=== PATIENT | male | born 1950 | race Caucasian/White ===

== ENCOUNTER 2016-10-13 11:05 | Inpatient (IN) ==
[2016-10-13] MEDS ORDERED: TYLENOL PO PRN (12:40)
[2016-10-13] MEDS ORDERED: VANCOMYCIN IV PER PHARMACY MISC SCH (12:45)
--- NOTE | 2016-10-13 13:00 | EKG Report ---
Test Performed on : 10/13/2016 12:57:24 PM Test Reason : sepsis Blood Pressure : / mmHG Vent. Rate : 095 BPM Atrial Rate : 101 BPM P-R Int : 000 ms QRS Dur : 084 ms QT Int : 348 ms P-R-T Axes : 000 093 074 degrees QTc Int : 437 ms Atrial fibrillation. Rightward axis Abnormal ECG When compared with ECG of 15-AUG-2016 09:29, No significant change was found Unconfirmed Result
[2016-10-13 13:13] LABS: BE 3.5 mmoll (-3.0-3.0); BLOOD TYPE ARTERIAL; O2(CT) 14.8 mL/dL (15.0-23.0); PCO2(98.6) 32 mmHg (35-45); PO2(98.6) 104 mmHg (60-100); SAMPLE BLOOD; SAO2 99.5 % (95.0-100.0); THB 10.8 g/dL (11.5-17.4); pH(98.6) 7.52 (7.35-7.45)
[2016-10-13 13:48] LABS: ALBUMIN 3.3 g/dL (3.5-5.0); BASO% 0.1 % (0.0-0.8); CALCIUM 8.6 mg/dL (8.8-10.2); HEMATOCRIT 34.2 % (42.0-52.0); IMM GRAN# 0.06 X1000 (0.0-0.04); IMM GRAN% 0.3 % (0.0-0.5); LYMPH# 1.44 X1000 (1.2-3.4); LYMPH% 7.9 % (20.5-51.1); MANUAL DIFF NEEDED? YES; MCH 27.5 PG (27-31); MCHC 32.2 g/dL (33-37); MCV 85.5 FL (81-99); MONO# 0.84 X1000 (0.11-0.59); MONO% 4.6 % (1.7-9.3); MPV 10.5 FL (7.4-10.4); NEUT% 87.1 % (42.2-75.2); PLT 198 X1000 (130-400); POTASSIUM 3.8 mmol/L (3.5-5.1); TOTAL BILIRUBIN 1.1 mg/dL (0.20-1.00); TOTAL PROTEIN 7.5 g/dL (6.3-8.3)
[2016-10-13] MEDS ORDERED: NS 1,000 ML IV ONE (14:12)
[2016-10-13] MEDS: NS 1,000 ML IV SCH ×2 (14:13→22:45)
[2016-10-13] MEDS: ZOSYN 2.25 GM/NS 50 ML IV SCH ×2 (14:13→21:54)
--- NOTE | 2016-10-13 14:21 | Diag Imaging Result Document ---
PROCEDURE NAME: CHEST-PORTABLE - 10/13/2016 PORTABLE CHEST X-RAY: COMPARISON: 08/14/2016. FINDINGS: Lung volumes are severely low, much more so than prior. No obvious infiltrates. Heart size and pulmonary vascularity is top normal. IMPRESSION: Low lung volumes but no acute disease.
[2016-10-13 14:24] LABS: LYMPHS 5 % (21-51); MONO 2 % (1-9)
[2016-10-13 14:30] LABS: CK INDEX 0.4 (0.0-2.5); CK-MB 9.61 ng/mL (0.0-5.0)
[2016-10-13 14:46] LABS: ALLEN TEST YES; DRAW SITE R RADIAL; MODALITY CANNULA
[2016-10-13 14:59] LABS: URINE CULTURE PL NEEDED? NO; URINE SOURCE CATH
--- NOTE | 2016-10-13 14:59 | HISTORY AND PHYSICAL ---
CHIEF COMPLAINT: Altered mentation, weakness, worsening redness and swelling over his right lower extremity. HISTORY OF PRESENT ILLNESS: This is a 66-year-old male with history of CAD, type 2 diabetes, PVD with chronic venous insufficiency who has been having worsening cellulitis changes of his right lower extremity. He has Unna boots on systematically and had 1 placed yesterday. According to he has had redness and swelling over his right lower extremity that has expanded since yesterday. He also had significant fever. He was significantly lethargic. Apparently was on the bathroom toilet and just could not get up and move. He had to be brought in by ambulance. I think initially he went to see his primary care physician Dr. Gooden who was concerned over sepsis again and urinary tract infection and he was directly admitted for treatment. The patient was evaluated and he is somewhat somnolent. Apparently he has done this before associated with infection. He does have a red lower extremity swelling and pain with concern over possible cellulitis. [place] [address], which is higher than it has been in the past since May. Last time he was septic enough he needed pressors. Other workup and direct admission is still pending. He has some renal insufficiency which is at baseline. The patient is being admitted for sepsis, presumed cellulitis source. Still evaluating for urinary source or possible pulmonary source. PAST MEDICAL HISTORY: 1. Again CAD. 2. Status post PCI. 3. Type 2 diabetes. 4. Peripheral vascular disease. 5. Hypertension. 6. Lumbar stenosis. 7. COPD. 8. GERD. 9. Hyperlipidemia. 10. Obstructive sleep apnea. 11. Morbid obesity. 12. Chronic venous insufficiency. 13. Restless legs syndrome. 14. Abdominal aortic aneurysm. 15. Chronic atrial fibrillation. 16. Chronic back pain. 17. Chronic venous insufficiency. PAST SURGICAL HISTORY: 1. Lumbar spine fusion. 2. Sinus surgery. 3. PCI. 4. Appendectomy. 5. Prostatectomy. 6. Abdominal aortic aneurysm repair. PAST SOCIAL HISTORY: No tobacco or ethanol. No alcohol. He is disabled. FAMILY HISTORY: Positive for CAD and diabetes. His father from a stroke, CAD and diabetes in mother. REVIEW OF SYSTEMS: Otherwise negative. No chest pain. Denies. He has had some cough. No dysuria. No nausea, vomiting, diarrhea. No bleeding. All other systems reviewed and are negative. PHYSICAL EXAMINATION: VITAL SIGNS: Blood pressure was 163/74, heart rate of 73, respiratory 23, temperature 98.6 degrees. GENERAL: A well-developed male, in no acute distress. HEAD: Normocephalic, atraumatic. EYES: Pupils equal, round, reactive to light. Extraocular movements were intact. EAR/NOSE/THROAT: Moist mucous membranes. NECK: Supple. CARDIOVASCULAR EXAM: Regular rate and rhythm. No murmurs, gallops, or rubs. Occasional rhonchi. GI: Soft, nontender, nondistended. Bowel sounds are positive. EXTREMITIES: No clubbing or cyanosis. LYMPHATIC EXAM: He had peripheral edema noted. SKIN EXAMINATION: He had weeping, erythematous, kind of boggy edematous feet with weeping and he had denervation of the skin along his 1st and 2nd and 3rd toes on both feet. He had purple mottling changes in right and lower extremity. Dorsalis pedal pulses were 1+. He had erythema streaking above his knee extending up into his thigh in the medial aspect. NEUROLOGICAL: Exam was nonfocal but he was definitely lethargic. He was alert, oriented x3. LABORATORY DATA: White count was 18, hemoglobin and hematocrit 11 and 30. Chemistries: Creatinine 1.8, sodium 130, T bilirubin 1.1. AST 42. CPK of 2489 which has never been that high before. PROBLEM LIST: 1. Sepsis presumably secondary to a cellulitis. We will empirically do vancomycin and Zosyn and follow clinically for improvement. I will get Dr. Crawley to evaluate him for his chronic wounds although at this point, I do not think there is any surgical debridement required. 2. Chronic renal failure stage 2. He is stable. Continue to monitor. 3. Diabetes. Follow blood sugars. Continue sliding scale. Continue A1c. 4. CAD status post PCI. Appears to be stable. 5. Altered mental status. We will check ABG. Follow clinically. Head CT if does not clinically improve although at this point, he has some nonfocal exam. DISPOSITION: Pending his multiple issues.
[2016-10-13 15:16] LABS: BILIRUBIN URINE NEGATIVE (NEGATIVE); BLOOD URINE 4+ (NEGATIVE); CLARITY CLEAR (CLEAR); COLOR YELLOW; GLUCOSE URINE NEGATIVE (NEGATIVE); LEUKOCYTES URINE NEGATIVE (NEGATIVE); NITRITE URINE NEGATIVE (NEGATIVE); PROTEIN URINE 1+(30 mg/dL) mg/dL (NEGATIVE); SP GRAVITY URINE 1.005; UROBILINOGEN URINE 4+(12 mg/dL)
[2016-10-13 15:23] LABS: UR AMPHETAMINES QUAL NONE DETECTED (NONE DETECT); UR BARBITUATES QUAL NONE DETECTED (NONE DETECT); UR BENZODIAZEPIN QUAL NONE DETECTED (NONE DETECT); UR CANNABINOIDS QUAL NONE DETECTED (NONE DETECT); UR COCAINE QUAL NONE DETECTED (NONE DETECT); UR MDMA QUAL NONE DETECTED (NONE DETECT); UR METHADONE QUAL NONE DETECTED (NONE DETECT); UR METHAMPHETAMINE QUAL NONE DETECTED (NONE DETECT); UR OPIATES QUAL NONE DETECTED (NONE DETECT); UR OXYCODONE QUAL PRESUMPTIVE POSITIVE (NONE DETECT); UR PCP QUAL NONE DETECTED (NONE DETECT); UR TCA QUAL PRESUMPTIVE POSITIVE (NONE DETECT); URINE EPITHELIAL CELLS <10 /HPF (<10)
[2016-10-13] MEDS ORDERED: VANCOMYCIN 2,500 MG in NS 500 ML IV ONE (17:00)
[2016-10-13] MEDS ORDERED: ASPIRIN PR ONE (17:08)
[2016-10-13] MEDS ORDERED: NITROGLYCERIN SL PRN (17:51)
[2016-10-13] MEDS ORDERED: ROBITUSSIN-AC PO PRN (17:58)
[2016-10-13] MEDS: GLUCOPHAGE PO SCH (18:33)
[2016-10-13] MEDS: COLACE PO SCH (21:45)
[2016-10-13] MEDS: DURAGESIC 25 MICROGM/HR PATCH TD SCH ×2 (21:53→22:14)
[2016-10-13] MEDS: CARAFATE PO SCH (21:54)
[2016-10-13] MEDS: TOPROL XL PO SCH (21:54)
[2016-10-13] MEDS: MIRAPEX PO SCH (21:54)
[2016-10-13] MEDS: PEPCID PO SCH (21:54)
[2016-10-13] MEDS: ELIQUIS PO SCH (21:55)
[2016-10-13] MEDS: PERCOCET-10 PO SCH (22:14)
[2016-10-13] MEDS: XOPENEX NEB INH SCH (22:15)
[2016-10-14] MEDS: MORPHINE IV PRN ×4 (01:55→23:18)
[2016-10-14] MEDS: ZOSYN 2.25 GM/NS 50 ML IV SCH ×3 (01:56→14:28)
[2016-10-14] MEDS: XOPENEX NEB INH SCH ×4 (03:49→21:06)
[2016-10-14] MEDS: NS 1,000 ML IV SCH ×2 (06:08→14:38)
[2016-10-14] MEDS: PRILOSEC PO SCH (06:08)
[2016-10-14] MEDS: SYNTHROID PO SCH (06:37)
[2016-10-14 06:41] LABS: HEMOGLOBIN 9.7 g/dL (14.0-18.0); MCH 27.6 PG (27-31); MCHC 32.3 g/dL (33-37); MCV 85.2 FL (81-99); MPV 11.5 FL (7.4-10.4); RBC 3.52 XMIL (4.7-6.1)
[2016-10-14 06:47] LABS: POTASSIUM 3.3 mmol/L (3.5-5.1)
[2016-10-14 06:54] LABS: HEMOGLOBIN A1C 7.1 % (4.8-6.0)
[2016-10-14] MEDS: CARAFATE PO SCH ×4 (08:36→21:22)
[2016-10-14] MEDS: JANUVIA PO SCH (08:37)
[2016-10-14] MEDS: SINGULAIR PO SCH (08:39)
[2016-10-14] MEDS: GLUCOPHAGE PO SCH ×2 (08:39→16:40)
[2016-10-14] MEDS: ELIQUIS PO SCH ×2 (08:41→21:22)
[2016-10-14] MEDS: PERCOCET-10 PO SCH (08:41)
[2016-10-14] MEDS: CARDIZEM CD PO SCH (08:42)
[2016-10-14] MEDS: COLACE PO SCH ×2 (08:43→21:22)
[2016-10-14] MEDS: MIRALAX PO SCH (08:43)
[2016-10-14] MEDS: TOPROL XL PO SCH ×2 (08:44→21:22)
[2016-10-14] MEDS: SPIRIVA INH SCH (09:43)
[2016-10-14] MEDS ORDERED: LEVAQUIN 750 MG/D5W 150 ML IV SCH (11:45)
--- NOTE | 2016-10-14 12:13 | PROGRESS NOTE ---
DATE: 10/14/2016 SUBJECTIVE: The patient has no focal complaints. He seems better. Still a little bit lethargic but no significant complaints. OBJECTIVE: Vital signs: Blood pressure was 134/54, heart rate of 98, respiratory rate of 18, temp was 98.8 degrees, 95% on room air. General: He appears in no acute distress. HEENT: Pupils equal, round, reactive to light. Sclerae anicteric. Neck: Supple. Cardiovascular: Regular rate and rhythm. No murmurs, gallops, or rubs. No left ventricular heave or displaced PMI noted. Pulmonary: Clear to auscultation with no increased respiratory effort. GI: Soft, obese. Nontender to palpation. Nondistended. Bowel sounds are positive. Skin Examination: He still had erythema tracking along the dependent portion's of his right extremity, not improved from yesterday. Painful to touch. Warm to touch. Erythematous. He still had weeping exudate on both feet bilaterally, on the dorsum and plantar aspects of his foot in the 2nd, 3rd, and 4th toe distribution on both feet with some boggy edema noted. Dorsalis pedis pulses were patent, 2+ on both sides. LABORATORY DATA: White count is down to 10, hemoglobin and hematocrit are 9 and 30, platelets 166,000. Chemistry: Potassium 3.3, sodium 132, creatinine 1.4, A1c of 7.1. ASSESSMENT AND PLAN: 1. Cellulitis with early sepsis. Clinically he is not improved but his white count has improved. I am going to add Levaquin to the vancomycin and Zosyn and get ID opinion. He may need IV antibiotics I think long-term to help with his infection may consider stopping vancomycin if he is not improved. I do not think this is MRSA. Based on his previous micro it has been more gram-negative issues, Pseudomonas, multiple species. He has had staph but not aureus in the past. So expand his gram-negative coverage. 2. Coronary artery disease, congestive heart failure. Appears to be compensated. Continue to monitor. 3. Acute kidney injury. Appears to be stable. We will continue to monitor. 4. Disposition. Pending issues. I think he is safe enough to get transfer to the floor today. Continue wound care.
--- NOTE | 2016-10-14 14:55 | CONSULTATION ---
DATE OF CONSULTATION: 10/14/2016 CHIEF COMPLAINT: Cellulitis of the lower extremities, chronic venous insufficiency. HISTORY: This is a 66-year-old gentleman followed by me in the [facility] because of chronic venous insufficiency in the leg as well as the toes. We treated him with attempts at compression therapy using an Unna boot, and we have attempted to use Drawtex on his toes in order to absorb the drainage. His foot, the plantar aspect of his foot is improved significantly but he has not been very compliant with compression therapy and treatment at home with the Drawtex. He was admitted on the with altered mental status. PAST HISTORY: Detailed, and is long. SOCIAL HISTORY: Denies alcohol or tobacco usage. REVIEW OF SYSTEMS: Negative for fever. PHYSICAL EXAMINATION: Vital Signs: Afebrile, heart rate 98, respiratory rate 18, blood pressure 104/57. Lungs: Bilateral breath sounds. Heart: Regular rate and rhythm. Abdomen: Soft. Extremities: He does have a chronic venous insufficiency with stasis dermatitis bilaterally. His legs are not terribly swollen as compared to the past. He does have palpable pedal pulses. He does have erythema and maceration of toes 1 through 3 on the left, toes 2 through 4 on the right. Plantar skin is intact and not wet. ASSESSMENT: Poor medical compliance regarding his compression therapy. While he is in the hospital I think we can avoid wraps for his leg since he is in the bed with his legs elevated. I would try using some zinc oxide wraps on each individual involved toe. I will follow along.
[2016-10-14] MEDS: VANCOMYCIN 2,000 MG in NS 500 ML IV SCH (17:26)
[2016-10-14] MEDS: OXY IR PO PRN (17:50)
--- NOTE | 2016-10-14 19:43 | PROGRESS NOTE ---
DATE: 10/14/2016 PRESENT CONDITION: The patient has been admitted to the hospital. He has severe leg cellulitis of both legs but seems to be more prominent in the right leg than the left.Lungs: Clear to auscultation. Cardiovascular: Irregular heart rate. A Abdomen: Soft and nontender. Legs as mentioned above, both legs are erythematous and swollen but the right leg is much more and the erythema is all the way up to the hip. MEDICATIONS: The patient has been on vancomycin, Levaquin and Zosyn. LAB AND X-RAY: Chest x-ray shows no acute disease. The patient's CBC shows a white count of 10,030, hemoglobin 9.7, and platelet count 166,000. Creatinine is 1.4. The GFR is 51. The blood and 2nd toe have been cultured. The cultures are pending. Chest x-ray shows no acute disease. ASSESSMENT AND PLAN: The patient has bilateral leg cellulitis. I think he actually is improving by virtue of the fact that his white count is coming down and his creatinine also is coming down. Sometimes the erythema in the legs can persist and even spread when initially given antibiotics. My plan is to continue with vancomycin. I have discontinued Zosyn and Levaquin and instead have placed the patient on cefepime. I have ordered that the foot of the patient's bed should remain elevated with the manual Gatch at all times and also the patient should elevate his legs as much as possible. COMORBIDITIES: Include he is morbidly obese. He has peripheral vascular disease, diabetes mellitus, and chronic venous insufficiency of the legs.
[2016-10-14] MEDS ORDERED: ZOSYN 2.25 GM/NS 50 ML IV SCH (20:00)
[2016-10-14] MEDS: MIRAPEX PO SCH (21:21)
[2016-10-14] MEDS: MAXIPIME 2 GM/NS 100 ML IV SCH (21:22)
[2016-10-14] MEDS: PEPCID PO SCH (21:22)
[2016-10-14] MEDS: LIPITOR PO SCH (21:22)
[2016-10-15] MEDS: OXY IR PO PRN ×3 (01:08→17:04)
[2016-10-15] MEDS: XOPENEX NEB INH SCH ×4 (03:15→21:00)
[2016-10-15] MEDS: MAXIPIME 2 GM/NS 100 ML IV SCH ×3 (03:19→19:47)
[2016-10-15] MEDS: MORPHINE IV PRN ×2 (04:54→22:48)
[2016-10-15] MEDS: PRILOSEC PO SCH (06:04)
[2016-10-15] MEDS: SYNTHROID PO SCH (06:04)
[2016-10-15] MEDS: NS 1,000 ML IV SCH ×2 (06:07→16:42)
[2016-10-15 06:22] LABS: HEMOGLOBIN 9.7 g/dL (14.0-18.0); MCH 27.2 PG (27-31); MCHC 31.3 g/dL (33-37); MCV 86.8 FL (81-99); MPV 10.9 FL (7.4-10.4); RBC 3.57 XMIL (4.7-6.1)
[2016-10-15 06:40] LABS: CALCIUM 8.2 mg/dL (8.8-10.2); POTASSIUM 3.9 mmol/L (3.5-5.1)
[2016-10-15] MEDS: SPIRIVA INH SCH (07:44)
[2016-10-15] MEDS: JANUVIA PO SCH (08:18)
[2016-10-15] MEDS: COLACE PO SCH ×2 (08:18→20:55)
[2016-10-15] MEDS: GLUCOPHAGE PO SCH ×2 (08:18→16:42)
[2016-10-15] MEDS: ELIQUIS PO SCH ×2 (08:18→20:56)
[2016-10-15] MEDS: SINGULAIR PO SCH (08:19)
[2016-10-15] MEDS: CARAFATE PO SCH ×4 (08:19→20:56)
[2016-10-15] MEDS: TOPROL XL PO SCH ×2 (08:19→20:56)
[2016-10-15] MEDS: CARDIZEM CD PO SCH (08:19)
[2016-10-15] MEDS: MIRALAX PO SCH (08:19)
--- NOTE | 2016-10-15 09:24 | Extremity Venous Study ---
PROCEDURE NAME: Venous U/S Right Leg - 10/14/2016 RIGHT LEFT EXTREMITY VENOUS DOPPLER ULTRASOUND: FINDINGS: There is good flow and compressibility in the veins of the right left extremity. No thrombus. Normal augmentation. There are several prominent nodes in the right inguinal region. IMPRESSION: 1. No evidence of deep vein thrombosis. 2. Prominent right inguinal lymph nodes. A preliminary report was given to Dr. Castle at 9:30 a.m.
--- NOTE | 2016-10-15 16:33 | PROGRESS NOTE ---
DATE: 10/15/2016 SUBJECTIVE: The patient looks much more awake and alert. He seems like he is doing a lot better. However, his cellulitis still looks very red, irritated, and painful. OBJECTIVE: Vital Signs: Blood pressure 154/72, heart rate of 92, respiratory rate 20, temperature 98.5 degrees, 97% on room air. Cardiovascular: Regular rate and rhythm. Gastrointestinal: Soft, nontender, nondistended. Bowel sounds are positive. LABORATORY DATA: Normal white count. Hemoglobin and hematocrit 9 and 31. Platelets 159,000. Chemistries are okay. Potassium is 1.4. Blood gas is okay. Urine is okay. Serology is okay. PROBLEM LIST: 1. Cellulitis. Dr. Alnozo was consulted. He is currently on vancomycin and Dr. Alonzo switched him to cefepime. His cellulitis is still very red and angry. We will continue to follow clinically. Now his white count has drastically improved and he is still having a lot of discomfort. Dr. Crawley has also seen him as well. 2. Chronic renal insufficiency with acute kidney injury. Again, that seems clinically improved. 3. Coronary artery disease and congestive heart failure. Appears to be compensated. DISPOSITION: We will decide about IV versus oral antibiotic therapy at discharge. The patient states he cannot afford home IV therapy because the [id number] costs are too high, so we will continue to follow otherwise. I am going to decrease his fluids. I do not think he needs aggressive hydration because I think he is at his baseline.
[2016-10-15] MEDS: VANCOMYCIN 2,000 MG in NS 500 ML IV SCH (16:42)
[2016-10-15] MEDS: MIRAPEX PO SCH (20:55)
[2016-10-15] MEDS: PEPCID PO SCH (20:56)
[2016-10-15] MEDS: LIPITOR PO SCH (20:58)
[2016-10-16] MEDS: MAXIPIME 2 GM/NS 100 ML IV SCH ×3 (03:08→19:51)
[2016-10-16] MEDS: OXY IR PO PRN ×3 (03:11→14:54)
[2016-10-16] MEDS: ZOFRAN IV PRN (03:12)
[2016-10-16] MEDS: XOPENEX NEB INH SCH ×4 (04:55→22:36)
[2016-10-16] MEDS: PRILOSEC PO SCH (06:42)
[2016-10-16] MEDS: SYNTHROID PO SCH (06:42)
[2016-10-16 06:45] LABS: HEMATOCRIT 31.4 % (42.0-52.0); HEMOGLOBIN 10.1 g/dL (14.0-18.0); MCH 27.5 PG (27-31); MCHC 32.2 g/dL (33-37); MCV 85.6 FL (81-99); MPV 11.1 FL (7.4-10.4); RBC 3.67 XMIL (4.7-6.1)
[2016-10-16 07:23] LABS: POTASSIUM 3.2 mmol/L (3.5-5.1)
[2016-10-16] MEDS: SPIRIVA INH SCH (08:35)
[2016-10-16] MEDS: SINGULAIR PO SCH (09:05)
[2016-10-16] MEDS: TOPROL XL PO SCH ×2 (09:05→21:04)
[2016-10-16] MEDS: JANUVIA PO SCH (09:05)
[2016-10-16] MEDS: CARAFATE PO SCH ×4 (09:05→21:04)
[2016-10-16] MEDS: COLACE PO SCH ×2 (09:05→21:03)
[2016-10-16] MEDS: CARDIZEM CD PO SCH (09:06)
[2016-10-16] MEDS: GLUCOPHAGE PO SCH ×2 (09:06→18:06)
[2016-10-16] MEDS: ELIQUIS PO SCH ×2 (09:06→21:04)
[2016-10-16] MEDS: MIRALAX PO SCH (09:06)
[2016-10-16] MEDS ORDERED: SODIUM CHLORIDE 0.9% 10 ML ONE (14:34)
--- NOTE | 2016-10-16 14:58 | PROGRESS NOTE ---
DATE: 10/16/2016 SUBJECTIVE: The patient has no focal complaints. OBJECTIVE: Blood pressure 125/74, heart rate 94, respiratory 16, temperature 95 degrees, 95% on room air.Cardiovascular: Regular rate and rhythm. Pulmonary: Bilateral breath sounds. Clear to auscultation. GI: Soft, nontender, nondistended. Extremities: He has chronic venous changes both legs. His right lower extremity still has significant erythema along his right medial and posterior thigh. I do not think it has extended since yesterday however it is still warm to the touch and still somewhat painful. He feels it has improved. He also has superficial denudation over the anterior dorsum of his feet near his 2nd, 3rd and 4th digits on both feet with some bloody exudate which is new. MEDICAL ISSUES: 1. Cellulitis with sepsis. Wound culture is growing something, it is a gram negative antoinette so I am just going to continue his cefepime alone at this point and follow him clinically. Again I would consider doing IV antibiotics at home but there may be some barriers to care associated with cost. Dr. Alonzo has seen the patient and did not make that recommendations so once we have sensitivities we will decide on long-term antibiotics. 2. Diabetes appears well controlled. 3. Atrial fibrillation appears well controlled. Continue Eliquis. DISPOSITION: Likely home in the next 1-2 days pending clinical improvement.
[2016-10-16] MEDS: NS 1,000 ML IV SCH (16:40)
[2016-10-16] MEDS ORDERED: DURAGESIC 50 MICROGM/HR PATCH TD SCH (18:00)
[2016-10-16] MEDS: PEPCID PO SCH (21:03)
[2016-10-16] MEDS: MIRAPEX PO SCH (21:04)
[2016-10-16] MEDS: LIPITOR PO SCH (21:04)
[2016-10-17] MEDS: MAXIPIME 2 GM/NS 100 ML IV SCH ×3 (03:15→20:25)
[2016-10-17] MEDS: ZOFRAN IV PRN ×2 (03:33→16:56)
[2016-10-17] MEDS: OXY IR PO PRN ×3 (03:33→16:55)
[2016-10-17] MEDS: XOPENEX NEB INH SCH ×4 (03:36→22:18)
[2016-10-17] MEDS: PRILOSEC PO SCH (06:23)
[2016-10-17] MEDS: SYNTHROID PO SCH (06:23)
[2016-10-17 06:51] LABS: MCHC 31.3 g/dL (33-37); MCV 86.5 FL (81-99); MPV 10.9 FL (7.4-10.4); RBC 3.7 XMIL (4.7-6.1)
[2016-10-17 06:54] LABS: CALCIUM 8.5 mg/dL (8.8-10.2); MAGNESIUM 1.8 mg/dL (1.5-2.7); POTASSIUM 3.3 mmol/L (3.5-5.1)
[2016-10-17] MEDS: SPIRIVA INH SCH (08:35)
[2016-10-17] MEDS: COLACE PO SCH ×2 (08:52→20:26)
[2016-10-17] MEDS: TOPROL XL PO SCH ×2 (08:52→20:26)
[2016-10-17] MEDS: CARAFATE PO SCH ×4 (08:52→20:26)
[2016-10-17] MEDS: GLUCOPHAGE PO SCH ×2 (08:52→16:55)
[2016-10-17] MEDS: ELIQUIS PO SCH ×2 (08:52→20:26)
[2016-10-17] MEDS: SINGULAIR PO SCH (08:52)
[2016-10-17] MEDS: JANUVIA PO SCH (08:53)
[2016-10-17] MEDS: CARDIZEM CD PO SCH (08:53)
[2016-10-17] MEDS: MIRALAX PO SCH (08:54)
[2016-10-17] MEDS ORDERED: KLOR-CON PO ONE (14:27)
[2016-10-17] MEDS: NS 1,000 ML IV SCH (17:02)
--- NOTE | 2016-10-17 18:28 | Diag Imaging Result Document ---
PROCEDURE NAME: HEAD W/O CONTRAST - 10/17/2016 STUDY: Head CT. A CT dose reduction protocol was used. COMPARISON: 08/14/2016. FINDINGS: The ventricles and sulci are normal in size and contour. There is no mass, hemorrhage, or evidence of acute ischemia. The bony calvaria is intact. The visualized paranasal sinuses and mastoid air cells are clear. IMPRESSION: Negative head CT. MTDD
--- NOTE | 2016-10-17 18:30 | PROGRESS NOTE ---
DATE: 10/17/2016 SUBJECTIVE: The patient is alert, oriented. He appears a bit dramatic. He says he is having trouble grasping things or if he does not pay attention to something he is holding he drops it. He says in bed he has dropped ice several times not quite sure why is holding ice in bed and but is dropping it in his bed apparently. Patient otherwise has no major complaints. OBJECTIVE: Vital signs: Blood pressure 149/91, heart rate of 81, respiratory 16, temperature 97.9 degrees, 96% on room air. Cardiovascular: Irregularly irregular. Pulmonary: Bilateral breath sounds. Clear to auscultation. GI: Was soft, nontender, nondistended. Bowel sounds are positive. Extremities: Both are wrapped today in the [place] kind of preliminary unna boot wrap. His erythema is decreased in his right lower extremity around his knee and thigh. He claims it is still very tender and painful but he is not complaining about it when palpated and again it is much less erythematous today than previously. PROBLEMS: 1. Cellulitis, sepsis associated with a Pseudomonas infection. He is on cefepime. The Pseudomonas his fortunately pansensitive so we could discharge him on Levaquin. I think home IV antibiotics would be preferential but the cost precludes him being able to afford it because it costs 300 dollars a day for dosing and not quite sure how that is. I will discuss tomorrow Dr. Alonzo about what he wants to do, he did not seem excited about pushing for home IV therapy. We will then do snf Levaquin 2-3 weeks and follow. 2. Diabetes appears to be well controlled. 3. Hypertension appears well controlled. 4. Atrial fibrillation . He is controlled on his current medication. DISPOSITION: I think he could go home tomorrow pending rest of his workup. We will continue to follow very closely.
[2016-10-17] MEDS: MIRAPEX PO SCH (20:25)
[2016-10-17] MEDS: LIPITOR PO SCH (20:26)
[2016-10-17] MEDS: PEPCID PO SCH (20:26)
[2016-10-17] MEDS: MORPHINE IV PRN (22:38)
[2016-10-18] MEDS: XOPENEX NEB INH SCH ×4 (03:01→21:12)
[2016-10-18] MEDS: MAXIPIME 2 GM/NS 100 ML IV SCH ×3 (03:05→21:22)
[2016-10-18] MEDS: PRILOSEC PO SCH (06:19)
[2016-10-18] MEDS: SYNTHROID PO SCH (06:19)
[2016-10-18 07:05] LABS: CALCIUM 8.6 mg/dL (8.8-10.2); POTASSIUM 3.3 mmol/L (3.5-5.1)
[2016-10-18] MEDS: SPIRIVA INH SCH (09:13)
[2016-10-18] MEDS: COLACE PO SCH ×2 (10:22→21:02)
[2016-10-18] MEDS: GLUCOPHAGE PO SCH ×2 (10:23→19:03)
[2016-10-18] MEDS: ELIQUIS PO SCH ×2 (10:23→21:02)
[2016-10-18] MEDS: TOPROL XL PO SCH ×2 (10:23→21:01)
[2016-10-18] MEDS: SINGULAIR PO SCH (10:23)
[2016-10-18] MEDS: JANUVIA PO SCH (10:23)
[2016-10-18] MEDS: CARDIZEM CD PO SCH (10:24)
[2016-10-18] MEDS: MIRALAX PO SCH (10:24)
[2016-10-18] MEDS: CARAFATE PO SCH ×4 (10:24→21:09)
[2016-10-18] MEDS ORDERED: KLOR-CON PO ONE (14:26)
[2016-10-18] MEDS: PEPCID PO SCH (21:00)
[2016-10-18] MEDS: LIPITOR PO SCH (21:00)
[2016-10-18] MEDS: MIRAPEX PO SCH (21:01)
[2016-10-18] MEDS: NS 1,000 ML IV SCH (21:22)
[2016-10-18] MEDS: OXY IR PO PRN (23:26)
[2016-10-19] MEDS: XOPENEX NEB INH SCH ×2 (04:33→09:42)
[2016-10-19] MEDS: MAXIPIME 2 GM/NS 100 ML IV SCH ×2 (04:42→12:20)
[2016-10-19] MEDS: SYNTHROID PO SCH (06:41)
[2016-10-19] MEDS: PRILOSEC PO SCH (06:41)
[2016-10-19] MEDS: CARAFATE PO SCH ×2 (06:41→11:43)
[2016-10-19] MEDS: OXY IR PO PRN (08:26)
[2016-10-19] MEDS: CARDIZEM CD PO SCH (08:27)
[2016-10-19] MEDS: COLACE PO SCH (08:27)
[2016-10-19] MEDS: ELIQUIS PO SCH (08:27)
[2016-10-19] MEDS: SINGULAIR PO SCH (08:27)
[2016-10-19] MEDS: JANUVIA PO SCH (08:28)
[2016-10-19] MEDS: GLUCOPHAGE PO SCH ×2 (08:28→08:31)
[2016-10-19] MEDS: MIRALAX PO SCH (08:28)
[2016-10-19] MEDS: TOPROL XL PO SCH (08:28)
[2016-10-19] MEDS: SPIRIVA INH SCH (09:42)
[2016-10-19 11:35] VITALS: BP 130/81
--- NOTE | 2016-10-20 09:05 | DISCHARGE SUMMARY ---
ADMISSION DATE: 10/13/2016 DISCHARGE DATE: 10/19/2016 PRIMARY CARE PHYSICIAN: Dr. Gooden ADMISSION DIAGNOSES: 1. Sepsis presumably secondary to a cellulitis. 2. Chronic renal failure stage 2. 3. Diabetes. 4. Coronary artery disease status-post percutaneous coronary intervention. 5. Altered mental status. DISCHARGE DIAGNOSES: 1. Cellulitis, sepsis associated with a pseudomonas aeruginosa infection. 2. Diabetes type 2. 3. Hypertension. 4. Chronic renal failure stage 2. 5. Altered mental status, resolved. SUMMARY OF FINDINGS: This is a 66-year-old male who presented to [facility] with worsening cellulitis changes of his right lower extremity. He had an unna boot on systematically that was placed on the day prior to arrival. They had noted redness and swelling to his right lower extremity. He had significant lethargy and fever and had apparently gone to the bathroom toilet and just could not get up and move and had to be brought in by ambulance. His workup showed a white blood cell count of 18,000. He was placed on IV antibiotics. We obtained a wound culture and consulted Surgery and Infectious Disease. His urine and blood cultures showed no growth. Wound culture of his right second toe showed a pseudomonas aeruginosa that is sensitive to Levaquin. I discussed these findings with Dr. Alonzo of Infectious Disease who felt that he could safely be placed on p.o. Levaquin 500 mg for 2 weeks. He has been afebrile for greater than 24 hours and it is felt that he can safely be discharged home today. He will resume his Home Health that he had prior to this admission. He will follow up with the [facility] also and then he will follow up with his primary care physician in 1-2 weeks. His mentation is back at baseline where he is alert and oriented and answers all questions appropriately so it is felt that he can safely be discharged home. It is noted on 10/17/2016 that we did a head CT that was reported as negative. DISCHARGE MEDICATIONS: He will have a prescription for Levaquin 500 mg 1 p.o. daily for 14 days. He will continue his other home medication of Lipitor 40 mg p.o. daily, Eliquis 5 mg p.o. b.i.d., Cardizem 240 mg p.o. daily, Colace 100 mg p.o. b.i.d., famotidine 40 mg p.o. at bedtime, Xopenex nebulizers every 6 hours, Synthroid 50 mcg p.o. daily, metformin 500 mg p.o. b.i.d., metoprolol 100 mg p.o. b.i.d., montelukast sodium 10 mg p.o. daily, omeprazole 40 mg p.o. daily, oxycodone 15 mg p.o. every 6 hours p.r.n., MiraLAX 17 grams p.o. daily, Mirapex 1.5 mg p.o. at bedtime, Januvia 25 mg p.o. daily, Carafate 1 gram p.o. before meals and at bedtime, Spiriva 18 mcg inhalation daily, ProAir inhalation 4 times daily p.r.n., vitamin B12 injection daily, Flexeril 10 mg p.o. t.i.d, and Percocet 10 mg 1 p.o. b.i.d.. DISCHARGE TIME: 35 minutes. Dictated by UNIQUE Viveros for Ayo Castle MD
== END 2016-10-19 12:17 | disposition home health service (06) ==
LOC: P.DIRADM 11:05 → P.ICU 11:56 → P.MEDSURG 10-14 15:55
PROVIDERS: ATTEND Internal Medicine

== ENCOUNTER 2016-12-06 15:06 | Inpatient (IN) ==
[2016-12-06] MEDS ORDERED: TYLENOL PO ONE (15:22)
[2016-12-06] MEDS ORDERED: TYLENOL ONE (15:27)
[2016-12-06] MEDS ORDERED: NS 1,000 ML IV ONE (16:40)
--- NOTE | 2016-12-06 16:49 | EKG Report ---
Test Performed on : 12/06/2016 4:47:23 PM Test Reason : AMS Blood Pressure : / mmHG Vent. Rate : 100 BPM Atrial Rate : 394 BPM P-R Int : 000 ms QRS Dur : 080 ms QT Int : 316 ms P-R-T Axes : 000 046 052 degrees QTc Int : 407 ms Atrial fibrillation. Abnormal ECG When compared with ECG of 13-OCT-2016 12:57, No significant change was found Unconfirmed Result
--- NOTE | 2016-12-06 17:01 | Diag Imaging Result Document ---
PROCEDURE NAME: CHEST-2 VIEWS - 12/06/2016 FRONTAL AND LATERAL CHEST, TWO VIEWS: COMPARISON: 10/13/2016. FINDINGS: The heart is not enlarged. The vessels are not distended. There is a small left effusion versus pleural thickening and there is atelectasis or fibrosis in the left base. The right lung is clear except for granulomata inferiorly. IMPRESSION: Small left effusion versus pleural thickening with left basilar atelectasis or fibrosis.
[2016-12-06] MEDS ORDERED: VANCOMYCIN 1 GM/NS 1 GM/250 ML IVPB IV ONE (17:05)
[2016-12-06] MEDS ORDERED: ZOSYN 3.375 GM/NS 3.375 GM/50 ML IVPB IV ONE (17:05)
--- NOTE | 2016-12-06 17:07 | PROVIDER DOCUMENTATION ---
HPI-Fever - General Chief Complaint: Fever Stated Complaint: B/P PROBLEMS/FEVER Time Seen by Provider: 12/06/16 16:38 Source: patient, family Allergies/Adverse Reactions: Patient Allergies Allergy/AdvReac Type Severity Reaction Status Date / Time No Known Allergies Allergy Verified 12/06/16 17:01 Home Medications: Home Medication List Medication Instructions Recorded Confirmed Last Taken Type ATORVAstatin [Lipitor] 40 mg PO DAILY 05/06/16 12/06/16 08/14/16 08:00 History Famotidine 40 mg PO QHS 05/06/16 12/06/16 08/13/16 21:00 History Omeprazole [Prilosec] 40 mg PO DAILY 05/06/16 12/06/16 08/14/16 08:00 History Pramipexole Di-HCl [Pramipexole ER] 1.5 mg PO QHS 05/06/16 12/06/16 08/13/16 20: 00 History Sucralfate [Carafate] 1 gm PO AC + HS 05/06/16 12/06/16 08/14/16 08:00 History Diltiazem HCl [Diltiazem 12Hr ER] 240 mg PO DAILY 08/14/16 12/06/16 08/14/16 08: 00 History Apixaban [Eliquis] 5 mg PO BID #60 tablet 08/19/16 12/06/16 Unknown Rx Docusate Sodium [Colace] 100 mg PO BID #60 capsule 08/19/16 12/06/16 Unknown Rx Levalbuterol Neb [Xopenex Neb] 1.25 mg INH RTQ6H #5 neb 08/19/16 12/06/16 Unknown Rx Polyethylene Glycol 3350 [Miralax] 17 gm PO DAILY #5 powder, packet 08/19/16 Unknown Rx Sitagliptin Phosphate [Januvia] 25 mg PO DAILY #30 tablet 08/19/16 12/06/16 Unknown Rx Tiotropium Mancos Inhaler 18 mcg IH DAILY #1 inhaler 08/19/16 12/06/16 Unknown Rx [Spiriva] Albuterol Sulfate [Proair 90 mcg IH [id number] PRN 10/13/16 12/06/16 Unknown History Respiclick] Levothyroxine [Synthroid] 50 microgm PO DAILY 10/13/16 12/06/16 Unknown History Metformin HCl 500 mg PO BID 10/13/16 12/06/16 Unknown History Oxycodone HCl 15 mg PO Q6H PRN 10/13/16 12/06/16 10/12/16 History Amitriptyline [Elavil] 10 mg PO HS 12/06/16 12/06/16 Unknown History - History of Present Illness-Fever Nature of Presenting Problem: 66 year old obese WM presents with c/o fever, max temp 103.5 at home, chills, and weakness for 24 hours. pt reports a new area of erythema to left upper thigh , hot to the touch. Fever Severity/Quality: reports: greater than 102 F Onset/Duration: reports: 24 hours ago Timing: reports: still present, constant, getting worse Severity: reports: mild Context: reports: other (see HPI) Recent Illness?: reports: none Fever Therapy [employer]: Initiated none Cognitive Baseline: alert, oriented x3 Modifying Factors: improves with: nothing Associated Symptoms: reports: fever/chills, weakness Similar Symptoms Previously?: Yes Recently seen or treated by another doctor?: No - Glascow Coma Score Best Eye Response (Sena): (4) open spontaneously Best Verbal Response ([place]): (5) oriented Best Motor Response (Sena): (6) obeys commands [place] Total: 15 Review of Systems - Adult - REVIEW OF SYSTEMS - ADULT Constitutional: reports: see HPI, chills, fever, fatique Eyes: reports: no symptoms reported. denies: discharge, blurred vision, double vision Ears, Nose, Mouth & Throat: reports: no symptoms reported. denies: ear discharge, ear pain, nose pain, loose teeth, throat pain, throat swelling Cardiovascular: reports: no symptoms reported. denies: chest pain, palpitations , syncope Respiratory: reports: no symptoms reported. denies: chronic cough, cough, shortness of breath, wheezing Gastrointestinal: reports: see HPI, poor appetite. denies: abdominal pain, diarrhea, nausea, vomiting Genitourinary: reports: no symptoms reported. denies: dysuria, hematuria, urgency Musculoskeletal: reports: no symptoms reported. denies: bone pain, joint pain, joint swelling, muscle weakness Integumentary: reports: see HPI, rash, skin sores/ulcer (left upper thigh) Neurological: reports: no symptoms reported. denies: dizziness/vertigo, headache/migraines Psychiatric: reports: no symptoms reported Endocrine: reports: no symptoms reported. denies: increased hunger, increased thirst, polyuria Hematologic/Lymphatic: reports: no symptoms reported Allergic/Immunologic: reports: see HPI, frequent infections All Other Systems: Reviewed and Negative Past History - Adult - PAST MEDICAL HISTORY-ADULT Review of Records: reports: Old Records Reviewed, Nursing Assessment Review, Medications Reviewed, Social history reviewed & non-contributory. Major Childhood Illnesses: reports: denies history Cardiovascular: reports: A-Fib, CAD, CHF, HTN, hyperlipidemia, [place], PVD Respiratory: reports: asthma, COPD, other (asbestos) Gastrointestinal: reports: denies history Obstetrical/Gynecological: reports: denies history Genitourinary: reports: cancer (Hx: prostate), kidney disease Musculoskeletal: reports: chronic pain, other (restless leg syndrome) Neurological: reports: CVA Psychiatric: reports: depression Endocrine/Immune: reports: Diabetes, thyroid disorder Diabetes Type: Type 2 Diabetes controlled by:: PO Meds Other Conditions: reports: denies history - PRIOR SURGERIES/PROCEDURES Surgical/Procedure History: reports: colonoscopy, other (AAA, abdominal aortic stents) - IMMUNIZATION STATUS Childhood Immunizations: See Nurse Assessment Flu Vaccine: See Nurse Assessment - FAMILY HISTORY Family History: CAD over 55 yo, other (type 2 diabetes) - SOCIAL HISTORY Smoking: quit greater than 1 year, cigarettes Substance Use: none/never Alcohol Use Frequency: never Physical Exam-General - PHYSICAL EXAM-ADULT Initial Vital Signs Reviewed: Yes - CONSTITUTIONAL General Appearance: appears well, alert, mild distress, obese. negative: no apparent distress, moderate distress - EYES Eyes: pink conjunctivae - HEAD, EARS, NOSE, MOUTH & THROAT HENMT: normocephalic/atraumatic, moist mucous membranes - NECK Neck: non-tender, full range of motion, supple, normal inspection. negative: C- spine tenderness, limited range of motion, tender lateral, tender midline - RESPIRATORY Respiratory: chest non-tender, lungs clear, normal breath sounds, no pleuratic chest pain, no respiratory distress, no accessory muscle use. negative: respiratory distress, decreased breath sounds, accessory muscle use, crackles, rales, rhonchi, stridor, wheezing - CARDIOVASCULAR Cardiovascular: normal peripheral pulses, no JVD, tachycardia, irregularly irregular. negative: regular rate, rhythm, no edema - GASTROINTESTINAL (ABDOMEN) Abdominal Exam: normal bowel sounds, non tender, soft, no organomegaly. negative: distended, guarding, rigid, tenderness, hernia, mass, hepatomegaly, spleenomegaly - MUSCULOSKELETAL Back Exam: normal inspection, no CVA tenderness, no vertebral tenderness. negative: CVA tenderness, decreased range of motion, swelling, vertebral tenderness Extremity: erythema (left upper thigh, medially/laterally), swelling, tenderness Progress - PLAN OF CARE/RESULTS Progress/Plan/Lab Results: Vital Signs - 8 hr 12/06/16 15:17 12/06/16 17:47 Temperature 101.5 F H Pulse Rate 118 H 85 Respiratory Rate 19 21 Blood Pressure 150/79 121/66 O2 Sat by Pulse Oximetry 96 94 L Laboratory Results - last 24 hr 12/06/16 12/06/16 12/06/16 15:20 16:20 16:55 WBC RBC Hgb Hct MCV MCH MCHC RDW Std Deviation Plt Count MPV Immature Gran % (Auto) Neut % (Auto) Lymph % (Auto) [place] % (Auto) Eos % (Auto) Baso % (Auto) Immature Gran # (Auto) Neut # (Auto) Lymph # (Auto) [place] # (Auto) Eos # (Auto) Baso # (Auto) PT INR APTT (Factor Assay) Sodium 129 L Potassium 3.5 Chloride 94 L Carbon Dioxide 20 L Anion Gap 14 BUN 16 Creatinine 1.6 H Estimated GFR/1.73 m2 43 BUN/Creatinine Ratio 10 Glucose 218 H Calculated Osmolality 267 Calcium 8.0 L Total Bilirubin 0.50 AST 14 ALT 8 L Alkaline Phosphatase 90 Total Protein 7.4 Albumin 3.3 L Globulin 4.0 Albumin/Globulin Ratio 1.0 Plasma Lactate Urine Source CLEAN CATCH Urine Color YELLOW Urine Clarity CLEAR Urine pH 7.0 Ur Specific [place] 1.005 Urine Protein 1+(30 mg/dL) A Urine Ketones NEGATIVE Urine Blood TRACE Urine Nitrite NEGATIVE Urine Bilirubin NEGATIVE Urine Urobilinogen NORMAL Urine Microscopic RBC <10 Urine WBC TRACE A Urine Microscopic WBC <10 Ur Epithelial Cells <10 Urine Crystals NONE SEEN Urine Bacteria 1+ Urine Casts NONE SEEN Urine Yeast NONE SEEN Urine Glucose NEGATIVE Acetone Level Influenza A (Rapid) NEGATIVE Influenza B (Rapid) NEGATIVE 12/06/16 12/06/16 12/06/16 16:55 16:55 16:55 WBC 16.27 H RBC 4.04 L Hgb 10.9 L Hct 34.2 L MCV 84.7 MCH 27.0 MCHC 31.9 L RDW Std Deviation 15.9 H Plt Count 156 MPV 10.7 H Immature Gran % (Auto) 0.2 Neut % (Auto) 91.1 H Lymph % (Auto) 5.5 L Chaves % (Auto) 3.1 Eos % (Auto) 0.0 Baso % (Auto) 0.1 Immature Gran # (Auto) 0.04 Neut # (Auto) 14.82 H Lymph # (Auto) 0.90 L Ch[place] # (Auto) 0.50 Eos # (Auto) 0.00 Baso # (Auto) 0.01 PT 15.0 INR 1.15 APTT (Factor Assay) 34.4 Sodium Potassium Chloride Carbon Dioxide Anion Gap BUN Creatinine Estimated GFR/1.73 m2 BUN/Creatinine Ratio Glucose Calculated Osmolality Calcium Total Bilirubin AST ALT Alkaline Phosphatase Total Protein Albumin Globulin Albumin/Globulin Ratio Plasma Lactate 2.6 H Urine Source Urine Color Urine Clarity Urine pH Ur Specific [place] Urine Protein Urine Ketones Urine Blood Urine Nitrite Urine Bilirubin Urine Urobilinogen Urine Microscopic RBC Urine WBC Urine Microscopic WBC Ur Epithelial Cells Urine Crystals Urine Bacteria Urine Casts Urine Yeast Urine Glucose Acetone Level Influenza A (Rapid) Influenza B (Rapid) 12/06/16 16:55 WBC RBC Hgb Hct MCV MCH MCHC RDW Std Deviation Plt Count MPV Immature Gran % (Auto) Neut % (Auto) Lymph % (Auto) [place] % (Auto) Eos % (Auto) Baso % (Auto) Immature Gran # (Auto) Neut # (Auto) Lymph # (Auto) [place] # (Auto) Eos # (Auto) Baso # (Auto) PT INR APTT (Factor Assay) Sodium Potassium Chloride Carbon Dioxide Anion Gap BUN Creatinine Estimated GFR/1.73 m2 BUN/Creatinine Ratio Glucose Calculated Osmolality Calcium Total Bilirubin AST ALT Alkaline Phosphatase Total Protein Albumin Globulin Albumin/Globulin Ratio Plasma Lactate Urine Source Urine Color Urine Clarity Urine pH Ur Specific [place] Urine Protein Urine Ketones Urine Blood Urine Nitrite Urine Bilirubin Urine Urobilinogen Urine Microscopic RBC Urine WBC Urine Microscopic WBC Ur Epithelial Cells Urine Crystals Urine Bacteria Urine Casts Urine Yeast Urine Glucose Acetone Level NEGATIVE Influenza A (Rapid) Influenza B (Rapid) Orders Category Date Time Status Admit - [facility] Routine AdmDCTranf 05/15/17 18:15 Ordered Call Admitting on Arrival AT ADMISSION Care 12/06/16 18:15 Active Cardiac Monitoring DIRECTED Care 12/06/16 16:39 Active Neurological Check ORDERED Care 12/06/16 18:15 Active Saline Loc NOW Care 12/06/16 16:39 Active Vital Signs Order ORDERED Care 12/06/16 18:15 Active CHEST-2 VIEWS [RAD] Stat Exams 12/06/16 15:22 Draft ACETONE SERUM [CHEM] Stat Lab 12/06/16 16:55 Completed BLOOD CULTURE [BLDCUL] Stat Lab 12/06/16 16:57 Ordered CBC WITH ELECTRONIC DIFF [HEME] Stat Lab 12/06/16 16:55 Completed COMPREHENSIVE METABOLIC PANEL [CHEM] Stat Lab 12/06/16 16:[address] Stat Lab 12/06/16 15:20 Completed LACTATE, PLASMA [CHEM] Stat Lab 12/06/16 16:55 Completed PROTIME WITH INR PL [COAG] Stat Lab 12/06/16 16:[address] [COAG] Stat Lab 12/06/16 16:[address] W/POSS RFLX CULT [URINALYSIS] Stat Lab 12/06/16 16:20 Completed URINE CULTURE [RM] Routine Lab 12/06/16 17:25 Ordered 0.9% Sodium Chloride Inj [Ns] 1,000 ml Med 12/06/16 16:40 Discontinued IV 999 mls/hr Acetaminophen [Tylenol] Med 12/06/16 15:27 Discontinued 650 mg .ROUTE .STK-MED ONE Acetaminophen [Tylenol] Med 12/06/16 15:22 Discontinued 650 mg PO NOW ONE Piperacil/Tazobact 3.375 gm/Ns [Zosyn 3.375 gm/Ns] Med 12/06/16 17:05 Discontinued 3.375 gm in 50 ml IV NOW Piperacil/Tazobact 3.375 gm/Ns [Zosyn 3.375 gm/Ns] Med 12/06/16 23:00 Active 3.375 gm in 50 ml IV Q6H Vancomycin 1 gm/Ns Med 12/06/16 17:54 Discontinued 1 gm in 250 ml .ROUTE As Directed Vancomycin 1 gm/Ns Med 12/06/16 17:05 Discontinued 1 gm in 250 ml IV NOW Vancomycin 1 gm/Ns Med 12/07/16 06:00 Active 1 gm in 250 ml IV Q12H Pulse Oximetry Stat Oth 12/06/16 16:39 Active Telemetry [OM.EQ] Routine Oth 12/06/16 18:15 Active EKG [EKG] Stat Ther 12/06/16 16:39 Draft US [Venous U/S Left Leg] Stat Ther 12/06/16 18:13 Ordered Transfer/Admit Order [TRANSFER] Routine Transfer 12/06/16 18:16 Ordered Laboratory Tests 12/06/16 12/06/16 12/06/16 15:20 16:20 16:55 WBC RBC Hgb Hct MCV MCH MCHC RDW Std Deviation Plt Count MPV Immature Gran % (Auto) Neut % (Auto) Lymph % (Auto) Ch[place] % (Auto) Eos % (Auto) Baso % (Auto) Immature Gran # (Auto) Neut # (Auto) Lymph # (Auto) [place] # (Auto) Eos # (Auto) Baso # (Auto) PT INR APTT (Factor Assay) Sodium 129 L Potassium 3.5 Chloride 94 L Carbon Dioxide 20 L Anion Gap 14 BUN 16 Creatinine 1.6 H Estimated GFR/1.73 m2 43 BUN/Creatinine Ratio 10 Glucose 218 H Calculated Osmolality 267 Calcium 8.0 L Total Bilirubin 0.50 AST 14 ALT 8 L Alkaline Phosphatase 90 Total Protein 7.4 Albumin 3.3 L Globulin 4.0 Albumin/Globulin Ratio 1.0 Plasma Lactate Urine Source CLEAN CATCH Urine Color YELLOW Urine Clarity CLEAR Urine pH 7.0 Ur Specific [place] 1.005 Urine Protein 1+(30 mg/dL) A Urine Ketones NEGATIVE Urine Blood TRACE Urine Nitrite NEGATIVE Urine Bilirubin NEGATIVE Urine Urobilinogen NORMAL Urine Microscopic RBC <10 Urine WBC TRACE A Urine Microscopic WBC <10 Ur Epithelial Cells <10 Urine Crystals NONE SEEN Urine Bacteria 1+ Urine Casts NONE SEEN Urine Yeast NONE SEEN Urine Glucose NEGATIVE Acetone Level Influenza A (Rapid) NEGATIVE Influenza B (Rapid) NEGATIVE 12/06/16 12/06/16 12/06/16 16:55 16:55 16:55 WBC 16.27 H RBC 4.04 L Hgb 10.9 L Hct 34.2 L MCV 84.7 MCH 27.0 MCHC 31.9 L RDW Std Deviation 15.9 H Plt Count 156 MPV 10.7 H Immature Gran % (Auto) 0.2 Neut % (Auto) 91.1 H Lymph % (Auto) 5.5 L [place] % (Auto) 3.1 Eos % (Auto) 0.0 Baso % (Auto) 0.1 Immature Gran # (Auto) 0.04 Neut # (Auto) 14.82 H Lymph # (Auto) 0.90 L [place] # (Auto) 0.50 Eos # (Auto) 0.00 Baso # (Auto) 0.01 PT 15.0 INR 1.15 APTT (Factor Assay) 34.4 Sodium Potassium Chloride Carbon Dioxide Anion Gap BUN Creatinine Estimated GFR/1.73 m2 BUN/Creatinine Ratio Glucose Calculated Osmolality Calcium Total Bilirubin AST ALT Alkaline Phosphatase Total Protein Albumin Globulin Albumin/Globulin Ratio Plasma Lactate 2.6 H Urine Source Urine Color Urine Clarity Urine pH Ur Specific [place] Urine Protein Urine Ketones Urine Blood Urine Nitrite Urine Bilirubin Urine Urobilinogen Urine Microscopic RBC Urine WBC Urine Microscopic WBC Ur Epithelial Cells Urine Crystals Urine Bacteria Urine Casts Urine Yeast Urine Glucose Acetone Level Influenza A (Rapid) Influenza B (Rapid) 12/06/16 16:55 WBC RBC Hgb Hct MCV MCH MCHC RDW Std Deviation Plt Count MPV Immature Gran % (Auto) Neut % (Auto) Lymph % (Auto) [place] % (Auto) Eos % (Auto) Baso % (Auto) Immature Gran # (Auto) Neut # (Auto) Lymph # (Auto) [place] # (Auto) Eos # (Auto) Baso # (Auto) PT INR APTT (Factor Assay) Sodium Potassium Chloride Carbon Dioxide Anion Gap BUN Creatinine Estimated GFR/1.73 m2 BUN/Creatinine Ratio Glucose Calculated Osmolality Calcium Total Bilirubin AST ALT Alkaline Phosphatase Total Protein Albumin Globulin Albumin/Globulin Ratio Plasma Lactate Urine Source Urine Color Urine Clarity Urine pH Ur Specific [place] Urine Protein Urine Ketones Urine Blood Urine Nitrite Urine Bilirubin Urine Urobilinogen Urine Microscopic RBC Urine WBC Urine Microscopic WBC Ur Epithelial Cells Urine Crystals Urine Bacteria Urine Casts Urine Yeast Urine Glucose Acetone Level NEGATIVE Influenza A (Rapid) Influenza B (Rapid) Orders Category Date Time Status Admit - [facility] Routine AdmDCTranf 12/06/16 18:15 Ordered Call Admitting on Arrival AT ADMISSION Care 12/06/16 18:15 Active Cardiac Monitoring DIRECTED Care 12/06/16 16:39 Active Neurological Check ORDERED Care 12/06/16 18:15 Active Saline Loc NOW Care 12/06/16 16:39 Active Vital Signs Order ORDERED Care 05/15/17 18:15 Active CHEST-2 VIEWS [RAD] Stat Exams 12/06/16 15:22 Draft ACETONE SERUM [CHEM] Stat Lab 12/06/16 16:55 Completed BLOOD CULTURE [BLDCUL] Stat Lab 12/06/16 16:57 Ordered CBC WITH ELECTRONIC DIFF [HEME] Stat Lab 12/06/16 16:55 Completed COMPREHENSIVE METABOLIC PANEL [CHEM] Stat Lab 12/06/16 16:[address] Stat Lab 12/06/16 15:20 Completed LACTATE, PLASMA [CHEM] Stat Lab 12/06/16 16:55 Completed [address]IME WITH INR PL [COAG] Stat Lab 12/06/16 16:[address] [COAG] Stat Lab 12/06/16 16:[address] W/POSS RFLX CULT [URINALYSIS] Stat Lab 12/06/16 16:20 Completed URINE CULTURE [RM] Routine Lab 12/06/16 17:25 Ordered 0.9% Sodium Chloride Inj [Ns] 1,000 ml Med 12/06/16 16:40 Discontinued IV 999 mls/hr Acetaminophen [Tylenol] Med 12/06/16 15:27 Discontinued 650 mg .ROUTE .STK-MED ONE Acetaminophen [Tylenol] Med 12/06/16 15:22 Discontinued 650 mg PO NOW ONE Piperacil/Tazobact 3.375 gm/Ns [Zosyn 3.375 gm/Ns] Med 12/06/16 17:05 Discontinued 3.375 gm in 50 ml IV NOW Piperacil/Tazobact 3.375 gm/Ns [Zosyn 3.375 gm/Ns] Med 12/06/16 23:00 Active 3.375 gm in 50 ml IV Q6H Vancomycin 1 gm/Ns Med 12/06/16 17:54 Discontinued 1 gm in 250 ml .ROUTE As Directed Vancomycin 1 gm/Ns Med 12/06/16 17:05 Discontinued 1 gm in 250 ml IV NOW Vancomycin 1 gm/Ns Med 12/06/16 18:15 Ordered 1 gm in 250 ml IV Q12H Pulse Oximetry Stat Oth 12/06/16 16:39 Active Telemetry [OM.EQ] Routine Oth 12/06/16 18:15 Active EKG [EKG] Stat Ther 12/06/16 16:39 Draft US [Venous U/S Left Leg] Stat Ther 12/06/16 18:13 Ordered Transfer/Admit Order [TRANSFER] Routine Transfer 12/06/16 18:16 Ordered Vital Signs - 24 hr 12/06/16 15:17 12/06/16 17:47 Temperature 101.5 F H Pulse Rate 118 H 85 Respiratory Rate 19 21 Blood Pressure 150/79 121/66 O2 Sat by Pulse Oximetry 96 94 L Result Diagrams: 12/06/16 16:55 12/06/16 16:55 - CONSULTS/PCP/HOSPITALIST Notification #1 *Consult/PCP/Hospitalist*: Dr. Castle Time Discussed: 18:19 Reason/Comments: cellulitis Consult Disposition: Admit Departure - Departure Time of Disposition Decision: 18:19 DIAGNOSIS: SIRS (systemic inflammatory response syndrome) Cellulitis Qualifiers: Site of cellulitis: extremity Site of cellulitis of extremity: lower extremity Laterality: left Qualified Code(s): L03.116 - Cellulitis of left lower limb Disposition: ADMITTED INPATIENT 09 Certified Medical Emergency: Emergent Condition: Stable - Critical Care Note This patient required my direct & personal management of CC.: No
[2016-12-06 17:09] LABS: BASO% 0.1 % (0.0-0.8); HEMATOCRIT 34.2 % (42.0-52.0); HEMOGLOBIN 10.9 g/dL (14.0-18.0); IMM GRAN# 0.04 X1000 (0.0-0.04); IMM GRAN% 0.2 % (0.0-0.5); LYMPH% 5.5 % (20.5-51.1); MANUAL DIFF NEEDED? NO; MCHC 31.9 g/dL (33-37); MCV 84.7 FL (81-99); MONO% 3.1 % (1.7-9.3); MPV 10.7 FL (7.4-10.4); NEUT% 91.1 % (42.2-75.2); PLT 156 X1000 (130-400); RBC 4.04 XMIL (4.7-6.1)
[2016-12-06 17:10] LABS: BILIRUBIN URINE NEGATIVE (NEGATIVE); BLOOD URINE TRACE (NEGATIVE); CLARITY CLEAR (CLEAR); COLOR YELLOW; GLUCOSE URINE NEGATIVE (NEGATIVE); LEUKOCYTES URINE TRACE (NEGATIVE); NITRITE URINE NEGATIVE (NEGATIVE); PROTEIN URINE 1+(30 mg/dL) mg/dL (NEGATIVE); SP GRAVITY URINE 1.005; UROBILINOGEN URINE NORMAL
[2016-12-06 17:24] LABS: URINE CAST NONE SEEN /LPF; URINE CULTURE PL NEEDED? YES; URINE EPITHELIAL CELLS <10 /HPF (<10); URINE RBC <10 /HPF (<10); URINE WBC <10 /HPF (<10)
[2016-12-06 17:25] LABS: URINE CRYSTAL NONE SEEN /HPF; URINE SOURCE CLEAN CATCH
[2016-12-06 17:26] LABS: ALBUMIN 3.3 g/dL (3.5-5.0); POTASSIUM 3.5 mmol/L (3.5-5.1); TOTAL BILIRUBIN 0.5 mg/dL (0.20-1.00); TOTAL PROTEIN 7.4 g/dL (6.3-8.3)
[2016-12-06 17:37] LABS: INR 1.15 (0.86-1.15); PTT PL 34.4 Seconds (22.6-43.9)
[2016-12-06] MEDS ORDERED: VANCOMYCIN 1 GM/NS 1 GM/250 ML IVPB ONE (17:54)
--- NOTE | 2016-12-06 18:16 | ED EKG INTERP ---
This chart was entered by Reema Alcala Scribe, acting as scribe for Paulie Cope MD. EKG Interpretation - EKG Time of EKG reading by physician:: 16:47 EKG Read and Signed by:: Paulie Cope EKG Interpretation (*Must complete 3 of following elements*): Abnormal Rate: 100 Rhythm: atrial fibrillation Comments: abnormal ECG This chart was documented by the indicated scribe, (Reema Alcala Scribe) and accurately reflects the services I performed and decisions made by me, Paulie Cope MD, as attested by the provider's signature.
[2016-12-07] MEDS: ZOSYN 3.375 GM/NS 3.375 GM/50 ML IVPB IV SCH ×2 (00:31→05:46)
[2016-12-07] MEDS ORDERED: OXYCONTIN PO PRN (00:32)
[2016-12-07] MEDS: TYLENOL PO PRN ×2 (05:45→21:19)
[2016-12-07] MEDS ORDERED: VANCOMYCIN 1 GM/NS 1 GM/250 ML IVPB IV SCH (06:00)
[2016-12-07] MEDS: OXY IR PO PRN ×2 (06:01→21:20)
[2016-12-07 07:11] LABS: BASO% 0.1 % (0.0-0.8); HEMATOCRIT 33.8 % (42.0-52.0); HEMOGLOBIN 10.9 g/dL (14.0-18.0); IMM GRAN# 0.03 X1000 (0.0-0.04); IMM GRAN% 0.2 % (0.0-0.5); LYMPH# 1.16 X1000 (1.2-3.4); MANUAL DIFF NEEDED? YES; MCH 27.1 PG (27-31); MCHC 32.2 g/dL (33-37); MCV 84.1 FL (81-99); MONO# 0.43 X1000 (0.11-0.59); NEUT% 88.7 % (42.2-75.2); PLT 144 X1000 (130-400); RBC 4.02 XMIL (4.7-6.1)
[2016-12-07] MEDS: HUMULIN R (PARKWAY) SUBQ SCH ×4 (07:14→21:18)
[2016-12-07] MEDS ORDERED: VANCOMYCIN IV PER PHARMACY MISC SCH ×2 (07:45→10:30)
[2016-12-07 07:48] LABS: POTASSIUM 3.8 mmol/L (3.5-5.1)
[2016-12-07] MEDS: NS 1,000 ML IV SCH (07:50)
[2016-12-07] MEDS ORDERED: OXY IR PO PRN (08:02)
[2016-12-07] MEDS ORDERED: ALBUTEROL SULFATE 90 MCG IH PRN (08:02)
[2016-12-07 08:19] LABS: BANDS 12 % (0-1); LYMPHS 8 % (21-51); MONO 4 % (1-9)
[2016-12-07] MEDS: MIRALAX PO SCH (08:44)
[2016-12-07] MEDS: COLACE PO SCH ×2 (08:44→21:20)
[2016-12-07] MEDS: ELIQUIS PO SCH ×2 (08:44→21:21)
[2016-12-07] MEDS: SYNTHROID PO SCH (08:44)
[2016-12-07] MEDS: JANUVIA PO SCH (08:44)
[2016-12-07] MEDS: GLUCOPHAGE PO SCH ×2 (08:45→16:39)
[2016-12-07] MEDS: PRILOSEC PO SCH (08:45)
--- NOTE | 2016-12-07 09:19 | Extremity Venous Study ---
PROCEDURE NAME: Venous U/S Left Leg - 12/06/2016 VENOUS ULTRASOUND OF THE LEFT LEG: FINDINGS: Note is made of multiple enlarged inguinal nodes, some of which exceed 17 mm in greatest dimension. These are fairly uniformly hypoechoic and without the typical benign fatty hilus. There is no evidence of obstruction to color Doppler flow and the deep veins of the left leg are compressible. There is augmentation. There is some apparent subcutaneous edema present in the calf posteriorly. IMPRESSION: Soft tissue swelling and inguinal adenopathy as described. No evidence of deep venous thrombosis.
[2016-12-07] MEDS: CARDIZEM CD PO SCH (09:50)
[2016-12-07] MEDS: AMPICILLIN 1 GM/NS 1 GM/50 ML IVPB IV SCH ×3 (10:03→21:22)
[2016-12-07] MEDS: LEVAQUIN 500 MG/D5W 500 MG/100 ML IVPB IV SCH (11:10)
[2016-12-07] MEDS: XOPENEX NEB INH SCH ×3 (11:27→22:58)
[2016-12-07] MEDS: CARAFATE PO SCH ×3 (11:38→21:21)
[2016-12-07] MEDS: SPIRIVA INH SCH (12:02)
--- NOTE | 2016-12-07 20:25 | HISTORY AND PHYSICAL ---
CHIEF COMPLAINT: Increased redness and swelling to lower extremity with fever and chills. HISTORY OF PRESENT ILLNESS: This is a 66-year-old male with a history of chronic lower extremity cellulitis currently being followed by [facility] and Dr. Crawley. He presented to the emergency room complaining of fever with a T-max of 103.5 degrees, chills, weakness, with new erythema and warm area to his left upper thigh. He was found have a temperature of 102 degrees on arrival to the ER. He does have a history of chronic cellulitis bilateral, having multiple admissions for the same. On his last admission in September 2016, wound culture to right second toe grew Pseudomonas with a culture in July that grew Pseudomonas as well as Enterococcus. Blood cultures were drawn. He was started on vancomycin and Zosyn in the emergency room. PAST MEDICAL HISTORY: CAD, diabetes type 2, peripheral vascular disease, chronic venous insufficiency, COPD, obstructive sleep apnea, morbid obesity. PAST SURGICAL HISTORY: Lumbar spine fusion, sinus surgery, appendectomy, prostatectomy and abdominal aortic aneurysm repair. SOCIAL HISTORY: He denies alcohol, tobacco, or illicit drug use. He is disabled. REVIEW OF SYSTEMS: A 14 point review of systems is discussed with the patient with pertinent positives in HPI. He denies chest pain, cough, nausea, vomiting, diarrhea, constipation, black or bloody vomitus, black or bloody stools, hematuria, dysuria, frequency, urgency. PHYSICAL EXAMINATION: VITAL SIGNS: Blood pressure is 127/79 with a heart rate of 90, respirations are 18, temperature is 99.5 degrees oral with room air saturations of 95-99%. HEENT: Head is normocephalic, atraumatic. Pupils equal, round, reactive to light. EOMs are intact. Sclerae anicteric. Mucous membranes are moist. NECK: Supple. Trachea midline. CARDIOVASCULAR: He is in atrial fibrillation at a controlled rate. GASTROINTESTINAL: Soft, nontender, nondistended with bowel sounds in all 4 quadrants. MUSCULOSKELETAL: Good range of motion of joints. EXTREMITIES: He does have some erythema to his left upper thigh with swelling and tenderness. DIAGNOSTICS: WBC is 16.2 with a hemoglobin of 10.9, hematocrit 34.2, and platelets of 156,000. Sodium is 129, potassium 3.5, BUN 16, creatinine is 1.6 with a glucose ranging from 122-218. Acetone is negative. Flu A and B are negative. Chest x-ray reveals a small left effusion versus pleural thickening with left basilar atelectasis. Left lower extremity Doppler revealed no evidence of DVT. ASSESSMENT AND PLAN: 1. Sepsis secondary to cellulitis of the left leg. 2. Chronic cellulitis. The patient is currently being followed [facility]. He has had hospitalizations it looks like in July and September for the same. Cultures in September grew out Pseudomonas with cultures in July having Pseudomonas and Enterococcus. Therefore, we will treat with Levaquin and ampicillin as past cultures were susceptible to these, and once our cultures return if necessary we will change antibiotics. We will consult the [facility]. 3. Hyponatremia. We will gently hydrate. 4. Chronic renal failure stage 2. This is stable. 5. Diabetes mellitus. He will be placed on pattern blood glucose with sliding scale insulin and diabetic diet. 6. Coronary artery disease status post percutaneous coronary intervention. Aware. 7. Chronic atrial fibrillation. His rate is controlled. We will continue his home medications. 8. Further treatment pending hospital course. Dictated by UNIQUE Mcgarry for Ishmael Canas MD cc: UNIQUE Mcgarry MD
[2016-12-07] MEDS: MIRAPEX PO SCH (21:21)
[2016-12-07] MEDS: ELAVIL PO SCH (21:21)
[2016-12-07] MEDS: LIPITOR PO SCH (21:22)
[2016-12-07] MEDS: PEPCID PO SCH (21:22)
[2016-12-08] MEDS: OXY IR PO PRN ×3 (03:34→18:48)
[2016-12-08] MEDS: AMPICILLIN 1 GM/NS 1 GM/50 ML IVPB IV SCH ×4 (03:34→21:30)
[2016-12-08] MEDS: NS 1,000 ML IV SCH ×2 (03:35→16:03)
[2016-12-08] MEDS: XOPENEX NEB INH SCH ×4 (04:07→20:57)
[2016-12-08] MEDS: HUMULIN R (PARKWAY) SUBQ SCH ×4 (06:18→21:33)
[2016-12-08 06:19] LABS: HEMATOCRIT 33.1 % (42.0-52.0); HEMOGLOBIN 10.6 g/dL (14.0-18.0); MCH 26.9 PG (27-31); MPV 10.6 FL (7.4-10.4); RBC 3.94 XMIL (4.7-6.1)
[2016-12-08] MEDS: SYNTHROID PO SCH (06:19)
[2016-12-08] MEDS: PRILOSEC PO SCH (06:19)
[2016-12-08] MEDS: CARAFATE PO SCH ×4 (06:47→21:31)
[2016-12-08 06:55] LABS: ALBUMIN 3.1 g/dL (3.5-5.0); CALCIUM 8.1 mg/dL (8.8-10.2); POTASSIUM 3.3 mmol/L (3.5-5.1); TOTAL BILIRUBIN 0.3 mg/dL (0.20-1.00); TOTAL PROTEIN 6.8 g/dL (6.3-8.3)
[2016-12-08] MEDS ORDERED: KLOR-CON PO ONE (07:30)
--- NOTE | 2016-12-08 07:51 | PROGRESS NOTE ---
DATE: 12/08/2016 SUBJECTIVE: The patient notes the he is still having pain and swelling in his left lower extremity, although, thinks it may be a little bit better this morning. Denies any worsening. Denies any streaking to his leg. Denies any fevers or chills. PHYSICAL EXAMINATION: Vital Signs: Temperature 98, pulse 90, respiratory 21, BP 155/72, saturation 99% on room air. General: Patient is awake, alert, obese male who is currently in no respiratory distress. He is pleasant to talk with. Speech is regular. Memory is intact. Neck: Supple. CV: Regular rate. Chest: Relatively clear. Abdomen: Soft. Extremities: Moves all extremities. Neurologic: No new changes. Skin: Still has marked erythema from 2-3 cm below his left knee to 2 cm above his left ankle. Warm to the touch. Tender to palpation. No streaking. He has 3+ edema in his left lower extremity, 2+ edema in his right lower extremity. ASSESSMENT: 1. Cellulitis, likely secondary to his chronic edema. 2. Sepsis secondary to cellulitis, resolved. He is currently afebrile. White count has completely resolved from 16 down to 8. 3. Krqmi-sh-ioavtvm renal failure. Serum creatinine continues to improve. Currently down to 1.4, which appears to be his baseline all the way back to November of 2015. 4. Hyponatremia, improving. Sodium currently 134. 5. Hypokalemia. We will replace potassium this morning. 6. Diabetes type 2. Continue to follow. 7. Known coronary artery disease. 8. Hypertension. He is currently on diltiazem. Blood pressures are mildly elevated. Uncertain if he had his medications yesterday. Therefore, will not change. PLAN: We will add Lasix this morning x1 dose to see if this will assist in his edema in his lower extremity. We will add Lotrimin to his foot. We will continue his current antibiotics of ampicillin, Levaquin and vancomycin until cultures return. Further orders as needed. cc: Ishmael Canas MD
[2016-12-08] MEDS ORDERED: VANCOMYCIN 2,200 MG in NS 500 ML IV SCH (08:00)
[2016-12-08] MEDS: SPIRIVA INH SCH (08:20)
[2016-12-08] MEDS: GLUCOPHAGE PO SCH ×2 (08:29→16:03)
[2016-12-08] MEDS: MIRALAX PO SCH (08:29)
[2016-12-08] MEDS: JANUVIA PO SCH (08:29)
[2016-12-08] MEDS: ELIQUIS PO SCH ×2 (08:29→21:31)
[2016-12-08] MEDS: LASIX IV SCH ×2 (08:29→18:42)
[2016-12-08] MEDS: COLACE PO SCH ×2 (08:29→21:31)
[2016-12-08] MEDS: LOTRIMIN 1% CREAM TOP SCH ×2 (08:30→21:33)
[2016-12-08] MEDS: VANCOMYCIN 2,200 MG in NS 500 ML IV SCH (08:30)
[2016-12-08] MEDS: CARDIZEM CD PO SCH (08:35)
[2016-12-08] MEDS: LEVAQUIN 500 MG/D5W 500 MG/100 ML IVPB IV SCH (11:44)
[2016-12-08] MEDS: TYLENOL PO PRN ×2 (16:09→21:52)
[2016-12-08] MEDS: MIRAPEX PO SCH (21:30)
[2016-12-08] MEDS: ELAVIL PO SCH (21:31)
[2016-12-08] MEDS: PEPCID PO SCH (21:31)
[2016-12-08] MEDS: LIPITOR PO SCH (21:31)
[2016-12-09] MEDS: OXY IR PO PRN ×4 (00:07→22:13)
[2016-12-09] MEDS: NS 1,000 ML IV SCH ×2 (03:39→21:20)
[2016-12-09] MEDS: XOPENEX NEB INH SCH ×4 (03:55→21:02)
[2016-12-09] MEDS: AMPICILLIN 1 GM/NS 1 GM/50 ML IVPB IV SCH (05:34)
[2016-12-09] MEDS ORDERED: ROCEPHIN 1 GM/NS 1 GM/50 ML IVPB IV SCH (06:30)
[2016-12-09] MEDS: SYNTHROID PO SCH (06:39)
[2016-12-09] MEDS: PRILOSEC PO SCH (06:40)
[2016-12-09] MEDS: CARAFATE PO SCH ×4 (06:40→21:21)
[2016-12-09] MEDS: LASIX IV SCH (06:40)
[2016-12-09 06:46] LABS: HEMATOCRIT 35.1 % (42.0-52.0); HEMOGLOBIN 11.2 g/dL (14.0-18.0); MCH 26.5 PG (27-31); MCHC 31.9 g/dL (33-37); MCV 83.2 FL (81-99); MPV 11.7 FL (7.4-10.4); RBC 4.22 XMIL (4.7-6.1)
[2016-12-09 06:55] LABS: ALBUMIN 3.2 g/dL (3.5-5.0); CALCIUM 8.3 mg/dL (8.8-10.2); MAGNESIUM 1.6 mg/dL (1.5-2.7); TOTAL BILIRUBIN 0.2 mg/dL (0.20-1.00); TOTAL PROTEIN 7.6 g/dL (6.3-8.3)
[2016-12-09] MEDS: HUMULIN R (PARKWAY) SUBQ SCH ×4 (07:30→21:28)
[2016-12-09] MEDS ORDERED: KLOR-CON PO ONE (07:53)
[2016-12-09] MEDS: JANUVIA PO SCH (08:07)
[2016-12-09] MEDS: GLUCOPHAGE PO SCH ×2 (08:07→16:11)
[2016-12-09] MEDS: COLACE PO SCH ×2 (08:07→21:21)
[2016-12-09] MEDS: CARDIZEM CD PO SCH (08:08)
[2016-12-09] MEDS: ELIQUIS PO SCH ×2 (08:08→21:20)
[2016-12-09] MEDS: VANCOMYCIN 2,200 MG in NS 500 ML IV SCH (08:08)
[2016-12-09] MEDS: LOTRIMIN 1% CREAM TOP SCH ×2 (08:10→21:23)
--- NOTE | 2016-12-09 08:29 | PROGRESS NOTE ---
DATE: 12/09/2016 SUBJECTIVE: The patient notes that he is feeling much better. He has had significant urine output over the last few days to bring about a 13-pound weight loss since admission to the hospital. PHYSICAL: Temperature 97, pulse 103, respiratory 16. BP 139/78. Saturation 100% on room air. Weight 276; was 289 on admission. Neck supple. CV: Regular rate. Chest clear and unlabored. Abdomen is soft. Extremities: Moves all extremities. Neurologic: No changes. Skin: He has 2+ edema in the left lower, trace edema in the right, with wrinkles present on both lower extremities which was not present earlier. The erythema still extends from his ankle to just below his knee, although is much better on the left. The right has almost cleared up. Blood cultures growing Strep dysgalac and urine is growing a gram-positive cocci that has not been identified. LABORATORIES: CBC and CMP essentially normal. His creatinine is still his baseline at 1.6. Sodium 135, potassium 3.0. ASSESSMENT: 1. Hypokalemia; will replace. 2. Chronic edema in his lower extremities, improved. 3. Weight loss. The patient has had a 13-pound weight loss in the hospital secondary to fluid. 4. Gram positive cocci in his blood. We will talk with Dr. Alonzo regarding length of antibiotics. 5. Diabetes, type 2, stable. 6. Chronic venous insufficiency, improving. The patient has decided that he is going to start wearing his compression stockings at home to try to prevent this from coming back. 7. Known coronary artery disease. 8. Sepsis, resolved. 9. Leukocytosis, resolved. 10. Hyponatremia, resolved. 11. Chronic renal failure, stage 2, stable. 12. Hypertension, improved. PLAN: We will stop Levaquin as his strep is resistant. We will change ampicillin to Rocephin as it is much more sensitive to Rocephin. We will continue Lotrimin and continue Lasix this morning and then stop. Hopefully, can change management to p.o. antibiotics. We will discuss this with ID. cc: Ishmael Canas MD
[2016-12-09] MEDS: MIRALAX PO SCH (10:29)
[2016-12-09] MEDS: SPIRIVA INH SCH (11:13)
[2016-12-09] MEDS: LIPITOR PO SCH (21:21)
[2016-12-09] MEDS: PEPCID PO SCH (21:21)
[2016-12-09] MEDS: MIRAPEX PO SCH (21:21)
[2016-12-09] MEDS: ELAVIL PO SCH (21:23)
[2016-12-10] MEDS: SPIRIVA INH SCH (01:13)
[2016-12-10] MEDS: XOPENEX NEB INH SCH ×2 (03:26→11:30)
[2016-12-10] MEDS ORDERED: ROCEPHIN 1 GM/NS 1 GM/50 ML IVPB IV SCH (06:30)
[2016-12-10] MEDS: CARAFATE PO SCH (06:50)
[2016-12-10] MEDS: SYNTHROID PO SCH (06:50)
[2016-12-10] MEDS: PRILOSEC PO SCH (06:50)
[2016-12-10] MEDS: HUMULIN R (PARKWAY) SUBQ SCH ×3 (06:51→11:24)
[2016-12-10] MEDS: OXY IR PO PRN (06:55)
[2016-12-10] MEDS ORDERED: AMPICILLIN PO SCH (09:00)
[2016-12-10] MEDS: GLUCOPHAGE PO SCH (10:42)
[2016-12-10] MEDS: LOTRIMIN 1% CREAM TOP SCH (10:42)
[2016-12-10] MEDS: ELIQUIS PO SCH (10:42)
[2016-12-10] MEDS: MIRALAX PO SCH (10:42)
[2016-12-10] MEDS: COLACE PO SCH (10:42)
[2016-12-10] MEDS: JANUVIA PO SCH (10:42)
[2016-12-10] MEDS: CARDIZEM CD PO SCH (10:43)
[2016-12-10] MEDS ORDERED: AMOXIL PO SCH (10:45)
[2016-12-10] MEDS: TYLENOL PO PRN (10:50)
[2016-12-10 11:14] VITALS: BP 102/58
--- NOTE | 2016-12-11 12:24 | DISCHARGE SUMMARY ---
ADMISSION DATE: 12/06/2016 DISCHARGE DATE: 12/10/2016 DIAGNOSES: 1. Sepsis secondary to cellulitis of the left leg, resolved. 2. Chronic cellulitis, bilateral extremities. 3. Chronic renal failure, stage 2. 4. Diabetes mellitus. 5. Chronic atrial fibrillation, rate controlled. 6. Chronic venous insufficiency. 7. Leukocytosis, resolved. 8. Hyponatremia, resolved. 9. Urinary tract infection, Enterococcus faecalis. 10. Blood cultures: One blood culture is negative. Second blood culture grew Streptococcus dysgalactiae. DIAGNOSTICS: On 12/06/2016 left leg venous Doppler revealed soft tissue swelling and inguinal adenopathy. No evidence of deep vein thrombosis. HOSPITAL COURSE: Mr. Gutiérrez presented to the emergency room with increasing redness and swelling with a T-max of 103.5 degrees. He was found to have left upper thigh cellulitis as well as sepsis secondary to this. Cultures were obtained. Antibiotic coverage of vancomycin, Levaquin, and ampicillin was instituted. He is greatly improved. He has been afebrile. Cultures revealed a Levaquin-resistant Streptococcus. Therefore, Levaquin was discontinued. I did discuss this with Dr. Juan Antonio Alonzo, our Infectious Disease physician, and he recommended that the patient be discharged on amoxicillin 500 mg p.o. q.12 hours for 14 days. He does have a history of chronic renal failure with what looks like a baseline creatinine over the last year of 1.7 to 2. He did stay at 1.4 to 1.6 throughout the hospitalization. We did trend electrolytes and replete as appropriate. We continued his home medications. Thankfully, he improved and is ready to go home. DISCHARGE PHYSICAL EXAMINATION: Cardiovascular: Regular rate and rhythm. S1 and S2 appreciated. Pulmonary: Breath sounds are clear, with no increased work of breathing noted. Gastrointestinal: Abdomen is soft, nontender, and nondistended, with bowel sounds in all 4 quadrants. Extremities: No clubbing or cyanosis. He still has 2+ edema in the left lower extremity and trace in the right. Both extremities have wrinkles present today. They were not on admission. Erythema extends from his ankle to just below his knee, although this is much improved on the left. The right is almost cleared up. Vital Signs: Blood pressure is 102/58 with a heart rate of 96. Respirations are 18. Temperature is 97.3 degrees with room air saturations 96% to 98%. DISCHARGE ACTIVITY: As tolerated. FOLLOWUP: 1. With his primary care physician in the next 1-[address] Juan Antonio Alonzo in the next 3-4 weeks, to be evaluated after antibiotic coverage is completed. DISCHARGE MEDICATIONS: Elavil 10 mg p.o. at bedtime, Spiriva 18 mcg daily, Carafate 1 g before meals and at bedtime, Januvia 25 mg daily, MiraLAX 17 g daily, Oxycodone 15 mg p.o. q.6 hours p.r.n., Prilosec 40 daily, Metformin 500 b.i.d., Synthroid 50 mcg daily, Xopenex q.6 hours, Pepcid 40 mg at bedtime, Colace 100 mg b.i.d., diltiazem 12-hour ER 240 daily, Eliquis 5 mg p.o. b.i.d., Lipitor 40 mg daily, Amoxil 500 mg p.o. q.12 hours for 14 days. DISPOSITION: He is being discharged home in stable condition with family members. TIME SPENT: This is a greater than 30-minute discharge. Dictated by UNIQUE Mcgarry for Ishmael Canas MD cc: UNIQUE Mcgarry MD
== END 2016-12-10 14:13 | disposition home health service (06) ==
LOC: P.ED 15:06 → P.MEDSURG 18:50 → SUATTDRO 18:50
PROVIDERS: ATTEND Family Medicine

== ENCOUNTER 2017-01-04 14:35 | Inpatient (IN) ==
[2017-01-04] MEDS ORDERED: TYLENOL ONE (14:40)
[2017-01-04] MEDS ORDERED: ASPIRIN PO STA (15:42)
[2017-01-04 16:24] LABS: BASO% 0.1 % (0.0-0.8); HEMOGLOBIN 12.2 g/dL (14.0-18.0); IMM GRAN# 0.02 X1000 (0.0-0.04); IMM GRAN% 0.1 % (0.0-0.5); LYMPH# 0.87 X1000 (1.2-3.4); LYMPH% 6.3 % (20.5-51.1); MANUAL DIFF NEEDED? NO; MCH 26.9 PG (27-31); MCV 81.5 FL (81-99); MONO# 0.93 X1000 (0.11-0.59); MONO% 6.7 % (1.7-9.3); NEUT% 86.8 % (42.2-75.2); PLT 172 X1000 (130-400); RBC 4.54 XMIL (4.7-6.1)
--- NOTE | 2017-01-04 16:29 | Diag Imaging Result Doc PS360 ---
EXAM: CHEST-PORTABLE - 01/04/2017 HISTORY: CP TECHNIQUE: Portable one view chest 4:00 PM COMPARISON: 12/06/2016 and 12/13/2016 FINDINGS: Heart size is within normal limits. Inspiration is mildly shallow. There is ill-defined infiltrate at the mid to lower lung on the left. There is mild scarring at the left base. There are right lower lung granuloma and calcified right hilar lymph nodes from old granulomatous disease which are stable. There is mild prominence of right infrahilar markings. There is no substantial pleural effusion or pneumothorax identified. IMPRESSION: Mildly shallow inspiration. Ill-defined infiltrate at left mid to lower lung. The possibility of pneumonia cannot be excluded. Electronically signed by Donaldo Boone 01/04/2017 4:27 PM
--- NOTE | 2017-01-04 16:38 | EKG Report ---
Test Performed on : 01/04/2017 4:34:25 PM Test Reason : CP Blood Pressure : / mmHG Vent. Rate : 100 BPM Atrial Rate : 258 BPM P-R Int : 000 ms QRS Dur : 070 ms QT Int : 358 ms P-R-T Axes : 000 040 052 degrees QTc Int : 461 ms Atrial fibrillation. Cannot rule out Anterior infarct , age undetermined Abnormal ECG When compared with ECG of 06-DEC-2016 16:47, QT has lengthened Unconfirmed Result
[2017-01-04 16:52] LABS: ALBUMIN 3.6 g/dL (3.5-5.0); CALCIUM 8.3 mg/dL (8.8-10.2); MAGNESIUM 1.5 mg/dL (1.5-2.7); POTASSIUM 4.4 mmol/L (3.5-5.1); TOTAL BILIRUBIN 0.8 mg/dL (0.20-1.00); TOTAL PROTEIN 8.2 g/dL (6.3-8.3)
[2017-01-04 16:55] LABS: INR 1.07 (0.86-1.15); PROTIME 14.2 Seconds (12.1-15.5)
[2017-01-04 16:56] LABS: PTT PL 28.6 Seconds (22.6-43.9)
[2017-01-04] MEDS ORDERED: LASIX IV ONE (17:21)
[2017-01-04] MEDS ORDERED: ROCEPHIN 2 GM/NS 2 GM/50 ML IVPB IV ONE (17:30)
--- NOTE | 2017-01-04 17:30 | PROVIDER DOCUMENTATION ---
This chart was entered by Melanie Clemens Scribe, acting as scribe for Gurpreet Smith MD. HPI-General Adult - General Chief Complaint: Fever Time Seen by Provider: 01/04/17 14:40 Source: patient, family, EMS Allergies/Adverse Reactions: Patient Allergies Allergy/AdvReac Type Severity Reaction Status Date / Time No Known Allergies Allergy Verified 12/06/16 17:01 Home Medications: Home Medication List Medication Instructions Recorded Confirmed Last Taken Type ATORVAstatin [Lipitor] 40 mg PO DAILY 05/06/16 01/04/17 08/14/16 08:00 History Omeprazole [Prilosec] 40 mg PO DAILY 05/06/16 01/04/17 08/14/16 08:00 History Pramipexole Di-HCl [Pramipexole ER] 1.5 mg PO QHS 05/06/16 01/04/17 08/13/16 20: 00 History Sucralfate [Carafate] 1 gm PO AC + HS 05/06/16 01/04/17 08/14/16 08:00 History Diltiazem HCl [Diltiazem 12Hr ER] 240 mg PO DAILY 08/14/16 01/04/17 08/14/16 08: 00 History Apixaban [Eliquis] 5 mg PO BID #60 tablet 08/19/16 01/04/17 Unknown Rx Levalbuterol Neb [Xopenex Neb] 1.25 mg INH RTQ6H #5 neb 08/19/16 01/04/17 Unknown Rx Sitagliptin Phosphate [Januvia] 25 mg PO DAILY #30 tablet 08/19/16 01/04/17 Unknown Rx Tiotropium Max Inhaler 18 mcg IH DAILY #1 inhaler 08/19/16 01/04/17 Unknown Rx [Spiriva] Oxycodone HCl 15 mg PO Q6H PRN 10/13/16 01/04/17 10/12/16 History Amitriptyline [Elavil] 10 mg PO HS 12/06/16 01/04/17 Unknown History Polyethylene Glycol 3350 [Miralax] 17 gm PO DAILY PRN 01/04/17 01/04/17 Unknown History Venlafaxine E.r. [Effexor Xr] 1 cap PO QHS 01/04/17 01/04/17 Unknown History - History of Present Illness -Gen Adult Nature of Presenting Problems: 66 yo M presents to the ER with complaint of fever, lethargy, and urinary symptoms. Pt states he has chronic pain and is chronically SOB. Pt's states last time he had similar symptoms last month he had cellulitis. Denies any CP or n/v/d. Associated Symptoms: reports: fever/chills, genitourinary problems, weakness Review of Systems - Adult - REVIEW OF SYSTEMS - ADULT Constitutional: reports: chills, fever Eyes: reports: no symptoms reported Ears, Nose, Mouth & Throat: reports: no symptoms reported Cardiovascular: denies: chest pain, palpitations Respiratory: reports: shortness of breath. denies: cough Gastrointestinal: denies: diarrhea, nausea, vomiting Genitourinary: reports: urgency, other (odor to urine) Musculoskeletal: reports: no symptoms reported Integumentary: reports: no symptoms reported Neurological: reports: no symptoms reported Psychiatric: reports: no symptoms reported Endocrine: reports: no symptoms reported Hematologic/Lymphatic: reports: no symptoms reported Allergic/Immunologic: reports: no symptoms reported All Other Systems: Reviewed and Negative Past History - Adult - PAST MEDICAL HISTORY-ADULT Review of Records: reports: Nursing Assessment Review, Medications Reviewed Cardiovascular: reports: A-Fib, CAD, CHF, HTN, hyperlipidemia, DC, PVD Respiratory: reports: asthma, COPD, other (asbestos) Genitourinary: reports: cancer (Hx: prostate), kidney disease Musculoskeletal: reports: chronic pain, other (restless leg syndrome) Neurological: reports: CVA Psychiatric: reports: depression Endocrine/Immune: reports: Diabetes, thyroid disorder - PRIOR SURGERIES/PROCEDURES Surgical/Procedure History: reports: colonoscopy, other (AAA, abdominal aortic stents) - IMMUNIZATION STATUS Childhood Immunizations: See Nurse Assessment Flu Vaccine: See Nurse Assessment - FAMILY HISTORY Family History: CAD over 55 yo, other (type 2 diabetes) Physical Exam-General - PHYSICAL EXAM-ADULT Initial Vital Signs Reviewed: Yes - CONSTITUTIONAL General Appearance: alert, lethargic - EYES Eyes: PERRL/EOMI, pink conjunctivae - HEAD, EARS, NOSE, MOUTH & THROAT HENMT: normocephalic/atraumatic, normal ENT inspection - NECK Neck: supple, normal inspection - RESPIRATORY Respiratory: lungs clear, no respiratory distress, no accessory muscle use - CARDIOVASCULAR Cardiovascular: normal peripheral pulses, tachycardia - GASTROINTESTINAL (ABDOMEN) Abdominal Exam: normal bowel sounds, non tender, soft - MUSCULOSKELETAL Back Exam: no CVA tenderness, no vertebral tenderness Extremity: normal range of motion, non-tender, normal gait, normal inspection - SKIN Integumentary: warm/dry - NEUROLOGIC Neurologic: grossly normal, no motor/sensory deficits - PSYCHIATRIC Psych/Mental Status: normal mood/affect, normal thought content, normal thought process, oriented x 3 Progress - PLAN OF CARE/RESULTS Progress/Plan/Lab Results: Vital Signs - 8 hr 01/04/17 14:37 Temperature 101.5 F H Pulse Rate 109 H Respiratory Rate 18 Blood Pressure 154/78 O2 Sat by Pulse Oximetry 94 L Orders Category Date Time Status Acetaminophen [Tylenol] Med 01/04/17 14:40 Discontinued 1,000 mg .ROUTE .STK-MED ONE Result Diagrams: 01/04/17 16:05 01/04/17 16:05 - XRAY 1 XRAY Study: Chest Impression: Abnormal (mildly shallow inspiration. ill-defined infiltrate at L mid to lower lung. the possibility of pneumonia cannot be excluded. per radiologist) - CONSULTS/PCP/HOSPITALIST Notification #1 *Consult/PCP/Hospitalist*: Hospitalist - Dr. Canas Time Discussed: 17:26 Consult Disposition: Admit Departure - Departure Date of Disposition Decision: 01/04/17 Time of Disposition Decision: 17:28 DIAGNOSIS: Pneumonia, Cellulitis, CHF (congestive heart failure) Disposition: ADMITTED INPATIENT 09 Certified Medical Emergency: Emergent Condition: Stable Referrals and Follow-Ups: Yahir Gooden MD [Primary Care Provider] - - Critical Care Note This patient required my direct & personal management of CC.: No Attestation - Physician/ GBAY Attestation The physician spent face to face time with patient:: Yes Advanced Practice Provider documentation review:: The physician spent face to face time with this patient and agrees with all MLP documentation, treatment, and medical decision making by the MLP. See provider notes for further information. This chart was documented by the indicated scribe, (Melanie Clemens Scribe) and accurately reflects the services I performed and decisions made by me, Gurpreet Smith MD, as attested by the provider's signature.
[2017-01-04 17:50] LABS: URINE CULTURE PL NEEDED? NO
[2017-01-04 18:00] LABS: BILIRUBIN URINE NEGATIVE (NEGATIVE); BLOOD URINE NEGATIVE (NEGATIVE); CLARITY CLEAR (CLEAR); COLOR YELLOW; GLUCOSE URINE NEGATIVE (NEGATIVE); LEUKOCYTES URINE NEGATIVE (NEGATIVE); NITRITE URINE NEGATIVE (NEGATIVE); PROTEIN URINE TRACE mg/dL (NEGATIVE); UROBILINOGEN URINE NORMAL
[2017-01-04 18:09] LABS: URINE CAST NONE SEEN /LPF; URINE CRYSTAL NONE SEEN /HPF; URINE EPITHELIAL CELLS >10 /HPF (<10); URINE RBC <10 /HPF (<10); URINE SOURCE CLEAN CATCH; URINE WBC <10 /HPF (<10)
[2017-01-04] MEDS ORDERED: MIRALAX PO PRN (18:37)
[2017-01-04] MEDS ORDERED: TYLENOL PO PRN (18:38)
[2017-01-04] MEDS ORDERED: ZOFRAN IV PRN (18:38)
[2017-01-04] MEDS: DUONEB (A & A) INH PRN ×2 (19:29→23:08)
[2017-01-04] MEDS ORDERED: ROCEPHIN 1 GM/NS 1 GM/50 ML IVPB IV SCH (20:00)
[2017-01-04] MEDS: ELIQUIS PO SCH (20:27)
[2017-01-04] MEDS: DOXYCYCLINE 100 MG in NS 250 ML IV SCH (20:28)
[2017-01-04] MEDS: CARAFATE PO SCH (20:28)
[2017-01-04] MEDS: OXY IR PO PRN (20:28)
[2017-01-04] MEDS: MIRAPEX PO SCH (20:29)
[2017-01-04] MEDS: ELAVIL PO SCH (20:30)
[2017-01-04] MEDS: EFFEXOR XR PO SCH (20:30)
[2017-01-04] MEDS ORDERED: LASIX PO SCH (21:00)
[2017-01-05] MEDS: OXY IR PO PRN ×4 (04:50→23:49)
[2017-01-05 05:58] LABS: HEMATOCRIT 34.8 % (42.0-52.0); HEMOGLOBIN 11.2 g/dL (14.0-18.0); MCH 26.4 PG (27-31); MCHC 32.2 g/dL (33-37); MCV 82.1 FL (81-99); RBC 4.24 XMIL (4.7-6.1)
[2017-01-05] MEDS: CARAFATE PO SCH ×5 (06:17→21:12)
[2017-01-05] MEDS: PRILOSEC PO SCH (06:17)
[2017-01-05 06:31] LABS: ALBUMIN 3.4 g/dL (3.5-5.0); CALCIUM 8.1 mg/dL (8.8-10.2); POTASSIUM 3.7 mmol/L (3.5-5.1); TOTAL BILIRUBIN 0.7 mg/dL (0.20-1.00)
[2017-01-05] MEDS: DUONEB (A & A) INH PRN ×2 (08:30→16:24)
--- NOTE | 2017-01-05 08:42 | PROGRESS NOTE ---
DATE: 01/05/2017 SUBJECTIVE: The patient states that he is feeling a little bit better. He is breathing easier when he is sitting up. Notes that the swelling and the redness in his left lower extremity is a little bit better. Denies any chest pain, palpitations. Denies any fevers or chills. OBJECTIVE: Vital Signs: Temperature 97, pulse 98, respiratory rate 18, BP 133/70, saturation 98% on room air. General: Patient is awake, alert, oriented. He is currently in no real respiratory distress. He is pleasant to talk with. Neck: Supple. CV: Regular rate. Chest: Relatively clear. Abdomen: Soft. Extremities: Moves all extremities. Neurologic: No changes. Skin: He is noted to have deep erythematous change to his left calf and mariee area all the way to his foot with 3+ edematous changes in the left and 2+ in the right. Diagnostic Data: CBC unchanged. CMP with a sodium of 131, creatinine 1.7, glucose 131. ASSESSMENT: 1. Cellulitis, left lower extremity. 2. Pneumonia, left lower lobe. 3. Chronic bilateral edema. 4. Chronic depression, situational. 5. High cholesterol. 6. Atrial fibrillation, currently rate controlled. 7. Diabetes. 8. Chronic obstructive pulmonary disease. PLAN: We will continue patient on his home medications. Continue doxycycline for his left lower extremity edema and Rocephin for his pneumonia. We will change his Lasix to IV 40 twice a day and we will follow. Hopefully home in 3-4 days. cc: Ishmael Canas MD
[2017-01-05] MEDS: JANUVIA PO SCH (08:47)
[2017-01-05] MEDS: LASIX IV SCH ×2 (08:47→21:15)
[2017-01-05] MEDS: ELIQUIS PO SCH ×2 (08:47→21:12)
[2017-01-05] MEDS: DOXYCYCLINE 100 MG in NS 250 ML IV SCH ×2 (08:48→21:15)
[2017-01-05] MEDS: CARDIZEM CD PO SCH (08:48)
[2017-01-05] MEDS ORDERED: LIPITOR PO SCH (09:00)
--- NOTE | 2017-01-05 11:59 | HISTORY AND PHYSICAL ---
CHIEF COMPLAINT: Fever and body aches for 24 hours. HISTORY OF PRESENT ILLNESS: This is a 66-year-old gentleman who presented to the emergency room complaining of fevers, chills, generalized body aches over the last 24 hours. He also reported some urinary urgency. He was found have a white count of 13. Chest x-ray revealed an infiltrate at the left mid to lower lung. He does have a history of bilateral chronic lower extremity edema and recurrent cellulitis. He is noted to have redness to his left lower extremity. In the emergency room, he was given 2 g of Rocephin IV with Lasix IV and admitted for further evaluation and treatment. PAST MEDICAL HISTORY: CAD, diabetes type 2, peripheral vascular disease, chronic venous insufficiency, COPD, obstructive sleep apnea, morbid obesity, prostate cancer, atrial fibrillation. PAST SURGICAL HISTORY: AAA repair, colonoscopy, polypectomy. SOCIAL HISTORY: He denies alcohol, tobacco, or illicit drug use. ALLERGIES: No known drug allergies. HOME MEDICATIONS: Carafate 1 g b.i.d., Prilosec 40 mg at bedtime, Effexor XR 37.5 at bedtime, Elavil 10 mg at bedtime, Lipitor 40 daily, diltiazem ER 240 daily, Eliquis 5 mg b.i.d., oxycodone 50 mg q.6 hours p.r.n., Xopenex nebulizers q.6 hours, Mirapex 1.5 mg at bedtime, Spiriva 18 mcg inhalation daily, Januvia 25 mg daily. REVIEW OF SYSTEMS: A 14 point review of systems is discussed with the patient with pertinent positives stated above. He denies any chest pain, palpitations, dizziness, syncope, cough, fever, or chills. He does have chronic shortness of breath due to COPD and asbestosis. Denies nausea, vomiting, diarrhea, constipation, black or bloody vomitus, black or bloody stools, any hematuria, dysuria, or frequency. PHYSICAL EXAMINATION: GENERAL: This is a 66-year-old male who is lying in the bed, in no distress. VITAL SIGNS: Blood pressure is 107/67, with a heart rate of 95, respirations 18, temperature 98.2 degrees oral, with oxygen saturations of 97-100% on 1 L nasal cannula. CARDIOVASCULAR: Regular rate and rhythm. S1 and S2 are appreciated. PULMONARY: Breath sounds are clear with no increased work of breathing noted. GASTROINTESTINAL: Abdomen is soft, nontender, nondistended, with bowel sounds in all 4 quadrants. BACK: No CVAT. No spine tenderness. MUSCULOSKELETAL: Good range of motion of joints. NEUROLOGIC: He is alert and oriented x3. EXTREMITIES: No clubbing, cyanosis, or edema to upper extremities. He does have bilateral lower extremity edema with some erythema to the left leg, with pulses palpable x4. Calves are nontender. DIAGNOSTICS: WBC is 13.8, with hemoglobin 12.2, hematocrit 37, and platelets of 172,000. Sodium is 133, potassium 4.4, BUN 16, creatinine 1.6, with a glucose of 177. Chest x-ray revealed left- sided pneumonia. ASSESSMENT AND PLAN: 1. Cellulitis, left lower extremity. 2. Left lower lobe pneumonia. 3. Chronic lower extremity edema. 4. Chronic depression, situational. 5. Atrial fibrillation. 6. Chronic kidney disease stage III. 7. Diabetes type 2. 8. Chronic pain. 9. Hypertension. PLAN: The patient will be admitted to the hospital. He will be placed on telemetry. We will give supplemental oxygen as needed. We will identify his home medications and continue as appropriate. We will continue doxycycline for his left lower extremity edema and Rocephin for his pneumonia. We will trend labs. Further treatments pending hospital course. Dictated by UNIQUE Mcgarry for Ishmael Canas MD cc: UNIQUE Mcgarry MD
[2017-01-05] MEDS: ELAVIL PO SCH (21:11)
[2017-01-05] MEDS: MIRAPEX PO SCH (21:12)
[2017-01-05] MEDS: EFFEXOR XR PO SCH (21:12)
[2017-01-06] MEDS: PRILOSEC PO SCH (06:22)
[2017-01-06] MEDS: OXY IR PO PRN ×3 (06:22→23:23)
[2017-01-06] MEDS: CARAFATE PO SCH ×4 (06:52→20:21)
[2017-01-06] MEDS: DOXYCYCLINE 100 MG in NS 250 ML IV SCH ×2 (08:44→20:23)
[2017-01-06] MEDS: OMNICEF PO SCH ×2 (08:45→20:21)
[2017-01-06] MEDS: ELIQUIS PO SCH ×2 (08:45→21:38)
[2017-01-06] MEDS: JANUVIA PO SCH (08:45)
[2017-01-06] MEDS: LASIX PO SCH (08:45)
[2017-01-06] MEDS: CARDIZEM CD PO SCH (08:45)
--- NOTE | 2017-01-06 14:34 | PROGRESS NOTE ---
DATE: 01/06/2017 SUBJECTIVE: The patient states that he is feeling better today. He has been afebrile. He denies any shortness of breath, chills. OBJECTIVE: Vital Signs: Blood pressure is 120/72 with a heart rate of 89, respirations are 18, temperature is 98.4 degrees with oxygen saturations of 94-97% on room air. Cardiovascular: Irregularly irregular rate and rhythm. S1 and S2 are appreciated. Pulmonary: Breath sounds are clear. No increased work of breathing noted. Gastrointestinal: Abdomen is soft, nontender with bowel sounds in all 4 quadrants. Extremities: No clubbing, cyanosis, or edema. Calves are nontender. Pulses are palpable x4. Skin: Warm and dry with erythematous change to his left calf and mariee with bilateral edema. DIAGNOSTICS: The blood sugars are ranging in the 130-200 range. ASSESSMENT AND PLAN: 1. Left lower extremity cellulitis. 2. Left lower lobe pneumonia. 3. Chronic bilateral lower extremity edema. 4. Chronic depression situational. 5. Atrial fibrillation. Currently rate controlled. 6. Diabetes. 7. COPD. We will continue his current regimen with antibiotic coverage of Rocephin for his pneumonia and doxycycline for left lower extremity edema. He is negative 4 L after diuresis. We will stop IV Lasix and continue p.o. Lasix. Dictated by UNIQUE Mcgarry for Ishmael Canas MD cc: UNIQUE Mcgarry MD Alexis R. Penot, MD
[2017-01-06] MEDS: DUONEB (A & A) INH PRN (15:04)
[2017-01-06] MEDS: EFFEXOR XR PO SCH (20:21)
[2017-01-06] MEDS: ELAVIL PO SCH (20:21)
[2017-01-06] MEDS: MIRAPEX PO SCH (20:21)
[2017-01-06] MEDS ORDERED: LIPITOR PO SCH (21:00)
[2017-01-07 06:06] VITALS: BP 148/65
[2017-01-07 06:14] LABS: HEMATOCRIT 37.7 % (42.0-52.0); HEMOGLOBIN 12.2 g/dL (14.0-18.0); MCH 26.7 PG (27-31); MCHC 32.4 g/dL (33-37); MCV 82.5 FL (81-99); MPV 11.6 FL (7.4-10.4); RBC 4.57 XMIL (4.7-6.1)
[2017-01-07] MEDS: PRILOSEC PO SCH (06:33)
[2017-01-07] MEDS: CARAFATE PO SCH (06:34)
[2017-01-07] MEDS: OXY IR PO PRN (06:34)
[2017-01-07 06:37] LABS: CALCIUM 8.6 mg/dL (8.8-10.2); POTASSIUM 3.9 mmol/L (3.5-5.1)
[2017-01-07] MEDS: DUONEB (A & A) INH PRN (07:40)
[2017-01-07] MEDS: DOXYCYCLINE 100 MG in NS 250 ML IV SCH (09:53)
[2017-01-07] MEDS: ELIQUIS PO SCH (09:53)
[2017-01-07] MEDS: JANUVIA PO SCH (09:53)
[2017-01-07] MEDS: OMNICEF PO SCH (09:53)
[2017-01-07] MEDS: LASIX PO SCH (09:53)
--- NOTE | 2017-01-07 14:40 | DISCHARGE SUMMARY ---
ADMISSION DATE: 01/04/2017 DISCHARGE DATE: 01/07/2017 DIAGNOSES: 1. Cellulitis, left lower extremity. 2. Left lower lobe pneumonia. 3. Chronic lower extremity edema. 4. Chronic depression, situational. 5. Atrial fibrillation with rate controlled. 6. Diabetes mellitus type 2. 7. Chronic obstructive pulmonary disease. 8. Chronic pain. 9. Hypertension. DIAGNOSTICS: 01/04/2017, chest x-ray revealed mildly shallow inspiration, ill-defined infiltrate at the left mid to lower lung. The possibility of pneumonia cannot be excluded. HOSPITAL COURSE: Mr. Gutiérrez presented to the emergency room complaining of fevers and chills over the 24 hours prior to arrival as well as urinary urgency. He was found to have a white count of 13. Chest x-ray revealed a left mid to lower lung infiltrate for which he has been treated with IV Rocephin. He also has a history of chronic lower extremity edema with recurrent cellulitis. He was noted to have cellulitis to his left lower extremity for which he was treated with doxycycline. He did have a white count of 13 on admission. This has decreased to 8. He was febrile on admission. He has been afebrile for the last 24+ hours. We did monitor his creatinine which stayed 1.6-1.7, which over the last year looks like it was 1.7-1.9. Thankfully, he did improve and is ready to be discharged. PHYSICAL EXAMINATION: Cardiovascular: Irregularly irregular rate and rhythm. S1 and S2 appreciated. Pulmonary: Breath sounds are clear with no increased work of breathing noted. Gastrointestinal: Abdomen is soft, nontender, nondistended. Bowel sounds in all 4 quadrants. Neurologic: He is alert and oriented x3. Skin: Warm and dry with some erythematous changes to his left calf and mariee and bilateral lower extremity edema. DISCHARGE MEDICATIONS: 1. Carafate 1 g b.i.d. 2. Prilosec 40 mg at bedtime. 3. Effexor XR 1 cap at bedtime, 4. Elavil 10 mg at bedtime. 5. Lipitor 40 daily. 6. Diltiazem ER 240 daily. 7. Eliquis 5 mg b.i.d. 8. Oxycodone 15 mg q.6 hours p.r.n. Xopenex nebs 1.25 q. 6 hours. 9. Mirapex 1.5 mg at bedtime. 10. Spiriva 18 mcg daily. 11. Januvia 25 mg daily. 12. Doxycycline 100 mg p.o. b.i.d. for 7 days. 13. Omnicef 300 mg p.o. b.i.d. for 7 days. FOLLOWUP: He is to follow up with Dr. Iraheta in 1-2 weeks or sooner for temperature greater than 101.5, any increasing redness, edema or drainage to his left lower extremity, shortness of breath, chills, PND, orthopnea or any questions or concerns that he may have. DISPOSITION: He is being discharged home in stable condition with family members. TIME SPENT: This is a greater than 30 minute discharge. Dictated by UNIQUE Mcgarry for Ishmael Canas MD cc: UNIQUE Mcgarry MD Alexis R. Penot, MD
== END 2017-01-07 13:10 | disposition home health service (06) ==
LOC: P.ED 14:35 → P.MEDSURG 14:35 → OBSVTOIN 18:04
PROVIDERS: ADMIT Internal Medicine; ATTEND Family Medicine

== ENCOUNTER 2018-11-28 09:43 | Inpatient (IN) ==
[2018-11-28] MEDS ORDERED: DUONEB (A & A) INH ONE (10:07)
[2018-11-28] MEDS ORDERED: PULMICORT INH ONE (10:07)
[2018-11-28] MEDS ORDERED: ALBUTEROL NEB INH ONE (10:07)
--- NOTE | 2018-11-28 11:00 | Diag Imaging Result Doc PS360 ---
EXAM: CHEST-1 VIEW HISTORY: SOB and cough TECHNIQUE: Chest single view COMPARISON: 04/01/2018 FINDINGS: Poor inspiratory effort. There are bilateral infiltrates. The heart is borderline mildly prominent and there is central vascular distention. Small left pleural effusion versus pleural thickening IMPRESSION: Pulmonary edema/bilateral infiltrates. Electronically signed by Cezar Sheehan 11/28/2018 10:57 AM
[2018-11-28] MEDS ORDERED: LASIX IV ONE (11:03)
[2018-11-28 11:22] LABS: ALBUMIN 3.5 g/dL (3.5-5.0); CALCIUM 7.9 mg/dL (8.8-10.2); CREATININE 1.4 mg/dL (0.7-1.2); POTASSIUM 4.3 mmol/L (3.5-5.1); TOTAL BILIRUBIN 0.6 mg/dL (0.20-1.00); TOTAL PROTEIN 8.9 g/dL (6.3-8.3)
[2018-11-28 11:43] LABS: BASO# 0.02 X1000 (0.0-0.2); BASO% 0.2 % (0.0-0.8); EOS# 0.01 X1000 (0.0-0.7); EOS% 0.1 % (0.0-10.0); HEMATOCRIT 42.7 % (42.0-52.0); HEMOGLOBIN 13.7 g/dL (14.0-18.0); IMM GRAN# 0.03 X1000 (0.0-0.04); IMM GRAN% 0.2 % (0.0-0.5); LYMPH# 0.71 X1000 (1.2-3.4); LYMPH% 5.6 % (20.5-51.1); MCH 28.8 PG (27-31); MCHC 32.1 g/dL (33-37); MCV 89.9 FL (81-99); MONO# 0.65 X1000 (0.11-0.59); MONO% 5.1 % (1.7-9.3); MPV 12.1 FL (7.4-10.4); NEUT# 11.33 X1000 (1.4-6.5); NEUT% 88.8 % (42.2-75.2); PLT 139 X1000 (130-400); RBC 4.75 XMIL (4.7-6.1); RDW 17.4 % (11.5-14.5); WBC 12.75 X1000 (4.8-10.8)
[2018-11-28 12:16] LABS: ANISOCYTOSIS 1+; LARGE PLATELETS OCCASIONAL; LYMPHS 7 % (21-51); MONO 5 % (1-9); SEGS 88 % (42-75)
[2018-11-28] MEDS ORDERED: ROCEPHIN 1 GM in NS 50 ML IV ONE (12:24)
[2018-11-28] MEDS ORDERED: ZITHROMAX PO ONE (12:24)
[2018-11-28] MEDS ORDERED: ROCEPHIN ONE (12:37)
[2018-11-28 13:13] LABS: BILIRUBIN URINE NEGATIVE (NEGATIVE); BLOOD URINE NEGATIVE (NEGATIVE); CLARITY CLEAR (CLEAR); COLOR YELLOW; KETONE URINE NEGATIVE (NEGATIVE); LEUKOCYTES URINE TRACE (NEGATIVE); NITRITE URINE NEGATIVE (NEGATIVE); PROTEIN URINE TRACE mg/dL (NEGATIVE); UROBILINOGEN URINE NORMAL
[2018-11-28 13:14] LABS: URINE BACTERIA NEGATIVE /HFP; URINE CAST NONE SEEN /LPF; URINE CRYSTAL NONE SEEN /HPF; URINE EPITHELIAL CELLS <10 /HPF (<10); URINE RBC <10 /HPF (<10); URINE SOURCE CATH; URINE WBC <10 /HPF (<10); URINE YEAST NONE SEEN /HPF
--- NOTE | 2018-11-28 13:41 | PROVIDER DOCUMENTATION ---
This chart was entered by Nikki Nobles Scribe, acting as scribe for Warren Pimentel MD. HPI-Respiratory General - General Chief Complaint: Shortness of Breath Stated Complaint: dyspnea Time Seen by Provider: 11/28/18 09:46 Source: patient, EMS (first response) Allergies/Adverse Reactions: Patient Allergies Allergy/AdvReac Type Severity Reaction Status Date / Time No Known Allergies Allergy Verified 11/28/18 11:33 Home Medications: Home Medication List Medication Instructions Recorded Confirmed Last Taken Type ATORVAstatin [Lipitor] 40 mg PO QHS 05/06/16 11/28/18 11/27/18 History Omeprazole [Prilosec] 40 mg PO QHS 05/06/16 11/28/18 11/27/18 History Sucralfate [Carafate] 1 gm PO BID 05/06/16 11/28/18 11/27/18 History Oxycodone HCl 15 mg PO Q6H PRN 10/13/16 11/28/18 11/27/18 History Apixaban [Eliquis] 5 mg PO BID #60 tablet 10/25/17 11/28/18 11/27/18 Rx Amitriptyline HCl 50 mg PO QHS 11/23/17 11/28/18 11/27/18 History Glipizide [Glipizide ER] 5 mg PO BID 02/15/18 11/28/18 11/27/18 History Nitroglycerin [Nitrostat] 0.4 mg SL DIRECTED PRN 02/15/18 11/28/18 11/27/18 History Albuterol Sulfate [Ventolin Hfa] 1 - 2 puff IH Q4H PRN PRN 04/01/18 11/28/18 11/27/18 History Insulin Aspart [Novolog] 100 unit SQ PRN PRN 04/01/18 11/28/18 11/27/18 History Pramipexole Di-HCl [Mirapex] 1.5 mg PO HS 04/01/18 11/28/18 11/27/18 History Venlafaxine HCl [Venlafaxine HCl 75 mg PO QHS 04/01/18 11/28/18 11/27/18 History ER] Chlorthalidone 25 mg PO QAM 10/24/18 11/28/18 11/27/18 History Diltiazem HCl [Cardizem Cd] 240 mg PO QAM 10/24/18 11/28/18 11/27/18 History Potassium Chloride E.r. [Klor-Con] 10 meq PO BID 10/24/18 11/28/18 11/27/18 History - History of Present Illness-Resp Nature of Presenting Problem: 68 yowm presents to the ed with c/o sob, cough, chest pain and nausea onset last night and pt sts worsened this am. pt raisaeed 911 t have pt brought to ed for tx. pt ion exam is speaking in complete sentences and appears in mild distress. is at bedside Quality of Pain: reports: fullness Severity in ED: reports: mild Onset/Duration: reports: last night Timing: reports: still present Context: reports: other (COPD) Cough Quality/Degree: reports: mild Episode Frequency: chronic episodes Current Respiratory Medication Therapy: Initiated see nurses note Modifying Factors: improves with: oxygen, rest, sitting upright. worse with: exertion, lying down Associated Symptoms: reports: chest pain/soreness, shortness of breath. denies: dizziness, fever/chills, wheezing Similar Symptoms Previously?: Yes Recently seen or treated by another doctor?: No Review of Systems - Adult - REVIEW OF SYSTEMS - ADULT Constitutional: denies: chills, fever Eyes: denies: blurred vision, double vision Ears, Nose, Mouth & Throat: reports: no symptoms reported Cardiovascular: reports: see HPI, chest pain, edema, orthopnea, poor circulation . denies: palpitations, syncope Respiratory: reports: see HPI, chronic cough, dyspnea on exertion, shortness of breath. denies: wheezing Gastrointestinal: reports: see HPI, nausea. denies: diarrhea, vomiting Genitourinary: reports: no symptoms reported Musculoskeletal: denies: back pain, neck pain Integumentary: reports: no symptoms reported Neurological: denies: dizziness/vertigo, headache/migraines Psychiatric: reports: no symptoms reported Endocrine: reports: no symptoms reported Hematologic/Lymphatic: reports: no symptoms reported Allergic/Immunologic: reports: no symptoms reported All Other Systems: Reviewed and Negative Past History - Adult - PAST MEDICAL HISTORY-ADULT Review of Records: reports: Nursing Assessment Review, Medications Reviewed Major Childhood Illnesses: reports: denies history Cardiovascular: reports: A-Fib, CAD, CHF, HTN, hyperlipidemia, ND, PVD Respiratory: reports: asthma, COPD, other (asbestos) Gastrointestinal: reports: denies history Genitourinary: reports: cancer (Hx: prostate), kidney disease Musculoskeletal: reports: chronic pain, other (restless leg syndrome) Neurological: reports: CVA Psychiatric: reports: depression Endocrine/Immune: reports: Diabetes, thyroid disorder Diabetes Type: Type 2 Other Conditions: reports: denies history - PRIOR SURGERIES/PROCEDURES Surgical/Procedure History: reports: appendectomy, colonoscopy, back/neck (back) , other (AAA, abdominal aortic stents) - IMMUNIZATION STATUS Childhood Immunizations: See Nurse Assessment Flu Vaccine: See Nurse Assessment - FAMILY HISTORY Family History: CAD over 55 yo, other (type 2 diabetes) - SOCIAL HISTORY Smoking: quit less than 1 year (june 2018) Substance Use: denies Living Situation: family Physical Exam-General - PHYSICAL EXAM-ADULT Initial Vital Signs Reviewed: Yes - CONSTITUTIONAL General Appearance: alert, mild distress, obese - EYES Eyes: PERRL/EOMI, pink conjunctivae - HEAD, EARS, NOSE, MOUTH & THROAT HENMT: normocephalic/atraumatic. negative: moist mucous membranes (dry oral) - NECK Neck: non-tender, full range of motion, supple, normal inspection - RESPIRATORY Respiratory: respiratory distress, decreased breath sounds, increased rate (30). negative: crackles, rales, rhonchi, wheezing - CARDIOVASCULAR Cardiovascular: normal peripheral pulses, tachycardia (118) - GASTROINTESTINAL (ABDOMEN) Abdominal Exam: normal bowel sounds, non tender, soft - LYMPHATIC Lymphatic: no adenopathy - MUSCULOSKELETAL Back Exam: normal inspection, no CVA tenderness, no vertebral tenderness Extremity: no calf tenderness, normal capillary refill, pelvis stable, other (chronic skin changes to BLE) - SKIN Integumentary: normal color, normal turgor, warm/dry, erythema (to BLE) - NEUROLOGIC Neurologic: grossly normal, no motor/sensory deficits - PSYCHIATRIC Psych/Mental Status: normal mood/affect, normal thought content, normal thought process, oriented x 3 Progress - PLAN OF CARE/RESULTS Progress/Plan/Lab Results: Vital Signs - 8 hr 11/28/18 09:43 11/28/18 09:53 11/28/18 10:00 Temperature 100.4 F H 98.4 F Pulse Rate 110 H 107 H Respiratory Rate 30 H 28 H 24 Blood Pressure 174/93 162/88 O2 Sat by Pulse Oximetry 88 L 93 L 11/28/18 10:50 11/28/18 11:05 Temperature Pulse Rate 105 H 88 Respiratory Rate 20 20 Blood Pressure 148/73 O2 Sat by Pulse Oximetry 95 97 Laboratory Results - last 24 hr 11/28/18 11/28/18 11/28/18 10:45 10:45 10:45 WBC 12.75 H RBC 4.75 Hgb 13.7 L Hct 42.7 MCV 89.9 MCH 28.8 MCHC 32.1 L RDW Std Deviation 17.4 H Plt Count 139 MPV 12.1 H Immature Gran % (Auto) 0.2 Neut % (Auto) 88.8 H Lymph % (Auto) 5.6 L Sterling % (Auto) 5.1 Eos % (Auto) 0.1 Baso % (Auto) 0.2 Immature Gran # (Auto) 0.03 Neut # (Auto) 11.33 H Lymph # (Auto) 0.71 L Sterling # (Auto) 0.65 H Eos # (Auto) 0.01 Baso # (Auto) 0.02 Segmented Neutrophils 88 H Lymphocytes 7 L Monocytes 5 Large Platelets OCCASIONAL Anisocytosis 1+ Sodium 135 L Potassium 4.3 Chloride 96 L Carbon Dioxide 28 Anion Gap 12 BUN 14 Creatinine 1.4 H Estimated GFR/1.73 m2 50 BUN/Creatinine Ratio 10 Glucose 185 H Calculated Osmolality 275 Calcium 7.9 L Total Bilirubin 0.60 AST 16 ALT 11 Alkaline Phosphatase 142 H Creatine Kinase Pbv-A-Jucuzfhrmyx Pept Total Protein 8.9 H Albumin 3.5 Globulin 5.0 Albumin/Globulin Ratio 1.0 Plasma Lactate 1.7 Urine Source Urine Color Urine Clarity Urine pH Ur Specific Fulton Urine Protein Urine Ketones Urine Blood Urine Nitrite Urine Bilirubin Urine Urobilinogen Urine Microscopic RBC Urine WBC Urine Microscopic WBC Ur Epithelial Cells Urine Crystals Urine Bacteria Urine Casts Urine Yeast Urine Glucose 11/28/18 11/28/18 11/28/18 10:45 10:45 11:45 WBC RBC Hgb Hct MCV MCH MCHC RDW Std Deviation Plt Count MPV Immature Gran % (Auto) Neut % (Auto) Lymph % (Auto) Sterling % (Auto) Eos % (Auto) Baso % (Auto) Immature Gran # (Auto) Neut # (Auto) Lymph # (Auto) Sterling # (Auto) Eos # (Auto) Baso # (Auto) Segmented Neutrophils Lymphocytes Monocytes Large Platelets Anisocytosis Sodium Potassium Chloride Carbon Dioxide Anion Gap BUN Creatinine Estimated GFR/1.73 m2 BUN/Creatinine Ratio Glucose Calculated Osmolality Calcium Total Bilirubin AST ALT Alkaline Phosphatase Creatine Kinase 82 Wle-G-Pbsnqneimzz Pept 710 H Total Protein Albumin Globulin Albumin/Globulin Ratio Plasma Lactate Urine Source CATH Urine Color YELLOW Urine Clarity CLEAR Urine pH 7.0 Ur Specific Fulton 1.010 Urine Protein TRACE A Urine Ketones NEGATIVE Urine Blood NEGATIVE Urine Nitrite NEGATIVE Urine Bilirubin NEGATIVE Urine Urobilinogen NORMAL Urine Microscopic RBC <10 Urine WBC TRACE A Urine Microscopic WBC <10 Ur Epithelial Cells <10 Urine Crystals NONE SEEN Urine Bacteria NEGATIVE Urine Casts NONE SEEN Urine Yeast NONE SEEN Urine Glucose TRACE(50 mg/dL) A Orders Category Date Time Status Ramirez Cath Insertion ORDERED Care 11/28/18 11:34 Active CHEST-1 VIEW [RAD] Stat Exams 11/28/18 10:07 Completed BLOOD CULTURE [BLDCUL] Stat Lab 11/28/18 10:07 Ordered CBC WITH DIFF [HEME] Stat Lab 11/28/18 10:45 Completed COMPREHENSIVE METABOLIC PANEL [CHEM] Stat Lab 11/28/18 10:45 Completed Cardiac Profile [CK PROFILE] [SP CHEM] Stat Lab 11/28/18 10:45 Completed LACTATE, PLASMA [CHEM] Stat Lab 11/28/18 10:45 Completed PRO B-NATRIURETIC PEPTIDE Stat Lab 11/28/18 10:[address] W/POSS RFLX CULT [URINALYSIS] Stat Lab 11/28/18 11:45 Completed URINE CULTURE [RM] Routine Lab 11/28/18 13:14 Ordered Albuterol 2.5MG/Ipratrop 0.5MG [Duoneb (A & A)] Med 11/28/18 10:07 Discontinued 3 ml INH NOW ONE Albuterol [Albuterol Neb] Med 11/28/18 10:07 Discontinued 5 mg INH NOW ONE Azithromycin [Zithromax] Med 11/28/18 12:24 Discontinued 500 mg PO NOW ONE Budesonide [Pulmicort] Med 11/28/18 10:07 Discontinued 0.5 mg INH NOW ONE CefTRIAXONE [Rocephin] Med 11/28/18 12:37 Discontinued 1 gm .ROUTE .STK-MED ONE CefTRIAXONE [Rocephin] 1 gm Med 11/28/18 12:24 Discontinued 0.9% Sodium Chloride Inj [Ns] 50 ml IV NOW Furosemide [Lasix] Med 11/28/18 11:03 Discontinued 80 mg IV NOW ONE Aerosol Treatments Routine Oth 11/28/18 10:08 Completed Aerosol Treatments Stat Oth 11/28/18 10:08 Completed EKG [EKG] Stat Ther 11/28/18 10:07 Ordered Result Diagrams: 11/28/18 10:45 11/28/18 10:45 - REASSESSMENT Reassessment #1 Time Reassessed: 10:20 (pt sts has been taking Spiriva @ home with no relief of sx) Status: unchanged Reassessment #2 Time Reassessed: 11:40 (pt is resting on exam) Status: improving - XRAY 1 XRAY: Bilateral XRAY Study: Chest Impression: See EMR Report (EXAM: CHEST-1 VIEW HISTORY: SOB and cough TECHNIQUE: Chest single view COMPARISON: 04/01/2018 FINDINGS: Poor inspi ratory effort. There are bilateral infiltrates. The heart is borderline mildly prominent and there is central vascular distention. Small left pleural effusion versus pleural thickening IMPRESSION: Pulmonary edema/bilateral infiltrates. Electronically signed by Cezar Sheehan 11/28/2018 10:57 AM 11/28/18 105 Interpreting Physician: Cezar Sheehan MD Dictated Date/Time: 11/28/181056 cc: Warren Pimentel MD;) - CONSULTS/PCP/HOSPITALIST Notification #1 *Consult/PCP/Hospitalist*: hospitalist dr barajas Time Discussed: 13:39 Consult Disposition: Admit Departure - Departure Date of Disposition Decision: 11/28/18 Time of Disposition Decision: 13:00 DIAGNOSIS: CHF (congestive heart failure) Qualifiers: Heart failure type: unspecified Heart failure chronicity: unspecified Qualified Code(s): I50.9 - Heart failure, unspecified Fever Qualifiers: Fever type: unspecified Qualified Code(s): R50.9 - Fever, unspecified Diabetes Qualifiers: Diabetes mellitus type: other specified (including ANUJ) Diabetes mellitus terminal operator insulin use: with terminal operator use Diabetes mellitus complication status: without complication Qualified Code(s): E13.9 - Other specified diabetes mellitus without complications; Z79.4 - intermediate (current) use of insulin Pneumonia Qualifiers: Pneumonia type: due to unspecified organism Laterality: bilateral Lung location: lower lobe of lung Qualified Code(s): J18.1 - Lobar pneumonia, unspecified organism Disposition: ADMITTED INPATIENT 09 Certified Medical Emergency: Emergent Condition: Good Referrals and Follow-Ups: None,PCP [Primary Care Provider] - - Critical Care Note This patient required my direct & personal management of CC.: Yes Total Time (mins): 36 Critical Care Statement: This patient required my direct personal management to treat or rule out processes, the absence of which, could potentiallly result in sudden, clinically significant life or limb threatening deterioration. Attestation - Physician/ GABY Attestation Patient care was provided by Advanced Practice Provider:: No The physician spent face to face time with patient:: Yes Advanced Practice Provider documentation review:: Supervising physician onsite and consulted in the evaluation and care of this patient. The physician did have a face to face encounter with the patient. This chart was documented by the indicated scribe, (Nikki Nobles Scribe) and accurately reflects the services I performed and decisions made by , H julio c,Warren Escudero MD, as attested by the provider's signature.
[2018-11-28] MEDS ORDERED: NITROGLYCERIN SL PRN (13:48)
[2018-11-28] MEDS ORDERED: TYLENOL PO PRN (13:53)
[2018-11-28 14:36] LABS: I-STAT BE 3 mmoll (-2-3); I-STAT GLUCOSE 214 mg/dL (70-105); I-STAT HEMOGLOBIN 13.6 g/dL (11.5-17.5); I-STAT K 4.1 mmoll (3.5-4.9); I-STAT TCO2 29 mmoll (23-27); I-STAT pH 7.407 (7.350-7.450)
[2018-11-28] MEDS: XOPENEX NEB INH SCH ×3 (15:21→22:46)
[2018-11-28] MEDS: ATROVENT NEB INH SCH ×3 (15:21→22:46)
[2018-11-28] MEDS: OXY IR PO PRN (17:53)
[2018-11-28] MEDS: HUMULIN R (PARKWAY) SUBQ SCH ×2 (18:29→20:40)
--- NOTE | 2018-11-28 18:46 | HISTORY AND PHYSICAL ---
PRIMARY CARE PROVIDER: Yahir Gooden MD. PRIMARY SALESPERSON SEWING MACHINES: Dr. Johann Magallanes. CHIEF COMPLAINT: Shortness of breath, worsened over the last 24 hours with brown phlegm, cough and subjective fever. HISTORY OF PRESENT ILLNESS: Mr. Hayder Gutiérrez is a 68-year-old male with a medical history of COPD, coronary artery disease with myocardial infarction and stents, congestive heart failure, depression, morbid obesity, CKD stage 3, chronic atrial fibrillation, chronic lower extremity venous stasis and insufficiency, and also what looks like chronic infection between the toes on both feet. He is now here with complaints of worsening shortness of breath over the last 24 hours. He states that when he had his back surgery about 4-5 years ago, he has had shortness of breath ever since then, but just over the last 24 hours it progressed to worsening shortness of breath, brown phlegm when he coughs up phlegm, and subjective fever with chills, and he was found in the ER to have pulmonary edema along with bibasilar infiltrates on his chest x-ray, along with leukocytosis. It does not appear to be any type of COPD exacerbation. It is essentially just bibasilar pneumonia that is community acquired, and he has been started on Rocephin. PAST MEDICAL HISTORY: 1. Coronary artery disease with 6 myocardial infarctions and 2-3 stents. 2. Diabetes mellitus type 2. 3. Peripheral vascular disease. 4. Chronic venous insufficiency. 5. Chronic infections between the toes on both feet. 6. COPD. 7. Depression. 8. Chronic atrial fibrillation. 9. Chronic pain in the back, shoulder and right knee. 10.Obstructive sleep apnea but refuses CPAP. 11.CKD stage 3. 12.Morbid obesity with a BMI of 32.8. 13.Prostate cancer with prostatectomy 14.Hypertension. 15.Hypothyroidism. 16.Hyperlipidemia. 17.GERD. PAST SURGICAL HISTORY: 1. Abdominal aortic aneurysm repair. 2. Prostatectomy. 3. PTCA with 2 or 3 stents. 4. Appendectomy. SOCIAL HISTORY: Quit smoking in June 2016 but took up vaping and has been vaping ever since. Prior to that, he was a 2- to 6-lglu-req-day smoker for 50+ years. He denies alcohol or illicit drug use. He lives at home with his . 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 He is not very ambulatory at home, but uses a walker or cane when he needs to. FAMILY HISTORY: Mother had cancer of unknown type. Father had myocardial infarction and stroke. ALLERGIES: No known drug allergies. HOME MEDICATIONS: 1. Amitriptyline 50 mg p.o. nightly. 2. Lipitor 40 mg p.o. nightly. 3. Prilosec 40 mg p.o. nightly. 4. Venlafaxine HCl extended release 75 mg p.o. nightly. 5. Carafate 1 gram p.o. twice daily. 6. Cardizem 240 mg p.o. daily. 7. Chlorthalidone 25 mg p.o. daily. 8. Glipizide extended release 5 mg p.o. twice daily. 9. Potassium chloride extended release 10 mEq p.o. twice daily. 10.Mirapex 1.5 mg p.o. nightly. 11.Nitroglycerin sublingual as needed. 12.NovoLog 100 units subcutaneously for sliding scale. 13.Oxycodone HCl 50 mg p.o. every 6 hours. 14.Albuterol 1-2 puffs inhaled every 4 hours p.r.n. 15.Eliquis 5 mg p.o. twice daily REVIEW OF SYSTEMS: A 14-point review of systems is completed, and all are negative except for those mentioned above in the HPI. He does state that his depression is a little worse than it used to be. PHYSICAL EXAMINATION: VITAL SIGNS: Temperature was 100.4 present on admit. It is down to 98.4. Heart rate 99, respiratory rate 20, blood pressure 148/73, O2 saturation 97% on 3.5 L. GENERAL: Mr. Hayder Gutiérrez is a 68-year-old male. He is in no acute distress. He is able to answer questions appropriately. HEENT: Atraumatic, normocephalic. Pupils equal, round, and reactive to light. Extraocular movements intact. Mucous membranes are moist. NECK: Trachea midline. CARDIOVASCULAR: Irregularly irregular rate and rhythm. No rubs, gallops, or murmurs. He has nonpitting generalized lower extremity edema, mostly lymphedema is what it appears to be, due to the chronic venous stasis. Negative for JVD or carotid bruits. PULMONARY: Clear to auscultate. Decreased in the bases. No accessory muscle use. Mild work of breathing. Tolerating 3.5 L nasal cannula. GI: Soft, nontender, nondistended. Positive bowel sounds x4. NEUROLOGIC: A O x3. Follows commands. Decreased sensory in the lower extremities. SKIN: Warm, dry and intact except for the lower extremities, where he has significant venous stasis with very thick scaling of the lower extremities and possible infection between the toes on both feet. LABORATORY DATA: White blood cells 12,000, hemoglobin 13, hematocrit 42, platelet count 139. ABGs: pH of 7.407, pCO2 of 43, pO2 of 60, bicarb of 27, base excess of 3, saturation of 91%. Sodium 135, potassium 4.3, BUN 14, creatinine 1.4, glucose 185. Calcium 7.9, bilirubin 0.60, AST 16, ALT 11, CK 82. ProBNP 710. Albumin 3.5. Serum lactated 1.7. Urinalysis: Trace protein, trace white blood cells, trace glucose. IMAGING: Chest x-ray: pulmonary edema or bibasilar infiltrates. ASSESSMENT/PLAN: 1. Community-acquired pneumonia in the bibasilar regions of the lungs. He has presented with a fever and describes coughing up brown phlegm. It has worsened over the last 24 hours. He started on Rocephin. He is getting respiratory treatments, and we will send for a sputum culture. 2. Chronic obstructive pulmonary disease but no exacerbation at this time. Currently requiring oxygen at 3.5 liters. 3. Chronic atrial fibrillation. Continue with Cardizem and Eliquis. 4. History of coronary disease but no chest pain at this time. 5. Chronic venous stasis/peripheral vascular disease. It appears that he probably has chronic infection between both toes. Will do wound care and send for culture. He does have some leukocytosis, and there is a bit of a foul smell from the location. We will culture them. 6. Chronic kidney disease stage 3, but it is currently stable. 7. Hypertension. Continue home medications. 8. Deep venous thrombosis prophylaxis. He is on Eliquis. Dictated by UNIQUE Pollard for Emile Mix MD Addendum: Patient seen and examined by myself. Agree with UNIQUE note. It reflects my assessment and plan. Patient is being admitted to hospital for bilateral pneumonia. Will start Ceftriaxone and solumedrol, Duoneb every four hours and monitor this patient closely. cc: UNIQUE Pollard MD [facility]
[2018-11-28] MEDS: PULMICORT INH SCH (19:18)
[2018-11-28] MEDS: LIPITOR PO SCH (20:31)
[2018-11-28] MEDS: PRILOSEC PO SCH (20:31)
[2018-11-28] MEDS: EFFEXOR XR PO SCH (20:31)
[2018-11-28] MEDS: KLOR-CON PO SCH (20:31)
[2018-11-28] MEDS: ELAVIL PO SCH (20:31)
[2018-11-28] MEDS: ELIQUIS PO SCH (20:31)
[2018-11-28] MEDS: GLUCOTROL XL PO SCH (20:31)
[2018-11-28] MEDS: MIRAPEX PO SCH (20:32)
[2018-11-28] MEDS ORDERED: CARAFATE PO SCH (21:00)
[2018-11-29] MEDS: ATROVENT NEB INH SCH ×6 (03:04→22:50)
[2018-11-29] MEDS: XOPENEX NEB INH SCH ×6 (03:04→22:50)
[2018-11-29] MEDS: OXY IR PO PRN ×4 (03:41→21:55)
[2018-11-29] MEDS: HUMULIN R (PARKWAY) SUBQ SCH ×3 (06:16→16:41)
[2018-11-29 06:28] LABS: BASO# 0.02 X1000 (0.0-0.2); BASO% 0.2 % (0.0-0.8); EOS# 0.05 X1000 (0.0-0.7); EOS% 0.5 % (0.0-10.0); HEMOGLOBIN 11.8 g/dL (14.0-18.0); IMM GRAN# 0.04 X1000 (0.0-0.04); IMM GRAN% 0.4 % (0.0-0.5); LYMPH# 1.81 X1000 (1.2-3.4); LYMPH% 18.6 % (20.5-51.1); MCH 28.5 PG (27-31); MCHC 31.9 g/dL (33-37); MCV 89.4 FL (81-99); MONO# 0.91 X1000 (0.11-0.59); MONO% 9.4 % (1.7-9.3); MPV 12.3 FL (7.4-10.4); NEUT# 6.89 X1000 (1.4-6.5); NEUT% 70.9 % (42.2-75.2); PLT 126 X1000 (130-400); RBC 4.14 XMIL (4.7-6.1); RDW 17.5 % (11.5-14.5); WBC 9.72 X1000 (4.8-10.8)
[2018-11-29 06:56] LABS: ALBUMIN 3.2 g/dL (3.5-5.0); CALCIUM 7.5 mg/dL (8.8-10.2); CREATININE 1.6 mg/dL (0.7-1.2); MAGNESIUM 1.5 mg/dL (1.5-2.7); POTASSIUM 3.5 mmol/L (3.5-5.1); TOTAL BILIRUBIN 0.8 mg/dL (0.20-1.00); TOTAL PROTEIN 7.6 g/dL (6.3-8.3)
[2018-11-29 07:24] LABS: INR 1.24; PROTIME 16.2 Seconds (11.0-16.0)
[2018-11-29 07:25] LABS: PTT 37.7 Seconds (22.3-41.8)
[2018-11-29] MEDS: PULMICORT INH SCH ×2 (07:43→19:48)
[2018-11-29] MEDS ORDERED: ROCEPHIN 1 GM in NS 50 ML IV SCH (09:00)
--- NOTE | 2018-11-29 09:44 | Diag Imaging Result Doc PS360 ---
EXAM: CHEST-2 VIEWS HISTORY: reevaluate pna TECHNIQUE: Two views COMPARISON: 11-28-18 FINDINGS: The lungs are well expanded. The heart is not enlarged. The vessels are not distended. There are fewer infiltrates. Small left effusion versus thickening. IMPRESSION: Interval improvement. Electronically signed by Cezar Sheehan 11/29/2018 9:42 AM
[2018-11-29] MEDS: HYGROTON PO SCH (09:57)
[2018-11-29] MEDS: ELIQUIS PO SCH ×2 (09:58→21:56)
[2018-11-29] MEDS: CARAFATE PO SCH ×2 (09:58→16:41)
[2018-11-29] MEDS: KLOR-CON PO SCH ×2 (09:58→21:56)
[2018-11-29] MEDS: GLUCOTROL XL PO SCH (09:58)
[2018-11-29] MEDS: CARDIZEM CD PO SCH (09:59)
[2018-11-29] MEDS ORDERED: LOPRESSOR IV SCH (10:45)
[2018-11-29] MEDS ORDERED: MAGNESIUM SULFATE 4 GM/S.W.I. 4 GM/100 ML IVPB IV ONE (11:07)
[2018-11-29] MEDS ORDERED: KLOR-CON PO ONE (11:07)
--- NOTE | 2018-11-29 11:32 | EKG Report ---
Test Performed on : 11/29/2018 11:24:19 AM Test Reason : AFIB/RVR Blood Pressure : / mmHG Vent. Rate : 123 BPM Atrial Rate : 138 BPM P-R Int : 000 ms QRS Dur : 080 ms QT Int : 288 ms P-R-T Axes : 000 035 048 degrees QTc Int : 412 ms Atrial fibrillation. with rapid ventricular response. Abnormal ECG When compared with ECG of 04-APR-2018 13:55, No significant change was found Confirmed by Sean Angel MD ([id number]) on 12/07/2018 10:33:45 AM
[2018-11-29] MEDS ORDERED: ROCEPHIN 1 GM in NS 50 ML IV ONE (12:00)
--- NOTE | 2018-11-29 14:12 | PROGRESS NOTE ---
DATE: 11/29/2018 SUBJECTIVE: The patient reports breathing better. According to nursing staff, his heart rate has started getting higher, in the range of 130s and 140s, but patient apparently is asymptomatic. He is sleepy upon my examination because he just got his pain pill a half an hour ago. OBJECTIVE: Vital Signs: Temperature 98.9 degrees, heart rate 105, respiratory rate 22, blood pressure 132/61, O2 saturation 100% on 2 L nasal cannula. General Examination: This is a chronically ill appearing, 68-year-old male, lying in bed, in no acute distress. HEENT: Head is normocephalic, atraumatic. Mucous membranes moist. Neck: No JVD noted. No carotid bruits. No lymphadenopathy. No thyromegaly. Cardiovascular: S1, S2 heard. Irregularly irregular. No murmurs, gallops, or rubs noted. Respiratory: Decreased breath sounds globally, mostly noted in both bases. Patient is not having any work of breathing or using accessory muscles. Abdomen: Soft. A little bit distended but nontender to palpation. Bowel sounds present. No organomegaly. Extremities: There is nonpitting generalized lower extremity edema, mostly the lymphedema and signs of chronic venous insufficiency in both lower extremities. There is significant venous stasis with very thick scaling of both extremities and possible infection between the toes on both feet. Neurological: Patient is alert and oriented x3. Moves 4 extremities. LABORATORY DATA: White cell count 9.72, hemoglobin 11.8, hematocrit 37.0, platelets 126,000. Creatinine 1.6, sodium 134. ASSESSMENT AND PLAN: 1. Bibasilar community-acquired pneumonia. Clinically, this patient is feeling and breathing better. We will continue with antibiotics, in this case Rocephin. I am going to increase the dose to 2 g IV q.24 hours and will add Levaquin 750 mg IV q.24 hours to his current treatment. The patient is also on breathing treatments with levalbuterol and ipratropium. We will continue with the same management. 2. Chronic obstructive pulmonary disease, not in exacerbation. We will continue with oxygen supplementation at 3.5 L/minute. 3. Chronic atrial fibrillation. He has had an episode of elevated heart rate that was between 120s and 130s. At this point, I added metoprolol 5 mg q.6 hours to his current treatment. Currently, he is on Cardizem CD 240 mg p.o. daily plus Eliquis. We will keep an eye on this patient. 4. Chronic venous stasis/peripheral vascular disease. The patient looks like he has chronic lymphedema with, of course, infection between both toes. Will do wound care and also wound culture is still pending. 5. Chronic kidney disease stage 3. Creatinine is at baseline. We will continue to monitor. 6. Hypertension. Blood pressure is under control. We will continue with the same management. 7. Deep vein thrombosis prophylaxis. Patient is already on Eliquis. 8. Disposition. We will continue to monitor this patient closely. cc: Emile iMx MD
[2018-11-29] MEDS: LEVAQUIN 750 MG/D5W 750 MG/150 ML IVPB IV SCH (14:16)
[2018-11-29] MEDS: LOPRESSOR IV SCH ×2 (16:42→21:58)
[2018-11-29] MEDS: EFFEXOR XR PO SCH (21:45)
[2018-11-29] MEDS: MIRAPEX PO SCH (21:53)
[2018-11-29] MEDS: ELAVIL PO SCH (21:54)
[2018-11-29] MEDS: LIPITOR PO SCH (21:55)
[2018-11-29] MEDS: PRILOSEC PO SCH (21:56)
[2018-11-30] MEDS: HUMULIN R (PARKWAY) SUBQ SCH ×5 (02:45→23:18)
[2018-11-30] MEDS: ATROVENT NEB INH SCH ×6 (04:20→23:02)
[2018-11-30] MEDS: XOPENEX NEB INH SCH ×6 (04:20→23:02)
[2018-11-30] MEDS: OXY IR PO PRN ×3 (05:25→23:17)
[2018-11-30] MEDS: LOPRESSOR IV SCH (05:26)
[2018-11-30 06:18] LABS: BASO# 0.01 X1000 (0.0-0.2); BASO% 0.1 % (0.0-0.8); EOS# 0.08 X1000 (0.0-0.7); HEMATOCRIT 38.2 % (42.0-52.0); HEMOGLOBIN 12.1 g/dL (14.0-18.0); IMM GRAN# 0.02 X1000 (0.0-0.04); IMM GRAN% 0.3 % (0.0-0.5); LYMPH# 1.49 X1000 (1.2-3.4); LYMPH% 19.2 % (20.5-51.1); MCH 28.5 PG (27-31); MCHC 31.7 g/dL (33-37); MCV 90.1 FL (81-99); MONO# 0.76 X1000 (0.11-0.59); MONO% 9.8 % (1.7-9.3); MPV 11.5 FL (7.4-10.4); NEUT# 5.42 X1000 (1.4-6.5); NEUT% 69.6 % (42.2-75.2); PLT 131 X1000 (130-400); RBC 4.24 XMIL (4.7-6.1); RDW 17.2 % (11.5-14.5); WBC 7.78 X1000 (4.8-10.8)
[2018-11-30 07:17] LABS: CREATININE 1.5 mg/dL (0.7-1.2); POTASSIUM 4.2 mmol/L (3.5-5.1)
[2018-11-30] MEDS: PULMICORT INH SCH ×2 (07:49→19:12)
[2018-11-30] MEDS: ROCEPHIN 2 GM in NS 50 ML IV SCH (11:08)
[2018-11-30] MEDS: CARDIZEM CD PO SCH (11:09)
[2018-11-30] MEDS: ELIQUIS PO SCH ×2 (11:09→23:11)
[2018-11-30] MEDS: HYGROTON PO SCH (11:09)
[2018-11-30] MEDS: KLOR-CON PO SCH ×2 (11:09→23:12)
[2018-11-30] MEDS: CARAFATE PO SCH ×2 (11:09→16:55)
[2018-11-30] MEDS: LOPRESSOR PO SCH ×2 (11:29→23:12)
--- NOTE | 2018-11-30 11:47 | PROGRESS NOTE ---
DATE: 11/30/2018 SUBJECTIVE: Patient reports breathing better. He is reporting some back pain. Heart rate is much better controlled. No other issues noted as per nursing staff. OBJECTIVE: Vital Signs: Temperature 97.6 degrees, heart rate 85, respiratory rate 18, blood pressure 119/76, O2 saturation 94% on room air. General Examination: This is a chronically ill- appearing 68-year-old male, lying in bed, in no distress. Cardiovascular: S1, S2 heard. No murmurs, gallops, or rubs. There is an irregularly irregular heart rhythm. Respiratory: Decreased breath sounds globally, mostly noted in both bases. Patient is not having any work of breathing or using accessory muscles. Abdomen: Soft. A little bit distended. Nontender to palpation. Bowel sounds present. No organomegaly. Extremities: There is nonpitting edema in both lower extremities. There is also very thick scaling of both extremities and possible infection between the toes of both feet. Neurological: Patient is alert and oriented x3. Moves 4 extremities. LABORATORY DATA: White cell count 7.78, hemoglobin 12.1, hematocrit 38.2, platelets 131. Sodium 128, potassium 4.2, creatinine 1.5. ASSESSMENT AND PLAN: 1. Bibasilar community-acquired pneumonia. We will continue with Rocephin 2 g IV q.24 h. and Levaquin 750 mg IV q.24 h. as well. Clinically, this patient is breathing better. We will continue with nebulizations with levalbuterol and ipratropium. We will continue with the same management. 2. Chronic obstructive pulmonary disease. The patient is not in any exacerbation. We will continue with providing some oxygen supplementation, although actually this patient apparently has been not getting any since this morning. 3. Chronic atrial fibrillation. Patient has been started on metoprolol 5 mg IV q.6 h. because of elevation of heart rate to 140s and 150s, but now that heart rate is better controlled, I will add metoprolol by mouth and stop IV, and we will continue also with Cardizem CD and Eliquis. 4. Chronic venous stasis/peripheral vascular disease. Wound Care following this patient. 5. Chronic kidney disease, stage 3. Creatinine is at baseline. We will continue to monitor. 6. Hypertension. Blood pressure is under control. We will continue with same management. DISPOSITION: I think this patient is getting better, and I think this patient will stay in the hospital for the next 24 to 48 hours. cc: Emile Mix MD
[2018-11-30] MEDS: LEVAQUIN 750 MG/D5W 750 MG/150 ML IVPB IV SCH (16:55)
[2018-11-30] MEDS: MIRAPEX PO SCH (23:10)
[2018-11-30] MEDS: ELAVIL PO SCH (23:10)
[2018-11-30] MEDS: PRILOSEC PO SCH (23:11)
[2018-11-30] MEDS: EFFEXOR XR PO SCH (23:12)
[2018-11-30] MEDS: LIPITOR PO SCH (23:12)
[2018-12-01] MEDS: XOPENEX NEB INH SCH ×2 (03:01→08:10)
[2018-12-01] MEDS: ATROVENT NEB INH SCH ×2 (03:01→08:10)
[2018-12-01] MEDS: OXY IR PO PRN (06:36)
[2018-12-01] MEDS: HUMULIN R (PARKWAY) SUBQ SCH ×2 (06:36→11:08)
[2018-12-01 07:15] LABS: CALCIUM 8.3 mg/dL (8.8-10.2); CREATININE 1.6 mg/dL (0.7-1.2); POTASSIUM 4.5 mmol/L (3.5-5.1)
[2018-12-01 07:17] LABS: BASO# 0.01 X1000 (0.0-0.2); BASO% 0.1 % (0.0-0.8); EOS# 0.04 X1000 (0.0-0.7); EOS% 0.4 % (0.0-10.0); HEMATOCRIT 39.1 % (42.0-52.0); HEMOGLOBIN 12.5 g/dL (14.0-18.0); IMM GRAN# 0.02 X1000 (0.0-0.04); IMM GRAN% 0.2 % (0.0-0.5); LYMPH# 1.22 X1000 (1.2-3.4); LYMPH% 12.9 % (20.5-51.1); MCH 28.7 PG (27-31); MCV 89.9 FL (81-99); MONO# 0.78 X1000 (0.11-0.59); MONO% 8.3 % (1.7-9.3); MPV 12.5 FL (7.4-10.4); NEUT# 7.37 X1000 (1.4-6.5); NEUT% 78.1 % (42.2-75.2); PLT 138 X1000 (130-400); RBC 4.35 XMIL (4.7-6.1); RDW 16.8 % (11.5-14.5); WBC 9.44 X1000 (4.8-10.8)
[2018-12-01] MEDS: PULMICORT INH SCH (08:10)
[2018-12-01 08:32] VITALS: BP 126/77
[2018-12-01] MEDS: LOPRESSOR PO SCH (08:35)
[2018-12-01] MEDS: ELIQUIS PO SCH (08:35)
[2018-12-01] MEDS: CARAFATE PO SCH (08:35)
[2018-12-01] MEDS: HYGROTON PO SCH (08:35)
[2018-12-01] MEDS: KLOR-CON PO SCH (08:35)
[2018-12-01] MEDS: CARDIZEM CD PO SCH (08:36)
[2018-12-01] MEDS: ROCEPHIN 2 GM in NS 50 ML IV SCH (08:54)
[2018-12-01 09:40] LABS: ANISOCYTOSIS 1+; LYMPHS 9 % (21-51); MONO 7 % (1-9); SEGS 84 % (42-75)
--- NOTE | 2018-12-01 21:25 | DISCHARGE SUMMARY ---
ADMISSION DATE: 11/28/2018 DISCHARGE DATE: 12/01/2018 ADMISSION DIAGNOSES: 1. Community-acquired pneumonia in the bibasilar regions of the lungs. 2. Chronic obstructive pulmonary disease but no exacerbation. 3. Chronic atrial fibrillation. 4. History of coronary artery disease but no chest pain. 5. Chronic venous stasis. 6. Peripheral vascular disease with chronic infection between the toes. 7. Chronic kidney disease stage 3. 8. Hypertension. DISCHARGE DIAGNOSES: 1. Bibasilar community-acquired pneumonia. 2. Chronic obstructive pulmonary disease. No exacerbation. 3. Chronic atrial fibrillation. Did have a spell of rapid ventricular response, which resolved. 4. Chronic venous stasis and peripheral vascular disease with chronic infection between the toes. Wound care followed this and used Betadine. 5. Chronic kidney disease stage 3, stable. 6. Hypertension. Blood pressure controlled. CONSULTATIONS: Wound Care. SURGERIES/PROCEDURES: None. HOSPITAL COURSE: On 12/08/2018, Mr. Hayder Gutiérrez, a 68-year-old male, presented with complaints of shortness of breath that had worsened over the 24 hours prior to admit with brown phlegm, and a subjective fever. Imaging showed that he had bibasilar pneumonia, and he was treated for community-acquired pneumonia. He was not in any COPD exacerbation but continued on nebulizers while he was here. His antibiotics included Rocephin. He remained stable while he was here, improved with his breathing. He remained afebrile. His only fever was on admit, which was 100.4. Otherwise stable for discharge home. DISCHARGE VITAL SIGNS: Temperature 97.6, heart rate 64, respiratory rate 20, blood pressure 126/70, O2 saturation 99% on room air. DISCHARGE LABORATORY DATA: White blood cells 9000, hemoglobin 12, hematocrit 39, platelet count 138. Sodium 132, potassium 4.5, BUN 18, creatinine 1.6, glucose 107, calcium 8.3. IMAGING: Chest x-ray on the 7th: Pulmonary edema and bibasilar infiltrates. Chest x-ray on the 8th: Interval improvement. EKG on the 8th: Atrial fibrillation with rapid ventricular response. Rate was 123. DISCHARGE MEDICATIONS: 1. Amitriptyline 50 mg p.o. nightly. 2. Lipitor 40 mg p.o. nightly. 3. Prilosec 40 mg p.o. nightly. 4. Venlafaxine HCl 75 mg p.o. nightly. 5. Carafate 1 gram p.o. twice daily. 6. Diltiazem 240 mg p.o. daily. 7. Chlorthalidone 25 mg p.o. daily. 8. Glipizide 5 mg p.o. twice daily. 9. Potassium chloride 10 mEq p.o. twice daily. 10.Mirapex 1.5 mg p.o. nightly. 11.Nitrostat 0.4 mg sublingual as needed. 12.Insulin aspart 100 units subcutaneously, sliding scale. 13.Oxycodone 15 mg p.o. every 6 hours p.r.n. 14.Albuterol 1-2 puffs inhaled every 4 hours. 15.Eliquis 5 mg p.o. twice daily. 16.Levaquin 750 mg p.o. daily. 17.Metoprolol 50 mg p.o. twice daily. DISCHARGE DIET: Heart healthy, diabetic. DISCHARGE ACTIVITY: As tolerated DISCHARGE FOLLOWUP: Dr. Yahir Gooden. DISCHARGE INSTRUCTIONS: If your condition changes, contact your physician and/or return to the emergency department. Changes may include but are not limited to shortness of breath, increased fatigue, excessive bleeding, unexplained weight loss or gain, unimaginable pain, or signs or symptoms of infection. He will need to continue his antibiotics, his beta luz, and his Eliquis as prescribed. DISCHARGE DISPOSITION: Home with home health. Dictated by UNIQUE Pollard for Emile Mix MD cc: UNIQUE Pollard MD
== END 2018-12-01 11:52 | disposition home health service (06) | DRG 871 ==
LOC: P.ED 09:43 → P.MEDSURG 14:16
PROVIDERS: ATTEND Internal Medicine
CPT/HCPCS: 51702; 71010; 71020; 71045; 71046; 80048; 80053; 81001; 82330; 82550; 82947; 82948; 83605; 83735; 83880; 84132; 84295; 84484; 85014; 85018; 85025; 85610; 85730; 87040; 87070; 87077; 87088; 87186; 93005; 93010; 94640; 94761; 94799; 96365; 96375; 99285; A9270; J0696; J1815; J1940; J1956; J3475; XXXXX

== ENCOUNTER 2019-03-27 07:48 | Inpatient (IN) ==
[2019-03-27] MEDS ORDERED: NS 1,000 ML IV ONE ×2 (07:56→09:54)
[2019-03-27] MEDS ORDERED: CARDIZEM IV ONE (07:59)
--- NOTE | 2019-03-27 08:03 | PROVIDER DOCUMENTATION ---
HPI-General Adult - General Chief Complaint: Fall Stated Complaint: fell Time Seen by Provider: 03/27/19 07:50 Source: patient, EMS Allergies/Adverse Reactions: Patient Allergies Allergy/AdvReac Type Severity Reaction Status Date / Time No Known Allergies Allergy Verified 03/27/19 08:24 Home Medications: Home Medication List Medication Instructions Recorded Confirmed Last Taken Type ATORVAstatin [Lipitor] 40 mg PO QHS 05/06/16 03/27/19 11/27/18 History Omeprazole [Prilosec] 40 mg PO QHS 05/06/16 03/27/19 11/27/18 History Sucralfate [Carafate] 1 gm PO AC + HS 05/06/16 03/27/19 11/27/18 History Oxycodone HCl 15 mg PO Q6H PRN 10/13/16 03/27/19 11/27/18 History Apixaban [Eliquis] 5 mg PO BID #60 tablet 10/25/17 03/27/19 11/27/18 Rx Amitriptyline HCl 50 mg PO QHS 11/23/17 03/27/19 11/27/18 History Glipizide [Glipizide ER] 5 mg PO BID 02/15/18 03/27/19 11/27/18 History Pramipexole Di-HCl [Mirapex] 1.5 mg PO HS 04/01/18 03/27/19 11/27/18 History Venlafaxine HCl [Venlafaxine HCl 75 mg PO QHS 04/01/18 03/27/19 11/27/18 History ER] Diltiazem HCl [Cardizem Cd] 240 mg PO QAM 10/24/18 03/27/19 11/27/18 History Potassium Chloride E.r. [Klor-Con] 10 meq PO BID 10/24/18 03/27/19 11/27/18 History - History of Present Illness -Gen Adult Nature of Presenting Problems: 68 y/o WM brought to the ER by EMS. Family noted that he had fallen in his kitchen some time between 2 and 6 am and was found on the kitchen floor this am. Pt will only states that he is "sore all over" but denies specific injury. EMS noted that pts oxygen sat was mid 80-'s on arrival and that pt has his of COPD and CHF. Pt also has apparent chronic infection to both feet with cellulitis tracking up lt leg. Location of Pain/Injury: reports: generalized Pain Radiation: reports: no radiation Quality of Pain: reports: aching Severity: reports: mild Onset/Duration: reports: unsure Timing: reports: still present Context/Activities at Onset: reports: light activity Modifying Factors: improves with: nothing Associated Symptoms: reports: shortness of breath Recently seen or treated by another doctor?: No - Diabetes Related Context Context: reports: change in mental status - Sickle Cell Pain Related Context Sickle Cell Pain Location: reports: none Review of Systems - Adult - REVIEW OF SYSTEMS - ADULT ROS:: limited per condition Constitutional: reports: no symptoms reported, see HPI Eyes: reports: no symptoms reported, see HPI Ears, Nose, Mouth & Throat: reports: no symptoms reported, see HPI Cardiovascular: reports: no symptoms reported, see HPI Respiratory: reports: no symptoms reported, see HPI Gastrointestinal: reports: no symptoms reported, see HPI Genitourinary: reports: no symptoms reported, see HPI Musculoskeletal: reports: see HPI, muscle aches Integumentary: reports: no symptoms reported, see HPI Neurological: reports: no symptoms reported, see HPI Psychiatric: reports: no symptoms reported, see HPI Endocrine: reports: no symptoms reported, see HPI Hematologic/Lymphatic: reports: no symptoms reported, see HPI Allergic/Immunologic: reports: no symptoms reported, see HPI All Other Systems: Reviewed and Negative Past History - Adult - PAST MEDICAL HISTORY-ADULT Review of Records: reports: Nursing Assessment Review, Medications Reviewed, S ocial history reviewed & non-contributory. Cardiovascular: reports: A-Fib, CHF Physical Exam-General - PHYSICAL EXAM-ADULT Initial Vital Signs Reviewed: Yes - CONSTITUTIONAL General Appearance: mild distress, obese, slow to respond - EYES Eyes: PERRL/EOMI - HEAD, EARS, NOSE, MOUTH & THROAT HENMT: normocephalic/atraumatic, moist mucous membranes - NECK Neck: non-tender, supple - RESPIRATORY Respiratory: chest non-tender, lungs clear, normal breath sounds, no pleuratic chest pain, no respiratory distress, no accessory muscle use - CARDIOVASCULAR Cardiovascular: normal peripheral pulses, no edema, no gallop, no JVD, no murmur , tachycardia, irregularly irregular - GASTROINTESTINAL (ABDOMEN) Abdominal Exam: normal bowel sounds, non tender, soft, no organomegaly, no pulsatile mass - LYMPHATIC Lymphatic: no adenopathy - MUSCULOSKELETAL Back Exam: normal inspection, no CVA tenderness, no vertebral tenderness Extremity: normal range of motion - SKIN Integumentary: normal turgor, erythema (to lt inner thigh from what appears to be chronic infection of toes of both feet.) - NEUROLOGIC 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, grossly normal, no motor/sensory deficits - PSYCHIATRIC Psych/Mental Status: normal mood/affect, normal thought content, normal thought process, oriented x 3 Progress - PLAN OF CARE/RESULTS Progress/Plan/Lab Results: Vital Signs - 8 hr 03/27/19 07:38 Temperature 98.8 F Pulse Rate 110 H Respiratory Rate 24 Blood Pressure 125/086 O2 Sat by Pulse Oximetry 95 Orders Category Date Time Status CHEST-1 VIEW [RAD] Stat Exams 03/27/19 07:50 Ordered ABG [RESP] Routine Lab 03/27/19 07:50 Ordered BLOOD CULTURE [BLDCUL] Stat Lab 03/27/19 07:57 Ordered CBC WITH ELECTRONIC DIFF [HEME] Stat Lab 03/27/19 07:50 Uncollected CK TOTAL [CHEM] Stat Lab 03/27/19 07:51 Uncollected COMPREHENSIVE METABOLIC PANEL [CHEM] Stat Lab 03/27/19 07:50 Uncollected LACTATE, PLASMA [CHEM] Stat Lab 03/27/19 07:53 Uncollected PRO B-NATRIURETIC PEPTIDE Stat Lab 03/27/19 07:50 Uncollected PT [PROTIME WITH INR] [COAG] Stat Lab 03/27/19 07:50 Uncollected PTT [COAG] Stat Lab 03/27/19 07:50 Uncollected TROPONIN T Stat Lab 03/27/19 07:[address] W/POSS RFLX CULT [URINALYSIS] Stat Lab 03/27/19 07:50 Uncollected Ns 1000 ml IV Bolus X1 Med 03/27/19 07:56 Ordered 0.9% Sodium Chloride Inj [Ns] 1,000 ml IV 999 mls/hr EKG [EKG] Stat Ther 03/27/19 07:51 Ordered Result Diagrams: 03/27/19 08:00 03/27/19 08:00 - CONSULTS/PCP/HOSPITALIST Notification #1 *Consult/PCP/Hospitalist*: Dr Canas Time Discussed: 09:53 Reason/Comments: asked for transfer orders and he will see pt up in icu shortly Consult Disposition: Admit Departure - Departure Date of Disposition Decision: 03/27/19 Time of Disposition Decision: 09:34 DIAGNOSIS: CHF (congestive heart failure), Atrial fibrillation with RVR, Cellulitis of left leg, COPD (chronic obstructive pulmonary disease), Sepsis, Rhabdomyolysis, Hypoxia Disposition: ADMITTED INPATIENT 09 Certified Medical Emergency: Emergent Condition: Fair Referrals and Follow-Ups: Yahir Gooden MD [Primary Care Provider] - - Critical Care Note This patient required my direct & personal management of CC.: Yes Total Time (mins): 45 Critical Care Statement: This patient required my direct personal management to treat or rule out processes, the absence of which, could potentiallly result in sudden, clinically significant life or limb threatening deterioration. Attestation - Physician/ GABY Attestation Patient care was provided by Advanced Practice Provider:: No The physician spent face to face time with patient:: Yes Advanced Practice Provider documentation review:: Supervising physician onsite and consulted in the evaluation and care of this patient. The physician did have a face to face encounter with the patient.
[2019-03-27] MEDS: CARDIZEM 125 MG/D5W 125 MG/125 ML IVPB IV PRN ×3 (08:18→16:04)
[2019-03-27 08:20] LABS: BASO# 0.02 X1000 (0.0-0.2); BASO% 0.1 % (0.0-0.8); HEMATOCRIT 44.1 % (42.0-52.0); HEMOGLOBIN 14.1 g/dL (14.0-18.0); IMM GRAN# 0.22 X1000 (0.0-0.04); IMM GRAN% 1.2 % (0.0-0.5); LYMPH# 0.77 X1000 (1.2-3.4); LYMPH% 4.1 % (20.5-51.1); MCH 29.3 PG (27-31); MCV 91.5 FL (81-99); MONO# 1.01 X1000 (0.11-0.59); MONO% 5.4 % (1.7-9.3); MPV 11.5 FL (7.4-10.4); NEUT# 16.73 X1000 (1.4-6.5); NEUT% 89.2 % (42.2-75.2); PLT 129 X1000 (130-400); RBC 4.82 XMIL (4.7-6.1); WBC 18.75 X1000 (4.8-10.8)
[2019-03-27 08:25] LABS: BE 6.8 mmoll (-3.0-3.0); BLOOD TYPE ARTERIAL; METHB 1.6 % (0.0-1.5); O2(CT) 18.3 mL/dL (15.0-23.0); O2HB 90.4 % (95.0-99.0); PCO2(98.6) 43 mmHg (35-45); PO2(98.6) 59 mmHg (60-100); SAMPLE BLOOD; THB 14.4 g/dL (11.5-17.4); pH(98.6) 7.47 (7.35-7.45)
[2019-03-27 08:27] LABS: INR 1.26; PROTIME 16.4 Seconds (11.0-16.0)
[2019-03-27 08:28] LABS: PTT 34.2 Seconds (22.3-41.8)
[2019-03-27 08:30] LABS: ALLEN TEST YES; MODALITY CANNULA
[2019-03-27 08:36] LABS: POTASSIUM 3.5 mmol/L (3.5-5.1)
[2019-03-27 08:37] LABS: ALBUMIN 3.4 g/dL (3.5-5.0); CALCIUM 8.3 mg/dL (8.8-10.2); CREATININE 1.8 mg/dL (0.7-1.2); TOTAL BILIRUBIN 1.4 mg/dL (0.20-1.00); TOTAL PROTEIN 8.1 g/dL (6.3-8.3)
--- NOTE | 2019-03-27 08:38 | EKG Report ---
Test Performed on : 03/27/2019 07:46:14 AM Test Reason : sob Blood Pressure : / mmHG Vent. Rate : 137 BPM Atrial Rate : 110 BPM P-R Int : 000 ms QRS Dur : 076 ms QT Int : 332 ms P-R-T Axes : 000 067 074 degrees QTc Int : 501 ms Atrial fibrillation. with rapid ventricular response. Nonspecific ST and T wave abnormality Abnormal ECG No previous ECGs available Unconfirmed Result
[2019-03-27] MEDS ORDERED: ROCEPHIN 1 GM in NS 50 ML IV ONE (09:16)
--- NOTE | 2019-03-27 09:17 | Diag Imaging Result Doc PS360 ---
EXAM: CT HEAD/C-SPINE W/O CONTRAST - 03/27/2019 HISTORY: head injury/pain, takes blood thinner TECHNIQUE: CT head/cervical spine without contrast COMPARISON: 10/18/2017 CT head FINDINGS: CT head: There is no lacunar infarct at the left caudate nucleus. There is no indication of recent infarct, although acute infarcts may not be immediately visible. There is mild subcutaneous soft tissue swelling at the left superior scalp. There is no evidence of intracranial hemorrhage, mass effect, midline shift, or hydrocephalus. There is no evidence of skull fracture. There is paranasal sinus disease noted at the maxillary sinus. There is mild fracture deformity of the right nasal ala and of nonspecific age. CT cervical spine: There is multilevel degenerative disease. There are associated posterior osteophytes and mild to moderate spinal stenosis at C4-5 and C5-6. There is 4 mm anterolisthesis with mild to moderate spinal stenosis at C3-4. There is no fracture identified. There is no precervical soft tissue swelling identified. There are prosthetic calcifications noted at the bilateral carotid bulb regions. IMPRESSION: CT head: No visible acute intracranial abnormality. No evidence of intracranial injury. There is paranasal sinus disease noted at the left maxillary sinus. CT cervical spine: Multilevel degenerative disease with multilevel mild to moderate spinal stenosis. 4 mm anterolisthesis at C3-4 which may relate to the degenerative disease, although no comparison exam is available. There is no evidence of fracture or precervical soft tissue swelling. This exam was performed using automated exposure control, adjustment of mA or kV according to patient size, and/or use of iterative reconstruction technique. Electronically signed by Donaldo Boone 03/27/2019 9:15 AM
[2019-03-27 09:19] LABS: BILIRUBIN URINE NEGATIVE (NEGATIVE); BLOOD URINE 4+ (NEGATIVE); CLARITY CLEAR (CLEAR); COLOR YELLOW; GLUCOSE URINE NEGATIVE (NEGATIVE); KETONE URINE TRACE mg/dL (NEGATIVE); LEUKOCYTES URINE TRACE (NEGATIVE); NITRITE URINE NEGATIVE (NEGATIVE); PROTEIN URINE 1+(30 mg/dL) mg/dL (NEGATIVE); SP GRAVITY URINE 1.005; UROBILINOGEN URINE NORMAL
[2019-03-27 09:22] LABS: URINE BACTERIA NEGATIVE /HFP; URINE CAST NONE SEEN /LPF; URINE CRYSTAL NONE SEEN /HPF; URINE EPITHELIAL CELLS <10 /HPF (<10); URINE RBC <10 /HPF (<10); URINE WBC <10 /HPF (<10); URINE YEAST NONE SEEN /HPF
--- NOTE | 2019-03-27 09:22 | Diag Imaging Result Doc PS360 ---
EXAM: CHEST-1 VIEW - 03/27/2019 HISTORY: sob TECHNIQUE: One view chest COMPARISON: November 2018 FINDINGS: Heart size appears upper normal and stable. There are mild pleural and pulmonary scarring at the lateral left base. Lungs otherwise appear clear. There is no acute pleural effusion or pneumothorax identified. IMPRESSION: Scarring at lateral left base. No evidence of acute disease. Electronically signed by Donaldo Boone 03/27/2019 9:20 AM
[2019-03-27 09:23] LABS: URINE SOURCE CATH
--- NOTE | 2019-03-27 09:33 | ED EKG INTERP ---
This chart was entered by Nikki Nobles Scribe, acting as scribe for Jose A Thorne MD. EKG Interpretation - EKG Time of EKG reading by physician:: 07:46 EKG Read and Signed by:: Jose A Thorne EKG Interpretation (*Must complete 3 of following elements*): Abnormal Rate: 137 Rhythm: afib with rvr [place]: normal QRS: normal [place] Interval: normal ST Wave: normal Comments: nonspecific T wave abnormality Attestation - Physician/ GABY Attestation Patient care was provided by Advanced Practice Provider:: No The physician spent face to face time with patient:: Yes Advanced Practice Provider documentation review:: Supervising physician onsite and consulted in the evaluation and care of this patient. The physician did have a face to face encounter with the patient. This chart was documented by the indicated scribe, (Nikki Nobles Scribe) and accurately reflects the services I performed and decisions made by me, Jose A Thorne MD, as attested by the provider's signature.
[2019-03-27] MEDS ORDERED: XOPENEX NEB INH PRN (12:15)
[2019-03-27] MEDS: OFIRMEV 1000 MG/ISOTONIC SOLN 1,000 MG/100 ML BOTTLE IV PRN ×2 (13:27→19:47)
[2019-03-27] MEDS: NS 1,000 ML IV SCH ×2 (13:27→20:48)
[2019-03-27] MEDS: ZYVOX 600 MG/D5W 600 MG/300 ML IVPB IV SCH ×2 (13:56→23:33)
--- NOTE | 2019-03-27 13:59 | HISTORY AND PHYSICAL ---
PRIMARY CARE PROVIDER: Dr. Yahir Gooden. CHIEF COMPLAINT: Found down at home. HISTORY OF PRESENT ILLNESS: Mr. Gutiérrez is a 68-year-old male who carries an extensive past medical history of coronary artery disease with 6 MIs, 2 to 3 stent placements, diabetes mellitus type 2, chronic venous insufficiency with chronic infection between the toes on both feet, chronic back pain, obstructive sleep apnea but refuses CPAP, chronic atrial fibrillation, COPD, chronic kidney disease stage 3, morbid obesity with a body mass index of 34.2, hypertension who was brought into the ED by EMS when he was noted to have a fall at home in his kitchen sometime between 2:30 and 6 a.m. Upon arrival EMS arrival, his O2 saturation was in the mid 80s. When he arrived to the ED, he was found to be in atrial fibrillation with RVR. His cellulitis on the left leg was tracking up his left side. He also ruled in for sepsis and was initiated on a 2 L bolus and IV Rocephin and mild rhabdomyolysis. He was initiated on a Cardizem drip. After speaking with Dr. Alonzo, we will broaden his antibiotics to cefepime and Zyvox given his kidney function. His first lactate was 3.3. Repeat is 2.6. We will continue to monitor him in the ICU at the [facility]. PAST MEDICAL HISTORY: 1. Coronary artery disease status post 6 MIs with 2 to 3 stent placements. 2. Diabetes mellitus type 2. 3. Peripheral vascular disease. 4. Chronic venous insufficiency. 5. Bilateral chronic infection between toes. 6. COPD. 7. Depression. 8. Chronic atrial fibrillation. 9. Chronic pain in the back, shoulders and right knee. 10. Obstructive sleep apnea, but refuses to wear CPAP. 11. Chronic kidney disease stage 3. 12. Morbid obesity with a body mass index of 34.2. 13. Prostate cancer with prostatectomy. 14. Hypertension. 15. Hypothyroidism. 16. Hyperlipidemia. 17. GERD. PAST SURGICAL HISTORY: 1. Abdominal aortic aneurysm repair. 2. Prostatectomy. 3. PTCA with 2 or 3 stents. 4. Appendectomy. SOCIAL HISTORY: He quit smoking in June 2016 and has been vaping ever since then. He carries a 50 pack year history. No alcohol or illicit drug use. He lives at home with his . 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 He gets around with a walker or cane at home. His states the he does not really sleep. He only takes catnaps. FAMILY HISTORY: Mother had an unknown type of cancer. Father had PR and stroke. ALLERGIES: No known drug allergy. HOME MEDICATIONS: 1. Amitriptyline 50 mg p.o. at bedtime. 2. Eliquis 5 mg p.o. b.i.d. 3. Lipitor 40 mg p.o. at bedtime. 4. Cardizem CD 240 mg p.o. q.a.m. 5. Glipizide ER 5 mg p.o. b.i.d. 6. Prilosec 40 mg p.o. at bedtime. 7. Oxycodone 15 mg p.o. q.6 hours p.r.n. 8. Potassium chloride 10 mEq p.o. b.i.d. 9. Mirapex 1.5 mg p.o. at bedtime. 10. Carafate 1 g p.o. before meals and at bedtime. 11. Venlafaxine 975 mg p.o. at bedtime. PHYSICAL EXAMINATION: VITAL SIGNS: Temperature is 100.4 degrees, heart rate 95, respirations 32, blood pressure 138/71, O2 is 98% on 2 L nasal cannula. GENERAL: Mr. Gutiérrez is a 68-year-old gentleman who is lying on the bed, moaning. However, when you do ask him a question, he will open his eyes, look at you and answer at times. HEENT: Atraumatic, normocephalic. PERRL. Mucous membranes are extremely dry. NECK: Supple. Trachea midline. CARDIOVASCULAR: Irregularly irregular rhythm. No murmurs, gallops, or rubs noted. RESPIRATORY: Lung sounds clear bilaterally. GASTROINTESTINAL: Abdomen is obese, soft, nontender, nondistended. Positive bowel sounds 4 quads. LOWER EXTREMITIES: Bilateral chronic venous stasis appearance with chronic infection between both toes. He does appear to have bilateral cellulitis in both lower extremities the left more than the right with erythema and cellulitis tracking up his left inner thigh. NEUROLOGIC: Patient does lie in bed, moan, somewhat restless. However, he will respond to name. He will try to answer some questions. I did not appreciate any focal deficits. LAB/DIAGNOSTIC DATA: Chest x-ray showed scarring at the lateral left base, but no evidence of acute disease. Head and cervical spine CT shows no visible acute intracranial abnormality. There is paranasal sinus disease noted at the left maxillary sinus. CT cervical spine, multilevel degenerative disease with multilevel [id number] spinal stenosis, 4 mm anterolisthesis at C3- 4, which may relate to degenerative disease, although there is no comparison exam available. No evidence of fracture or precervical soft tissue swelling. LABORATORY DATA: White count 18, hemoglobin and hematocrit 14 and 44, platelet count is 129,000. Sodium 131, potassium 3.5, BUN 16, creatinine 1.8, blood glucose is 214. CK 1252. ProBNP 3912. Plasma lactate 3.3. Recheck 2.6. Urinalysis negative for bacteria, negative for nitrates, 4+ blood, trace WBC. ASSESSMENT AND PLAN: 1. Sepsis secondary to bilateral lower extremity cellulitis. The left appears to be worse than the right. Blood cultures have been obtained. He was given a dose of IV Rocephin in the ED. After speaking with Dr. Alonzo, we will change him to cefepime and Zyvox. We will get wound cultures on the right and the left as well as consult Wound Care. He has received a 2 L fluid bolus. We will continue with IV fluids at 125. 2. Atrial fibrillation with rapid ventricular response in a patient with known chronic atrial fibrillation. We will recheck an echocardiogram. He was initiated on IV Cardizem and we will consult Cardiology. Await their recommendations. 3. Mild rhabdomyolysis. We will continue to trend his CK. Continue with IV fluids. 4. Recent history of falling more at home. We will need to get physical therapy on board after his acute illness has improved. He does walk with a walker and cane at home. His stated that he would only occasionally fall every once in a while, but now he has increased in his falls. 5. Chronic obstructive pulmonary disease history. He does not appear to be in exacerbation. However, when he was down at home his O2 saturations were 82. He is not wheezing at this time. We will continue with Xopenex scheduled him p.r.n. as well as supplemental O2. 6. Obstructive sleep apnea but patient refuses to wear CPAP. 7. Congestive heart failure history. However, he does not appear to be in any heart failure. He does have a slightly elevated proBNP, so we will monitor his fluid status as he has gotten 2 L bolus and we are doing IV fluids. 8. Diabetes mellitus type 2. We will do sliding scale with patterned blood sugars. 9. Chronic venous insufficiency, peripheral vascular disease and chronic infection in the between toes both feet. 10. Chronic back pain, shoulder and right knee pain. 11. Morbid obesity with a body mass index of 34.2. The patient will need education on diet and exercise. 12. Hypertension. He is now normotensive. 13. Hypothyroidism. Continue Synthroid when appropriate. 14. Hyperlipidemia. 15. Gastroesophageal reflux disease. 16. Prostate cancer with prostatectomy. 17. Further recommendation to follow physician evaluation, laboratory and diagnostic data. TIME SPENT: Critical care time greater than 35 minutes. Dictated by UNIQUE Schmitt for Ishmael Canas MD cc: Ishmael Canas MD
[2019-03-27 14:04] LABS: BE 5.6 mmoll (-3.0-3.0); BLOOD TYPE ARTERIAL; HCO3-(ACT) 29.2 mmoll (20.0-26.0); METHB 1.4 % (0.0-1.5); O2(CT) 18.1 mL/dL (15.0-23.0); O2HB 93.6 % (95.0-99.0); PCO2(98.6) 36 mmHg (35-45); PO2(98.6) 75 mmHg (60-100); SAMPLE BLOOD; SAO2 97.6 % (95.0-100.0); THB 13.7 g/dL (11.5-17.4); pH(98.6) 7.51 (7.35-7.45)
[2019-03-27 14:06] LABS: ALLEN TEST YES; MODALITY CANNULA
[2019-03-27] MEDS: MAXIPIME 2 GM in NS 100 ML IV SCH (15:04)
[2019-03-27] MEDS: OXY IR PO PRN ×2 (15:04→20:40)
[2019-03-27] MEDS ORDERED: LEVOPHED 8 MG in D5 1/2 NS 250 ML IV SCH (15:30)
[2019-03-27] MEDS ORDERED: XOPENEX NEB INH SCH (15:30)
[2019-03-27] MEDS ORDERED: NS 500 ML IV SCH (15:45)
[2019-03-27] MEDS ORDERED: NS 500 ML IV ONE (16:00)
[2019-03-27] MEDS ORDERED: CARDIZEM 125 MG/D5W 125 MG/125 ML IVPB ONE (16:02)
[2019-03-27] MEDS: HUMALOG (PARKWAY) SUBQ SCH ×2 (16:46→23:32)
[2019-03-27] MEDS ORDERED: LOPRESSOR IV PRN (18:17)
[2019-03-27] MEDS ORDERED: LANOXIN IV ONE (18:18)
[2019-03-27] MEDS ORDERED: LOVENOX 1 MG/KG SUBQ SCH (18:30)
--- NOTE | 2019-03-27 19:22 | CARDIOLOGY CONSULTATION ---
DATE: 03/27/2019 IMPRESSION: 1. Atrial fibrillation, chronic. Heart rate elevated on presentation. 2. Left lower extremity extensive cellulitis to above the thigh with probable associated sepsis. 3. Atherosclerotic coronary disease with previous coronary angioplasty/stent procedures in the past. Left ventricular ejection fraction on echocardiogram done today is normal. Patient continues without angina. 4. Type 2 diabetes mellitus. 5. Chronic venous stasis. Aggravated by tendency to sleep with lower extremities in dependent position. 6. Chronic obstructive pulmonary disease. 7. Obesity. 8. Chronic back disorder. 9. Obstructive sleep apnea. 10. Chronic kidney disease. 11. Hypertension. 12. Peripheral vascular disease with previous abdominal aortic aneurysm endograft repair. RECOMMENDATIONS: 1. Continue rate control and anticoagulation. 2. Continue to monitor cardiac rhythm. 3. Treat for cellulitis and associated sepsis. 4. Conservative cardiovascular management for the present. HISTORY: This 68-year-old, white male, with past history of atherosclerotic coronary disease, chronic atrial fibrillation, obesity, hypertension, type 2 diabetes mellitus, chronic kidney disease, obstructive sleep apnea, and chronic back disorder, was admitted for further management of apparent cellulitis and sepsis. He has had a chronic ongoing problem with severe venous insufficiency of the lower extremities aggravated by a tendency to sleep with his lower extremities in a dependent position most of the time. He has had previous infections involving his feet, which has been a chronic recurrent problem. Earlier this morning, he was noted to be on the floor sleeping. He normally sleeps on the couch and he was found by his on the floor between the couch and the kitchen. He was quite weak. EMS was summoned. Oxygen saturation on their arrival was in the mid 80s. He was brought to the emergency room and was noted to be in atrial fibrillation with elevated ventricular rate response. He had obvious cellulitis in his left lower extremity to above the knee. He was started on Cardizem drip for rate control. Broad- spectrum antibiotic coverage was initiated under guidance from Infectious Disease Specialist, Dr. Juan Antonio Alonzo. Lactate was elevated. He was administered intravenous fluid supplementation. When I see him, he denies chest discomfort. He has had some chest congestion. PAST MEDICAL HISTORY: 1. Atherosclerotic coronary disease. 2. Chronic atrial fibrillation. 3. Peripheral vascular disease. Patient is status post previous abdominal aortic aneurysm endograft repair. 4. Chronic venous insufficiency. 5. COPD. 6. Depression. 7. Chronic back disorder with considerable chronic back pain. 8. Obstructive sleep apnea with poor compliance with CPAP. 9. Chronic kidney disease. 10. Morbid obesity. 11. Prostate cancer with previous prostatectomy. 12. Hypertension. 13. Hypothyroidism. 14. Hyperlipidemia. 15. Gastroesophageal reflux. PAST SURGICAL HISTORY INCLUDES: Prostatectomy, previous coronary angioplasty/stent procedures, appendectomy, and aortic aneurysm endograft repair. ALLERGIES: He has no known drug allergies. MEDICATIONS PRIOR TO ADMISSION: As listed. SOCIAL HISTORY: He is . 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 He has history of chronic heavy cigarette use, but has discontinued this. He currently vapes. FAMILY HISTORY: Positive for coronary disease. REVIEW OF SYSTEMS: Pulmonary: Noteworthy for some chest congestion and shortness of breath. There has been no orthopnea. Gastrointestinal: Noncontributory. Constitutional: Noncontributory beyond history of present illness. REVIEW OF SYSTEMS: Negative/noncontributory beyond history of present illness with 14 total systems reviewed. PHYSICAL EXAMINATION: An obese, older white male, in no distress. Blood pressure 91/54, heart rate 81 and irregular with ECG monitor showing atrial fibrillation. Oxygen saturation 99% on nasal cannula oxygen at 2 L/minute.HEENT: Extraocular movements appear intact. Mucous membranes are moist. He is edentulous. Neck: Supple without discernible jugular venous distention. There are no carotid bruits. Chest: Auscultation of the chest reveals a few faint scattered rhonchi. No rales can be appreciated. Cardiac: Irregular rate and rhythm without appreciable murmur or gallop. Abdomen: Soft. Bowel sounds are normal. Extremities: Severe chronic venous stasis changes bilaterally, more so on the left lower extremity. He also has evidence of chronic infection involving the toes. He has rather distinct erythematous rash extending to well above the knee on the left, which is tender to palpation and very consistent with cellulitis. Neurologic: Alert and fully oriented. Speech is fluent. He moves all 4 extremities equally well. PERTINENT DATA: A 12-lead EKG demonstrates atrial fibrillation with ventricular rate response of 137 beats per minute, nonspecific ST and T-wave abnormality. Review of telemetry demonstrates atrial fibrillation. There is an episode of wide-complex tachycardia that may possibly be artifact as there is considerable baseline wander as the wide-complex rhythm appeared and there appears to be some possible QRS's seen in the background of the wide-complex rhythm. Termination of the arrhythmia is not documented on telemetry. Laboratory data includes a white blood cell count 18.75, hematocrit 44.1, hemoglobin 14.1, platelet count 129,000. Sodium 131, potassium 3.5, chloride 86, carbon dioxide 32, BUN 16, creatinine 1.8, glucose 214. Troponin T 0.020. CPK 1252. Lactate 3.2. Chest x-ray is reviewed and demonstrates cardiomegaly with left ventricular prominence. No acute infiltrates apparent. Preliminary echocardiography demonstrates normal left ventricular ejection fraction, mild mitral regurgitation, and aortic valve sclerosis. cc: Dung Flower MD
[2019-03-27 20:25] LABS: CK INDEX 0.5 (0.0-2.5); CK-MB 13.84 ng/mL (0.0-5.0)
[2019-03-27] MEDS: LOPRESSOR PO SCH (20:39)
[2019-03-27] MEDS: ZOFRAN IV PRN (20:42)
[2019-03-28] MEDS: OXY IR PO PRN ×5 (02:27→21:56)
[2019-03-28] MEDS: MAXIPIME 2 GM in NS 100 ML IV SCH ×2 (04:20→15:36)
[2019-03-28] MEDS: NS 1,000 ML IV SCH ×3 (04:21→20:34)
[2019-03-28] MEDS: HUMALOG (PARKWAY) SUBQ SCH ×4 (05:05→22:05)
[2019-03-28 06:40] LABS: BASO# 0.02 X1000 (0.0-0.2); BASO% 0.2 % (0.0-0.8); EOS# 0.07 X1000 (0.0-0.7); EOS% 0.5 % (0.0-10.0); HEMATOCRIT 41.1 % (42.0-52.0); HEMOGLOBIN 12.8 g/dL (14.0-18.0); IMM GRAN# 0.05 X1000 (0.0-0.04); IMM GRAN% 0.4 % (0.0-0.5); LYMPH# 1.59 X1000 (1.2-3.4); MCH 29.2 PG (27-31); MCHC 31.1 g/dL (33-37); MCV 93.6 FL (81-99); MONO% 5.3 % (1.7-9.3); MPV 11.4 FL (7.4-10.4); NEUT# 10.79 X1000 (1.4-6.5); NEUT% 81.6 % (42.2-75.2); PLT 102 X1000 (130-400); RBC 4.39 XMIL (4.7-6.1); RDW 15.4 % (11.5-14.5); WBC 13.22 X1000 (4.8-10.8)
[2019-03-28 07:18] LABS: ALBUMIN 2.4 g/dL (3.5-5.0); CALCIUM 7.2 mg/dL (8.8-10.2); CREATININE 1.7 mg/dL (0.7-1.2); MAGNESIUM 1.2 mg/dL (1.5-2.7); POTASSIUM 3.3 mmol/L (3.5-5.1); TOTAL BILIRUBIN 0.7 mg/dL (0.20-1.00)
[2019-03-28 07:48] LABS: CK INDEX 0.7 (0.0-2.5); CK-MB 13.94 ng/mL (0.0-5.0)
--- NOTE | 2019-03-28 08:49 | Diag Imaging Result Doc PS360 ---
CHEST-PORTABLE - 03/28/2019 INDICATION: follow up COMPARISON: 03/27/2019 FINDINGS: Stable upsloping of the left hemidiaphragm. Stable cardiomegaly. There is slight worsening in central interstitial infiltrate compatible with pulmonary edema or pneumonia. IMPRESSION: Slight worsening interstitial infiltrates bilaterally compatible with pulmonary edema. Electronically signed by Maximus Crow 03/28/2019 8:47 AM
[2019-03-28] MEDS: LOPRESSOR PO SCH ×2 (08:53→20:34)
[2019-03-28] MEDS: LOVENOX SUBQ SCH (08:54)
--- NOTE | 2019-03-28 10:14 | EKG Report ---
Test Performed on : 03/28/2019 08:56:20 AM Test Reason : afib Blood Pressure : / mmHG Vent. Rate : 082 BPM Atrial Rate : 086 BPM P-R Int : 000 ms QRS Dur : 090 ms QT Int : 416 ms P-R-T Axes : 000 062 080 degrees QTc Int : 486 ms Atrial fibrillation. Low voltage QRS Prolonged QT Abnormal ECG When compared with ECG of 29-NOV-2018 11:24, Vent. rate has decreased BY 41 BPM Confirmed by Sean Angel MD ([id number]) on 03/29/2019 3:12:16 PM
[2019-03-28] MEDS: CARDIZEM CD PO SCH (12:05)
[2019-03-28] MEDS: ZYVOX 600 MG/D5W 600 MG/300 ML IVPB IV SCH ×2 (12:05→23:30)
--- NOTE | 2019-03-28 13:51 | ECHO REPORT ---
ORDER DATE: 03/27/2019 INDICATION: Atrial fibrillation. FINDINGS: 1. The right atrium is moderately to severely enlarged with a dimension of 6.2 cm. 2. Mild tricuspid regurgitation, RV systolic pressure of 36. 3. The right ventricle appears to be enlarged with probable mild reduction in RV systolic function. 4. No significant pulmonic insufficiency. 5. Borderline mild left atrial enlargement with a mild increase in the dimension but a normal volume index of 23. The dimension was 4.1 cm. 6. No mitral valve prolapse. Mild mitral regurgitation. No evidence of mitral stenosis. 7. The left ventricle appears to be normal in size with an end-diastolic dimension of 5.7 cm. Normal wall thicknesses with a posterior and interventricular septal thickness of 1.1 and 0.8 cm, respectively. Normal LV systolic function. Estimated EF appears to be greater than 55%. There were no obvious segmental wall motion abnormalities, but limited resolution of the endocardial borders. 8. The aortic valve opens well. It is sclerotic. No evidence of stenosis. Mild insufficiency. 9. The aorta appears normal in visualized segments. 10. No pericardial effusion seen. cc: Johann Magallanes MD
[2019-03-28] MEDS: ZOFRAN IV PRN (21:30)
[2019-03-28] MEDS: TYLENOL PO PRN (21:56)
--- NOTE | 2019-03-29 02:17 | PROGRESS NOTE ---
DATE: 03/28/2019 SUBJECTIVE: The patient notes that his left lower extremity swelling is improved. Edema is not resolved, but certainly is improved. Denies any fevers, chills, cough, or congestion. PHYSICAL EXAMINATION: Vital Signs: Reviewed. Temperature 97.9 degrees pulse 62, respiratory rate 18, BP 113/69. Currently, he is still on Levophed. He certainly appears to be able to wean off of that. He is off Cardizem drip. HEENT: Normocephalic. Neck: Supple. Cardiovascular: Regular rate. No current murmurs Chest: Clear and nonlabored. Abdomen: Soft, obese, nondistended. Extremities: Moves all extremities. Skin: His erythema of his left thigh is improved although still present. He still has 2+ edema on the left, with 1+ edema on the right. ASSESSMENT: 1. Cellulitis bilateral lower extremities. 2. Known coronary artery disease status post several MIs and stenting. 3. Diabetes. 4. Chronic peripheral vascular disease. 5. Sepsis, appears to be resolving as we are weaning off his Levophed. 6. Hypotension, resolved in a patient with known hypertension. 7. Depression. 8. Chronic atrial fibrillation. He is currently off Cardizem drip. 9. Chronic reflux. 10. Morbid obesity. 11. Congestive heart failure. 12. Leukocytosis, improved. 13. Hyponatremia. 14. Chronic renal failure. 15. Rhabdomyolysis with a CPK of 2590, currently down to 1252. PLAN: We will continue the patient in the hospital, continue with antibiotics. We will follow. TIME SPENT: 45 minutes was spent in total care. cc: Ishmael Canas MD
[2019-03-29] MEDS: MAXIPIME 2 GM in NS 100 ML IV SCH ×2 (04:22→16:16)
[2019-03-29] MEDS: NS 1,000 ML IV SCH ×3 (04:23→21:16)
[2019-03-29] MEDS: OXY IR PO PRN ×3 (04:24→21:17)
[2019-03-29] MEDS: HUMALOG (PARKWAY) SUBQ SCH ×4 (06:49→22:00)
[2019-03-29] MEDS: LOVENOX SUBQ SCH (08:42)
[2019-03-29] MEDS: LOPRESSOR PO SCH ×2 (08:44→21:17)
[2019-03-29] MEDS: CARDIZEM CD PO SCH (08:44)
[2019-03-29] MEDS: ZYVOX 600 MG/D5W 600 MG/300 ML IVPB IV SCH ×2 (11:22→21:30)
[2019-03-29] MEDS ORDERED: TUMS EXTRA STRENGTH PO ONE (11:43)
[2019-03-29] MEDS ORDERED: MAGNESIUM SULFATE 2 GM/S.W.I. 2 GM/50 ML IVPB IV ONE (12:57)
[2019-03-29] MEDS ORDERED: POTASSIUM CHLORIDE 20 MEQ/SWI 20 MEQ/100 ML IVPB IV ONE (12:57)
[2019-03-29] MEDS ORDERED: MUCINEX PO ONE (16:49)
[2019-03-29] MEDS: MUCINEX PO SCH (21:17)
--- NOTE | 2019-03-30 03:26 | PROGRESS NOTE ---
DATE: 03/29/2019 SUBJECTIVE: Patient notes he is feeling a lot better. Still having swelling in his lower extremity. Denies any fevers, chills. Denies any chest pain. PHYSICAL EXAMINATION: Vital Signs: Reviewed. Temperature 97.4 degrees, pulse 78, respiratory rate 18, BP 105/68. Currently, patient is off Cardizem as well as Levophed. HEENT: Normocephalic. Neck: Supple. Cardiovascular: Rate controlled. Irregular rhythm. Chest: Clear, nonlabored. Abdomen: Soft, obese, nondistended. Extremities: Moves all extremities. Neurologic: No changes. Skin: His left lower extremity cellulitis on his thigh is improved. He still has chronic brawny edematous changes in both, left greater than right. ASSESSMENT: 1. Sepsis, appears resolved. 2. Hypotension, resolved. 3. Atrial fibrillation with rapid ventricular response, currently rate controlled. 4. Cellulitis left lower extremity. 5. Diabetes. 6. Chronic venous stasis. 7. Peripheral vascular disease. 8. Morbid obesity. 9. Leukocytosis, improved. 10. Rhabdomyolysis, improved. PLAN: Continue IV fluids and will follow. Continue antibiotics. cc: Ishmael Canas MD
[2019-03-30] MEDS: NS 1,000 ML IV SCH ×4 (03:51→19:23)
[2019-03-30] MEDS: OXY IR PO PRN ×3 (03:53→21:01)
[2019-03-30] MEDS: MAXIPIME 2 GM in NS 100 ML IV SCH (04:10)
[2019-03-30] MEDS: HUMALOG (PARKWAY) SUBQ SCH ×4 (07:01→20:44)
[2019-03-30] MEDS: ROCEPHIN 1 GM in NS 50 ML IV SCH (08:24)
[2019-03-30] MEDS: LOVENOX SUBQ SCH (08:24)
[2019-03-30] MEDS: TUMS EXTRA STRENGTH PO PRN ×2 (08:24→21:04)
[2019-03-30] MEDS: LOPRESSOR PO SCH ×2 (08:24→20:41)
[2019-03-30] MEDS: MUCINEX PO SCH ×2 (08:24→20:40)
[2019-03-30] MEDS: CARDIZEM CD PO SCH (08:25)
[2019-03-30 09:22] LABS: HEMATOCRIT 40.4 % (42.0-52.0); HEMOGLOBIN 12.9 g/dL (14.0-18.0); MCH 29.4 PG (27-31); MCHC 31.9 g/dL (33-37); MPV 11.7 FL (7.4-10.4); RBC 4.39 XMIL (4.7-6.1); WBC 6.1 X1000 (4.8-10.8)
[2019-03-30 09:24] LABS: ALBUMIN 2.9 g/dL (3.5-5.0); CALCIUM 8.2 mg/dL (8.8-10.2); CREATININE 1.3 mg/dL (0.7-1.2); MAGNESIUM 1.6 mg/dL (1.5-2.7); POTASSIUM 4.5 mmol/L (3.5-5.1); TOTAL BILIRUBIN 0.5 mg/dL (0.20-1.00); TOTAL PROTEIN 7.6 g/dL (6.3-8.3)
[2019-03-30 09:54] LABS: CK INDEX 1.6 (0.0-2.5); CK-MB 6.63 ng/mL (0.0-5.0)
[2019-03-30] MEDS: CARAFATE PO SCH ×3 (10:18→20:41)
[2019-03-30] MEDS: KLOR-CON PO SCH ×2 (10:21→20:41)
[2019-03-30] MEDS: GLUCOTROL XL PO SCH ×2 (10:24→20:41)
[2019-03-30] MEDS: ELIQUIS PO SCH ×2 (10:24→20:41)
[2019-03-30] MEDS: ELAVIL PO SCH (20:41)
[2019-03-30] MEDS: LIPITOR PO SCH (20:41)
[2019-03-30] MEDS: MIRAPEX PO SCH (20:41)
[2019-03-30] MEDS: EFFEXOR XR PO SCH (20:41)
[2019-03-30] MEDS: PRILOSEC PO SCH (20:41)
[2019-03-30] MEDS: ZOFRAN IV PRN (21:01)
--- NOTE | 2019-03-31 00:53 | PROGRESS NOTE ---
DATE: 03/30/2019 SUBJECTIVE: The patient notes that his left lower extremity swelling, erythema and pain has improved. He still states that he is anxious and nervous. He denies any fevers or chills. Also states that he is having some gastritis issues. Notes that he has had stomach issues since he was a teenager. OBJECTIVE: Temperature 97 degrees, pulse 74, respiratory rate 18, BP 140/77.General: The patient is a morbidly obese male who is in no distress, lying in the bed. HEENT: Normocephalic. Neck supple. Cardiovascular: Regular rate. Chest clear. Positive rhonchi. No crackles, no wheezing. Abdomen soft, obese, nondistended. Extremities: Moves all extremities. Skin: His left lower extremity erythema, although still present, is not as deep red as it was. Still in the midthigh area. He has chronic bilateral edematous changes. ASSESSMENT: 1. Cellulitis, left lower extremity. 2. Sepsis, resolved. 3. Hypotension, resolved. 4. Morbid obesity. 5. Gram-negative antoinette bacteremia. 6. Enterobacter and Providencia in his wound. PLAN: We will continue Rocephin. We will continue symptomatic care. His rhabdomyolysis seems to have resolved. His sepsis has dramatically improved. We are going to transfer him to the floor and continue to follow. cc: Ishmael Canas MD
[2019-03-31] MEDS: NS 1,000 ML IV SCH ×2 (02:58→12:17)
[2019-03-31] MEDS: HUMALOG (PARKWAY) SUBQ SCH ×4 (06:25→22:01)
[2019-03-31] MEDS: CARAFATE PO SCH ×4 (07:50→22:00)
[2019-03-31] MEDS: ROCEPHIN 1 GM in NS 50 ML IV SCH (07:50)
[2019-03-31] MEDS: OXY IR PO PRN ×3 (07:51→21:58)
[2019-03-31] MEDS: ELIQUIS PO SCH ×2 (08:03→22:00)
[2019-03-31] MEDS: CARDIZEM CD PO SCH (08:03)
[2019-03-31] MEDS: GLUCOTROL XL PO SCH ×2 (08:03→21:59)
[2019-03-31] MEDS: LOPRESSOR PO SCH ×2 (08:03→22:00)
[2019-03-31] MEDS: KLOR-CON PO SCH ×2 (08:03→22:00)
[2019-03-31] MEDS: MUCINEX PO SCH ×2 (08:03→22:00)
--- NOTE | 2019-03-31 13:22 | PROGRESS NOTE ---
DATE: 03/31/2019 SUBJECTIVE: Patient denies having any acute complaints this morning. OBJECTIVE: Vital Signs: Temperature 97.9 degrees, pulse 101 per minute, respiratory rate 18 per minute, blood pressure 160/87, pulse oximetry 94% on 2 L of oxygen via nasal cannula. General: Patient is alert and oriented x3. He does not appear to be in any acute distress. Cardiovascular: First and second heart sounds are audible without any murmurs or gallops. Respiratory: Bilateral lung air entry is moderately decreased but there are no rales or rhonchi present on auscultation. Gastrointestinal: Patient is morbidly obese. Abdomen is soft and nontender. Normal bowel sounds are present. Musculoskeletal: Bilateral legs are somewhat edematous and having increased warmth. Both of the feet are wrapped in dressing. IMPRESSION: 1. Bilateral leg cellulitis. 2. Chronic atrial fibrillation that has been stable. 3. Coronary artery disease, chronic obstructive pulmonary disease and diabetes along with hypertension and hypothyroidism, all of which are currently stable. PLAN: Will continue him on ceftriaxone for his leg cellulitis. We will keep him on IV fluids and continue with his routine home medications for his chronic medical conditions. Overall, his condition is getting better. cc: Merna Shah MD
[2019-03-31] MEDS ORDERED: PNEUMOVAX 23 IM ONE (16:15)
[2019-03-31] MEDS: PRILOSEC PO SCH (21:58)
[2019-03-31] MEDS: ELAVIL PO SCH (21:58)
[2019-03-31] MEDS: MIRAPEX PO SCH (21:59)
[2019-03-31] MEDS: LIPITOR PO SCH (22:00)
[2019-03-31] MEDS: EFFEXOR XR PO SCH (22:00)
[2019-04-01] MEDS: HUMALOG (PARKWAY) SUBQ SCH ×4 (06:52→23:00)
[2019-04-01] MEDS: OXY IR PO PRN ×2 (07:03→18:27)
[2019-04-01] MEDS: CARAFATE PO SCH ×4 (07:03→21:21)
[2019-04-01 07:19] LABS: BASO# 0.01 X1000 (0.0-0.2); BASO% 0.1 % (0.0-0.8); EOS# 0.08 X1000 (0.0-0.7); EOS% 1.2 % (0.0-10.0); HEMATOCRIT 42.1 % (42.0-52.0); HEMOGLOBIN 13.3 g/dL (14.0-18.0); IMM GRAN# 0.07 X1000 (0.0-0.04); LYMPH# 1.29 X1000 (1.2-3.4); LYMPH% 18.6 % (20.5-51.1); MCH 28.9 PG (27-31); MCHC 31.6 g/dL (33-37); MCV 91.3 FL (81-99); MONO# 0.82 X1000 (0.11-0.59); MONO% 11.8 % (1.7-9.3); MPV 11.7 FL (7.4-10.4); NEUT# 4.67 X1000 (1.4-6.5); NEUT% 67.3 % (42.2-75.2); PLT 135 X1000 (130-400); RBC 4.61 XMIL (4.7-6.1); RDW 14.9 % (11.5-14.5); WBC 6.94 X1000 (4.8-10.8)
[2019-04-01 07:39] LABS: AGAP 10; ALBUMIN 2.7 g/dL (3.5-5.0); ALKALINE PHOSPHATASE 81 U/L (32-122); BUN 9 mg/dL (8-22); CALCIUM 8.2 mg/dL (8.8-10.2); CHLORIDE 95 mmol/L (98-107); COSMO 267; CREATININE 1.1 mg/dL (0.7-1.2); ESTIMATED GFR > 60; GLUCOSE 135 mg/dL (70-104); GOT 29 U/L (10-34); GPT 17 U/L (10-44); POTASSIUM 3.8 mmol/L (3.5-5.1); SODIUM 133 mmol/L (136-145); TCO2 28 mmol/L (25-35); TOTAL PROTEIN 7.6 g/dL (6.3-8.3)
[2019-04-01] MEDS: LOPRESSOR PO SCH ×2 (09:09→21:21)
[2019-04-01] MEDS: KLOR-CON PO SCH ×2 (09:09→21:21)
[2019-04-01] MEDS: ELIQUIS PO SCH ×2 (09:09→21:21)
[2019-04-01] MEDS: GLUCOTROL XL PO SCH ×2 (09:09→21:21)
[2019-04-01] MEDS: ROCEPHIN 1 GM in NS 50 ML IV SCH (09:09)
[2019-04-01] MEDS: CARDIZEM CD PO SCH (09:09)
[2019-04-01] MEDS: MUCINEX PO SCH ×2 (09:09→21:21)
[2019-04-01] MEDS: REGLAN PO SCH ×2 (10:48→18:21)
[2019-04-01] MEDS: NS 1,000 ML IV SCH ×3 (10:49→18:29)
--- NOTE | 2019-04-01 11:01 | PROGRESS NOTE ---
DATE: 04/01/2019 SUBJECTIVE: The patient complains of having significant acid reflux since this hospital admission. The patient denies having any other complaints. OBJECTIVE: Vital signs: Temperature is 97.4 degrees, pulse 86 per minute, respiratory rate 16 per minute, blood pressure 134/73, pulse oximetry 96% on room air. General: The patient alert and oriented 3. He does not appear to be in any acute distress. Cardiovascular: First and second heart sounds are audible without any murmurs or gallops. Respiratory: Bilateral lung air entry is moderately decreased, but there are no rales or rhonchi present on auscultation. Gastrointestinal: The patient morbidly obese. Abdomen soft and nondistended. Normal bowel sounds are present. DIAGNOSTIC DATA: CBC is nondiagnostic. Comprehensive metabolic panel showed glucose levels of 135. The rest of the comprehensive metabolic panel is nondiagnostic. IMPRESSION: 1. Bilateral leg cellulitis that is getting better. 2. Chronic atrial fibrillation, that has been stable. 3. Coronary artery disease,hat is stable. 4. Chronic obstructive pulmonary disease, that is stable. 5. Type 2 diabetes mellitus. 6. Hypertension. 7. Hypothyroidism. PLAN: The patient leg cellulitis is getting better, and both the feet show some edema and erythema, but the wounds have significantly improved as compared to the previous days, and I do not see any weeping wounds anymore. The drainage has almost completely resolved, and he seems to be significantly improved. We will continue with ceftriaxone intravenously, however, along with IV fluids and his routine home medications. He has been having acid reflux for which he is getting omeprazole 40 mg daily, but that is not controlling this symptoms, and therefore, I am going to start him on metoclopramide 10 mg 30 minutes before meals and see if that will improve his symptoms. Further recommendations will be given as per hospital course. cc: Merna Shah MD
[2019-04-01] MEDS: MIRAPEX PO SCH (21:20)
[2019-04-01] MEDS: EFFEXOR XR PO SCH (21:21)
[2019-04-01] MEDS: LIPITOR PO SCH (21:21)
[2019-04-01] MEDS: ELAVIL PO SCH (21:22)
[2019-04-01] MEDS: PRILOSEC PO SCH (21:22)
[2019-04-02] MEDS: OXY IR PO PRN ×4 (00:25→18:29)
[2019-04-02] MEDS: NS 1,000 ML IV SCH (03:52)
[2019-04-02] MEDS: HUMALOG (PARKWAY) SUBQ SCH ×4 (06:14→21:21)
[2019-04-02] MEDS: CARAFATE PO SCH ×4 (06:38→20:27)
[2019-04-02] MEDS: REGLAN PO SCH ×3 (06:38→17:50)
[2019-04-02 06:41] LABS: BASO# 0.03 X1000 (0.0-0.2); BASO% 0.5 % (0.0-0.8); EOS# 0.18 X1000 (0.0-0.7); EOS% 3.1 % (0.0-10.0); HEMATOCRIT 39.7 % (42.0-52.0); HEMOGLOBIN 12.6 g/dL (14.0-18.0); IMM GRAN# 0.15 X1000 (0.0-0.04); IMM GRAN% 2.6 % (0.0-0.5); LYMPH# 1.67 X1000 (1.2-3.4); LYMPH% 28.6 % (20.5-51.1); MCHC 31.7 g/dL (33-37); MCV 91.3 FL (81-99); MONO# 0.73 X1000 (0.11-0.59); MONO% 12.5 % (1.7-9.3); MPV 10.7 FL (7.4-10.4); NEUT# 3.08 X1000 (1.4-6.5); NEUT% 52.7 % (42.2-75.2); PLT 133 X1000 (130-400); RBC 4.35 XMIL (4.7-6.1); RDW 15.1 % (11.5-14.5); WBC 5.84 X1000 (4.8-10.8)
[2019-04-02 07:00] LABS: AGAP 8; BUN 10 mg/dL (8-22); CALCIUM 7.9 mg/dL (8.8-10.2); CHLORIDE 102 mmol/L (98-107); COSMO 274; ESTIMATED GFR > 60; GLUCOSE 117 mg/dL (70-104); MAGNESIUM 1.3 mg/dL (1.5-2.7); POTASSIUM 3.8 mmol/L (3.5-5.1); SODIUM 137 mmol/L (136-145); TCO2 27 mmol/L (25-35)
[2019-04-02] MEDS: ROCEPHIN 1 GM in NS 50 ML IV SCH (08:22)
[2019-04-02] MEDS: ELIQUIS PO SCH ×2 (08:24→20:28)
[2019-04-02] MEDS: MUCINEX PO SCH ×2 (08:24→20:27)
[2019-04-02] MEDS: GLUCOTROL XL PO SCH ×2 (08:24→20:28)
[2019-04-02] MEDS: CARDIZEM CD PO SCH (08:24)
[2019-04-02] MEDS: LOPRESSOR PO SCH ×2 (08:24→20:27)
[2019-04-02] MEDS: KLOR-CON PO SCH ×2 (08:24→20:28)
[2019-04-02] MEDS ORDERED: TUMS PO PRN (08:41)
[2019-04-02] MEDS ORDERED: LEVAQUIN PO SCH (09:00)
[2019-04-02] MEDS: TYLENOL PO PRN ×2 (09:06→21:30)
[2019-04-02] MEDS ORDERED: CEFTIN PO SCH (10:15)
[2019-04-02] MEDS: CIPRO PO SCH ×2 (11:51→20:28)
[2019-04-02] MEDS ORDERED: ROCEPHIN 1 GM in NS 50 ML IV SCH (18:00)
[2019-04-02] MEDS: PRILOSEC PO SCH (20:27)
[2019-04-02] MEDS: MIRAPEX PO SCH (20:27)
[2019-04-02] MEDS: ELAVIL PO SCH (20:28)
[2019-04-02] MEDS: EFFEXOR XR PO SCH (20:28)
[2019-04-02] MEDS: LIPITOR PO SCH (20:28)
[2019-04-03] MEDS: OXY IR PO PRN ×4 (00:57→18:37)
[2019-04-03] MEDS: HUMALOG (PARKWAY) SUBQ SCH ×4 (06:10→21:00)
--- NOTE | 2019-04-03 08:10 | PROGRESS NOTE ---
DATE: 04/02/2019 SUBJECTIVE: Patient states overall he is feeling better. He still having some swelling in his lower extremities but notes that the redness and pain is improved. He is having no drainage. PHYSICAL EXAMINATION: Vital Signs: Reviewed. Temperature is 98 degrees, pulse 91, respiratory rate 18, blood pressure 135/76. General: Patient is awake in no distress. HEENT: Normocephalic. Neck: Supple. Cardiovascular: Regular rate. Chest: Clear. Abdomen: Soft. Extremities: Moves all extremities. Skin: He is noted to have bilateral chronic edematous changes. The rash on his thigh appears to be improving. ASSESSMENT: 1. Bilateral lower extremity cellulitis with Enterobacter and Providencia. 2. Bacteremia with Myoides. 3. Known coronary artery disease. 4. Chronic obstructive pulmonary disease. 5. Type 2 diabetes. PLAN: Patient unfortunately has 2 different bacteria in his wound. Each of these have a different sensitivities in the bacteria in his blood. We will continue him on IV antibiotics today. We will talk to Dr. Alonzo about changing him to possibly Levaquin and cephalosporin upon discharge. cc: Ishmael Canas MD
[2019-04-03] MEDS: GLUCOTROL XL PO SCH ×2 (08:29→20:52)
[2019-04-03] MEDS: CARAFATE PO SCH ×4 (08:29→20:53)
[2019-04-03] MEDS: CIPRO PO SCH ×2 (08:29→20:53)
[2019-04-03] MEDS: ELIQUIS PO SCH ×2 (08:29→20:53)
[2019-04-03] MEDS: CARDIZEM CD PO SCH (08:29)
[2019-04-03] MEDS: REGLAN PO SCH ×3 (08:29→16:29)
[2019-04-03] MEDS: KLOR-CON PO SCH ×2 (08:29→20:53)
[2019-04-03] MEDS: LOPRESSOR PO SCH ×2 (08:29→20:53)
[2019-04-03] MEDS: MUCINEX PO SCH ×2 (08:29→20:52)
[2019-04-03] MEDS: MAXIPIME 1 GM in NS 50 ML IV SCH ×2 (11:31→23:04)
--- NOTE | 2019-04-03 19:13 | PROGRESS NOTE ---
DATE: 04/03/2019 SUBJECTIVE: The patient has no major complaints. OBJECTIVE: Blood pressure is 135/75, heart rate of 80, respiratory rate 18, temperature 98.3 degrees, 95% on room air.Cardiovascular: Regular rate and rhythm. Pulmonary: Bilateral breath sounds. Clear to auscultation. Gastrointestinal: Soft, nontender, nondistended. Bowel sounds are positive. LABORATORY DATA: I do not have any data today. PROBLEM LIST: 1. Enterobacter, Providencia, lower extremity cellulitis, and he has Myroides in his blood, which is a Flavobacterium. Providencia is sensitive to Levaquin. The Enterobacter is sensitive to cephalosporins and Bactrim. The Myroides is sensitive to cefepime and Levaquin. In any case, we will continue wound care, antibiotics, and follow. Discussed with Dr. Alonzo about IV antibiotics. 2. Bacteremia with Myroides. We will have to monitor that. Repeat blood cultures today so we can make sure that there is not any persistent infection. DISPOSITION: Pending clinical status, but he would like to go home soon. cc: Ayo Castle MD [facility]
[2019-04-03] MEDS: MIRAPEX PO SCH (20:52)
[2019-04-03] MEDS: PRILOSEC PO SCH (20:53)
[2019-04-03] MEDS: LIPITOR PO SCH (20:53)
[2019-04-03] MEDS: EFFEXOR XR PO SCH (20:53)
[2019-04-03] MEDS: ELAVIL PO SCH (20:53)
[2019-04-04] MEDS: OXY IR PO PRN ×5 (00:29→23:57)
[2019-04-04] MEDS: HUMALOG (PARKWAY) SUBQ SCH ×4 (06:13→22:19)
[2019-04-04 07:36] LABS: BASO# 0.04 X1000 (0.0-0.2); BASO% 0.6 % (0.0-0.8); EOS% 2.9 % (0.0-10.0); HEMATOCRIT 42.3 % (42.0-52.0); HEMOGLOBIN 13.5 g/dL (14.0-18.0); IMM GRAN# 0.33 X1000 (0.0-0.04); IMM GRAN% 4.8 % (0.0-0.5); LYMPH# 1.78 X1000 (1.2-3.4); LYMPH% 25.8 % (20.5-51.1); MCHC 31.9 g/dL (33-37); MONO# 0.55 X1000 (0.11-0.59); MPV 10.8 FL (7.4-10.4); NEUT# 4.01 X1000 (1.4-6.5); NEUT% 57.9 % (42.2-75.2); PLT 167 X1000 (130-400); RBC 4.65 XMIL (4.7-6.1); RDW 15.2 % (11.5-14.5); WBC 6.91 X1000 (4.8-10.8)
[2019-04-04] MEDS: MUCINEX PO SCH ×3 (07:41→22:17)
[2019-04-04] MEDS: CARDIZEM CD PO SCH ×2 (07:42→10:27)
[2019-04-04] MEDS: KLOR-CON PO SCH ×3 (07:42→23:57)
[2019-04-04] MEDS: GLUCOTROL XL PO SCH ×3 (07:42→22:17)
[2019-04-04] MEDS: ELIQUIS PO SCH ×3 (07:42→22:18)
[2019-04-04] MEDS: REGLAN PO SCH ×3 (07:42→15:20)
[2019-04-04] MEDS: LOPRESSOR PO SCH ×3 (07:42→22:19)
[2019-04-04] MEDS: CARAFATE PO SCH ×4 (07:42→22:18)
[2019-04-04] MEDS: CIPRO PO SCH ×2 (07:42→10:27)
[2019-04-04 07:54] LABS: CREATININE 1.2 mg/dL (0.7-1.2); POTASSIUM 4.3 mmol/L (3.5-5.1)
[2019-04-04] MEDS: MAXIPIME 1 GM in NS 50 ML IV SCH (10:47)
[2019-04-04] MEDS: TYLENOL PO PRN (15:51)
--- NOTE | 2019-04-04 18:32 | PROGRESS NOTE ---
DATE: 04/04/2019 SUBJECTIVE: The patient has no major complaints. OBJECTIVE: Blood pressure 158/81, heart rate 87, respiratory rate 18, temperature 91, 94% on room air.Cardiovascular: Regular rate and rhythm. Pulmonary: Bilateral breath sounds. Clear to auscultation. Gastrointestinal: Soft, nontender, nondistended. Bowel sounds are positive. LABORATORY DATA: White count is 6, hemoglobin and hematocrit 13 and 42, platelets of 162,000. Basic was normal. PROBLEM LIST: 1. Enterobacter and Providencia, lower extremity cellulitis with a myoide Flavobacterium bacteremia. The cellulitis is sensitive to Levaquin, so that should be sufficient, but he has had bacteremia with a different bug. So, we can probably transition him to Ceftin or something to that nature, and then for his Myroides infection, he will need Zosyn or cefepime. The MICs are pretty terrible, but Levaquin is acceptable. I will discuss with Dr. Alonzo. 2. Diabetes. Again, appears relatively well controlled. We will continue to monitor and follow closely. cc: Ayo Castle MD
[2019-04-04 19:06] LABS: INR 1.16; PROTIME 15.4 Seconds (11.0-16.0)
[2019-04-04] MEDS: EFFEXOR XR PO SCH (22:17)
[2019-04-04] MEDS: ELAVIL PO SCH (22:17)
[2019-04-04] MEDS: LIPITOR PO SCH (22:18)
[2019-04-04] MEDS: PRILOSEC PO SCH (22:18)
[2019-04-04] MEDS: MIRAPEX PO SCH (22:18)
[2019-04-04] MEDS: MAXIPIME 2 GM in NS 100 ML IV SCH (23:56)
[2019-04-05] MEDS: HUMALOG (PARKWAY) SUBQ SCH ×2 (06:13→12:45)
[2019-04-05] MEDS: OXY IR PO PRN (06:18)
[2019-04-05] MEDS: REGLAN PO SCH ×3 (06:19→12:45)
[2019-04-05] MEDS: CARAFATE PO SCH ×3 (06:19→12:45)
[2019-04-05 07:04] LABS: BASO# 0.02 X1000 (0.0-0.2); BASO% 0.3 % (0.0-0.8); EOS% 2.7 % (0.0-10.0); HEMATOCRIT 41.5 % (42.0-52.0); HEMOGLOBIN 13.1 g/dL (14.0-18.0); IMM GRAN# 0.27 X1000 (0.0-0.04); IMM GRAN% 3.7 % (0.0-0.5); LYMPH# 1.66 X1000 (1.2-3.4); LYMPH% 22.7 % (20.5-51.1); MCH 28.9 PG (27-31); MCHC 31.6 g/dL (33-37); MCV 91.6 FL (81-99); MONO# 0.66 X1000 (0.11-0.59); MPV 10.5 FL (7.4-10.4); NEUT# 4.49 X1000 (1.4-6.5); NEUT% 61.6 % (42.2-75.2); PLT 165 X1000 (130-400); RBC 4.53 XMIL (4.7-6.1); RDW 15.2 % (11.5-14.5)
[2019-04-05 07:17] LABS: CREATININE 1.2 mg/dL (0.7-1.2); POTASSIUM 4.2 mmol/L (3.5-5.1)
[2019-04-05] MEDS: MAXIPIME 2 GM in NS 100 ML IV SCH (09:22)
[2019-04-05] MEDS: KLOR-CON PO SCH (09:23)
[2019-04-05] MEDS: MUCINEX PO SCH (09:23)
[2019-04-05] MEDS: LOPRESSOR PO SCH (09:23)
[2019-04-05] MEDS: ELIQUIS PO SCH (09:23)
[2019-04-05] MEDS: GLUCOTROL XL PO SCH (09:23)
[2019-04-05] MEDS: CARDIZEM CD PO SCH (09:23)
[2019-04-05] MEDS ORDERED: NS 250 ML ONE (10:26)
[2019-04-05 12:10] VITALS: BP 151/71
--- NOTE | 2019-04-05 12:18 | Diag Imaging Result Doc PS360 ---
CHEST-PORTABLE - 04/05/2019 INDICATION: Verify PICC placement COMPARISON: 03/28/2019 FINDINGS: There is a left PICC line in good position with the catheter tip at the SVC. Heart size remains borderline enlarged. Some faint left basilar infiltrate is stable. No pneumothorax or significant pleural effusion. Stable blunting of the left lateral costophrenic angle. IMPRESSION: Good left PICC line placement. Electronically signed by Maximus Crow 04/05/2019 12:15 PM
--- NOTE | 2019-04-06 13:34 | DISCHARGE SUMMARY ---
ADMISSION DATE: 03/27/2019 DISCHARGE DATE: 04/05/2019 ADDENDUM: The patient is doing well. Plan is to discharge with a PICC line today for treatment with cefepime for 2 weeks for a multi culture positive bacteremia, Providencia, and Enterobacter wound, but they were all sensitive to cefepime, so he will go home with cefepime after PICC has been placed. Other than that, he has been in stable condition. cc: Ayo Castle MD [facility]
--- NOTE | 2019-04-07 08:54 | DISCHARGE SUMMARY ---
ADMISSION DATE: 03/27/2019 DISCHARGE DATE: 04/05/2019 PRIMARY CARE PHYSICIAN: Dr. Yahir Gooden ADMISSION DIAGNOSES: 1. Sepsis secondary to bilateral lower extremity cellulitis. 2. Atrial fibrillation with rapid ventricular response in a known chronic atrial fibrillation patient. 3. Mild rhabdomyolysis. 4. Recent history of falling at home. 5. Chronic obstructive pulmonary disease history. 6. Obstructive sleep apnea, refusing to wear CPAP. 7. Congestive heart failure, history of. 8. Diabetes type 2. 9. Chronic venous insufficiency, peripheral vascular disease, and chronic infection in between toes of both feet. DISCHARGE DIAGNOSES: 1. Enterobacter and Providencia lower extremity cellulitis with a myoides Flavobacterium bacteremia. 2. Atrial fibrillation, rate controlled, in a known chronic atrial fibrillation patient. 3. History of falls. 4. Chronic obstructive pulmonary disease, history of. 5. Obstructive sleep apnea, refusing to wear CPAP. 6. History of congestive heart failure. 7. Diabetes type 2. 8. Chronic venous insufficiency, peripheral vascular disease and chronic infection in between the toes of both feet. SUMMARY OF FINDINGS: This is a 68-year-old male who presents to the emergency room stating that he had a fall at home in his kitchen. When he arrived, he was found to be in atrial fibrillation with RVR and noted to have cellulitis of the left leg that was tracking up his left side. He ruled in for sepsis, received 2 L boluses of normal saline and IV Rocephin. He had some mild rhabdomyolysis. Placed on initial Cardizem drip. We discussed this case with Dr. Alonzo, and he placed him on cefepime and Zyvox given his kidney function. He was placed in ICU initially. Wound Care was consulted. He was transferred out to the floor and off of his Cardizem drip. His wound cultures grew out an Enterobacter cloacae complex and Providencia stuartii. Blood culture grew out a myoides Flavobacterium. Antibiotic choices were discussed with Dr. Alonzo of Infectious Disease who gave his recommendations. Patient responded well. We placed a PICC line yesterday on 04/05/2019, and patient is being discharged home. He will have home antibiotic therapy. DISCHARGE MEDICATIONS: Cefepime 2 g IV q.12 hours (number 28 with no refills) and will continue his home medications as previously identified. FOLLOW-UP: He will have follow-up appointment with Dr. Alonzo on 04/19/2019 at 9:30 a.m.; with Dr. Flower, Cardiology, on 05/08/2019 at 3 p.m. He will call his primary care physician to set up an appointment in the next 1 to 2 weeks. He will also have home health services. DISCHARGE INSTRUCTIONS: All discharge instructions have been reviewed with the patient and his , and they verbalized understanding. TIME SPENT WITH PATIENT: Thirty-five minutes. Dictated by UNIQUE Viveros for Ayo Castle MD cc: MD Juan Antonio Khan MD William D. Denney, MD Kami Whorton, CRNP Alexis R. Penot, MD
== END 2019-04-05 15:23 | disposition home health service (06) | DRG 872 ==
LOC: P.ED 07:48 → P.ICU 10:07 → SUATTDRO 10:07 → P.MEDSURG 03-30 16:28
PROVIDERS: ATTEND Internal Medicine

== ENCOUNTER 2019-04-18 13:02 | Inpatient (IN) ==
[2019-04-18 13:54] LABS: BASO# 0.02 X1000 (0.0-0.2); BASO% 0.3 % (0.0-0.8); EOS# 0.21 X1000 (0.0-0.7); EOS% 3.3 % (0.0-10.0); HEMATOCRIT 35.9 % (42.0-52.0); HEMOGLOBIN 11.3 g/dL (14.0-18.0); IMM GRAN# 0.03 X1000 (0.0-0.04); IMM GRAN% 0.5 % (0.0-0.5); LYMPH# 1.41 X1000 (1.2-3.4); LYMPH% 21.9 % (20.5-51.1); MCH 29.1 PG (27-31); MCHC 31.5 g/dL (33-37); MCV 92.5 FL (81-99); MONO# 0.72 X1000 (0.11-0.59); MONO% 11.2 % (1.7-9.3); MPV 11.7 FL (7.4-10.4); NEUT# 4.04 X1000 (1.4-6.5); NEUT% 62.8 % (42.2-75.2); PLT 120 X1000 (130-400); RBC 3.88 XMIL (4.7-6.1); RDW 14.9 % (11.5-14.5); WBC 6.43 X1000 (4.8-10.8)
[2019-04-18 14:10] LABS: INR 1.31; PROTIME 16.9 Seconds (11.0-16.0)
[2019-04-18 14:11] LABS: PTT 37.7 Seconds (22.3-41.8)
--- NOTE | 2019-04-18 14:14 | Diag Imaging Result Doc PS360 ---
EXAM: CHEST-1 VIEW HISTORY: r/o sepsis TECHNIQUE: Single view. COMPARISON: 04/05/2019 FINDINGS: Cardiomegaly is unchanged. Left PICC catheter is again demonstrated. Left pleural. The pulmonary vasculature is not congested. Stable mild left basilar infiltrate. Stable left pleural fluid versus thickening. IMPRESSION: Stable chest. Unchanged left pleural fluid or thickening and mild left basilar infiltrate. Electronically signed by Diana Moulton 04/18/2019 2:12 PM
[2019-04-18 14:27] LABS: ALBUMIN 3.5 g/dL (3.5-5.0); CALCIUM 7.8 mg/dL (8.8-10.2); CREATININE 1.5 mg/dL (0.7-1.2); POTASSIUM 3.3 mmol/L (3.5-5.1); TOTAL BILIRUBIN 0.3 mg/dL (0.20-1.00); TOTAL PROTEIN 7.3 g/dL (6.3-8.3)
--- NOTE | 2019-04-18 14:57 | Diag Imaging Result Doc PS360 ---
EXAM: CT HEAD/C-SPINE W/O CONTRAST HISTORY: fall,head injury/pain,R posterior neck pain/tender TECHNIQUE: Routine noncontrasted CT scan of the brain and cervical spine as per standard protocol. Dose reduction technique. This exam was performed using automated exposure control, adjustment of mA or kV according to patient size, and/or use of iterative reconstruction technique COMPARISON: 03/27/2019 CT BRAIN: Images are mildly degraded by patient motion. Extra-axial spaces: Mildly prominent from mild atrophy. Intracranial hemorrhage: None appreciated. Ventricular system: Normal for age. Cerebral parenchyma: Unremarkable. Midline shift: None. Cerebellum: Unremarkable. Brainstem: Unremarkable. Calvarium: Normal. Paranasal sinuses and mastoid air cells: Moderate left maxillary sinus with air-fluid level.. Visualized orbits: Normal. CT CERVICAL SPINE: Fracture: None. Vertebral alignment: There is loss of normal cervical lordosis. There is persistent 4 mm of anterolisthesis at C3/C4. No fracture is appreciated. There are multiple disc osteophyte complexes at the C4/C5 and C5/C6 with moderate canal stenosis at C4/C5 and also C3/C4. Soft tissues: No precervical soft tissue swelling. There are atherosclerotic calcifications bilateral carotid arteries.. IMPRESSION: No acute intracranial abnormality. Left maxillary sinus disease. Degenerative arthropathy cervical spine with unchanged 4 mm anterolisthesis of C3 on C4. Moderate canal stenosis as described above. No acute abnormality cervical spine. Electronically signed by Diana Moulton 04/18/2019 2:55 PM
[2019-04-18 14:58] LABS: CK INDEX 3.9 (0.0-2.5); CK-MB 9.76 ng/mL (0.0-5.0)
[2019-04-18 16:24] LABS: BILIRUBIN URINE NEGATIVE (NEGATIVE); BLOOD URINE 4+ (NEGATIVE); CLARITY CLEAR (CLEAR); COLOR YELLOW; GLUCOSE URINE NEGATIVE (NEGATIVE); KETONE URINE TRACE mg/dL (NEGATIVE); LEUKOCYTES URINE NEGATIVE (NEGATIVE); NITRITE URINE NEGATIVE (NEGATIVE); PH URINE 6.5; PROTEIN URINE 2+(100 mg/dL) mg/dL (NEGATIVE); SP GRAVITY URINE 1.015; UROBILINOGEN URINE NORMAL
[2019-04-18 16:46] LABS: URINE BACTERIA NEGATIVE /HFP; URINE CAST GRANULAR PRESENT /LPF; URINE EPITHELIAL CELLS <10 /HPF (<10); URINE RBC <10 /HPF (<10); URINE SOURCE CLEAN CATCH; URINE WBC <10 /HPF (<10)
[2019-04-18] MEDS ORDERED: PERCOCET-10 PO ONE (16:49)
--- NOTE | 2019-04-18 17:14 | PROVIDER DOCUMENTATION ---
This chart was entered by Keshia Mckeon Scribe, acting as scribe for Bernardo Meadows MD. HPI-General Adult - General Chief Complaint: Weakness Stated Complaint: RETURN / REVISIT Time Seen by Provider: 04/18/19 13:41 Source: patient, family Allergies/Adverse Reactions: Patient Allergies Allergy/AdvReac Type Severity Reaction Status Date / Time No Known Allergies Allergy Verified 04/18/19 14:39 Home Medications: Home Medication List Medication Instructions Recorded Confirmed Last Taken Type ATORVAstatin [Lipitor] 40 mg PO QHS 05/06/16 04/18/19 11/27/18 History Omeprazole [Prilosec] 40 mg PO QHS 05/06/16 04/18/19 11/27/18 History Sucralfate [Carafate] 1 gm PO AC + HS 05/06/16 04/18/19 11/27/18 History Oxycodone HCl 15 mg PO Q6H PRN 10/13/16 04/18/19 11/27/18 History Apixaban [Eliquis] 5 mg PO BID #60 tablet 10/25/17 04/18/19 11/27/18 Rx Amitriptyline HCl 50 mg PO QHS 11/23/17 04/18/19 11/27/18 History Glipizide [Glipizide ER] 5 mg PO BID 02/15/18 04/18/19 11/27/18 History Pramipexole Di-HCl [Mirapex] 1.5 mg PO HS 04/01/18 04/18/19 11/27/18 History Venlafaxine HCl [Venlafaxine HCl 75 mg PO QHS 04/01/18 04/18/19 11/27/18 History ER] Diltiazem HCl [Cardizem Cd] 240 mg PO QAM 10/24/18 04/18/19 11/27/18 History Potassium Chloride E.r. [Klor-Con] 10 meq PO BID 10/24/18 04/18/19 11/27/18 History Cefepime HCl/Dextrose, Iso-Osm 2 gm IV Q12H #28 [id number] 04/05/19 04/18/19 Unknown Rx [Cefepime 2 gm Injection] - History of Present Illness -Gen Adult Nature of Presenting Problems: 69 yowm presents w/ to er w/cc is main hx due to pt condition. sts pt has had increased ams, lethargy, and fell this am in bathroom. pt also has been sob, wheezing, and nauseated. pt was in hospital 2 weeks ago for foot infection, became septic and was in icu for 2 days. when pt had L4-L5 fusion, sts pt started having bilat cellulitis that has never went away. pt has hx of dm, neuropathy, afib, htn, cellulitis, osteomylitis, copd and neuropathy. pt pcp is Dr. Gooden, take out waiter is Dr. Magallanes and infectious dz . pt has appt in am w/. pt is falling asleep at bedside but will respond when asked questions. Severity: reports: moderate Onset/Duration: reports: other (last month, worse 2 wks.) Timing: reports: still present Context/Activities at Onset: reports: none Similar Symptoms Previously?: Yes Recently seen or treated by another doctor?: Yes (9 days in hospital ) Review of Systems - Adult - REVIEW OF SYSTEMS - ADULT ROS:: limited per condition Constitutional: reports: no symptoms reported. denies: chills, fever, fatique Eyes: reports: no symptoms reported Ears, Nose, Mouth & Throat: reports: no symptoms reported Cardiovascular: reports: no symptoms reported Respiratory: reports: see HPI, shortness of breath, wheezing. denies: cough, hemoptysis, pleurisy Gastrointestinal: reports: see HPI, nausea. denies: abdominal pain, diarrhea, rectal bleeding Genitourinary: reports: no symptoms reported Musculoskeletal: reports: no symptoms reported Integumentary: reports: no symptoms reported Neurological: reports: see HPI, loss of balance (fall this am), other (ams). denies: dizziness/vertigo, headache/migraines, syncope Psychiatric: reports: no symptoms reported Endocrine: reports: no symptoms reported Hematologic/Lymphatic: reports: no symptoms reported Allergic/Immunologic: reports: no symptoms reported All Other Systems: Reviewed and Negative Past History - Adult - PAST MEDICAL HISTORY-ADULT Review of Records: reports: Old Records Reviewed, Nursing Assessment Review, Medications Reviewed, Social history reviewed & non-contributory. Major Childhood Illnesses: reports: denies history Cardiovascular: reports: A-Fib, CAD, CHF, HTN, hyperlipidemia, [place], PVD Respiratory: reports: asthma, COPD, other (asbestos) Gastrointestinal: reports: denies history Obstetrical/Gynecological: reports: denies history Genitourinary: reports: cancer (Hx: prostate), kidney disease Musculoskeletal: reports: chronic pain, other (restless leg syndrome) Neurological: reports: CVA, other (neuropathy) Psychiatric: reports: depression Endocrine/Immune: reports: Diabetes, thyroid disorder Diabetes controlled by:: PO Meds Other Conditions: reports: denies history - PRIOR SURGERIES/PROCEDURES Surgical/Procedure History: reports: other, appendectomy, colonoscopy, back/neck - IMMUNIZATION STATUS Childhood Immunizations: See Nurse Assessment Flu Vaccine: See Nurse Assessment - FAMILY HISTORY Family History: CAD over 55 yo, other (type 2 diabetes) - SOCIAL HISTORY Smoking: other (former smoker) Physical Exam-General - PHYSICAL EXAM-ADULT Initial Vital Signs Reviewed: Yes - CONSTITUTIONAL General Appearance: no apparent distress, obese, lethargic, slow to respond. negative: appears well, anxious, combative - EYES Eyes: PERRL/EOMI, pink conjunctivae - HEAD, EARS, NOSE, MOUTH & THROAT HENMT: normocephalic/atraumatic, moist mucous membranes, normal ENT inspection - NECK Neck: full range of motion, other (rt posterior neck swelling and tender to palp). negative: non-tender, supple, normal inspection - RESPIRATORY Respiratory: chest non-tender, normal breath sounds, no pleuratic chest pain, no respiratory distress, no accessory muscle use, rales (bilat bases). negative: lungs clear, accessory muscle use, crackles, stridor, wheezing - CARDIOVASCULAR Cardiovascular: normal peripheral pulses, no edema, no gallop, no JVD, no murmur , irregularly irregular. negative: regular rate, rhythm, JVD, bradycardia, tachycardia - GASTROINTESTINAL (ABDOMEN) Abdominal Exam: normal bowel sounds, non tender, soft - LYMPHATIC Lymphatic: no adenopathy - MUSCULOSKELETAL Back Exam: no CVA tenderness, no vertebral tenderness, other (bruising on left lumbar back). negative: normal inspection, muscle spasm, swelling, vertebral tenderness Extremity: normal range of motion, non-tender, erythema (left great toe), other (bilat hard chronic edema, statsis dermatitis, lac cellulitis of toe webbing left great toe, 2nd and 3rd toes.). negative: normal inspection Peripheral Pulses: dorsalis-pedis (R): 2+, dorsalis-pedis (L): 2+ - SKIN Integumentary: normal color, normal turgor, warm/dry, abrasion(s) (rt great toe) . 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 negative: normal thought process Progress - PLAN OF CARE/RESULTS Progress/Plan/Lab Results: Vital Signs - 8 hr 04/18/19 13:10 Temperature 97.7 F Pulse Rate 96 H Respiratory Rate 20 Blood Pressure 132/84 O2 Sat by Pulse Oximetry 96 Laboratory Results - last 24 hr 04/18/19 13:30 WBC 6.43 RBC 3.88 L Hgb 11.3 L Hct 35.9 L MCV 92.5 MCH 29.1 MCHC 31.5 L RDW Std Deviation 14.9 H Plt Count 120 L MPV 11.7 H Immature Gran % (Auto) 0.5 Neut % (Auto) 62.8 Lymph % (Auto) 21.9 Williamson % (Auto) 11.2 H Eos % (Auto) 3.3 Baso % (Auto) 0.3 Immature Gran # (Auto) 0.03 Neut # (Auto) 4.04 Lymph # (Auto) 1.41 Williamson # (Auto) 0.72 H Eos # (Auto) 0.21 Baso # (Auto) 0.02 Orders Category Date Time Status Cardiac Monitoring DIRECTED Care 04/18/19 13:15 Active IV Insertion ORDERED Care 04/18/19 13:15 Active Notify MD of + Sepsis Screen NOW Care 04/18/19 13:15 Active Notify Physician As Ordered Care 04/18/19 13:15 Active CHEST-1 VIEW [RAD] Stat Exams 04/18/19 13:15 Ordered BLOOD CULTURE [BLDCUL] Stat Lab 04/18/19 13:41 Ordered CBC WITH DIFF [HEME] Stat Lab 04/18/19 13:30 Completed CK PROFILE [SP CHEM] Stat Lab 04/18/19 13:30 Received COMPREHENSIVE METABOLIC PANEL [CHEM] Stat Lab 04/18/19 13:30 Received LACTATE, PLASMA [CHEM] Lab 04/18/19 13:30 Received LACTATE, PLASMA [CHEM] Lab 04/18/19 16:15 Uncollected LACTATE, PLASMA [CHEM] Lab 04/18/19 19:15 Uncollected PROTIME WITH INR [COAG] Stat Lab 04/18/19 13:30 Received PTT [COAG] Stat Lab 04/18/19 13:30 Received TROPONIN T Stat Lab 04/18/19 13:[address] W/POSS RFLX CULT [URINALYSIS] Stat Lab 04/18/19 13:15 Uncollected Oxygen Device Stat Oth 04/18/19 13:15 Active Result Diagrams: 04/18/19 13:30 04/18/19 13:30 - REASSESSMENT Reassessment #1 Time Reassessed: 17:12 Status: worsening (more alert than 3 hr ago but now left leg is very red even up to the inguinal crease. Dr Jef jones.) - EKG 1 Time of EKG reading by physician:: 14:48 EKG Read and Signed by:: Bernardo Meadows EKG Interpretation (*Must complete 3 of following elements*): Abnormal Rate: 86 Rhythm: afib w/rvr [place]: normal QRS: other (low voltage qrs) ST Wave: normal Comments: prolonged qt Departure - Departure Date of Disposition Decision: 04/18/19 Time of Disposition Decision: 17:13 DIAGNOSIS: Altered mental status, Cellulitis of leg, Cardiac enzymes elevated, Hypokalemia Disposition: ADMITTED INPATIENT 09 Certified Medical Emergency: Emergent Condition: Stable Referrals and Follow-Ups: Yahir Gooden MD [Primary Care Provider] - - Critical Care Note This patient required my direct & personal management of CC.: No Attestation - Physician/ GABY Attestation Patient care was provided by Advanced Practice Provider:: No The physician spent face to face time with patient:: Yes Advanced Practice Provider documentation review:: Supervising physician onsite and consulted in the evaluation and care of this patient. The physician did have a face to face encounter with the patient. This chart was documented by the indicated scribe, (Keshia Mckeon Scribe) and accurately reflects the services I performed and decisions made by me, Bernardo Meadows MD, as attested by the provider's signature.
[2019-04-18] MEDS ORDERED: ZOFRAN IV PRN (17:16)
[2019-04-18] MEDS ORDERED: TYLENOL PO PRN (17:16)
[2019-04-18] MEDS ORDERED: CEFEPIME HCL IV SCH (17:16)
[2019-04-18] MEDS ORDERED: NS 1,000 ML IV PRN (17:16)
[2019-04-18] MEDS ORDERED: DEXTROSE ISO OSM IV SCH (17:16)
--- NOTE | 2019-04-18 17:26 | EKG Report ---
Test Performed on : 04/18/2019 2:42:16 PM Test Reason : chronic afib Blood Pressure : / mmHG Vent. Rate : 086 BPM Atrial Rate : 127 BPM P-R Int : 000 ms QRS Dur : 086 ms QT Int : 402 ms P-R-T Axes : 000 032 044 degrees QTc Int : 481 ms Atrial fibrillation. Low voltage QRS Prolonged QT Abnormal ECG When compared with ECG of 28-MAR-2019 08:56, No significant change was found Unconfirmed Result
[2019-04-18] MEDS ORDERED: VANCOMYCIN IV PER PHARMACY MISC SCH (18:15)
[2019-04-18 18:16] LABS: CK INDEX 3.9 (0.0-2.5); CK-MB 9.05 ng/mL (0.0-5.0)
[2019-04-18] MEDS ORDERED: MYCAMINE 100 MG in NS 100 ML IV SCH (18:30)
[2019-04-18] MEDS ORDERED: VANCOMYCIN 2,500 MG in NS 500 ML IV SCH (20:00)
[2019-04-18] MEDS: MAXIPIME 2 GM in NS 100 ML IV SCH (20:01)
[2019-04-18] MEDS: ELIQUIS PO SCH (20:04)
[2019-04-18] MEDS: CARAFATE PO SCH (20:04)
[2019-04-18] MEDS: KLOR-CON PO SCH (20:04)
[2019-04-18] MEDS: SOLU-MEDROL IV SCH (20:04)
[2019-04-18] MEDS: HUMULIN R (PARKWAY) SUBQ SCH (20:08)
--- NOTE | 2019-04-18 20:16 | HISTORY AND PHYSICAL ---
PRIMARY CARE PROVIDER: Dr. Yahir Gooden. He goes to a pain clinic somewhere here in [place]. CHIEF COMPLAINT: More drowsy and forgetful, shortness of breath increasing over the last 3 days. HISTORY OF PRESENT ILLNESS: Mr. Hayder Gutiérrez is a 69-year-old male with a medical history of chronic atrial fibrillation, diabetes mellitus type 2, COPD, sleep apnea, frequent falls with chronic venous insufficiency and most recently has been treated for bilateral lower extremity cellulitis. He was recently discharged from the hospital here on 04/05/2019. He was sent home on cefepime 2 g IV q.12 hours, 28 doses. When he was last here he had wound cultures that grew out Enterobacter cloacae and Providencia stuartii. Blood cultures great myoides Flavobacterium. At that time Infectious disease, Dr. Alonzo gave his recommendations. A PICC line was placed and he was discharged home on the cefepime 2 g IV q.12 hours. Now, he states that over the last 3 days. He has had worsening shortness of breath. Denies any fever. Denies any colored phlegm production but he does have expiratory wheezes noted with auscultation and he has had increasing drowsy spells nodding off fast and more forgetful as far as time management goes. It looks like he is supposed to see Dr. Alonzo tomorrow at 9:30 in the morning but that is not going to be able to be made. So he has gotten blood cultures, essentially there is really no obvious abnormalities in his labs. He does have some mild acute kidney injury, just a little dehydration. Creatinine is 1.5, but he does have CKD. He has a mild elevation in his CK. He had a cervical spine that did not show anything acute. He had a chest x-ray that also did not show anything acute. There was mild left basilar infiltrate that was not new. He complains of worsening pain in his right knee but denies taking more medication than prescribed. He follows with a Pain Clinic here in [place] for his pain control and management. We will admit him and do more blood cultures. We will add in some vancomycin and we will try and discuss the case with Dr. Alonzo tomorrow morning. PAST MEDICAL HISTORY: 1. Chronic atrial fibrillation. 2. Diabetes mellitus type 2. 3. COPD. 4. Obstructive sleep apnea. No CPAP. 5. Frequent falls. 6. Congestive heart failure. 7. Peripheral vascular disease. 8. Chronic venous stasis with insufficiency. 9. Hypertension. 10. Hyperlipidemia. 11. Possible LA in the past but never fully diagnosed. 12. Aortic aneurysm status post AAA repair. 13. Prostate cancer. 14. Neuropathy. 15. Sepsis history. 16. Recent admission with cellulitis of bilateral lower extremities. SURGICAL HISTORY: 1. Cardiac stents x3. 2. Iliac stent. 3. AAA repair with endograft. 4. Appendectomy. 5. Prostatectomies. 6. Full teeth extraction. 7. Penile implant. 8. Back surgery. SOCIAL HISTORY: One and a half pack per day smoker for 50+ years. Apparently stopped in 2016. Denies alcohol or illicit drug use. Walks with a walker. Lives with his . FAMILY HISTORY: Significant for hypertension, father had LA and stroke in his 60s. ALLERGIES: No known drug allergies. HOME MEDICATIONS: 1. Amitriptyline 50 mg p.o. nightly. 2. Lipitor 40 mg p.o. nightly. 3. Prilosec 40 mg p.o. nightly. 4. Venlafaxine 75 mg p.o. nightly. 5. Carafate 1 g p.o. before meals and at night. 6. Cardizem 240 mg p.o. daily. 7. Glipizide 5 mg p.o. twice daily. 8. Potassium chloride 10 mEq p.o. twice daily. 9. Mirapex 1.5 mg p.o. nightly. 10. Oxycodone 15 mg p.o. every 6 hours p.r.n. 11. Eliquis 5 mg p.o. twice daily. 12. Cefepime 2 g IV q.12 hours. REVIEW OF SYSTEMS: Fourteen point review of systems are complete and all are negative except for those mentioned above in the HPI. PHYSICAL EXAMINATION: VITAL SIGNS: Temperature 97.7 degrees, heart rate 94, respiratory rate 20, blood pressure 132/84, O2 saturation 100% on 2 L nasal cannula. 6 feet 1 inch tall, 300 pounds, BMI 39.6. GENERAL: Hayder Gutiérrez is a 69-year-old male. He is in no acute distress. He is able to answer some questions appropriately. HEENT: Atraumatic, normocephalic. Pupils equal, round, reactive to light. Extraocular movements intact. Mucous membranes moist. NECK: Trachea midline. CARDIOVASCULAR: Irregularly irregular rate and rhythm. No rubs, gallops, murmurs. He has got significant lower extremity edema 4+. 1+ dorsalis pedal pulses, +2 radial pulses. Negative JVD or carotid bruits. PULMONARY: Inspiratory wheezes anterior and posteriorly. Mild accessory muscle use from time to time. GASTROINTESTINAL: Abdomen is soft, looks like there is maybe even some cellulitis that goes all the way from the legs up to the abdomen. It is red in the lower abdomen. Positive bowel sounds. Nontender. EXTREMITIES: Decreased range of motion of the lower extremities. Decreased strength about 3/5 in lower extremities. 4/5 in upper extremities. NEUROLOGIC: Oriented x3. Follows commands. Decreased sensory in the lower extremities. SKIN: Warm, dry. Significant venous stasis bilateral lower extremities with cellulitis all the way up to the knee on the right, up to the thigh on the left maybe even into the abdomen. There is chronic infection between the toes, white in color, moist, also with a rash on the bilateral flanks all the way up to underneath the arms. LABORATORY DATA: White blood cells 6000, hemoglobin 11, hematocrit 35, platelet count 120,000. INR is 1.31. PTT 37.7, sodium 135, potassium 3.3, BUN 12, creatinine is 1.5, glucose 168, calcium 7.8, bilirubin 0.30, AST 25, ALT 12, CK 249. Troponin 0.011, albumin 3.5, lactate 1.0, urinalysis 2+ protein, otherwise negative. IMAGING: Chest x-ray, cardiomegaly unchanged. Left PICC line in place. Left pleural vascular, not congested. Left basilar infiltrate that is stable; it is mild. Stable left pleural fluid versus thickening. Cervical spine CT, no fracture, anterolisthesis, moderate canal stenosis. There are atherosclerotic calcifications of bilateral carotid arteries. There is no intracranial abnormality. There is left maxillary sinus disease. EKG has not been performed yet but the telemetry on top shows atrial fibrillation with a controlled rate. ASSESSMENT AND PLAN: 1. Maybe some metabolic encephalopathy with increasing lethargy and confusion with time perception apparently that has been worsening. Hopefully, some fluids will help his kidneys clear little bit and maybe some normal sleep-awake cycles will help as well. Apparently, he has not been sleeping good at night. 2. Infiltrate in the left lower lobe. He has increasing shortness of breath with a history of chronic obstructive pulmonary disease. We will do some steroids and nebulizers. He is already on antibiotics for that and p.r.n. oxygen. 3. Bilateral lower extremity cellulitis. He is on cefepime 2 g IV q 12. We will add vancomycin as well and he was supposed to follow up with Dr. Alonzo in the office tomorrow at 9:30, so will consult him in the morning. 4. Bilateral flank rash. Will do again steroids, hopefully they will help. It could be fungal so he is going to have an micafungin ordered. 5. Bilateral chronic toe infection. We will do Wound Care consult. 6. Diabetes mellitus type 2, pattern blood glucoses and sliding scale insulin. 7. Chronic atrial fibrillation. Continue Eliquis. 8. Chronic pain syndrome. He goes to a pain clinic and even though he is complaining of more pain in the right knee we are only going to continue the pain medication he takes at home which is 15 mg p.o. every 6 hours p.r.n. and he can follow up with the Pain Clinic on discharge. He apparently was having more with lethargy and almost narcoleptic type spells and not having a normal sleep-awake cycle. 9. Increasing in the sleep spells could possibly benefit from maybe Ritalin or something that can help him stay awake more during the day. 10. Hypertension. Continue home medications. 11. Deep venous thrombosis prophylaxis. He is on Eliquis. 12. Frequent falls. He uses a cane at home. We will do consult for physical therapy. Dictated by UNIQUE Pollard for Emile Mix MD Addendum: Patient seen and examined by myself. Agree with UNIQUE note. It reflects my assessment and plan. Patient is being admitted to hospital for metabolic encephalopathy. Will monitor patient closely. Will continue with antibiotics prescribed by Dr. Alonzo while he is in the hospital. cc: MD Page Khan CRNP Cesar Garcia-Rodriguez, MD [facility]
[2019-04-18] MEDS: OXY IR PO PRN (20:24)
[2019-04-18] MEDS ORDERED: ELAVIL PO SCH (21:00)
[2019-04-18] MEDS ORDERED: LIPITOR PO SCH (21:00)
[2019-04-18] MEDS ORDERED: MIRAPEX PO SCH (21:00)
[2019-04-18] MEDS ORDERED: EFFEXOR XR PO SCH (21:00)
--- NOTE | 2019-04-18 21:23 | EKG Report ---
Test Performed on : 04/18/2019 7:09:50 PM Test Reason : Tele Change Blood Pressure : / mmHG Vent. Rate : 090 BPM Atrial Rate : 097 BPM P-R Int : 000 ms QRS Dur : 074 ms QT Int : 374 ms P-R-T Axes : 000 025 032 degrees QTc Int : 457 ms Atrial fibrillation. Low voltage QRS Cannot rule out Anterior infarct , age undetermined Abnormal ECG When compared with ECG of 18-APR-2019 14:42, (Unconfirmed) No significant change was found Unconfirmed Result
[2019-04-18] MEDS: ATROVENT NEB INH SCH (22:21)
[2019-04-18] MEDS: XOPENEX NEB INH SCH (22:21)
[2019-04-18] MEDS: PULMICORT INH SCH (22:21)
[2019-04-19] MEDS: SOLU-MEDROL IV SCH ×2 (01:36→10:00)
[2019-04-19] MEDS: XOPENEX NEB INH SCH ×3 (04:03→15:46)
[2019-04-19] MEDS: ATROVENT NEB INH SCH ×3 (04:03→15:46)
[2019-04-19] MEDS: MAXIPIME 2 GM in NS 100 ML IV SCH (05:22)
[2019-04-19] MEDS: HUMULIN R (PARKWAY) SUBQ SCH ×2 (06:08→11:48)
[2019-04-19] MEDS: CARAFATE PO SCH ×3 (06:08→11:49)
[2019-04-19] MEDS ORDERED: PRILOSEC PO SCH (07:00)
[2019-04-19 07:37] LABS: ALBUMIN 2.4 g/dL (3.5-5.0); CREATININE 1.3 mg/dL (0.7-1.2); POTASSIUM 2.8 mmol/L (3.5-5.1); TOTAL BILIRUBIN 0.3 mg/dL (0.20-1.00); TOTAL PROTEIN 7.4 g/dL (6.3-8.3)
[2019-04-19] MEDS: OXY IR PO PRN (08:04)
[2019-04-19] MEDS: ELIQUIS PO SCH (08:05)
[2019-04-19] MEDS: KLOR-CON PO SCH (08:05)
[2019-04-19 08:09] LABS: INR 1.63; PROTIME 20.1 Seconds (11.0-16.0)
[2019-04-19 08:39] LABS: BASO# 0.01 X1000 (0.0-0.2); BASO% 0.3 % (0.0-0.8); EOS# 0.01 X1000 (0.0-0.7); EOS% 0.3 % (0.0-10.0); HEMATOCRIT 31.8 % (42.0-52.0); HEMOGLOBIN 9.8 g/dL (14.0-18.0); LYMPH# 0.32 X1000 (1.2-3.4); LYMPH% 9.9 % (20.5-51.1); MCH 28.7 PG (27-31); MCHC 30.8 g/dL (33-37); MCV 93.3 FL (81-99); MONO# 0.07 X1000 (0.11-0.59); MONO% 2.2 % (1.7-9.3); MPV 12.1 FL (7.4-10.4); NEUT# 2.83 X1000 (1.4-6.5); NEUT% 87.3 % (42.2-75.2); RBC 3.41 XMIL (4.7-6.1); RDW 14.8 % (11.5-14.5); WBC 3.24 X1000 (4.8-10.8)
[2019-04-19 08:57] LABS: CALCIUM 5.9 mg/dL (8.8-10.2)
[2019-04-19 08:58] LABS: MAGNESIUM 0.8 mg/dL (1.5-2.7)
[2019-04-19] MEDS ORDERED: MAGNESIUM SULFATE 4 GM/S.W.I. 4 GM/100 ML IVPB IV ONE (08:59)
[2019-04-19] MEDS ORDERED: CALCIUM GLUCONATE 1 GM in NS 50 ML IV ONE (09:00)
[2019-04-19] MEDS ORDERED: CARDIZEM CD PO SCH (09:00)
[2019-04-19] MEDS ORDERED: THERA M PLUS PO SCH (09:00)
[2019-04-19] MEDS ORDERED: VITAMIN C PO SCH (09:15)
[2019-04-19] MEDS: POTASSIUM CHLORIDE 20 MEQ/SWI 20 MEQ/100 ML IVPB IV SCH ×2 (09:32→13:30)
[2019-04-19 10:43] LABS: ANISOCYTOSIS 1+; BANDS 1 % (0-1); EOS 3 % (1-10); LYMPHS 6 % (21-51); MONO 4 % (1-9); SEGS 86 % (42-75)
[2019-04-19 10:45] LABS: PLT 73 X1000 (130-400)
[2019-04-19] MEDS: PULMICORT INH SCH (11:11)
[2019-04-19 11:43] LABS: MAGNESIUM 1.9 mg/dL (1.5-2.7); POTASSIUM 3.7 mmol/L (3.5-5.1)
[2019-04-19] MEDS ORDERED: MAXIPIME 2 GM in NS 100 ML IV SCH (14:00)
[2019-04-19 16:12] VITALS: BP 148/59
--- NOTE | 2019-04-20 08:23 | DISCHARGE SUMMARY ---
ADMISSION DATE: 04/18/2019 DISCHARGE DATE: 04/19/2019 ADMISSION DIAGNOSIS: 1. Metabolic encephalopathy with increasing lethargy and confusion at times. 2. Infiltrate in the left lower lobe. 3. Bilateral lower extremity cellulitis. 4. Bilateral flank rash. 5. Bilateral chronic toe infections. 6. Diabetes mellitus type 2. 7. Chronic atrial fibrillation. 8. Chronic pain syndrome. 9. Increase in sleep spells. 10. Hypertension. 11. Frequent falls. DISCHARGE DIAGNOSES: 1. Encephalopathy, resolved. 2. Infiltrates, improved. 3. Bilateral lower extremity cellulitis. We will continue same antibiotic regimen. We will follow up with Dr. Alonzo next Tuesday. 4. Bilateral flank rash. 5. Chronic toe infections bilaterally. 6. Diabetes mellitus type 2. 7. Chronic atrial fibrillation. 8. Chronic pain syndrome. Same regimen. 9. Sleepy spells. 10. Hypertension. 11. Frequent falls. CONSULTATIONS: None. Just spoke with Dr. Alonzo over the phone. SURGERIES/PROCEDURES: None. HOSPITAL COURSE: Mr. Hayder Gutiérrez is a 69-year-old male. He presents with complaints of increased lethargy and sleepiness along with more pain in the right knee and felt like his cellulitis was worse. So he was admitted overnight, given IV fluids. Antibiotic therapy included vancomycin and increasing his dosing of his cefepime. Dr. Alonzo was notified of the patient's admission with some recommendations. Cultures ordered of bilateral toes. I do not believe they were ever performed. I am not sure what happened but anyway he is going to get discharged home, and he is supposed to follow up with Dr. Alonzo on 04/26/2019 at 10:30. He will be on his cefepime 2 g IV q.12 hours. DISCHARGE VITAL SIGNS: Temperature 97.9 degrees, heart rate 94, respiratory rate 20, blood pressure 120/72, O2 saturation 96% on 2 L. DISCHARGE LAB DATA: White blood cells 3000, hemoglobin 9, hematocrit 31, platelet count 73,000. INR is 1.63, PTT is 25. Sodium 132, potassium 3.7, BUN 13, creatinine is 1.3, glucose 187, calcium was 5.9, that was treated. Magnesium 1.9. Bilirubin 0.30, AST 18, ALT 9. CK 123. IMAGING: Chest x-ray: Stable chest with pleural fluid and left basilar infiltrates, no change. Head and cervical spine CT: No change, nothing acute. DISCHARGE DIET: Heart healthy, diabetic as well. ACTIVITY: Activity as tolerated. DISCHARGE INSTRUCTIONS: Notify MD for any of the following: Foul smelling drainage, red streaks coming from the area of colored darkening, fever of 101 or more, increasing pain. Keep all followup appointments. Take prescribed medications as directed. Any new or worsening symptoms return to the emergency department. DISCHARGE MEDICATIONS: 1. Cefepime 2 g IV q.12 hours. 2. Eliquis 5 mg p.o. twice daily. 3. Multivitamin or calcium and vitamin D 1 tablet p.o. twice a day. 4. Oxycodone 50 mg p.o. every 6 hours p.r.n. 5. Mirapex 1.5 mg p.o. nightly. 6. Potassium chloride 10 mEq p.o. twice daily. 7. Glipizide 5 mg p.o. twice daily. 8. Diltiazem 240 mg p.o. daily. 9. Carafate 1 g p.o. before meals and at night. 10. Venlafaxine 75 mg p.o. nightly. 11. Prilosec 40 mg p.o. nightly. 12. Lipitor 40 mg p.o. nightly. 13. Amitriptyline 50 mg p.o. nightly. DISCHARGE DISPOSITION: Home. Dictated by UNIQUE Pollard for Emile Mix MD Addendum: Patient seen and examined by myself. Agree with UNIQUE note. It reflects my assessment and plan. Patient is being discharged in stable condition. Will be seen by ID in a week. cc: UNIQUE Pollard MD [facility]
--- NOTE | 2019-04-20 08:29 | DISCHARGE SUMMARY ---
ADMISSION DATE: 04/18/2019 DISCHARGE DATE: 04/19/2019 ADDENDUM TO DISCHARGE SUMMARY: Under medications, doxycycline is going to be added and the cultures between the toes on both feet will be performed prior to discharge. Dictated by UNIQUE Pollard for Emile Mix MD cc: UNIQUE Pollard MD
== END 2019-04-19 17:42 | disposition home health service (06) | DRG 602 ==
LOC: P.ED 13:02 → P.MEDSURG 17:40
PROVIDERS: ATTEND Internal Medicine

== ENCOUNTER 2019-04-23 10:32 | Inpatient (IN) ==
--- NOTE | 2019-04-23 12:55 | EKG Report ---
Test Performed on : 04/23/2019 12:45:20 PM Test Reason : Sepsis Blood Pressure : / mmHG Vent. Rate : 116 BPM Atrial Rate : 133 BPM P-R Int : 000 ms QRS Dur : 084 ms QT Int : 342 ms P-R-T Axes : 000 036 039 degrees QTc Int : 475 ms Atrial fibrillation. with rapid ventricular response. Abnormal ECG When compared with ECG of 18-APR-2019 19:09, (Unconfirmed) No significant change was found Confirmed by Alexandre GOLD, Pablo Sneed ([id number]) on 04/24/2019 1:13:20 PM
[2019-04-23] MEDS ORDERED: CARDIZEM IV ONE (13:05)
[2019-04-23] MEDS ORDERED: SALINE LOCK IV FLUID XX ONE (13:16)
[2019-04-23] MEDS ORDERED: SEPTRA DS PO SCH (13:30)
[2019-04-23] MEDS: MYCELEX TROCHE PO SCH ×5 (13:51→21:21)
[2019-04-23 13:59] LABS: URINE SOURCE CLEAN CATCH
[2019-04-23] MEDS: DUONEB (A & A) INH PRN ×2 (14:15→20:03)
[2019-04-23 14:20] LABS: BILIRUBIN URINE NEGATIVE (NEGATIVE); BLOOD URINE SMALL (NEGATIVE); COLOR STRAW; GLUCOSE URINE NEGATIVE (NEGATIVE); KETONE URINE NEGATIVE (NEGATIVE); LEUKOCYTES URINE NEGATIVE (NEGATIVE); NITRITE URINE NEGATIVE (NEGATIVE); PROTEIN URINE TRACE mg/dL (NEGATIVE); SP GRAVITY URINE 1.007; TURBIDITY URINE CLEAR (CLEAR); UROBILINOGEN URINE NORMAL (NORMAL)
[2019-04-23 14:22] LABS: UR EPITHELIAL CELLS <10 /HPF (<10); URINE BACTERIA NEGATIVE /HPF; URINE RBC <10 /HPF (<10); URINE WBC <10 /HPF (<10)
[2019-04-23 15:08] LABS: BASO# 0.02 X1000 (0.0-0.2); BASO% 0.3 % (0.0-0.8); EOS% 6.1 % (0.0-10.0); HEMATOCRIT 38.9 % (42.0-52.0); HEMOGLOBIN 12.7 g/dL (14.0-18.0); LYMPH# 1.49 X1000 (1.2-3.4); LYMPH% 22.6 % (20.5-51.1); MCH 30.5 PG (27-31); MCHC 32.6 g/dL (33-37); MCV 93.5 FL (81-99); MONO% 9.1 % (1.7-9.3); MPV 12.3 FL (7.4-10.4); NEUT# 4.08 X1000 (1.4-6.5); NEUT% 61.9 % (42.2-75.2); PLT 106 X1000 (130-400); RBC 4.16 XMIL (4.7-6.1); WBC 6.59 X1000 (4.8-10.8)
[2019-04-23 15:21] LABS: INR 1.24; PROTIME 15.8 Seconds (11.0-16.0)
[2019-04-23 15:31] LABS: AGAP 10; ALB/GLOB RATIO 0.7; ALBUMIN 3.4 g/dL (3.5-5.0); ALKALINE PHOSPHATASE 81 U/L (32-122); BUN 14 mg/dL (8-22); CALCIUM 8.4 mg/dL (8.8-10.2); CHLORIDE 94 mmol/L (98-107); COSMO 276; CREATININE 1.1 mg/dL (0.7-1.2); ESTIMATED GFR > 60; GLUCOSE 171 mg/dL (70-104); GOT 28 U/L (10-34); GPT 20 U/L (10-44); MAGNESIUM 1.2 mg/dL (1.5-2.7); POTASSIUM 3.4 mmol/L (3.5-5.1); SODIUM 136 mmol/L (136-145); TCO2 32 mmol/L (25-35); TOTAL BILIRUBIN 0.67 mg/dL (0.20-1.00)
[2019-04-23] MEDS ORDERED: MERREM 2 GM in NS 50 ML IV SCH (16:00)
--- NOTE | 2019-04-23 16:04 | Diag Imaging Result Doc PS360 ---
CHEST-PORTABLE - 04/23/2019 INDICATION: bloody sputum COMPARISON: 04/18/2019 FINDINGS: There is dense alveolar infiltrate at the right hilum. There is some patchy background interstitial infiltrate bilaterally compatible with pulmonary edema. Stable left PICC line in good position. Stable cardiomegaly. IMPRESSION: 1. Dense consolidation at the right hilum indicating pneumonia or aspiration. 2. Cardiomegaly and interstitial pulmonary edema. Electronically signed by Maximus Crow 04/23/2019 4:02 PM
[2019-04-23] MEDS: HUMALOG SUBQ SCH ×2 (16:19→21:22)
[2019-04-23] MEDS: CARAFATE PO SCH ×2 (16:19→21:21)
[2019-04-23] MEDS: OXY IR PO PRN ×2 (16:19→23:02)
[2019-04-23 16:47] LABS: EOS 5 % (1-10); LYMPHS 24 % (21-51); MONO 7 % (1-9); SEGS 62 % (42-75)
[2019-04-23] MEDS: HYDROPHOR OINTMENT TOP PRN (17:24)
--- NOTE | 2019-04-23 18:02 | HISTORY AND PHYSICAL ---
CHIEF COMPLAINT: Frequent falls. HISTORY OF PRESENT ILLNESS: This is a 69-year-old gentleman with a history of chronic atrial fibrillation, diabetes mellitus type 2, COPD, noncompliant, sleep apnea with frequent falls, chronic pain on chronic opiates. He presented as a direct admit from Dr. Alonzo' office complaining of hemoptysis that has increased over the last 48 hours as well as frequent falls. He states that he has difficulty walking, which is chronic, but lately he will have to hold on to maria to keep his balance. He has been losing his balance more often over the last week or so and he is unable to catch himself once he starts falling. He denies any injury. He denies any dizziness or any syncope. PAST MEDICAL HISTORY: 1. Chronic atrial fibrillation. 2. Diabetes mellitus type 2. 3. Chronic obstructive pulmonary disease. 4. Obstructive sleep apnea, the patient refuses to wear CPAP. 5. Frequent falls. 6. Peripheral vascular disease. 7. Chronic venous stasis with insufficiency. 8. History of prostate cancer. PAST SURGICAL HISTORY: 1. Cardiac stents x3. 2. Iliac stent. 3. AAA repair with endograft. 4. Appendectomy. 5. Prostatectomy. 6. Full teeth extraction. 7. Penile implant. 8. Back surgery. SOCIAL HISTORY: He is . Lives with his . He smokes about a pack a day. He denies alcohol, tobacco, or illicit drug use. ALLERGIES: No known drug allergies. FAMILY HISTORY: Significant for hypertension. Father had an [place] and a stroke in his 60s. HOME MEDICATIONS: A list will be obtained by the nursing staff and once verified will review and restart as appropriate. REVIEW OF SYSTEMS: Discussed with the patient with pertinent positives stated in the HPI. He denied any syncope or dizziness, any chest pain or palpitations, any increasing shortness of breath, cough, fever, chills, temperature greater than any recent weight loss or weight gain, any nausea, vomiting, diarrhea, constipation, black or bloody vomitus or stools, hematuria, dysuria, frequency, urgency. PHYSICAL EXAMINATION: GENERAL: This is a 69-year-old gentleman who is sitting up in the bed in no distress. VITAL SIGNS: Blood pressure is 140/109 with a heart rate of 118, respirations are 20, temperature is 98.9 degrees with O2 saturations 97% on room air. EYES: Pupils are equal, round, react to light. EOMs are intact. Sclerae anicteric. HEENT: Head is normocephalic, atraumatic. Mucous membranes are not moist. Oral candidiasis is noted. NECK: Supple with trachea midline. No JVD. CARDIOVASCULAR: Regular rate and rhythm. S1 and S2 appreciated. He has bilateral 3 to 4+ edema that is up to about mid thigh. Signs of venous stasis are noted. Calves are nontender bilateral with peripheral pulses palpable. PULMONARY: Scattered expiratory wheezes throughout. Chest rises and falls symmetric with respiration. Chest wall is nontender to palpation. GASTROINTESTINAL: Abdomen is soft, nontender, nondistended with bowel sounds in all 4 quadrants. NEUROLOGIC: He is alert and oriented. SKIN: Warm and dry. He does have significant venous stasis to bilateral lower extremities noted with chronic infection. He does have brownish discoloration to his left 2nd, 3rd and 4th toes as well as his right 1st and 2nd toe. When questioned, he states "this is just dirt in those sores because I wear sandals with no socks." LABORATORY DATA: WBC is 6.5 with hemoglobin 12.7, hematocrit 38.9, and platelets of 106,000. ASSESSMENT AND PLAN: 1. Hemoptysis. We will hold Eliquis at present. Order sputum specimen. We will check a PT and INR. 2. Chronic obstructive pulmonary disease. Give DuoNeb q.4 hours p.r.n. wheezing. 3. Diabetes mellitus type 2. Pattern blood glucose with sliding scale insulin. 4. Chronic atrial fibrillation. He will be placed on telemetry. We will continue his home medications once verified. 5. Frequent falls. Consult physical therapy. Placed on fall precautions at present. 6. Chronic wounds to bilateral feet and toes. We will consult Wound Care. 7. Chronic pain. We will continue his oxycodone 15 mg q.6 hours p.r.n. 8. Chronic atrial fibrillation. He will be placed on telemetry. We will identify his home medications and continue once doses are verified. 9. Stenotrophomonas maltophilia from culture 04/19/2019. It is since susceptible to Bactrim so we will start Bactrim DS [address] Alonzo has been consulted. Any further antibiotics will be per his expertise. 10. Obstructive sleep apnea in a patient who refuses to use CPAP. We will give supplemental oxygen p.r.n. I did discuss with the patient and the the patient having another sleep study on an outpatient basis. I did give him Dr. Irby's office number. Further treatments pending hospital course. Plan was discussed with Dr. Cuenca. Dictated by UNIQUE Mcgarry for Al Cuenca MD cc: UNIQUE Mcgarry MD [facility]
[2019-04-23] MEDS: DOXYCYCLINE PO SCH (18:28)
--- NOTE | 2019-04-23 20:20 | INFECTIOUS DISEASE CONSULT REP ---
DATE: 04/23/2019 CONCLUSION: Mr. Gutiérrez was seen in our office this morning for follow up on his toe infections. He was complaining of bloody sputum which first started after a recent discharge from the hospital. There is a new culture to his toes, which is growing bacillus species and Stenotrophomonas maltophilia. Previous to that toe infection, he also had a Flavobacterium bacteremia. The patient was taking doxycycline by mouth and cefepime IV at home. Chest x-ray today shows a right hilar pneumonia. RECOMMENDATIONS: We will order a chest x-ray to be done this afternoon. The wound care nurse has made some recommendations which we agree with. We will discontinue the Bactrim that was started here in the hospital due to his history of elevated creatinine. Instead we will start him back on doxycycline, and add meropenem 2 g IV every 8 hours to cover the pneumonia. These plans have been discussed with and recommended by Dr. Alonzo. DISCUSSION: Review of systems is difficult due to patient forgetfulness. PAST MEDICAL HISTORY: Includes multiple infections to his lower extremities, morbid obesity, diabetes mellitus, COPD, obstructive sleep apnea, congestive heart failure, peripheral vascular disease, hypertension, hyperlipidemia, chronic atrial fibrillation, coronary artery disease, aortic aneurysm, diverticulosis, chronic kidney disease, frequent falls, chronic venous insufficiency, gastroesophageal reflux disease, gastric ulcers, hard of hearing, arthritis, and prostate cancer. PAST SURGICAL HISTORY: Includes AAA repair, prostatectomy, cardiac stents x3, appendectomy, penile implant, back surgery and left Port-A-Cath insertion, which has been removed. SOCIAL HISTORY: He lives with his . He has a history of smoking cigarettes 50+ years. No alcohol or illicit drug use. FAMILY HISTORY: Includes hypertension, coronary artery disease, and stroke. INFECTIOUS DISEASE: The patient has had chronic issues with toe infections and multiple different organisms that have been isolated. He has also had a history of pneumonia, urinary tract infections and bacteremia in the past. LABORATORY/X-RAY: White blood cell count is 6.59, hemoglobin 12.7, platelet count 106,000. Urinalysis shows no bacteria and less than 10 WBCs. Other lab work has not resulted as of yet. Chest x-ray shows a right hilar pneumonia. Blood cultures have been drawn and are pending. A sputum culture has been ordered. ALLERGIES: No known allergies. HOME MEDICATIONS: Include Lipitor, Prilosec, Carafate, oxycodone, Eliquis, amitriptyline, glipizide ER, Mirapex, venlafaxine, calcium citrate, doxycycline, cefepime, diltiazem, chlorthalidone and NovoLog insulin. PHYSICAL EXAMINATION: Vital Signs: Temp. 97.4 Pulse rate is 117, respiratory rate 22, blood pressure 140/109, O2 saturation is 96% on 2 L nasal cannula. Weight is 138.79 kg. Height is 6 feet 1 inch. General: This is a morbidly obese, chronically ill- appearing, elderly gentleman. He is lying in bed, currently in no acute distress. He is nodding off during our conversation. HEENT: Atraumatic, normocephalic. Oral mucous membranes are pink and moist. He is edentulous with upper dentures noted. Conjunctivae are pink. Neck: Supple. Trachea is midline. Cardiovascular: Heart rate and rhythm irregularly irregular. Atrial fibrillation with rapid ventricular rate is noted at times. Respiratory: Lung sounds are clear in the upper lobes, diminished in the mid and bases. No work of breathing is noted. Abdomen: Soft, obese, and nontender. Bowel sounds are active. Extremities: There is a PICC line in place to his left upper arm. That site is without edema, erythema, or drainage. Bilateral lower extremities have some erythematous discoloration with thick, crusted skin to the toes. There is some bleeding noted to the great toe on the left with a moist, eroded skin between the 1st and 2nd toes on the left. The patient is able to move his extremities with generalized weakness noted. There was also a 2 to 3+ pitting edema to his bilateral lower extremities. Neurologic: He is awake, alert and oriented; however, he is very forgetful. Thank you for allowing us to see Mr. Gutiérrez. Dictated by UNIQUE Robins for Juan Antonio Alonzo MD cc: Juan Antonio Alonzo MD [facility]
[2019-04-23] MEDS: MIRAPEX PO SCH (21:20)
[2019-04-23] MEDS: EFFEXOR XR PO SCH (21:20)
[2019-04-23] MEDS: MERREM 2 GM in NS 100 ML IV SCH (21:20)
[2019-04-23] MEDS: PRILOSEC PO SCH (21:21)
[2019-04-23] MEDS: ELAVIL PO SCH (21:21)
[2019-04-24] MEDS: OXY IR PO PRN ×4 (04:02→23:00)
[2019-04-24] MEDS: MERREM 2 GM in NS 100 ML IV SCH ×3 (04:12→20:21)
[2019-04-24] MEDS: DOXYCYCLINE PO SCH ×2 (04:12→17:42)
[2019-04-24] MEDS: CARAFATE PO SCH ×4 (06:44→21:10)
[2019-04-24] MEDS: HUMALOG SUBQ SCH ×4 (06:45→21:12)
[2019-04-24] MEDS: DUONEB (A & A) INH PRN ×3 (07:56→19:40)
[2019-04-24] MEDS: HYDROPHOR OINTMENT TOP PRN (09:37)
[2019-04-24] MEDS: CARDIZEM CD PO SCH (09:38)
[2019-04-24] MEDS: HYGROTON PO SCH (09:38)
[2019-04-24] MEDS: MYCELEX TROCHE PO SCH ×5 (09:39→21:09)
--- NOTE | 2019-04-24 12:22 | PROGRESS NOTE ---
DATE: 04/24/2019 SUBJECTIVE: This morning Mr. Gutiérrez refers to be doing fairly the same. No new complaints. He has just been hurting in the lower extremities. OBJECTIVE: Vital signs: Blood pressure is 170/109, pulse of 104, respiration is 20, temperature is 97.3 degrees. General exam: Mr. Gutiérrez is a 69-year-old elderly male. He is in bed. BMI is 40.4. No distress. HEENT: Mucosa is pink and moist. Anicteric. Acyanotic. Neck: Supple. Chest: Good air entry bilateral. Cardiovascular: Irregularly irregular. Slightly tachycardic. Abdomen: Soft. Extremities: Remarkable erythematous changes and scaly lesions on both lower extremities, worse on the left. The patient also has swelling of the multiple digits of the lower extremity. LABORATORY DATA: Has been reviewed. Glucose is 206. Sputum culture so far is growing normal antonio. The left toes have grown Stenotrophomonas maltophilia, and the right toe in between the right toes has grown a bacillus species. MEDICATIONS: Have also been all reviewed today. ASSESSMENT: 1. Chronic lower extremity venous insufficiency associated with stasis dermatitis with superimposed cellulitis, worse on the right star, worse on the left, and also in between the toes infection. Culture from outpatient has grown Stenotrophomonas maltophilia and bacillus species. Infectious Disease has started the patient on adequate antimicrobial coverage. 2. History of chronic obstructive pulmonary disease, currently not in exacerbation. 3. Chronic atrial fibrillation. We will continue with medications. 4. Frequent falls. 5. Morbid obesity with body mass index of 40.4. cc: Al Cuenca MD
[2019-04-24] MEDS: MIRAPEX PO SCH (21:09)
[2019-04-24] MEDS: PRILOSEC PO SCH (21:09)
[2019-04-24] MEDS: ELAVIL PO SCH (21:10)
[2019-04-24] MEDS: EFFEXOR XR PO SCH (21:10)
--- NOTE | 2019-04-24 22:12 | INFECTIOUS DISEASE PROGRESS NO ---
DATE: 04/24/2019 PRESENT ILLNESS: The patient has bilateral leg cellulitis. He also has pneumonia. MEDICATIONS: The patient is on a combination of meropenem, doxycycline and Mycelex Troches. PHYSICAL EXAMINATION: Vital Signs: Temperature is 98 degrees, pulse 99, respirations 18, blood pressure 144/85. General: This is an obese, chronically ill-appearing, lethargic male. He is in no acute distress. Head/eyes/ears/nose/throat: He can hear my spoken words and see near objects. There is no drainage from his nose or ears. I was unable to get a good view of his mouth. Neck: No pain with movement. Lungs: Clear to auscultation. Cardiovascular: Heart rate is irregular. Abdomen: Soft and nontender. Extremities: Both legs look less erythematous and edematous. There is also no drainage coming from the legs. Neurologic: The patient is lethargic. He starts talking and then falls asleep. I think he has sleep apnea. LAB AND RADIOLOGY: There is no new radiologic test today. The only lab test back the sputum is growing normal antonio and blood cultures are pending. ASSESSMENT AND PLAN: Patient has pneumonia and leg cellulitis. My plan is to continue the current antibiotics. The patient also has oral candidiasis and I will continue Mycelex for that as well. The antibiotics will be continuing for his pneumonia and leg cellulitis are doxycycline and meropenem. COMORBIDITIES: He is elderly. He is he is obese and he has sleep apnea. He also is a diabetic. He has chronic obstructive pulmonary disease, congestive heart failure and peripheral vascular disease. The patient also has gastroesophageal reflux disease. cc: Juan Antonio Alonzo MD
[2019-04-25] MEDS ORDERED: STERILE WATER INJ. INJ ONE (03:30)
[2019-04-25] MEDS ORDERED: CATHFLO IV ONE (03:30)
[2019-04-25] MEDS: MERREM 2 GM in NS 100 ML IV SCH ×3 (03:55→21:25)
[2019-04-25] MEDS: DOXYCYCLINE PO SCH ×2 (04:11→17:56)
[2019-04-25] MEDS: CARAFATE PO SCH ×5 (05:28→21:27)
[2019-04-25] MEDS: OXY IR PO PRN ×3 (05:29→21:25)
[2019-04-25] MEDS: HUMALOG SUBQ SCH ×4 (06:22→21:26)
[2019-04-25 06:34] LABS: HEMATOCRIT 39.3 % (42.0-52.0); HEMOGLOBIN 12.6 g/dL (14.0-18.0); MCH 29.8 PG (27-31); MCHC 32.1 g/dL (33-37); MCV 92.9 FL (81-99); MPV 11.8 FL (7.4-10.4); RBC 4.23 XMIL (4.7-6.1); RDW 15.1 % (11.5-14.5); WBC 7.9 X1000 (4.8-10.8)
[2019-04-25 07:26] LABS: ALBUMIN 2.9 g/dL (3.5-5.0); CALCIUM 8.1 mg/dL (8.8-10.2); CREATININE 1.3 mg/dL (0.7-1.2); PHOSPHORUS 2.9 mg/dL (2.7-4.5); POTASSIUM 3.9 mmol/L (3.5-5.1)
[2019-04-25] MEDS: MYCELEX TROCHE PO SCH ×5 (08:12→21:25)
[2019-04-25] MEDS: HYGROTON PO SCH (08:12)
[2019-04-25] MEDS: CARDIZEM CD PO SCH (08:12)
--- NOTE | 2019-04-25 12:22 | PROGRESS NOTE ---
DATE: 04/25/2019 SUBJECTIVE: This morning, Mr. Gutiérrez refers to be doing fairly okay. No new complaints. OBJECTIVE: Vital Signs: Blood pressure is 170/101, pulse of 93, respirations are 18, temperature is 97.9 degrees, patient is saturating 99% on 2 L. General Examination: Mr. Gutiérrez is a 69-year- old, gentleman. He is in bed. No distress. HEENT: Mucosa is pink and moist. Anicteric. Acyanotic. Neck: Supple. Chest: Good air entry bilaterally. A few crackles posteriorly. Cardiovascular: Irregularly irregular. Abdomen: Soft, nontender. Bowel sounds present. Extremities: Diffuse chronic erythematous, scaly changes consistent with chronic venous stasis with some swelling in the toes as well. 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 Laboratory Data: CBC is reviewed and is unremarkable. Chemistry is also reviewed. Creatinine is 1.3. Rest of chemistry is unremarkable. The patient's current medications have all been reviewed. ASSESSMENT: 1. Chronic lower extremity venous insufficiency associated with stasis dermatitis with superimposed cellulitis, worse on the right side. 2. History of Stenotrophomonas maltophilia and bibasilar species infection of the toes. 3. Chronic obstructive pulmonary disease, currently not in exacerbation. 4. Chronic atrial fibrillation, currently rate controlled. 5. Frequent falls. 6. Morbid obesity with body mass index of 40.4 with suspected obstructive sleep apnea. 7. Uncontrolled hypertension. We will start the patient on antihypertensive medications. cc: Al Cuenca MD
[2019-04-25] MEDS: COREG PO SCH ×2 (12:32→21:25)
[2019-04-25] MEDS: APRESOLINE PO SCH ×2 (12:32→17:56)
[2019-04-25] MEDS: DUONEB (A & A) INH PRN ×2 (19:37→23:57)
[2019-04-25] MEDS: EFFEXOR XR PO SCH (21:25)
[2019-04-25] MEDS: ELAVIL PO SCH (21:25)
[2019-04-25] MEDS: PRILOSEC PO SCH (21:25)
[2019-04-25] MEDS: MIRAPEX PO SCH (21:25)
--- NOTE | 2019-04-26 00:14 | INFECTIOUS DISEASE PROGRESS NO ---
DATE: 04/25/2019 PRESENT ILLNESS: Mr. Gutiérrez is being treated for bilateral lower extremity cellulitis, pneumonia, and oral candidiasis. MEDICATIONS: He is receiving doxycycline 100 mg p.o. twice a day, meropenem 2 g IV every 8 hours, and Mycelex hyun 5 times a day. PHYSICAL EXAMINATION: Vital Signs: Temperature is 98.3 degrees, pulse rate 77, respiratory rate 21, blood pressure 127/90. O2 saturation 98% on 2 L nasal cannula. General: This is a chronically ill-appearing, morbidly obese, elderly gentleman. He is lying in bed, currently in no acute distress. HEENT: Atraumatic, normocephalic. Oral mucous membranes are pink and moist. He is edentulous. Conjunctivae are pink. Neck: Supple. Trachea is midline. Cardiovascular: Irregularly irregular with atrial fibrillation on the monitor. Respiratory: Lung sounds are clear in the upper lobes. Diminished in the mid and bases. No work of breathing is noted. Abdomen: Soft, obese, nontender. Bowel sounds are active. Integumentary: Bilateral lower extremities have pitting edema with a thick, brown-colored exudate noted to his bilateral toes that have been coated thickly with Aquaphor. Neurologic: He is awake, alert, and somewhat forgetful. He does follow commands without difficulty. He is able to move his extremities, but very weak to the lower extremities. LABORATORY/X-RAY: Today his white count is 7.9, hemoglobin 12.6, platelet count 124,000. Creatinine is 1.3. GFR 55. Blood cultures have shown no growth after 48 hours. There is a preliminary report on the sputum, which shows gram-positive cocci on the Gram stain, but no final report as of yet. No imaging reports today. ASSESSMENT AND PLAN: Mr. Gutiérrez is being treated for bilateral lower extremity cellulitis, pneumonia, and oral candidiasis. For now, the plan is to continue his Mycelex hyun, meropenem, and doxycycline. Previously, he did have a bacillus species and Stenotrophomonas, which grew to his toes. We are awaiting the final sputum culture. These plans have been discussed with and recommended by Dr. Alonzo. COMORBIDITIES: For Mr. Gutiérrez include that he is elderly and morbidly obese with obstructive sleep apnea, diabetes mellitus, COPD, congestive heart failure, peripheral vascular disease, and gastroesophageal reflux disease. Dictated by UNIQUE Robins for Juan Antonio Alonzo MD cc: Juan Antonio Alonzo MD [facility]
[2019-04-26] MEDS: DUONEB (A & A) INH PRN ×4 (03:58→19:52)
[2019-04-26] MEDS: CARAFATE PO SCH ×5 (05:36→20:23)
[2019-04-26] MEDS: DOXYCYCLINE PO SCH ×2 (05:36→17:29)
[2019-04-26] MEDS: MERREM 2 GM in NS 100 ML IV SCH ×3 (05:36→20:22)
[2019-04-26] MEDS: HUMALOG SUBQ SCH ×4 (06:21→20:23)
[2019-04-26] MEDS: CARDIZEM CD PO SCH (08:58)
[2019-04-26] MEDS: HYGROTON PO SCH (08:58)
[2019-04-26] MEDS: APRESOLINE PO SCH ×4 (08:58→17:30)
[2019-04-26] MEDS: MYCELEX TROCHE PO SCH ×5 (08:59→20:22)
[2019-04-26] MEDS: COREG PO SCH ×2 (08:59→20:22)
[2019-04-26] MEDS: OXY IR PO PRN ×3 (09:01→23:10)
--- NOTE | 2019-04-26 11:41 | Diag Imaging Result Doc PS360 ---
EXAM: CT THORAX W/O CONTRAST 04/26/2019 HISTORY: SOB. Hx pulmonary fibrosis. Pneumonia TECHNIQUE: This exam was performed using automated exposure control, adjustment of mA or kV according to patient size, and/or use of iterative reconstruction technique. COMMENT: The current study is compared with the previous examination of 12/18/2015. There is right paratracheal adenopathy with a node measuring over 19 mm. There are enlarged aorticopulmonary window nodes one of which measures 15 mm in long axis. These nodes are all larger than on the previous examination. There is extensive coronary calcification. There are calcified nodes in the right hilum and subcarina. There is pleural fibrosis on the left which has not changed significantly since the previous study. There is a small amount of fluid or pleural thickening costophrenic sulcus posteriorly on the right which was not present previously. There is a fracture of the left coracoid process. This was not evident at the time the previous examination. There are some patchy alveolar and groundglass opacities present in both upper lobes and the right lower lobe and middle lobe. This includes the right apex. None of these opacities were present at the time the previous study. There is no evidence of honeycombing or traction bronchiectasis. There are coarse fibrotic scars present in the left lower lobe. IMPRESSION: 1. Patchy bronchopneumonia. Advise follow-up. 2. Adenopathy as described above. 3. Small right pleural effusion. 4. Fracture of the left coracoid process. Electronically signed by Brent Cancino 04/26/2019 11:39 AM
[2019-04-26] MEDS: DIFLUCAN PO SCH (11:43)
--- NOTE | 2019-04-26 12:44 | PROGRESS NOTE ---
DATE: 04/26/2019 SUBJECTIVE: This morning, Mr. Gutiérrez refers to be doing fairly okay. No new complaints. was at the bedside at the time of the encounter. Mr. Gutiérrez and the both had multiple concerns, including the fact that he has had issues with his upper airway for a very long time, and has not had any care about that, which I did recommend that they follow up with ENT as well as Pulmonary Medicine. They also made mention that Mr. Gutiérrez has been diagnosed with obstructive sleep apnea. However, he hardly uses his CPAP machine. OBJECTIVE: Current Vital Signs: Blood pressure is 163/110, pulse of 105, respirations 16, temperature 97.4 degrees. General: Mr. Gutiérrez is a 69-year-old gentleman, morbidly obese, with a BMI of 40.1. He is in bed. No distress. HEENT: Mucosa is pink and moist. Anicteric. Acyanotic. Neck: Supple. Chest: Air entry is bilaterally reduced. A few crackles in the posterior lung sadler. Cardiovascular: Irregularly irregular, but no bowel sounds are present. There are some old infraumbilical and right lower quadrant scars. Extremities: Chronic stasis dermatitis with some ulcerations in between the toes. Neurologic: The patient is awake, alert, and oriented. LABORATORY DATA: None for today. Blood cultures have been 48-hours negative. Sputum culture is growing normal antonio. The patient is currently on meropenem and doxycycline. ASSESSMENT: 1. Chronic lower extremity venous insufficiency with stasis dermatitis associated with superimposed cellulitis, worse on the right side. 2. Stenotrophomonas maltophilia and bibasilar species infection of the toes. 3. Chronic obstructive pulmonary disease. 4. History of pulmonary fibrosis. 5. Suspected aspiration pneumonia on admission. 6. Chronic atrial fibrillation, currently rate controlled. 7. Frequent falls. 8. Morbid obesity with body mass index of 40.4. 9. History of obstructive sleep apnea. The patient does not use his continuous positive airway pressure at home. 10. Uncontrolled hypertension. Will continue to titrate medications. In general, I think Mr. Gutiérrez is fairly stable. We are going to get a CT scan on the lungs just to make sure that there is nothing we are missing since the patient continues to be mildly hypoxemic, on oxygen. He has intermittent chronic hoarseness, which I have advised that he follows up with ENT. He gives a history that he was told at one time that he had polyps on the voice box. Will be pending final antimicrobial recommendations from Infectious Disease, and hopefully get Mr. Gutiérrez home. I have also started Mr. Gutiérrez on Diflucan for possible superimposed Karin yeast infection in between the toes. cc: Al Cuenca MD
[2019-04-26] MEDS ORDERED: DUONEB (A & A) ONE (15:44)
[2019-04-26] MEDS: ELAVIL PO SCH (20:22)
[2019-04-26] MEDS: EFFEXOR XR PO SCH (20:22)
[2019-04-26] MEDS: MIRAPEX PO SCH (20:22)
[2019-04-26] MEDS: PRILOSEC PO SCH (20:22)
[2019-04-27] MEDS: DUONEB (A & A) INH PRN ×3 (03:09→19:47)
[2019-04-27] MEDS: DOXYCYCLINE PO SCH ×2 (05:17→17:32)
[2019-04-27] MEDS: MERREM 2 GM in NS 100 ML IV SCH ×3 (05:17→21:13)
[2019-04-27] MEDS: CARAFATE PO SCH ×5 (05:17→21:13)
[2019-04-27 06:57] LABS: CALCIUM 8.4 mg/dL (8.8-10.2); CREATININE 1.2 mg/dL (0.7-1.2); POTASSIUM 4.6 mmol/L (3.5-5.1)
[2019-04-27 07:04] LABS: BASO# 0.04 X1000 (0.0-0.2); BASO% 0.5 % (0.0-0.8); EOS# 0.24 X1000 (0.0-0.7); EOS% 3.1 % (0.0-10.0); HEMATOCRIT 41.7 % (42.0-52.0); HEMOGLOBIN 13.4 g/dL (14.0-18.0); IMM GRAN# 0.09 X1000 (0.0-0.04); IMM GRAN% 1.2 % (0.0-0.5); LYMPH# 1.97 X1000 (1.2-3.4); LYMPH% 25.7 % (20.5-51.1); MCHC 32.1 g/dL (33-37); MCV 93.5 FL (81-99); MONO# 0.72 X1000 (0.11-0.59); MONO% 9.4 % (1.7-9.3); MPV 12.4 FL (7.4-10.4); NEUT# 4.62 X1000 (1.4-6.5); NEUT% 60.1 % (42.2-75.2); PLT 128 X1000 (130-400); RBC 4.46 XMIL (4.7-6.1); WBC 7.68 X1000 (4.8-10.8)
[2019-04-27] MEDS: HUMALOG SUBQ SCH ×4 (07:12→21:14)
[2019-04-27] MEDS: MYCELEX TROCHE PO SCH ×5 (08:29→23:23)
[2019-04-27] MEDS: DIFLUCAN PO SCH (08:30)
[2019-04-27] MEDS: OXY IR PO PRN ×3 (08:30→23:23)
[2019-04-27] MEDS: CARDIZEM CD PO SCH (08:30)
[2019-04-27] MEDS: APRESOLINE PO SCH ×3 (08:30→17:32)
[2019-04-27] MEDS: COREG PO SCH ×2 (08:30→21:13)
[2019-04-27] MEDS: HYGROTON PO SCH (08:30)
--- NOTE | 2019-04-27 13:57 | PROGRESS NOTE ---
DATE: 04/27/2019 SUBJECTIVE: This morning Mr. Gutiérrez refers to be doing well. The macerations in between the toes are remarkably clean and dry. OBJECTIVE: Vital signs: Blood pressure is 154/103, pulse of 93, respirations 24, temperature 97.6 degrees. General: Mr. Gutiérrez is a 69-year-old elderly gentleman. He is in bed, no distress. Mucosa is pink and moist. Anicteric. Acyanotic. Neck: Supple. Chest: Air entry was bilaterally reduced. A few crackles in the posterior lung sadler. Cardiovascular: Irregularly irregular but rate controlled. GI: Abdomen is soft, nontender. There is some old infraumbilical surgical scar. Extremities: No pedal edema. There are chronic stasis dermatitis with some scaly lesions in between the toes. It looks remarkably dry and clean. 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 DIAGNOSTIC STUDIES: A CAT scan yesterday did show patchy bronchopneumonia. Some adenopathy. LABORATORY DATA: WBC is 7.68, hemoglobin is 13.4, platelet count of 128,000. Chemistry is also reviewed. CURRENT MEDICATIONS: Have all been reviewed. ASSESSMENT: 1. Chronic lower extremity venous insufficiency with stasis dermatitis associated with superimposed cellulitis, worse on the right, significantly improved. 2. Stenotrophomonas maltophilia and bacillus species infection of the toes, improved. Also documented that the patient is suspected to have a superimposed tinea pedis, so he was started on fluconazole. 3. Bronchopneumonia with suspected aspiration pneumonia. The patient is on antimicrobial therapy. 4. Chronic atrial fibrillation, currently rate controlled. 5. History of COPD with pulmonary fibrosis. 6. Obstructive sleep apnea. 7. Uncontrolled hypertension. We will continue titrating his medications. This morning I spoke with ID. They plan to continue treatment with the current antimicrobial therapy for 2 more days and hopefully get Mr. Gutiérrez discharged on Tuesday. cc: Al Cuenca MD [facility]
--- NOTE | 2019-04-27 15:32 | INFECTIOUS DISEASE PROGRESS NO ---
DATE: 04/27/2019 PRESENT ILLNESS: Mr. Gutiérrez is being treated for bilateral lower extremity cellulitis and pneumonia. MEDICATIONS: He is receiving doxycycline 100 mg by mouth twice a day and meropenem 2 g IV every 8 hours. PHYSICAL EXAMINATION: Vital Signs: Temperature is 97.9 degrees, pulse rate 76, respiratory rate 20, blood pressure 163/106. O2 saturation is 93% on 2 L nasal cannula. General: This is a chronically ill-appearing, elderly gentleman. He is lying in bed, currently in no acute distress. HEENT: Atraumatic, normocephalic. Oral mucous membranes are pink and moist. He is edentulous. Conjunctivae are pink. Respiratory: Lung sounds are bilaterally clear in the upper lobes, diminished in the mid and bases with some mild rhonchi noted. No work of breathing. Mild rhonchi to the right base. Cardiovascular: Irregularly irregular with atrial fibrillation on the monitor. Neck: Supple. Trachea is midline. Abdomen: Soft, obese, nontender. Bowel sounds are active. Integumentary: Bilateral feet are looking much better with some decrease in exudate on the toes. There are some open, healing areas between the toes on the left foot. Neurologic: He is awake, alert, oriented but forgetful. Moving all extremities independently in the bed. LABORATORY AND X-RAY: Today, his white count is 7.68, hemoglobin 13.4, platelet count 128,000. Creatinine is 1.2. GFR is 60. Chest CT done yesterday shows patchy bronchopneumonia with a small right pleural effusion. ASSESSMENT AND PLAN: Mr. Gutiérrez is being treated for bilateral lower extremity cellulitis and pneumonia. He is receiving meropenem and doxycycline which we will continue. Yesterday, the wound care nurse did a good job of cleaning his toes and they are looking much better today after having a few days of Aquaphor. The patient is wondering if he can go home soon. Our plan is to continue current antibiotics, but provide cefdinir and doxycycline at home, and he can be discharged on Tuesday. A prescription is on the chart for cefdinir, and a doxycycline prescription was previously provided. We will see him back in the office in 10 days. These plans have been discussed with and recommended by Dr. Alonzo. COMORBIDITIES: For Mr. Gutiérrez include that he is elderly and morbidly obese with obstructive sleep apnea, COPD, congestive heart failure, peripheral vascular disease, gastroesophageal reflux disease, and diabetes mellitus. Dictated by UNIQUE Robins for Juan Antonio Alonzo MD cc: Juan Antonio Alonzo MD [facility]
[2019-04-27] MEDS: ELAVIL PO SCH (21:13)
[2019-04-27] MEDS: PRILOSEC PO SCH (21:13)
[2019-04-27] MEDS: MIRAPEX PO SCH (21:13)
[2019-04-27] MEDS: EFFEXOR XR PO SCH (21:14)
[2019-04-28] MEDS: HUMALOG SUBQ SCH ×4 (06:05→21:55)
[2019-04-28] MEDS: DOXYCYCLINE PO SCH ×2 (06:14→17:12)
[2019-04-28] MEDS: CARAFATE PO SCH ×4 (06:14→21:57)
[2019-04-28] MEDS: MERREM 2 GM in NS 100 ML IV SCH ×3 (06:14→21:55)
[2019-04-28] MEDS: OXY IR PO PRN ×2 (06:35→18:22)
[2019-04-28] MEDS: CARDIZEM CD PO SCH (10:33)
[2019-04-28] MEDS: COREG PO SCH ×2 (10:33→21:57)
[2019-04-28] MEDS: APRESOLINE PO SCH ×3 (10:33→21:57)
[2019-04-28] MEDS: MYCELEX TROCHE PO SCH ×5 (10:34→21:56)
[2019-04-28] MEDS: DIFLUCAN PO SCH (10:34)
[2019-04-28] MEDS: DUONEB (A & A) INH PRN ×3 (11:45→19:29)
[2019-04-28] MEDS: HYGROTON PO SCH (13:19)
--- NOTE | 2019-04-28 16:01 | PROGRESS NOTE ---
DATE: 04/28/2019 SUBJECTIVE: This morning, Mr. Gutiérrez refers to be doing well. No new complaints. The feet look remarkably well. OBJECTIVE: Vitals: Blood pressure is 145/89, pulse of 88, respiration is 18, temperature is 97.6 degrees. General: Mr. Gutiérrez is a 69-year-old, gentleman. He is in bed, in no distress. Mucosa is pink and moist. Anicteric. Acyanotic. Neck: Supple. Chest: Clear to auscultation. Cardiovascular: Regular rate and rhythm. Abdomen: Soft. There is an infraumbilical surgical scar. There is also a scar on the right lower quadrant. Extremities: There are minimum scaly lesions in between the toes. There is a positive chronic stasis dermatitis in the lower extremity. Central nervous system: Patient is awake, alert, and oriented. Slightly hoarse. LABORATORY DATA: Glucose is 124. ASSESSMENT AND PLAN: 1. Chronic lower extremity venous insufficiency with stasis dermatitis associated with superimposed cellulitis, worse on the right, which has significantly improved. 2. Stenotrophomonas maltophilia and bacillus species infection of the toe with suspected superimposed tinea pedis. Significantly improved. 3. Bronchopneumonia, questionable for aspiration pneumonia. Patient is on antimicrobial therapy. 4. Chronic atrial fibrillation. Currently, rate controlled. 5. History of chronic obstructive pulmonary disease with pulmonary fibrosis. 6. Obstructive sleep apnea. 7. Hypertension. Will continue titrating blood pressure medications. 8. Disposition. We plan hopefully to discharge Mr. Gutiérrez tomorrow, once he has been evaluated by Infectious Disease and outpatient antimicrobials have been chosen. cc: Al Cuenca MD
[2019-04-28] MEDS: EFFEXOR XR PO SCH (21:56)
[2019-04-28] MEDS: MIRAPEX PO SCH (21:56)
[2019-04-28] MEDS: PRILOSEC PO SCH (21:57)
[2019-04-28] MEDS: ELAVIL PO SCH (21:57)
[2019-04-29] MEDS: OXY IR PO PRN ×3 (00:28→12:43)
[2019-04-29] MEDS: MERREM 2 GM in NS 100 ML IV SCH (06:04)
[2019-04-29] MEDS: DOXYCYCLINE PO SCH (06:05)
[2019-04-29] MEDS: CARAFATE PO SCH ×2 (06:05→12:44)
[2019-04-29] MEDS: HUMALOG SUBQ SCH ×2 (06:56→12:44)
[2019-04-29] MEDS: DIFLUCAN PO SCH (09:28)
[2019-04-29] MEDS: CARDIZEM CD PO SCH (09:29)
[2019-04-29] MEDS: MYCELEX TROCHE PO SCH ×2 (09:29→12:44)
[2019-04-29] MEDS: COREG PO SCH (09:29)
[2019-04-29] MEDS: HYGROTON PO SCH (09:29)
[2019-04-29] MEDS: APRESOLINE PO SCH (09:29)
[2019-04-29 11:55] VITALS: BP 123/89
--- NOTE | 2019-04-29 16:46 | DISCHARGE SUMMARY ---
ADMISSION DATE: 04/23/2019 DISCHARGE DATE: 04/29/2019 LENGTH OF STAY: Was 6 days. DISPOSITION: Home. FOLLOWUP: Dr. Alonzo. CONSULTATION: ID was consulted. Patient was seen by Dr. Alonzo. INVASIVE PROCEDURE: None. IMAGING STUDIES: A chest x-ray showed dense consolidation at the right hilum indicating pneumonia or aspiration. A CT scan of the chest shows patchy bronchopneumonia, adenopathy and small right pleural effusion. ADMISSION DIAGNOSIS: 1. Hemoptysis. 2. Chronic obstructive pulmonary disease. 3. Diabetes. Chronic wounds to both feet. DIAGNOSIS AT THE TIME OF DISCHARGE: 1. Chronic lower extremity venous insufficiency with stasis associated with superimposed cellulitis worse on the right, completely improved. 2. Stenotrophomonas maltophilia and bacillus species infection of the toes with superimposed tinea pedis improved. 3. Bronchopneumonia questionable for aspiration pneumonia improved. 4. Chronic atrial fibrillation. 5. Chronic obstructive pulmonary disease with pulmonary fibrosis. 6. Obstructive sleep apnea. 7. Hypertension. DISCHARGE MEDICATIONS: 1. Atorvastatin 40 mg p.o. at bedtime. 2. Omeprazole 40 mg p.o. at bedtime. 3. Carafate 1 g p.o. 4 times per day. 4. Eliquis 5 mg b.i.d. 5. Amitriptyline 50 mg p.o. at bedtime. 6. Glipizide 5 mg b.i.d. 7. Pramipexole 1.5 p.o. at bedtime. 1. 75 mg p.o. at bedtime. 2. Doxycycline 100 mg b.i.d. 3. Diltiazem 240 p.o. daily. 4. Chlorthalidone 25 mg p.o. daily. 5. Cefdinir 300 mg p.o. q.12. 6. Hydralazine 25 three times per day. 7. Carvedilol 12.5 p.o. b.i.d. 8. Fluconazole 100 mg p.o. daily. PRESENTING COMPLAINT: Frequent falls, infection of the toes. HISTORY OF PRESENTING COMPLAINT: Mr. Gutiérrez is a 69-year-old male with a history of COPD, obstructive sleep apnea noncompliant with BiPAP, also chronic atrial fibrillation. Patient was sent from Dr. Alonzo' office because of nonhealing sores and ulcerations in between the toes, he was found to have Stenotrophomonas maltophilia infection as well as basialis. He seems not to be improving on p.o. medication so he was admitted for acute care management. HOSPITAL COURSE: Mr. Gutiérrez was admitted to the medical floor was initially started on broad- spectrum IV antibiotics. He did also have some chest symptoms so a CT scan was done which showed possible aspiration versus bronchopneumonia. He was started on broad-spectrum IV antibiotics. During the hospital course Mr. Gutiérrez progressively got better. The lower extremity macerations and all the macerations in between the toes got remarkably improved. Patient was seen during the hospital course by Dr. Alonzo who recommended most of the antimicrobial coverage. Today Mr. Gutiérrez is doing a whole lot better. We think he is stable for discharge. He is going to follow up with Dr. Alonzo as well as with primary care doctor. All the discharge instructions have been discussed with him. He voiced understanding. Today his vitals blood pressure is 123/89, pulse of 115, respiration is 22, temperature 97.5 degrees, patient is saturating 99% on room air. Mr. Gutiérrez is clinically stable for discharge. TIME SPENT: 36 minutes. cc: MD Dr. Odette Prado
== END 2019-04-29 15:34 | disposition home health service (06) | DRG 602 ==
LOC: SUATTDRO 10:32 → DIRADM 10:32 → 2N 10:46 → 3N 04-28 00:20
PROVIDERS: ATTEND Internal Medicine

== ENCOUNTER 2019-09-05 10:36 | Inpatient (IN) ==
[2019-09-05] MEDS ORDERED: ZOFRAN IV PRN (12:24)
[2019-09-05 13:06] LABS: BASO# 0.02 X1000 (0.0-0.2); BASO% 0.3 % (0.0-0.8); EOS# 0.09 X1000 (0.0-0.7); EOS% 1.2 % (0.0-10.0); HEMATOCRIT 42.3 % (42.0-52.0); HEMOGLOBIN 13.3 g/dL (14.0-18.0); IMM GRAN# 0.06 X1000 (0.0-0.04); IMM GRAN% 0.8 % (0.0-0.5); LYMPH# 1.43 X1000 (1.2-3.4); LYMPH% 18.6 % (20.5-51.1); MCH 29.2 PG (27-31); MCHC 31.4 g/dL (33-37); MCV 92.8 FL (81-99); MONO# 0.87 X1000 (0.11-0.59); MONO% 11.3 % (1.7-9.3); MPV 11.3 FL (7.4-10.4); NEUT# 5.22 X1000 (1.4-6.5); NEUT% 67.8 % (42.2-75.2); PLT 154 X1000 (130-400); RBC 4.56 XMIL (4.7-6.1); WBC 7.69 X1000 (4.8-10.8)
[2019-09-05 13:46] LABS: CALCIUM 8.3 mg/dL (8.8-10.2); CREATININE 1.5 mg/dL (0.7-1.2); POTASSIUM 3.2 mmol/L (3.5-5.1)
--- NOTE | 2019-09-05 14:59 | Diag Imaging Result Doc PS360 ---
EXAM: FOOT COMPLETE RIGHT 09/05/2019 HISTORY: right plantar foot wound TECHNIQUE: Portable right foot three views COMMENT: There is no evidence of fracture or dislocation. Compared to 05/06/2016 there has been no significant change. IMPRESSION: No evidence of acute bony abnormality. Electronically signed by Brent Cancino 09/05/2019 2:57 PM
[2019-09-05 15:20] LABS: ALB/GLOB RATIO 0.8; ALBUMIN 3.2 g/dL (3.5-5.0); DIRECT BILIRUBIN 0.1 mg/dL (0.00-0.20); TOTAL BILIRUBIN 0.31 mg/dL (0.20-1.00); TOTAL PROTEIN 7.2 g/dL (6.3-8.3)
[2019-09-05] MEDS: CUBICIN 800 MG in NS 100 ML IV SCH (15:21)
[2019-09-05] MEDS: MAXIPIME 2 GM/NS 2 GM/100 ML IVPB IV SCH (16:29)
[2019-09-05] MEDS ORDERED: CARDIZEM CD PO ONE (17:24)
[2019-09-05] MEDS: KLOR-CON PO SCH ×2 (18:15→22:45)
--- NOTE | 2019-09-05 19:05 | HISTORY AND PHYSICAL ---
PRIMARY CARE PHYSICIAN: Dr. Yahir Gooden. INFECTIOUS DISEASE PHYSICIAN: Dr. Juan Antonio Alonzo. CHIEF COMPLAINT: Is a direct admit from Dr. Juan Antonio Alonzo, infectious Disease office today after being seen and noted to have bilateral lower extremity cellulitis and suspicion for osteomyelitis in the right foot. HISTORY OF PRESENTING ILLNESS: This is a 69-year-old male who presents to [facility] as a direct admit from Dr. Juan Antonio Alonzo Infectious Disease office today after he was seen by their nurse practitioner, Josephine, and was found to have bilateral lower extremity cellulitis with the new onset of a diabetic foot ulcer to the right plantar area of the ball of the foot. Wound cultures were obtained in the office today and it was requested that he be admitted with Infectious Disease consultation for the bilateral lower extremity cellulitis and rule out osteomyelitis of the right foot. His bilateral feet are noted to be erythematous, edematous, warm to touch. The plantar area of the ball of his right foot has a 0.5 cm circular open area. He has peeling skin to the bottom of both feet bilaterally. They are tender to touch. So, he will be admitted for further evaluation and treatment. PAST MEDICAL HISTORY: Chronic atrial fibrillation, diabetes type 2, COPD, obstructive sleep apnea but refuses CPAP, frequent falls, peripheral vascular disease, chronic venous stasis with insufficiency, and history of prostate cancer. PAST SURGICAL HISTORY: Heart stent placement x3, iliac stent, AAA repair with endograft, appendectomy, prostatectomy, full teeth extraction, a penile implant and back surgery. FAMILY HISTORY: Was significant for hypertension. Father had an MO and a stroke in his 60s. SOCIAL HISTORY: He currently lives with his . Smokes a pack of cigarettes a day. Denied any alcohol or illicit drug use. ALLERGIES: No known drug allergies. HOME MEDICATIONS: A current list will need to be obtained, reconciled, reviewed and restarted as appropriate. LABORATORY DATA: Showed a white blood cell count of 7.69, hemoglobin 13.3, hematocrit 42.3, platelets 154,000. We are obtaining a BMP that is pending at this time. Further labs, x-rays, and cultures will be ordered by Infectious Disease per their request. REVIEW OF SYSTEMS: He denied any fever, chills, blurred vision, dizziness, chest pain, coughing, shortness of breath, abdominal pain, constipation, diarrhea, burning or hurting with urination. He does have some pain to bilateral feet that are noted to be erythematous, edematous, warm to touch, peeling skin and a diabetic foot ulcer again to that right plantar ball of his foot. PHYSICAL EXAMINATION: This is a 69-year-old male who is sitting up in the bed, just arriving as a direct admit. We will obtain vital signs shortly. HEENT: Normocephalic, atraumatic. Normal ENT inspection. Oropharynx and nares are clear. EYES: Pupils are equal, round, reactive to light and accommodation. Extraocular movements are intact. NECK: Normal inspection. Normal range of motion. LUNGS: Clear to auscultation bilaterally with equal lung expansion and chest wall movement. HEART: Regular rate and rhythm. No murmurs, rubs, or gallops. ABDOMEN: Soft, nontender, nondistended. Bowel sounds are present x4 quadrants. MUSCULOSKELETAL: He had 5/5 strength x4 extremities. He is noted on bilateral feet to have erythema, edema, warmth to touch. To the plantar area of both feet has peeling skin. The right plantar ball of his foot has a 0.5 cm open area diabetic ulcer. Wound cultures were obtained in Infectious Disease office today. NEUROLOGICAL: The cranial nerves 2-12 appear grossly intact. ASSESSMENT: 1. Bilateral lower extremity cellulitis. 2. Will rule out osteomyelitis of the right foot. 3. Diabetes type 2. 4. Chronic atrial fibrillation. 5. Peripheral vascular disease. 6. Chronic venous stasis with insufficiency. 7. History of prostate cancer. PLAN: To be admitted to the medical unit. We will place on telemetry, consult Infectious Disease who requested to be the one to order antibiotics and any further x-rays and testing. Place on Tylenol 650 mg p.o. q.6 hours p.r.n., Zofran 4 mg IV q.4 hours p.r.n. We need to update and confirm home medications. Further orders after seen by attending and by client development consultant. Dictated by UNIQUE Viveros for Power Allen MD cc: UNIQUE Viveros MD David Francis, MD I agree with most components of history, physical, assessment and plan. A separate addendum has been dictated. [facility]
[2019-09-05] MEDS: EFFEXOR XR PO SCH (20:00)
[2019-09-05] MEDS: CITRACAL + D PO SCH (20:00)
[2019-09-05] MEDS: APRESOLINE PO SCH (20:00)
[2019-09-05] MEDS: CARAFATE PO SCH (20:00)
[2019-09-05] MEDS: BENADRYL PO PRN (20:00)
[2019-09-05] MEDS: COREG PO SCH (20:00)
[2019-09-05] MEDS: TYLENOL PO PRN (20:00)
[2019-09-05] MEDS: PRILOSEC PO SCH (20:01)
[2019-09-05] MEDS: ELIQUIS PO SCH (20:01)
[2019-09-05] MEDS: LANTUS INSULIN SUBQ SCH (20:02)
--- NOTE | 2019-09-05 20:32 | EKG Report ---
Test Performed on : 09/05/2019 7:24:56 PM Test Reason : Baseline EKG Blood Pressure : / mmHG Vent. Rate : 112 BPM Atrial Rate : 117 BPM P-R Int : 000 ms QRS Dur : 084 ms QT Int : 346 ms P-R-T Axes : 000 055 049 degrees QTc Int : 472 ms Atrial fibrillation. with rapid ventricular response. Low voltage QRS Abnormal ECG When compared with ECG of 23-APR-2019 12:45, No significant change was found Unconfirmed Result
--- NOTE | 2019-09-05 21:56 | INFECTIOUS DISEASE CONSULT REP ---
DATE: 09/05/2019 CONCLUSION: Mr. Gutiérrez was seen once again in our office this morning with complaints of bilateral lower extremity pain and drainage from foot wounds. There is a plantar wound that has some depth with a concern for the possibility of osteomyelitis. He was directly admitted to the hospital from our office due to these issues. RECOMMENDATIONS: We will empirically start him on broad-spectrum antibiotics. He does have chronic kidney disease with a decrease in his GFR, so we will cover him for MRSA using daptomycin 800 mg IV daily. I have added on a total CK to his blood work for a baseline. We will also cover him for gram-negative organisms using cefepime 2 g IV every 12 hours. I have cultured both feet and the plantar wound on the right. An x-ray has been ordered for his right foot due to the concern for osteomyelitis. These plans have been discussed with and recommended by Dr. Alonzo. DISCUSSION: Mr. Gutiérrez was in our office this morning. We have treated him in the past for cellulitis of his feet and legs with multiple organisms that have grown. Unfortunately, in the past he has been somewhat noncompliant, walking around barefooted in a patient with multiple comorbidities, including diabetes mellitus. In his most recent hospitalization back in March, he was treated for lower extremity cellulitis and pneumonia, and at that time grew Stenotrophomonas and Bacillus species to his feet. PAST MEDICAL HISTORY/REVIEW OF SYSTEMS: Constitutional: He denies any recent fevers at home or weight changes. HEENT: He is hard of hearing with blurred vision and requires reading glasses. He does have dentures. Positive for headache and sinus congestion. Endocrine: No history of thyroid issues but he does have diabetes mellitus which he states is well controlled at home with blood sugars between 150 and 180 on twice a day blood sugar checks. At the bedside, he has a chocolate bar and a honey bun, so I doubt that he is very compliant with his diabetes regimen. Respiratory: He does have a cough with multi colored sputum at various times. He states this is normal for him. He has had pneumonia multiple times in the past but currently does not feel that this is an issue. He always has shortness of breath with orthopnea, and sleeps in a recliner. He has obstructive sleep apnea but cannot use his CPAP due to difficulty sleeping with it. Chronic obstructive pulmonary disease with long-term use of tobacco. Cardiovascular: Positive for congestive heart failure, peripheral vascular disease, chronic atrial fibrillation, hyperlipidemia, hypertension, coronary artery disease with myocardial infarction x6, previous aortic aneurysm. He has complaints of chest pain, along with generalized pain. Denies any palpitations. GI: No nausea, vomiting, or diarrhea. He is constipated and has occasional abdominal pain with some recent nausea, which is unusual for him, but no vomiting. He does have a history of peptic ulcer disease and gastric ulcers as well as gastroesophageal reflux disease. : He does have a history of multiple urinary tract infections and is incontinent, wearing Depends. Currently, no dysuria, flank pain or lower abdominal pain. Musculoskeletal: Positive for osteoarthritis. Sits in a wheelchair most of the time but can use crutches with arm braces to walk with great difficulty. He does have a previous fracture in his back and chronic, generalized pain. He has had previous osteomyelitis in his back. Neurologic: He does have paresthesias with numbness and tingling to his legs and feet intermittently. No history of seizures but he has had a stroke with generalized weakness and decrease in fine motor skills since that stroke. Psychiatric: History positive for depression and anxiety which he states are related to his chronic pain. Integumentary: He states he has had a recent a rash to his trunk, back and upper limbs. He showed me pictures on his phone which show diffuse erythematous rash to his trunk and back, but currently most of that has dispersed and there is very minimal areas of erythematous flat lesions to his bilateral thighs, abdomen and lower back, as well as more diffusely noted rash to his bilateral upper extremities, which he states he has only been there a few days. Lower extremities are erythematous and indurated to bilateral calves has come up in the last few weeks. He has chronic lower extremity edema. The wound to the right plantar foot started with a black spot about 3 weeks ago. PAST SURGICAL HISTORY: Includes AAA repair, prostatectomy, cardiac stents, appendectomy, penile implant, back surgery, insertion of a left-sided Port-A-Cath which has been removed. SOCIAL HISTORY: The patient lives with his . He is unable to get around without a wheelchair most of the time outside of the house and then uses his crutches with arm braces inside the house. He has a 50 pack-year smoking history and states he quit 3 years ago but has been vaping ever sense. Denies any alcohol or illicit drug use. FAMILY HISTORY: Positive for hypertension, coronary artery disease, stroke and diabetes mellitus. INFECTIOUS DISEASE: The patient has a positive history of pneumonia, urinary tract infection, bacteremia and osteomyelitis. He has had chronic issues with his toes and lower extremity cellulitis with multiple organisms that have been isolated. LABORATORY AND X-RAY: Today his white count is 7.69, hemoglobin 13.3, platelet count 154,000. Creatinine is 1.5 with a GFR 46 and creatine kinase of 71. No imaging reports have been done at this point. However, an x-ray of his right foot has been ordered. Cultures of his bilateral feet have also been taken and are pending. Hepatic function has also been added on to the blood in the lab. ALLERGIES: The patient states he has no known allergies. HOME MEDICATIONS: Include Lipitor, Prilosec, Carafate, Eliquis, amitriptyline, glipizide, Mirapex, Effexor, calcium citrate, Cardizem, chlorthalidone. NovoLog insulin, Apresoline, Coreg. These medications have not been verified at this point. He also states he takes oxycodone. PHYSICAL EXAMINATION: Vital Signs: Temperature is 97.8 degrees, pulse rate 116, respiratory rate 17, blood pressure 147/86. O2 saturation is 95% on room air. General: This is a chronically ill- appearing, morbidly obese gentleman. He is lying on the stretcher in the ER, currently in no acute distress. HEENT: Atraumatic, normocephalic. Oral mucous membranes are pink and moist. Conjunctivae are pink. Neck: Supple. Trachea is midline. Cardiovascular: Irregularly irregular with atrial fibrillation on the monitor. Respiratory: Lung sounds are bilaterally clear to auscultation. Diminished in the bases. No work of breathing is noted. Abdomen: Soft, obese and nontender. Bowel sounds are active. Integumentary: Bilateral calves have erythematous areas with some induration and pitting edema which is 1 to 2+. His feet are macerated with areas of weeping, particularly to the toes bilaterally. There is a Q-tip size wound to the right plantar foot which has some depth and an erythematous wound bed with clean edges. There is a mild rash noted to his upper extremities bilaterally with erythematous, dry lesions noted. He also has a very mild dissipating rash to his bilateral upper, anterior thighs. Neurologic: He is awake, alert, oriented, able to provide me with information with a fair memory of some of his previous illnesses. He is able to move both lower extremities and upper extremities independently in the bed. Thank you for allowing us to see Mr. Gutiérrez. Dictated by UNIQUE Robins for Juan Antonio Alonzo MD cc: Juan Antonio Alonzo MD [facility]
[2019-09-05] MEDS: NORCO-10 PO PRN (22:04)
--- NOTE | 2019-09-05 22:20 | PROGRESS NOTE ---
DATE: 09/05/2019 ADDENDUM: This is addendum to History and Physical dictated by the nurse practitioner. I agree with most components of the history, physical, assessment, and plan. In brief, Mr. vallejo is a 69-year-old man with past medical history of morbid obesity, peripheral artery disease requiring stent, chronic atrial fibrillation on anticoagulation, insulin- dependent diabetes mellitus, obstructive sleep apnea, chronic kidney disease stage 3, prostate carcinoma, coronary artery disease requiring PCI in the past, active vaping, COPD, which he quit in 2014. Comes in as a direct admit for bilateral lower extremity cellulitis and possible osteomyelitis. SUBJECTIVE: He denies any chest pain or shortness of breath. He is complaining of some itching. We discussed about treating him with IV antibiotics. His foot is currently wrapped in a bandage. VITAL SIGNS: Temperature 97.4 degrees, pulse 110, respiratory rate 20, blood pressure 132/74. He is saturating 95% in room air. PHYSICAL EXAMINATION: General: Morbidly obese, not in acute distress. Oral cavity: Moist. Lungs: Air entry bilaterally equal. No wheeze. Heart: S1 normal. No murmur or gallop. Abdomen: Soft, obese. Extremities: He has bilateral lower extremity edema. He also has bilateral lower extremity erythema extending up to knee level with warmth as well. His bilateral feet are wrapped in bandages, and I will evaluate the wounds tomorrow since this has been just bandaged. WBC does not have leukocytosis. Hemoglobin 13.3, platelet count of 154,000. His potassium was 3.2, BUN of 14, creatinine 1.5. MICROBIOLOGY: No new data. IMAGING: Foot x-ray performed today does not have any osteomyelitis. ASSESSMENT AND PLAN: 1. Acute cellulitis of bilateral lower extremities. Potential source of entry is bilateral foot ulcers. Continue intravenous daptomycin, intravenous cefepime as per Infectious Disease recommendation. 2. Chronic atrial fibrillation. Continue home diltiazem and apixaban as well as carvedilol. 3. History of coronary artery disease, peripheral artery disease. I will continue his home atorvastatin. 4. History of essential hypertension. I will continue him on his home medications of carvedilol, chlorthalidone, diltiazem, hydralazine. 5. History of insulin dependent diabetes mellitus. I will keep him on long-acting as well as sliding scale insulin. Follow up with hemoglobin A1c tomorrow. 6. Chronic kidney disease stage 3. 7. Hyponatremia, hypokalemia. I will follow up with routine electrolytes. DISPOSITION: Continue to monitor patient inside the hospital as I await further infectious disease recommendations. Plan of care discussed with the patient. His questions have been answered. cc: Power Allen MD
[2019-09-05] MEDS: HUMALOG SUBQ SCH (22:43)
[2019-09-05] MEDS: LIPITOR PO SCH (22:46)
[2019-09-05] MEDS: MIRAPEX PO SCH (22:47)
[2019-09-06] MEDS: MAXIPIME 2 GM/NS 2 GM/100 ML IVPB IV SCH ×2 (03:21→15:08)
[2019-09-06] MEDS: BENADRYL PO PRN (04:22)
[2019-09-06] MEDS: NORCO-10 PO PRN (04:22)
[2019-09-06] MEDS: CARAFATE PO SCH ×4 (06:38→21:03)
[2019-09-06] MEDS: HUMALOG SUBQ SCH ×4 (06:38→21:07)
[2019-09-06 08:04] LABS: BASO# 0.02 X1000 (0.0-0.2); BASO% 0.3 % (0.0-0.8); EOS# 0.08 X1000 (0.0-0.7); EOS% 1.2 % (0.0-10.0); HEMATOCRIT 41.5 % (42.0-52.0); HEMOGLOBIN 13.1 g/dL (14.0-18.0); IMM GRAN# 0.04 X1000 (0.0-0.04); IMM GRAN% 0.6 % (0.0-0.5); LYMPH# 1.24 X1000 (1.2-3.4); LYMPH% 17.9 % (20.5-51.1); MCHC 31.6 g/dL (33-37); MONO# 0.53 X1000 (0.11-0.59); MONO% 7.7 % (1.7-9.3); MPV 11.3 FL (7.4-10.4); NEUT# 5.01 X1000 (1.4-6.5); NEUT% 72.3 % (42.2-75.2); PLT 158 X1000 (130-400); RBC 4.51 XMIL (4.7-6.1); RDW 14.8 % (11.5-14.5); WBC 6.92 X1000 (4.8-10.8)
[2019-09-06 08:44] LABS: CALCIUM 8.4 mg/dL (8.8-10.2); CREATININE 1.5 mg/dL (0.7-1.2); POTASSIUM 3.5 mmol/L (3.5-5.1)
[2019-09-06] MEDS: APRESOLINE PO SCH ×3 (09:02→21:03)
[2019-09-06] MEDS: CARDIZEM CD PO SCH (09:03)
[2019-09-06] MEDS: CITRACAL + D PO SCH ×2 (09:03→21:03)
[2019-09-06] MEDS: COREG PO SCH ×2 (09:03→21:03)
[2019-09-06] MEDS: HYGROTON PO SCH (09:03)
[2019-09-06] MEDS: ELIQUIS PO SCH ×2 (09:03→21:03)
[2019-09-06] MEDS: OXY IR PO PRN ×2 (11:14→21:04)
[2019-09-06] MEDS: KLOR-CON PO SCH ×2 (11:14→15:08)
[2019-09-06] MEDS: TYLENOL PO PRN (11:15)
[2019-09-06] MEDS ORDERED: HYDROCORTISONE 1% OINTMENT TOP PRN (13:52)
[2019-09-06] MEDS: NIZORAL 2% CREAM TOP SCH ×2 (15:06→21:04)
[2019-09-06] MEDS: DIFLUCAN PO SCH (15:12)
[2019-09-06] MEDS: CUBICIN 800 MG in NS 100 ML IV SCH (16:11)
--- NOTE | 2019-09-06 18:58 | PROGRESS NOTE ---
DATE: 09/06/2019 INTERVAL HISTORY: He did have episodes of tachycardia which looked like atrial fibrillation. However, in the morning time his heart rate is better controlled. He was also requesting us to start him on his home oxycodone. He has not had any bowel movement. His erythema in the lower extremity has been decreasing. He was complaining of some back pain and itching. VITALS: Temperature of 98.1 degrees, pulse 84, respiratory rate 19, blood pressure 115/64, saturation 99% room air. PHYSICAL EXAMINATION: Morbidly obese, not in acute distress. Oral cavity is moist. Air entry bilaterally equal. No wheeze, rhonchi, crackles. S1 normal, irregularly irregular. No murmur, rub, or gallop. Abdomen is obese, soft, nontender. He has bilateral lower extremity edema extending up to knee level. There is decrease in bilateral erythema affecting feet as well as the legs. There is decrease in warmth as well. On examination of feet, he does have an ulcer on the plantar aspect of metatarsophalangeal joint about 2 cm in diameter with clean margin. However, it does have pus-looking material coming out. He also has desquamation of skin in the intertriginous areas around his toes bilaterally. He is alert and oriented x3. LABORATORY: Labs suggestive of hemoglobin of 13.1, WBC 6.9, platelet 158,000. He has BUN of 12, creatinine 1.5. Microbiology, wound culture are growing gram-negative antoinette. IMAGING: No new imaging. ASSESSMENT AND PLAN: 1. Acute on chronic cellulitis of bilateral lower extremities with ulcer of right foot on the plantar aspect because of gram-negative infective bacterial infection. Continue intravenous daptomycin and cefepime as per Infectious Disease recommendations, as well as local wound care. 2. Chronic atrial fibrillation, currently in acceptable rate controlled. Continue home diltiazem, apixaban and carvedilol. 3. History of coronary artery disease, peripheral artery disease requiring stent. Continue home atorvastatin. Continue carvedilol, chlorthalidone, diltiazem and hydralazine for essential hypertension as well. 4. History of insulin-dependent diabetes mellitus. Continue long-acting as well as sliding scale insulin. His hemoglobin A1c has been 8. 5. Chronic kidney disease stage 3, currently appears stable. 6. His hyponatremia is stable. 7. Hypokalemia, has been replaced. 8. Disposition. Continue to monitor patient inside the hospital as we await further wound culture report. Plan of care discussed with the patient. He is in agreement. His questions have been answered. cc: Power Allen MD MTDD
--- NOTE | 2019-09-06 19:28 | INFECTIOUS DISEASE PROGRESS NO ---
DATE: 09/06/2019 PRESENT ILLNESS: The patient has bilateral leg cellulitis. MEDICATIONS: This is day 1 of treatment with the combination of daptomycin and cefepime. PHYSICAL EXAMINATION: Vital Signs: Temperature is 98 degrees, pulse 95, respirations 17, blood pressure is 132/73. The patient is 6 feet tall and weighs 288 pounds. General: This is an ill- appearing, elderly male. He is in no acute distress. Head/eyes/ears/nose/throat: He can hear my spoken words and see near objects. He does not have any white patches in his mouth. Neck: The patient does have some pain with moving his neck. He told me that this is due to arthritis in his spine. Lungs: Clear to auscultation. Cardiovascular: Heart rate is irregular. Abdomen: Soft and nontender. Extremities: Both legs are edematous but less edematous than they were yesterday and they are also less erythematous and they have stopped draining as well. Neurologic: The patient is alert. He can move his extremities. There is no tremor. LAB AND X-RAY: X-ray of the patient's feet show no acute bony diseases. Gram stain from the patient's feet showed gram-negative rods and gram-positive cocci. Culture from the patient's foot is growing a gram-negative antoinette that has not been identified yet. Creatinine is 1.5. GFR is 46. CBC shows a white count of 6,920, hemoglobin 13.1, and platelet count 158,000. ASSESSMENT AND PLAN: The patient has leg cellulitis. I am going to continue daptomycin and cefepime pending culture results. I have ordered that the foot of the patient's bed should be elevated with the manual gatch continuously and I have also ordered for the patient to elevate his legs for as long as possible. COMORBIDITIES: The patient is a diabetic. He has chronic leg edema due to congestive heart failure. He also has peripheral vascular disease and chronic atrial fibrillation. cc: Juan Antonio Alonzo MD
--- NOTE | 2019-09-06 20:58 | INFECTIOUS DISEASE PROGRESS NO ---
DATE: 09/06/2019 ADDENDUM: Kelsie, our wound nurse, has evaluated the patient. She thinks that he may have a fungal infection involving his feet as well and she is going to use a antifungal cream and also we agree to use fluconazole the dose will be 200 mg p.o. daily. cc: Juan Antonio Alonzo MD
[2019-09-06] MEDS: PRILOSEC PO SCH (21:03)
[2019-09-06] MEDS: EFFEXOR XR PO SCH (21:03)
[2019-09-06] MEDS: DULCOLAX PR SCH (21:04)
[2019-09-06] MEDS: MIRALAX PO SCH (21:04)
[2019-09-06] MEDS: LANTUS INSULIN SUBQ SCH (21:07)
[2019-09-06] MEDS: MIRAPEX PO SCH (21:46)
[2019-09-06] MEDS: LIPITOR PO SCH (21:48)
[2019-09-07] MEDS: MAXIPIME 2 GM/NS 2 GM/100 ML IVPB IV SCH ×2 (03:36→14:17)
[2019-09-07] MEDS: CARAFATE PO SCH ×4 (06:26→21:46)
[2019-09-07] MEDS: HUMALOG SUBQ SCH ×4 (06:27→21:49)
[2019-09-07] MEDS: DULCOLAX PR SCH ×2 (09:15→21:48)
[2019-09-07] MEDS: CITRACAL + D PO SCH ×2 (09:15→21:46)
[2019-09-07] MEDS: DIFLUCAN PO SCH (09:15)
[2019-09-07] MEDS: APRESOLINE PO SCH ×3 (09:15→21:46)
[2019-09-07] MEDS: CARDIZEM CD PO SCH (09:15)
[2019-09-07] MEDS: HYGROTON PO SCH (09:15)
[2019-09-07] MEDS: COREG PO SCH ×2 (09:15→21:48)
[2019-09-07] MEDS: ELIQUIS PO SCH ×2 (09:15→21:48)
[2019-09-07] MEDS: NIZORAL 2% CREAM TOP SCH ×2 (09:16→21:50)
[2019-09-07] MEDS: MIRALAX PO SCH ×2 (09:16→21:49)
[2019-09-07] MEDS: OXY IR PO PRN ×3 (09:41→22:25)
--- NOTE | 2019-09-07 13:43 | Diag Imaging Result Doc PS360 ---
3 PHASE BONE SCAN - 09/06/2019 INDICATION: possible osteomyelitis to feet TECHNIQUE: Three phase bone scan of the feet. 26.2 mCi of MDP was administered. COMPARISON: 09/20/2018, 09/05/2019 FINDINGS: There is normal perfusion and blood pool phase activity. On the delayed phase, there is multifocal slightly increased uptake at the mid tarsal joints, left greater than right. There is also mild degenerative uptake at the base of the great toe bilaterally. No suspicious uptake. IMPRESSION: No evidence of osteomyelitis. Electronically signed by Maximus Crow 09/07/2019 1:41 PM
[2019-09-07] MEDS: BENADRYL PO PRN (14:16)
[2019-09-07] MEDS: TYLENOL PO PRN ×2 (14:17→21:52)
[2019-09-07] MEDS: CUBICIN 800 MG in NS 100 ML IV SCH (15:24)
[2019-09-07] MEDS: TUMS PO SCH (16:37)
--- NOTE | 2019-09-07 18:41 | PROGRESS NOTE ---
DATE: 09/07/2019 INTERVAL HISTORY: No acute events overnight. SUBJECTIVE: Mr. Gutiérrez is feeling better. He was started on local treatment for bilateral foot ulcers. He was advised to keep feet without any bandages and he has some sloughing of the skin. We discussed about ibuprofen, its risk of peptic ulcer disease, interaction with apixaban, and risk on kidney dysfunction, and he agreed. OBJECTIVE: vital signs: Currently, temperature of 98.1 degrees, pulse 87, respiratory 18, blood pressure 131/62. He is saturating 96% on room air. Obese, not in acute distress. Oral cavity is moist. Air entry bilaterally equal. No wheeze or crackles heard. S1, S2 normal. Irregularly irregular. No murmur, rub, or gallop. Abdomen: Obese, soft, nontender. Bilateral lower extremity edema. His erythema in the lower extremity has significantly decreased. He has an ulcer on the plantar aspect of metatarsophalangeal joint on the right foot with clear margins with oozing of pus. He also has significant desquamation of skin. LABORATORY DATA: No CBC today. No BMP today. IMAGING: Bone scan nuclear medicine did not have any evidence of osteomyelitis. ASSESSMENT AND PLAN: 1. Acute on chronic cellulitis of bilateral lower extremities with ulcer on the plantar aspect of right foot with gram-negative organisms. Preliminary cultures are growing Pseudomonas and Klebsiella on the right foot which is sensitive to cefepime, which I will continue. Cultures from the left foot are pending. Continue intravenous daptomycin as per ID's recommendation. 2. Chronic atrial fibrillation. Continue home diltiazem, carvedilol, and apixaban. 3. History of coronary artery disease, peripheral artery disease requiring stent. Continue home atorvastatin, carvedilol, chlorthalidone, diltiazem, and hydralazine for essential hypertension. 4. History of insulin-dependent diabetes mellitus. Currently, blood sugar within acceptable range. Continue long-acting and sliding-scale insulin. 5. Others. His chronic kidney disease stage 3 is currently stable. Hyponatremia and hypokalemia are also stable. I will follow up with BMP tomorrow. DISPOSITION: Appreciate Infectious Disease's recommendation about long-term antibiotics and discharge plan. Plan of care discussed with the patient. His questions have been answered. cc: Power Allen MD
--- NOTE | 2019-09-07 19:42 | INFECTIOUS DISEASE PROGRESS NO ---
DATE: 09/07/2019 PRESENT ILLNESS: Patient has bilateral leg cellulitis. MEDICATIONS: This is day 2 of treatment with daptomycin and cefepime. PHYSICAL EXAMINATION: Vital Signs: Temperature is 98.1 degrees, pulse 87, respirations 18, blood pressure is 131/62. General: This is an obese elderly male. He looks chronically ill, but he is in no acute distress. Head/eyes/ears/nose/throat: He can hear my spoken words and see near objects. There is no drainage coming from his nose or ears. Neck: No pain with movement. Lungs: Clear to auscultation. Cardiovascular: Heart rate is irregular. Abdomen: Soft and nontender. Extremities: Both legs are less edematous than they were when the patient came in the hospital. Also, the superficial layer of skin in the feet and ankle is peeling off. The feet are not as erythematous and they are not draining as much as when he came in either. Neurologic: The patient is alert. He is able to ambulate. There is no tremor. LAB AND X-RAY: Triple-phase bone scan shows no osteomyelitis. Culture from the right foot grew Pseudomonas and Klebsiella. Culture from the left foot grew 3 types of gram-negative rods. ASSESSMENT AND PLAN: Patient has leg cellulitis. I am going to continue cefepime and discontinue daptomycin. Also, I am going to continue fluconazole and the antifungal cream that the patient is placing on his wounds also. COMORBIDITIES: The patient is a diabetic. He has chronic leg edema due to congestive heart failure. He also has peripheral vascular disease and chronic atrial fibrillation. cc: Juan Antonio Alonzo MD
[2019-09-07] MEDS: EFFEXOR XR PO SCH (21:46)
[2019-09-07] MEDS: MIRAPEX PO SCH (21:47)
[2019-09-07] MEDS: PRILOSEC PO SCH (21:47)
[2019-09-07] MEDS: LIPITOR PO SCH (21:48)
[2019-09-07] MEDS: LANTUS INSULIN SUBQ SCH (21:49)
[2019-09-08] MEDS: MAXIPIME 2 GM/NS 2 GM/100 ML IVPB IV SCH ×2 (03:40→14:45)
[2019-09-08] MEDS: OXY IR PO PRN ×3 (04:40→21:26)
[2019-09-08] MEDS: BENADRYL PO PRN (04:48)
[2019-09-08] MEDS: HUMALOG SUBQ SCH ×4 (06:03→21:32)
[2019-09-08] MEDS: CARAFATE PO SCH ×4 (06:03→21:26)
[2019-09-08] MEDS: DULCOLAX PR SCH ×2 (08:24→21:24)
[2019-09-08] MEDS: MIRALAX PO SCH ×2 (08:24→21:24)
[2019-09-08] MEDS: ELIQUIS PO SCH ×2 (08:33→21:25)
[2019-09-08] MEDS: CARDIZEM CD PO SCH (08:33)
[2019-09-08] MEDS: CITRACAL + D PO SCH ×2 (08:34→21:26)
[2019-09-08] MEDS: APRESOLINE PO SCH ×3 (08:34→21:26)
[2019-09-08] MEDS: NIZORAL 2% CREAM TOP SCH ×2 (08:34→22:20)
[2019-09-08] MEDS: DIFLUCAN PO SCH (08:34)
[2019-09-08] MEDS: HYGROTON PO SCH (08:34)
[2019-09-08] MEDS: TUMS PO SCH ×3 (08:34→17:40)
[2019-09-08] MEDS: COREG PO SCH ×2 (08:34→21:25)
[2019-09-08] MEDS ORDERED: ELIMITE 5% CREAM TOP ONE (15:46)
[2019-09-08] MEDS ORDERED: PHENERGAN PO SCH (16:00)
--- NOTE | 2019-09-08 17:24 | PROGRESS NOTE ---
DATE: 09/08/2019 INTERVAL HISTORY: No acute events overnight. SUBJECTIVE: He denies new complaints, except itching all over his body. He is occasionally short of breath, but otherwise appears comfortable. OBJECTIVE: vital signs: Temperature 97.6 degrees, pulse 85, respiratory 18, blood pressure 136/67, saturating 98% on room air. General: Obese, not in distress. Oral cavity is moist. Air entry bilaterally equal. No wheeze, rhonchi, crackles. S1, S2 normal. Irregularly irregular. No murmur or gallop. Abdomen: Obese, soft, nontender. Bilateral lower extremity edema. His erythema has improved. On the lower extremities, he has ulcer on the plantar aspect of the metatarsophalangeal joint of the right foot with callus around the ulcer with some oozing of liquidy material, which is significantly improved. He also has desquamation of skin affecting bilateral feet. Input and output, he did have 1 bowel movement yesterday. LABORATORY DATA: No CBC today. No BMP today. Microbiology: Wound culture growing Proteus, Citrobacter, and Enterobacter cloacae. ASSESSMENT AND PLAN: 1. Acute on chronic cellulitis of bilateral lower extremities with ulcer on the plantar aspect of right foot with infection with Pseudomonas, Klebsiella, Proteus, Citrobacter, Enterobacter cloacae, which all are sensitive to cefepime. We will continue the intravenous cefepime. Appreciate Infectious Disease's recommendation about long-term antibiotics. 2. Chronic atrial fibrillation. Continue home diltiazem, carvedilol, and apixaban. 3. History of coronary artery disease, peripheral arterial disease requiring stent in the lower extremities. Continue home atorvastatin, carvedilol, chlorthalidone, diltiazem, and hydralazine. He also has essential hypertension which is well controlled. 4. History of insulin-dependent diabetes mellitus. Continue long-acting and sliding scale insulin. 5. Generalized itchy rash with punctate petechial lesions, which has been ongoing since several weeks. I will continue as-needed Benadryl. The patient states previously promethazine had helped, so I will start him on Phenergan as well. I will also give him a one-time dose of topical permethrin for suspected scabies. The patient, however, denies any contacts having similar symptoms. DISPOSITION: I will monitor patient inside the hospital as we await further ID recommendation regarding long-term antibiotics. Plan of care discussed with the patient. His questions have been answered. I will order physical therapy. cc: Power Allen MD
--- NOTE | 2019-09-08 17:36 | PROGRESS NOTE ---
DATE: 09/08/2019 SUBJECTIVE: Mr. Gutiérrez is feeling well today. He states that his feet have continued to improve. He states that he does have some diffuse itchiness throughout over his arms, abdomen, and legs. Cultures of the right foot demonstrate a growth of Pseudomonas and Klebsiella. Culture of the left foot demonstrated positive for Proteus, Citrobacter, and Enterobacter. OBJECTIVE: Vital signs: Temperature is currently 97.6 degrees, blood pressure 136/67, pulse 85, respirations 18, O2 saturations ranged from 90 to 97 percent on room air. Cardiac: Regular rate and rhythm. Normal S1, S2. No murmurs, rubs, or gallops. Lungs: Clear to auscultation bilaterally. No wheezes, crackles, rales. Abdomen: Obese, soft, nontender, nondistended. Extremities: Bilateral lower extremities, erythema in the right lower leg has improved significantly. There is decreased warmth. The ulcer along the plantar surface of the right foot under the 1st metatarsal head does not appear to be expressing any discharge. The desquamation of skin has improved. Similar findings in the left foot. Decreased warmth, decreased erythema, and improved desquamation. Laboratory data shows stable blood glucose of 154. ASSESSMENT/PLAN: 1. Acute on chronic cellulitis of bilateral lower extremities with ulcer on the plantar aspect of the right foot. Cultures again positive for Pseudomonas, Klebsiella on the right, and Proteus, Citrobacter, and Enterobacter on the left, all of which are susceptible to cefepime. We will discontinue the daptomycin at this time. 2. Chronic atrial fibrillation. Continue his home medicines. He did have 1 episode of tachycardia overnight. We will continue to monitor this. 3. History of coronary artery disease and peripheral artery disease requiring stent. Continue his home medications. Blood pressure is stable. 4. History of insulin-dependent diabetes mellitus. Blood sugars continue to be in an acceptable range. Continue long-acting and sliding scale insulin. 5. Chronic kidney disease stage 3. Stable. BMP labs were not drawn today. We will repeat this tomorrow to monitor sodium and potassium. 6. Possible scabies infection. We discussed this with him. He has had continued pruritus over his arms as well as abdomen despite having been on Benadryl. We have also prescribed topical permethrin cream and will be directed on how to use this. Dictated by Wilfred Veliz, Medical Student for Power Allen MD This chart was documented by, Wilfred Veliz Medical Student and accurately reflects the services performed, treatment plan and medical decisions as attested by the providers signature Power Allen MD. cc: Power Allen MD I agree with most components of this progress note. I independently evaluated the patient and a separate note has been dictated. JENNYFER
[2019-09-08] MEDS: PHENERGAN PO SCH (17:39)
[2019-09-08] MEDS: PRILOSEC PO SCH (21:25)
[2019-09-08] MEDS: EFFEXOR XR PO SCH (21:25)
[2019-09-08] MEDS: LIPITOR PO SCH (21:26)
[2019-09-08] MEDS: TYLENOL PO PRN (21:31)
[2019-09-08] MEDS: LANTUS INSULIN SUBQ SCH (21:33)
[2019-09-08] MEDS: MIRAPEX PO SCH (21:34)
[2019-09-09] MEDS: PHENERGAN PO SCH ×3 (00:05→16:23)
[2019-09-09] MEDS: MAXIPIME 2 GM/NS 2 GM/100 ML IVPB IV SCH ×2 (03:38→16:20)
[2019-09-09] MEDS: OXY IR PO PRN ×3 (03:42→21:02)
[2019-09-09] MEDS: TYLENOL PO PRN ×3 (03:42→21:02)
[2019-09-09] MEDS: HUMALOG SUBQ SCH ×4 (06:05→21:05)
[2019-09-09] MEDS: CARAFATE PO SCH ×5 (06:05→21:03)
[2019-09-09 08:03] LABS: BASO# 0.02 X1000 (0.0-0.2); BASO% 0.3 % (0.0-0.8); EOS# 0.03 X1000 (0.0-0.7); EOS% 0.5 % (0.0-10.0); HEMATOCRIT 42.2 % (42.0-52.0); HEMOGLOBIN 13.1 g/dL (14.0-18.0); IMM GRAN# 0.08 X1000 (0.0-0.04); IMM GRAN% 1.3 % (0.0-0.5); LYMPH# 1.54 X1000 (1.2-3.4); LYMPH% 25.2 % (20.5-51.1); MCH 28.5 PG (27-31); MCV 91.9 FL (81-99); MONO% 9.8 % (1.7-9.3); MPV 11.5 FL (7.4-10.4); NEUT# 3.83 X1000 (1.4-6.5); NEUT% 62.9 % (42.2-75.2); PLT 163 X1000 (130-400); RBC 4.59 XMIL (4.7-6.1); RDW 14.9 % (11.5-14.5)
[2019-09-09 08:32] LABS: CREATININE 1.6 mg/dL (0.7-1.2); POTASSIUM 4.2 mmol/L (3.5-5.1)
[2019-09-09] MEDS: APRESOLINE PO SCH ×3 (09:05→21:02)
[2019-09-09] MEDS: ELIQUIS PO SCH ×2 (09:05→21:03)
[2019-09-09] MEDS: HYGROTON PO SCH (09:05)
[2019-09-09] MEDS: TUMS PO SCH ×3 (09:05→16:23)
[2019-09-09] MEDS: COREG PO SCH ×2 (09:05→21:03)
[2019-09-09] MEDS: CITRACAL + D PO SCH ×2 (09:06→21:02)
[2019-09-09] MEDS: DIFLUCAN PO SCH (09:06)
[2019-09-09] MEDS: MIRALAX PO SCH ×2 (09:14→21:05)
[2019-09-09] MEDS: CARDIZEM CD PO SCH (09:14)
[2019-09-09] MEDS: DULCOLAX PR SCH ×2 (09:14→21:05)
[2019-09-09] MEDS: NIZORAL 2% CREAM TOP SCH ×2 (09:16→21:07)
--- NOTE | 2019-09-09 12:53 | PROGRESS NOTE ---
DATE: 09/09/2019 SUBJECTIVE: He denies any new complaints. He states that he is still itchy throughout his arms and abdomen. He states that he has had some shortness of breath, but currently appears to be comfortable. OBJECTIVE: Vital Signs: Blood pressure is currently 112/69, pulse 79, respiratory rate 18, temperature 98.2 degrees. He is currently saturating at 92%. However, he has been at 95% to 97% before that. He is breathing on room air. Cardiovascular: Regular rate and rhythm. Normal S1, S2. No murmurs, rubs, or gallops. Pulmonary: Lungs are clear to auscultation. No wheezes, crackles, or rales. Abdomen: Soft, nontender, nondistended. Active bowel sounds. Lower Extremities: The right lower extremity appears stable in comparison to yesterday. There is still some warmth diffuse throughout the lower leg. Desquamated skin continues to peel. There is no active oozing from the ulcer under the first metatarsal head on the right foot. The left lower extremity appears stable as well, still some erythema and calor. ASSESSMENT AND PLAN: 1. Acute on chronic cellulitis, bilateral lower extremities. His antibiotics were changed yesterday to Cefepime. His feet appear stable at this time. We appreciate the recommendations from Infectious Disease. 2. Chronic atrial fibrillation. Will continue his home medications, including diltiazem, carvedilol, and apixaban. He has had heart rate of 92 and up to 97. Will continue to monitor this for now. 3. History of coronary artery disease and peripheral artery disease. Continue his home medications. Blood pressures remain stable. 4. History of insulin-dependent diabetes mellitus. His blood sugars today have been stable at this time. He did have one reading of 260. Will give him his sliding scale, and check his sugars again. Will continue to keep him on his long-acting and sliding scale. 5. Chronic kidney disease stage 3. BMP today showed that his creatinine has been stable at 1.6. 6. Pruritus. He still continues to complain of generalized pruritus. Stated that the promethazine did not help. Neither did the topical permethrin, and Benadryl still continues to not provide relief. Will continue to monitor this and treat accordingly. Dictated by Wilfred Veliz, Medical Student for Poewr Allen MD This chart was documented by, Wilfred Callaway, Medical Student and accurately reflects the services performed, treatment plan and medical decisions as attested by the providers signature Power Allen MD. cc: Power Allen MD I agree with most components of this progress note. I independently evaluated the patient and a separate note has been dictated. MTDD
--- NOTE | 2019-09-09 20:07 | PROGRESS NOTE ---
DATE: 09/09/2019 INTERVAL HISTORY: Mr. Gutiérrez used permethrin cream which did not help with his itching. SUBJECTIVE: He denies new complaints. We discussed about his wounds, need for current antibiotics. We also discussed about starting him on another medication for his itching. VITALS: Temperature 98.2 degrees, pulse 75, respiratory 18, blood pressure 130/58, saturating 94% room air. PHYSICAL EXAMINATION: General: Obese, not in acute distress. HEENT: Oral cavity is moist. Lungs: Air entry bilaterally. No wheezes or rhonchi. Cardiovascular: S1, S2 normal. Irregularly irregular. No murmur or gallop. Abdomen: Obese, soft, nontender. Extremities: Bilateral lower extremity edema. His erythema and warmth has significantly improved. He continues to have ulceration oozing from bilateral lower feet. Neurologic: He is alert and oriented x3. INPUT AND OUTPUT: Suggests he had a bowel movement the day before yesterday. LABS: His hemoglobin is 13.1, platelet 163,000. His BUN is 15, creatinine 1.6. Blood glucose has been in acceptable range. No new microbiological data. ASSESSMENT AND PLAN: 1. Acute on chronic cellulitis of the bilateral lower extremities with Pseudomonas, Klebsiella, Proteus, Citrobacter and Enterobacter cloacae infections sensitive to cefepime. 2. Chronic atrial fibrillation. 3. History of coronary artery disease, peripheral artery disease requiring stent. 4. Hyperlipidemia. 5. Insulin-dependent diabetes mellitus. 6. Generalized itchy rash. PLAN: 1. Continue current dose of intravenous cefepime and I appreciate Infectious Disease team's recommendation about long-term antibiotic management plan for him. 2. I will also continue her current dose of insulin glargine and mealtime sliding scale insulin. He did not improve after topical permethrin. I will start him on topical betamethasone cream with hydroxyzine. 3. Disposition. Awaiting further Infectious Disease recommendations. cc: Power Allen MD
[2019-09-09] MEDS: PRILOSEC PO SCH (21:03)
[2019-09-09] MEDS: LIPITOR PO SCH (21:03)
[2019-09-09] MEDS: EFFEXOR XR PO SCH (21:03)
[2019-09-09] MEDS: MIRAPEX PO SCH (21:04)
[2019-09-09] MEDS: LANTUS INSULIN SUBQ SCH (21:06)
[2019-09-09] MEDS: VALISONE 0.1% CREAM TOP SCH (21:08)
[2019-09-10] MEDS: MAXIPIME 2 GM/NS 2 GM/100 ML IVPB IV SCH ×2 (03:03→15:38)
[2019-09-10] MEDS: OXY IR PO PRN ×3 (03:06→20:29)
[2019-09-10] MEDS: TYLENOL PO PRN ×3 (03:06→20:29)
[2019-09-10] MEDS: HUMALOG SUBQ SCH ×4 (06:02→20:32)
[2019-09-10] MEDS: CARAFATE PO SCH ×4 (06:03→20:29)
[2019-09-10] MEDS: MIRALAX PO SCH ×2 (08:46→20:29)
[2019-09-10] MEDS: DULCOLAX PR SCH ×2 (08:46→20:28)
[2019-09-10] MEDS: CARDIZEM CD PO SCH (08:47)
[2019-09-10] MEDS: APRESOLINE PO SCH ×3 (08:47→20:29)
[2019-09-10] MEDS: CITRACAL + D PO SCH ×2 (08:47→20:29)
[2019-09-10] MEDS: COREG PO SCH ×2 (08:47→20:29)
[2019-09-10] MEDS: ELIQUIS PO SCH ×2 (08:47→20:29)
[2019-09-10] MEDS: HYGROTON PO SCH (08:47)
[2019-09-10] MEDS: TUMS PO SCH ×3 (08:47→16:06)
[2019-09-10] MEDS: DIFLUCAN PO SCH (08:47)
[2019-09-10] MEDS: LASIX PO SCH ×2 (08:47→13:00)
[2019-09-10] MEDS: NIZORAL 2% CREAM TOP SCH ×2 (08:48→20:28)
[2019-09-10] MEDS: VALISONE 0.1% CREAM TOP SCH ×2 (08:48→20:28)
--- NOTE | 2019-09-10 11:10 | PROGRESS NOTE ---
DATE: 09/10/2019 INTERVAL HISTORY: No acute events overnight. SUBJECTIVE: He denies new complaints. Denies chest pain, shortness of breath. VITALS: Temperature 97.8 degrees, pulse 81, respiratory 18, blood pressure 118/80, saturating 98% on room air. PHYSICAL EXAMINATION: General: Input and output suggests he was -1.7 liters yesterday; since admission he is -8.5 liters. Respiratory: Air entry bilaterally equal. No wheeze, rhonchi, crackles. Cardiovascular: S1, S2 normal. No murmur or gallop. Irregularly irregular. Abdomen: Obese, soft, nontender. Extremities: Bilateral lower extremity edema, which is decreasing. His erythema and warmth has significantly improved. He continues to have ulceration and oozing from bilateral lower feet, including mild oozing of blood. Neurologic: He is alert and oriented x3. LABS: Suggestive of hemoglobin 13.1, platelets of 163. His BUN is 15, creatinine of 1.6. MICROBIOLOGY: No new data. ASSESSMENT AND PLAN: 1. Acute on chronic cellulitis of bilateral lower extremity with Pseudomonas, Klebsiella, Proteus, Citrobacter and Enterobacter cloacae sensitive to cefepime. Continue intravenous cefepime. Follow up final Infectious Disease recommendation of long-term antibiotics. 2. Chronic atrial fibrillation. Continue current dose of diltiazem, carvedilol, apixaban. 3. Bilateral lower extremity tinea pedis and edema. Continue his home medication of chlorthalidone. Add a dose of Lasix and continue oral fluconazole, as well as local wound care. 4. Generalized itching. He did not respond to scabies treatment with topical permethrin. I will start him on oral hydroxyzine and topical betamethasone ointment. He may need outpatient followup with Dermatology. 5. Disposition: Awaiting further Infectious Disease recommendations. 6. Insulin-dependent diabetes mellitus, currently well controlled on sliding scale insulin and long-acting insulin. 7. Others: Continue atorvastatin for hyperlipidemia, omeprazole and sucralfate for chronic gastroesophageal reflux disease, venlafaxine and oxycodone for anxiety and chronic pain. His chronic kidney dysfunction appears to be stable. cc: Power Allen MD
[2019-09-10] MEDS: ATARAX PO PRN (12:05)
--- NOTE | 2019-09-10 16:05 | INFECTIOUS DISEASE PROGRESS NO ---
DATE: 09/10/2019 PRESENT ILLNESS: Mr. Gutiérrez is being treated for a bilateral lower extremity cellulitis, growing multiple infectious organisms. MEDICATION: He is receiving cefepime 2 g IV every 12 hours as a renally modified dose, Diflucan 200 mg by mouth daily, and ketoconazole 2% cream topically to his feet twice a day. PHYSICAL EXAMINATION: Vital Signs: Temperature is 97.6 degrees, pulse rate 84, respiratory rate 18, blood pressure 120/72, O2 saturation 96% on room air. General: This is a chronically ill- appearing, elderly gentleman. He is lying in the bed currently in no acute distress. HEENT: Atraumatic, normocephalic. Oral mucous membranes are pink and moist. Conjunctivae are pink. Neck: Supple. Trachea is midline. Cardiovascular: Irregularly irregular with a history of chronic atrial fibrillation. Respiratory: Lung sounds have some scattered wheezes noted bilaterally. No work of breathing is noted. Integumentary: Skin is warm and dry. Lower extremities are both edematous with purple indurated skin to the calf areas. There is raw, erythematous areas, and dry eschar to the toes and feet bilaterally, and a plantar wound to the right foot which is dry. Neurologic: He is awake, alert, oriented. Able to move around independently in the bed. LABORATORY AND X-RAY: None available today but yesterday his white count was 6.1, hemoglobin 13.1, platelet count 163,000, creatinine 1.6 and GFR 43. His right foot culture grew Pseudomonas and Klebsiella and his left foot culture grew Proteus, Citrobacter and Enterobacter. No imaging reports today. ASSESSMENT AND PLAN: Mr. Gutiérrez is being treated for bilateral lower extremity cellulitis particularly to his feet which appears to be mildly improved. He has grown multiple organisms to his feet but luckily all of these are susceptible to cefepime, which we will continue. He will need to continue cefepime for at least 3 weeks. I have spoken with Dr. Allen and the patient. Dr. Allen plans to put in a consult for rehab for the patient, who is willing to go. He will need cefepime 2 g IV every 12 hours as renally modified dose due to his decreased GFR. After he gets out of rehab we will plan to see him in our office to determine further treatment if needed. He is also receiving oral fluconazole and ketoconazole topically which the wound care nurse suggests that we continue. We do believe there is possibly a fungal component to his wounds. We will go ahead and put in orders for PICC line insertion to be done tomorrow as well as the lab work required for that in the morning. Orders have been written out for rehab, and are on the front of the patient's chart. These plans have been discussed with and recommended by Dr. Alonzo. COMORBIDITIES: Include that he is elderly and obese with obstructive sleep apnea, chronic obstructive pulmonary disease, congestive heart failure, chronic atrial fibrillation, peripheral vascular disease, coronary artery disease, osteoarthritis with limited mobility and diabetes mellitus. Dictated by UNIQUE Robins for Juan Antonio Alonzo MD cc: Juan Antonio Alonzo MD MTDNasima
[2019-09-10] MEDS: LIPITOR PO SCH (20:29)
[2019-09-10] MEDS: PRILOSEC PO SCH (20:29)
[2019-09-10] MEDS: EFFEXOR XR PO SCH (20:29)
[2019-09-10] MEDS: MIRAPEX PO SCH (20:30)
[2019-09-10] MEDS: LANTUS INSULIN SUBQ SCH (20:32)
[2019-09-11] MEDS: OXY IR PO PRN ×3 (03:01→14:59)
[2019-09-11] MEDS: MAXIPIME 2 GM/NS 2 GM/100 ML IVPB IV SCH ×2 (03:01→14:04)
[2019-09-11] MEDS: TYLENOL PO PRN (03:01)
[2019-09-11] MEDS: ATARAX PO PRN (04:52)
[2019-09-11] MEDS: CARAFATE PO SCH ×4 (06:18→21:51)
[2019-09-11] MEDS: HUMALOG SUBQ SCH ×4 (06:19→21:53)
[2019-09-11 08:20] LABS: BASO# 0.03 X1000 (0.0-0.2); BASO% 0.4 % (0.0-0.8); EOS# 0.04 X1000 (0.0-0.7); EOS% 0.5 % (0.0-10.0); HEMATOCRIT 40.5 % (42.0-52.0); HEMOGLOBIN 13.1 g/dL (14.0-18.0); IMM GRAN# 0.08 X1000 (0.0-0.04); IMM GRAN% 1.1 % (0.0-0.5); INR 1.3; LYMPH# 1.74 X1000 (1.2-3.4); LYMPH% 23.7 % (20.5-51.1); MCH 29.2 PG (27-31); MCHC 32.3 g/dL (33-37); MCV 90.4 FL (81-99); MONO# 0.62 X1000 (0.11-0.59); MONO% 8.4 % (1.7-9.3); MPV 11.3 FL (7.4-10.4); NEUT# 4.84 X1000 (1.4-6.5); NEUT% 65.9 % (42.2-75.2); PLT 159 X1000 (130-400); PROTIME 16.4 Seconds (11.0-16.0); RBC 4.48 XMIL (4.7-6.1); RDW 14.8 % (11.5-14.5); WBC 7.35 X1000 (4.8-10.8)
[2019-09-11] MEDS: DULCOLAX PR SCH ×2 (08:52→21:51)
[2019-09-11] MEDS: LASIX PO SCH (08:53)
[2019-09-11] MEDS: CARDIZEM CD PO SCH (08:53)
[2019-09-11] MEDS: APRESOLINE PO SCH ×3 (08:53→21:51)
[2019-09-11] MEDS: CITRACAL + D PO SCH ×2 (08:53→21:50)
[2019-09-11] MEDS: COREG PO SCH ×2 (08:53→21:50)
[2019-09-11] MEDS: MIRALAX PO SCH ×2 (08:53→21:51)
[2019-09-11] MEDS: HYGROTON PO SCH (08:53)
[2019-09-11] MEDS: ELIQUIS PO SCH ×2 (08:53→21:50)
[2019-09-11] MEDS: TUMS PO SCH ×3 (08:54→16:43)
[2019-09-11] MEDS ORDERED: NS 250 ML ONE (08:54)
[2019-09-11] MEDS: DIFLUCAN PO SCH (08:54)
[2019-09-11] MEDS: VALISONE 0.1% CREAM TOP SCH ×2 (08:57→21:45)
[2019-09-11] MEDS: NIZORAL 2% CREAM TOP SCH ×2 (08:57→21:45)
[2019-09-11 09:11] LABS: CALCIUM 9.2 mg/dL (8.8-10.2); CREATININE 1.6 mg/dL (0.7-1.2); POTASSIUM 3.5 mmol/L (3.5-5.1)
--- NOTE | 2019-09-11 11:44 | Diag Imaging Result Doc PS360 ---
EXAM: CHEST-PORTABLE HISTORY: PICC line placement TECHNIQUE: Single view COMPARISON: 04/23/2019 FINDINGS: The lungs are well expanded. No pulmonary edema. Tiny left effusion versus pleural thickening. No consolidation. There is a left-sided PICC line. Tip overlies the mid to distal superior vena cava. IMPRESSION: PICC line overlies the mid to distal superior vena cava. Electronically signed by Cezar Sheehan 09/11/2019 11:42 AM
[2019-09-11] MEDS ORDERED: NEURONTIN PO ONE (13:09)
--- NOTE | 2019-09-11 18:54 | INFECTIOUS DISEASE PROGRESS NO ---
DATE: 09/11/2019 PRESENT ILLNESS: Mr. Gutiérrez is being treated for bilateral lower extremity cellulitis with multiple infectious organisms. There may be a fungal component to the infected areas of his toes and feet. MEDICATIONS: Today is day 6 of cefepime 2 g IV every 12 hours as a renally modified dose. He is also on fluconazole 200 mg p.o. daily and ketoconazole 2% topically to his toes. These have been provided for the last 5 days. PHYSICAL EXAMINATION: Vital Signs: Temperature is 97.6 degrees, pulse rate 88, respiratory rate 18, blood pressure 117/72, O2 saturation is 97% on room air. General: This is a chronically ill- appearing, elderly, morbidly obese gentleman. He is sitting up in the bed, currently in no acute distress. HEENT: Atraumatic, normocephalic. Oral mucous membranes are pink and moist. Conjunctivae are pink. Neck: Supple. Trachea is midline. Cardiovascular: Irregularly irregular with atrial fibrillation and ectopy noted on the monitor. Respiratory: Lung sounds are diminished in the bases with some mild scattered wheezing noted in the upper lobes. No work of breathing is noted. Integumentary: Skin is warm and dry with PICC line that is now in place to the left upper arm. That site is without edema, erythema, or drainage. The calves bilaterally have purple, indurated skin. The toes and feet bilaterally have dry eschar with erythematous and raw areas, as well as a plantar wound noted to the right foot below the great toe, which is round and dry at this time. Neurologic: He is awake, alert, oriented, able to move around in the bed independently. LABORATORY AND X-RAY: Today, his white count is 7.35, hemoglobin 13.1, platelet count 159,000. Creatinine is 1.6, GFR 43. His right foot previously grew Pseudomonas and Klebsiella. His left foot grew Proteus, Citrobacter, and Enterobacter. Chest x-ray done today showed the PICC line in the correct position with no consolidation or pulmonary edema. ASSESSMENT AND PLAN: Mr. Gutiérrez is being treated for bilateral lower extremity cellulitis, especially to the bilateral feet. He is receiving cefepime for the multiple organisms that have grown to his feet. This has renally modified dosing, which we will continue. The wound care nurse has also suggested the use of fluconazole and ketoconazole for a possible fungal component to the toes, which we will also continue. The plan is for him to go to rehab, and to continue to receive IV antibiotics, fluconazole and ketoconazole. He is awaiting approval for transfer. We have already filled out orders for rehab and plan to see the patient the day after he is discharged from the rehab to determine whether he needs to continue treatment or whether his PICC line can be removed. These plans have been discussed with and recommended by Dr. Alonzo. COMORBIDITIES: For Mr. Gutiérrez, include that he is elderly and morbidly obese with sleep apnea, chronic obstructive pulmonary disease, congestive heart failure, chronic atrial fibrillation, peripheral vascular disease, coronary artery disease, osteoarthritis with limited mobility, and diabetes mellitus with chronic noncompliance. Dictated by UNIQUE Robins for Juan Antonio Alonzo MD cc: Juan Antonio Alonzo MD MTDD
--- NOTE | 2019-09-11 20:15 | PROGRESS NOTE ---
DATE: 09/11/2019 SUBJECTIVE: The patient is resting comfortably in bed. He has no complaints at this time. OBJECTIVE: Vital Signs: Temperature 97 degrees, blood pressure 113/85, heart rate 117, respirations 18, O2 saturation 97% on room air. General: This is a morbidly obese male lying in bed in no acute distress. Heart: S1, S2 normal. Tachycardic. Lungs: Equal air entry bilaterally. No wheezing. No rales. Abdomen: Positive bowel sounds. Soft, obese, nontender, nondistended. Extremities: The patient has chronic venous stasis and his feet are erythematous and indurated with raw areas between the toes of both feet. Neurologic: The patient is alert and oriented x3. LABS: White blood cell count 7.3, hemoglobin 13, hematocrit 40, platelets 159,000. Sodium 135, INR 1.3, BUN 18, creatinine 1.6. ASSESSMENT AND PLAN: 1. Polymicrobial bilateral lower extremity cellulitis. Continue on Maxipime as directed by Dr. Alonzo. 2. Morbid obesity. Aware. 3. Diabetes mellitus type 2. Continue on sliding scale insulin. 4. Chronic kidney disease stage 3. Stable. 5. Hypertension. Controlled. 6. Chronic atrial fibrillation. Continue on Coreg, Cardizem and Eliquis. 7. Pruritus. We will start the patient on gabapentin and monitor closely. 8. Gastroesophageal reflux disease. Continue on omeprazole. 9. Disposition. Once the patient is medically stable, he will be discharged to inpatient rehab. He will need IV antibiotics as outpatient. cc: Clau Ashton MD MTDD
[2019-09-11] MEDS: PRILOSEC PO SCH (21:00)
[2019-09-11] MEDS: EFFEXOR XR PO SCH (21:50)
[2019-09-11] MEDS: MIRAPEX PO SCH (21:50)
[2019-09-11] MEDS: LIPITOR PO SCH (21:50)
[2019-09-11] MEDS: NEURONTIN PO SCH (21:51)
[2019-09-11] MEDS: LANTUS INSULIN SUBQ SCH (21:54)
[2019-09-12] MEDS: OXY IR PO PRN ×3 (03:26→22:02)
[2019-09-12] MEDS: MAXIPIME 2 GM/NS 2 GM/100 ML IVPB IV SCH ×2 (03:26→14:37)
[2019-09-12] MEDS: TYLENOL PO PRN (06:11)
[2019-09-12] MEDS: HUMALOG SUBQ SCH ×4 (06:11→22:06)
[2019-09-12] MEDS: CARAFATE PO SCH ×4 (06:11→22:00)
[2019-09-12] MEDS: APRESOLINE PO SCH ×3 (08:16→22:00)
[2019-09-12] MEDS: CARDIZEM CD PO SCH (08:16)
[2019-09-12] MEDS: HYGROTON PO SCH (08:16)
[2019-09-12] MEDS: COREG PO SCH ×2 (08:16→21:59)
[2019-09-12] MEDS: DIFLUCAN PO SCH (08:16)
[2019-09-12] MEDS: TUMS PO SCH ×3 (08:16→16:13)
[2019-09-12] MEDS: CITRACAL + D PO SCH ×2 (08:16→22:00)
[2019-09-12] MEDS: NEURONTIN PO SCH ×2 (08:16→22:00)
[2019-09-12] MEDS: LASIX PO SCH (08:17)
[2019-09-12] MEDS: DULCOLAX PR SCH ×2 (08:17→22:00)
[2019-09-12] MEDS: MIRALAX PO SCH ×2 (08:17→22:00)
[2019-09-12] MEDS: ELIQUIS PO SCH ×2 (08:17→21:59)
[2019-09-12] MEDS: NIZORAL 2% CREAM TOP SCH ×2 (08:19→22:01)
[2019-09-12] MEDS: VALISONE 0.1% CREAM TOP SCH ×2 (08:20→22:01)
--- NOTE | 2019-09-12 14:13 | PROGRESS NOTE ---
DATE: 09/12/2019 SUBJECTIVE: The patient is resting comfortably in bed. He has no complaints at this time. No acute events noted overnight. OBJECTIVE: Vital Signs: Temperature 97.8 degrees, blood pressure 114/59, heart rate 88, respirations 18, O2 saturation is 96% on room air. General: This is a chronically ill-appearing male lying in bed, in no acute distress. Heart: S1, S2 normal. Regular rate and rhythm. Lungs: Clear to auscultation bilaterally. Abdomen: Positive bowel sounds. Soft, nontender, nondistended. Extremities: No edema. The patient appears to have chronic venous stasis with induration involving both legs. He has lacerations involving the toes of both feet and healing wounds present on both feet. Neurologic: The patient is alert and oriented x3. LABS: None. ASSESSMENT AND PLAN: 1. Polymicrobial bilateral lower extremity cellulitis. Continue on Maxipime. 2. Diabetes mellitus type 2. Stable. Continue on sliding scale insulin. 3. Morbid obesity. Aware. 4. Chronic kidney disease stage 3. Stable. 5. Hypertension. Controlled. 6. Chronic atrial fibrillation. Continue on Coreg, Cardizem, and Eliquis. 7. Pruritus. Continue on the current treatment regimen. 8. Gastroesophageal reflux disease. Continue on omeprazole. 9. Disposition. [facility] is working on inpatient rehab placement for the patient. cc: Clau Ashton MD
--- NOTE | 2019-09-12 20:00 | INFECTIOUS DISEASE PROGRESS NO ---
DATE: 09/12/2019 PRESENT ILLNESS: The patient is being treated for bilateral lower extremity cellulitis, which is being caused by the following organisms: Pseudomonas aeruginosa, Klebsiella, Proteus, Citrobacter, and Enterobacter. Also, even though fungus did not grow, the wound nurse who has been caring for Mr. Gutiérrez with us, namely Kelsie, feels that there could be a fungal component to the cellulitis and I agree with that. MEDICATIONS: This is the 7th day of treatment with a combination of cefepime and fluconazole. PHYSICAL EXAMINATION: Vital Signs: Temperature is 97.8 degrees, pulse 88, respirations 18, blood pressure 114/59. Generally: This is a morbidly obese, elderly male. He looks chronically ill. Head/eyes/ears/nose/throat: He can hear my spoken words and see near objects. There is no drainage coming from his nose or ears. The patient does not have any white patches in his mouth. Neck: No pain with movement. Lungs: Clear to auscultation. Cardiovascular: Heart rate is irregular. Abdomen: Soft and nontender. Neurologic: The patient is alert. He can move his extremities. There is no tremor. Integument: Both legs are less edematous and erythematous than when they came in the hospital. Some of the eschars that were present have fallen off and there has been some scaling of the epidermidis. LAB AND X-RAY: There is no new lab or x-ray for today. ASSESSMENT AND PLAN: The patient has leg cellulitis. My plan is to continue with his current antibiotics, namely cefepime and fluconazole. COMORBIDITIES: The patient is elderly. He is morbidly obese. He also has chronic obstructive pulmonary disease, sleep apnea, congestive heart failure, chronic atrial fibrillation, peripheral vascular disease, diabetes mellitus and chronic noncompliance with medication and other things to improve his health. The main one of those are the other things to improve his health is for him to lose weight and to elevate his legs all the time unless he is walking or has to stand for a while. He usually is noncompliant with those 2 things also. cc: Juan Antonio Alonzo MD
[2019-09-12] MEDS: PRILOSEC PO SCH (21:59)
[2019-09-12] MEDS: ATARAX PO PRN (21:59)
[2019-09-12] MEDS: EFFEXOR XR PO SCH (22:00)
[2019-09-12] MEDS: LIPITOR PO SCH (22:00)
[2019-09-12] MEDS: MIRAPEX PO SCH (22:00)
[2019-09-12] MEDS: LANTUS INSULIN SUBQ SCH (22:07)
[2019-09-13] MEDS: MAXIPIME 2 GM/NS 2 GM/100 ML IVPB IV SCH (03:34)
[2019-09-13] MEDS: HUMALOG SUBQ SCH ×2 (06:23→11:17)
[2019-09-13] MEDS: CARAFATE PO SCH ×2 (06:23→11:17)
[2019-09-13 08:33] LABS: HEMATOCRIT 42.7 % (42.0-52.0); HEMOGLOBIN 13.9 g/dL (14.0-18.0); MCH 29.4 PG (27-31); MCHC 32.6 g/dL (33-37); MCV 90.3 FL (81-99); MPV 11.7 FL (7.4-10.4); RBC 4.73 XMIL (4.7-6.1); WBC 6.92 X1000 (4.8-10.8)
[2019-09-13] MEDS: LASIX PO SCH (08:38)
[2019-09-13] MEDS: OXY IR PO PRN (08:38)
[2019-09-13] MEDS: HYGROTON PO SCH (08:39)
[2019-09-13] MEDS: APRESOLINE PO SCH (08:39)
[2019-09-13] MEDS: CITRACAL + D PO SCH (08:39)
[2019-09-13] MEDS: DIFLUCAN PO SCH (08:39)
[2019-09-13] MEDS: CARDIZEM CD PO SCH (08:39)
[2019-09-13] MEDS: TUMS PO SCH ×2 (08:39→11:17)
[2019-09-13] MEDS: NEURONTIN PO SCH (08:39)
[2019-09-13] MEDS: ELIQUIS PO SCH (08:39)
[2019-09-13] MEDS: MIRALAX PO SCH (08:40)
[2019-09-13] MEDS: COREG PO SCH (08:40)
[2019-09-13] MEDS: DULCOLAX PR SCH (08:40)
[2019-09-13] MEDS: VALISONE 0.1% CREAM TOP SCH (08:42)
[2019-09-13] MEDS: NIZORAL 2% CREAM TOP SCH (08:42)
[2019-09-13 08:53] LABS: CALCIUM 9.3 mg/dL (8.8-10.2); CREATININE 1.7 mg/dL (0.7-1.2); POTASSIUM 3.7 mmol/L (3.5-5.1)
[2019-09-13 11:46] VITALS: BP 125/77
--- NOTE | 2019-09-13 12:51 | DISCHARGE SUMMARY ---
ADMISSION DATE: 09/05/2019 DISCHARGE DATE: 09/13/2019 FINAL DISCHARGE DIAGNOSES: 1. Acute on chronic polymicrobial cellulitis of the lower extremities. 2. Chronic atrial fibrillation on Eliquis 3. Bilateral lower extremity tinea pedis. 4. Chronic venous stasis of lower extremities. 5. Generalized pruritus. 6. Morbid obesity. 7. Insulin-dependent diabetes mellitus. 8. Gastroesophageal reflux disease. 9. Anxiety disorder. 10. Chronic kidney disease. 11. Hypertension CONSULTATIONS: ID consultation with Dr. Alonzo. IMAGING: Bone scan performed on 09/06/2019 which revealed no evidence of osteomyelitis. HOSPITAL COURSE: Mr. Gutiérrez is a 69-year-old male with a history of chronic venous stasis and chronic infection involving the lower extremities, who presented as a direct admit from Dr. Alonzo' office with bilateral lower extremity cellulitis. The patient was admitted to the hospitalist service. Cultures of both feet were obtained and the patient was started on daptomycin. Ultimately, the wound cultures grew out multiple organisms including Pseudomonas aeruginosa, Klebsiella pneumoniae, Proteus mirabilis, Citrobacter braakii and Enterobacter cloacae. It was recommended by Dr. Alonzo that the patient be treated for a total of 20 days with cefepime. The patient had a PICC line placed. Slowly over the course of the hospitalization, the patient's infection has been noted to be improved. Due to the inability of the patient to take care of himself, an inpatient rehab consultation was placed. The patient stated that he wanted to go to [facility]. However, [facility]. A referral was sent to [facility] who is now able to accept the patient for inpatient rehab. At this time, the patient is medically stable for discharge to [facility] inpatient rehabilitation. DISCHARGE MEDICATIONS: 1. Cefepime 2 g IV q.12 hours x20 days. 2. Eliquis 5 mg oral twice a day. 3. Atorvastatin 40 mg oral at bedtime. 4. Betamethasone cream applied to the affected areas twice a day. 5. Dulcolax 10 mg per rectum twice a day. 6. Calcium plus vitamin D 1 tablet oral twice a day. 7. Coreg 12.5 mg oral twice a day. 8. Chlorthalidone 25 mg oral daily. 9. Cardizem 240 mg oral daily. 10. Lasix 40 mg p.o. daily. 11. Gabapentin 100 mg oral twice a day. 12. Hydralazine 25 mg oral 3 times a day. 13. Atarax 25 mg oral 3 times a day p.r.n. for itching. 14. Lantus 12 units subcutaneous at bedtime. 15. Humalog sliding scale. 16. Omeprazole 40 mg p.o. at bedtime. 17. Oxy IR 15 mg oral every 6 hours p.r.n. for pain. 18. MiraLAX 17 g oral twice a day. 19. Mirapex 1.5 mg oral at bedtime. 20. Carafate 1 g oral before meals and at bedtime. 21. Effexor ER 75 mg oral at bedtime. 22. Glipizide 5 mg oral twice a day. DISCHARGE DIET: 1800 ADA diet; low-sodium diet. ACTIVITY: As tolerated. FOLLOW-UP INSTRUCTIONS: The patient will need to have a CBC with differential and a creatinine faxed every Tuesday to Dr. Alonzo' office. The patient will need to follow up with Dr. Alonzo upon completion of antibiotic therapy as scheduled by his clinic. cc: MD Yahir Woodall MD MTDD
== END 2019-09-13 13:46 | DRG 603 ==
LOC: SUATTDRO 10:36 → DIRADM 10:36 → EDIPHOLD 11:07 → 3N 17:41
PROVIDERS: ATTEND Internal Medicine

== ENCOUNTER 2019-10-01 12:21 | Inpatient (IN) ==
--- NOTE | 2019-10-01 13:40 | Diag Imaging Result Doc PS360 ---
EXAM: CHEST-PORTABLE HISTORY: SEPSIS ALERT TECHNIQUE: Single view COMPARISON: 09/11/2019 FINDINGS: The lungs are well expanded. The heart is not enlarged. The vessels are not distended. There are no infiltrates. No effusion identified. No change in the left-sided PICC line. IMPRESSION: No definite pneumonia Electronically signed by Cezar Sheehan 10/01/2019 1:38 PM
[2019-10-01 14:19] LABS: BASO# 0.02 X1000 (0.0-0.2); BASO% 0.3 % (0.0-0.8); HEMATOCRIT 41.3 % (42.0-52.0); HEMOGLOBIN 13.4 g/dL (14.0-18.0); IMM GRAN# 0.03 X1000 (0.0-0.04); IMM GRAN% 0.5 % (0.0-0.5); LYMPH# 1.59 X1000 (1.2-3.4); LYMPH% 24.5 % (20.5-51.1); MCH 28.6 PG (27-31); MCHC 32.4 g/dL (33-37); MCV 88.1 FL (81-99); MONO# 0.75 X1000 (0.11-0.59); MONO% 11.6 % (1.7-9.3); NEUT% 63.1 % (42.2-75.2); PLT 114 X1000 (130-400); RBC 4.69 XMIL (4.7-6.1); RDW 14.1 % (11.5-14.5); WBC 6.49 X1000 (4.8-10.8)
[2019-10-01 14:22] LABS: INR 0.97
[2019-10-01 14:23] LABS: PTT 27.2 Seconds (22.3-41.8)
--- NOTE | 2019-10-01 14:34 | Diag Imaging Result Doc PS360 ---
EXAM: FOOT COMPLETE LEFT HISTORY: possible osteomyelitis, DM foot wound TECHNIQUE: Three views COMPARISON: None. FINDINGS: No fracture. No dislocation. Long-standing arthritis. No bone erosions. No periosteal reaction. IMPRESSION: No definite plain film evidence of osteomyelitis. An MRI is recommended if symptoms persist. Electronically signed by Cezar Sheehan 10/01/2019 2:32 PM
--- NOTE | 2019-10-01 14:36 | Diag Imaging Result Doc PS360 ---
FOOT COMPLETE RIGHT - 10/01/2019 INDICATION: diabetic foot wound TECHNIQUE: Three views COMPARISON: 09/05/2019 FINDINGS: There has been enlargement of a potential soft tissue ulcer at the plantar forefoot. There is diffuse pedal edema that has worsened since prior. No diffuse soft tissue gas. No fractures or bony erosions. IMPRESSION: Worsening soft tissue ulceration at the plantar forefoot. Worsening diffuse pedal edema, nonspecific. Electronically signed by Maximus Crow 10/01/2019 2:33 PM
[2019-10-01 14:59] LABS: URINE SOURCE CLEAN CATCH
[2019-10-01 15:03] LABS: BILIRUBIN URINE NEGATIVE (NEGATIVE); BLOOD URINE MODERATE (NEGATIVE); COLOR YELLOW; GLUCOSE URINE NEGATIVE (NEGATIVE); KETONE URINE TRACE mg/dL (NEGATIVE); LEUKOCYTES URINE NEGATIVE (NEGATIVE); NITRITE URINE NEGATIVE (NEGATIVE); PROTEIN URINE 200 mg/dL (NEGATIVE); SP GRAVITY URINE 1.027; TURBIDITY URINE CLEAR (CLEAR); UR EPITHELIAL CELLS <10 /HPF (<10); URINE BACTERIA NEGATIVE /HPF; URINE RBC <10 /HPF (<10); URINE WBC <10 /HPF (<10); UROBILINOGEN URINE NORMAL (NORMAL)
[2019-10-01 15:18] LABS: ALB/GLOB RATIO 0.8; ALBUMIN 3.4 g/dL (3.5-5.0); CALCIUM 8.9 mg/dL (8.8-10.2); CREATININE 1.7 mg/dL (0.7-1.2); POTASSIUM 3.4 mmol/L (3.5-5.1); TOTAL BILIRUBIN 0.31 mg/dL (0.20-1.00); TOTAL PROTEIN 7.6 g/dL (6.3-8.3)
[2019-10-01] MEDS ORDERED: CLINDAMYCIN IV ONE (16:41)
--- NOTE | 2019-10-01 16:44 | PROVIDER DOCUMENTATION ---
This chart was entered by Tayler Del Valle Scribe, acting as scribe for Jose A Thorne MD. HPI-Rash/Wound/ReCheck - General Chief Complaint: SEPSIS ALERT Stated Complaint: RASH/DIABETIC Time Seen by Provider: 10/01/19 13:19 Source: patient, family Allergies/Adverse Reactions: Allergies Allergy/AdvReac Type Severity Reaction Status Date / Time No Known Allergies Allergy Verified 04/18/19 14:39 Home Medications: Home Medication List Medication Instructions Recorded Confirmed Last Taken Type ATORVAstatin [Lipitor] 40 mg PO QHS 05/06/16 10/01/19 09/04/19 21:00 History Omeprazole [Prilosec] 40 mg PO QHS 05/06/16 10/01/19 09/04/19 20:00 History Sucralfate [Carafate] 1 gm PO AC + HS 05/06/16 10/01/19 09/05/19 08:00 History Apixaban [Eliquis] 5 mg PO BID #60 tablet 10/25/17 10/01/19 09/05/19 07:00 Rx Glipizide [Glipizide ER] 5 mg PO BID 02/15/18 10/01/19 09/05/19 07:00 History Pramipexole Di-HCl [Mirapex] 1.5 mg PO HS 04/01/18 10/01/19 09/04/19 20:00 History Venlafaxine HCl [Venlafaxine HCl 75 mg PO QHS 04/01/18 10/01/19 09/04/19 20:00 History ER] Calcium Citrate/Vitamin D3 1 ea PO BID #60 tab 04/19/19 10/01/19 09/05/19 07:00 Rx [Calcium Citrate - Vit D3 Tab] Chlorthalidone 25 mg PO DAILY 04/23/19 10/01/19 04/22/19 08:30 History 25 mg Diltiazem HCl [Dilt-Xr] 240 mg PO DAILY 04/23/19 10/01/19 09/05/19 07:00 History Insulin Aspart [Novolog Flexpen] See Protocol SQ AC + HS PRN PRN 04/23/19 10/01/19 09/04/19 20:00 History Carvedilol [Coreg] 12.5 mg PO BID #120 tab 10/06/19 03/09/20 01/27/20 21:00 Rx Hydralazine [Apresoline] 25 mg PO TID #120 tab 04/29/19 10/01/19 08/21/19 07:00 Rx Betamethasone Valerate 0.1% Cr 1 applicatn TOP BID #1 tube 09/13/19 10/01/19 Unknown Rx [Valisone 0.1% Cream] Cefepime HCl [Maxipime] 2 gm IV Q12H #1 vial 09/13/19 10/01/19 Unknown Rx Furosemide [Lasix] 40 mg PO DAILY tab 09/13/19 10/01/19 Unknown Rx Gabapentin [Neurontin] 100 mg PO BID cap 09/13/19 10/01/19 Unknown Rx Hydroxyzine [Atarax] 25 mg PO TID PRN PRN tab 09/13/19 10/01/19 Unknown Rx Insulin Glargine [Lantus Insulin] 12 unit SUBQ QHS unit 09/13/19 10/01/19 Unknown Rx Oxycodone I.r. [Oxy Ir] 15 mg PO Q6H PRN PRN tab 09/13/19 10/01/19 Unknown Rx Polyethylene Glycol 3350 [Miralax] 17 gm PO BID powder, packet 09/13/19 10/01/19 Unknown Rx - History of Present Illness-Dermatology Nature of Presenting Problem: Pt is a 69 yowm with c/o diabetic wounds that have worsened since his discharge from the hospital 2 weeks ago. Pt states that he has a worsening rash that starts in his arm pits, goes down his sides, covers his chest abdomen and extends down his pelvis into his groin area that pt states itches all the time. Pt has an open diabetic wound on the pad of his right foot, cellulitis of the toes bilaterally. Pt's feet are obviously swollen and red. Pt states that he is SOB that has gotten worse over the last 2 weeks. Pt is alert and nontoxic in appearance. Location: reports: chest (rash), upper extremity (rash), feet (bilateral cellulitis, open diabetic wound on pad of right foot), genitalia (rash), torso (rash) Quality: reports: itchy (rash), painful (bilateral cellulitis, open wound on pad of right foot) Onset/Duration: reports: gradual, last week Timing: reports: still present, getting worse Context/Associated Symptoms: reports: edema (bilateral feet), rash (upper extermity, torso, abdomen, pelvis, groin), other (diabetic ulcer on pad of right foot) Exposure: denies: unknown cause Modifying Factors: worse with: scratching Locality of Occurance: Home Similar Symptoms Previously?: Yes Recently seen or treated by another doctor?: Yes (discharged from hospital 2 weeks) Review of Systems - Adult - REVIEW OF SYSTEMS - ADULT Constitutional: denies: chills, fever Eyes: reports: no symptoms reported Ears, Nose, Mouth & Throat: reports: no symptoms reported Cardiovascular: denies: chest pain, syncope Respiratory: reports: see HPI, shortness of breath Gastrointestinal: reports: no symptoms reported Genitourinary: reports: no symptoms reported Musculoskeletal: reports: no symptoms reported Integumentary: reports: see HPI, itching (rash), rash (torso, abdomen, pelvis, groin), skin sores/ulcer (diabetic ulcer on pad of right foot), other (cellulitis bilaterally on feet) Neurological: reports: no symptoms reported Psychiatric: reports: no symptoms reported Endocrine: reports: no symptoms reported Hematologic/Lymphatic: reports: no symptoms reported Allergic/Immunologic: reports: no symptoms reported All Other Systems: Reviewed and Negative Past History - Adult - PAST MEDICAL HISTORY-ADULT Review of Records: reports: Old Records Reviewed, Nursing Assessment Review, Medications Reviewed, Social history reviewed & non-contributory. Major Childhood Illnesses: reports: denies history Cardiovascular: reports: A-Fib, CAD, CHF, HTN, hyperlipidemia, MT, PVD Respiratory: reports: asthma, COPD, other (asbestos) Gastrointestinal: reports: denies history Obstetrical/Gynecological: reports: denies history Genitourinary: reports: cancer (Hx: prostate), kidney disease Musculoskeletal: reports: chronic pain, other (restless leg syndrome) Neurological: reports: CVA Psychiatric: reports: depression Endocrine/Immune: reports: Diabetes, thyroid disorder Other Conditions: reports: denies history - PRIOR SURGERIES/PROCEDURES Surgical/Procedure History: reports: other, appendectomy, colonoscopy, back/neck - IMMUNIZATION STATUS Childhood Immunizations: See Nurse Assessment Flu Vaccine: See Nurse Assessment - FAMILY HISTORY Family History: CAD over 55 yo, other (type 2 diabetes) - SOCIAL HISTORY Smoking: quit greater than 1 year Substance Use: denies Living Situation: alone Physical Exam-General - PHYSICAL EXAM-ADULT Initial Vital Signs Reviewed: Yes (Temp 97.5; HR 120; O2 93 L RA) - CONSTITUTIONAL General Appearance: appears well, alert, no apparent distress, obese - EYES Eyes: PERRL/EOMI, pink conjunctivae - HEAD, EARS, NOSE, MOUTH & THROAT HENMT: normocephalic/atraumatic, moist mucous membranes, normal ENT inspection, TMs normal - NECK Neck: non-tender, full range of motion, supple, normal inspection - RESPIRATORY Respiratory: chest non-tender, lungs clear, normal breath sounds, no pleuratic chest pain, no respiratory distress, no accessory muscle use - CARDIOVASCULAR Cardiovascular: normal peripheral pulses, tachycardia - GASTROINTESTINAL (ABDOMEN) Abdominal Exam: normal bowel sounds, non tender, soft, no organomegaly, no pulsatile mass - LYMPHATIC Lymphatic: no adenopathy - MUSCULOSKELETAL Back Exam: normal inspection, no CVA tenderness, no vertebral tenderness Extremity: normal range of motion, erythema, pedal edema, slow capillary refill, swelling, tenderness, other (decreased pulse). negative: normal gait, normal inspection, no calf tenderness - SKIN Integumentary: warm/dry, erythema (bilateral LLE and LRE), rash (Truck, LUE, RUE, abdomin, groin), swelling (bilateral feet), tenderness (bilateral feet), other (diabetic ulcer on pad of right foot) - PSYCHIATRIC Psych/Mental Status: normal thought content, normal thought process, oriented x 3, disheveled Progress - PLAN OF CARE/RESULTS Progress/Plan/Lab Results: Vital Signs - 8 hr 10/01/19 13:08 10/01/19 14:09 Temperature 97.5 F L Pulse Rate 120 H 101 H Respiratory Rate 21 20 Blood Pressure 84/63 136/96 O2 Sat by Pulse Oximetry 93 L 95 Laboratory Results - last 24 hr 10/01/19 10/01/19 10/01/19 13:47 13:47 13:47 WBC RBC Hgb Hct MCV MCH MCHC RDW Std Deviation Plt Count MPV Immature Gran % (Auto) Neut % (Auto) Lymph % (Auto) Wirt % (Auto) Eos % (Auto) Baso % (Auto) Immature Gran # (Auto) Neut # (Auto) Lymph # (Auto) Wirt # (Auto) Eos # (Auto) Baso # (Auto) PT INR PTT (Actin FS) Sodium 130 L Potassium 3.4 L Chloride 95 L Carbon Dioxide 23 L Anion Gap 12 BUN 27 H Creatinine 1.7 H Estimated GFR/1.73 m2 40 BUN/Creatinine Ratio 16 Glucose 182 H Calculated Osmolality 271 Calcium 8.9 Total Bilirubin 0.31 AST 24 ALT 15 Alkaline Phosphatase 88 Creatine Kinase 92 Troponin T High Sens 33 H Total Protein 7.6 Albumin 3.4 L Globulin 4.2 Albumin/Globulin Ratio 0.8 Plasma Lactate 1.8 Urine Source Urine Color Urine Turbidity Urine pH Ur Specific [place] Urine Protein Ur Glucose (Stick) Ur Ketones (Stick) Urine Blood Urine Nitrite Urine Bilirubin Urobilinogen Dipstick Urine Leukocytes Urine WBC (Auto) Urine RBC (Auto) U Epithel Cells (Auto) Urine Bacteria (Auto) 10/01/19 10/01/19 10/01/19 13:47 13:47 14:29 WBC 6.49 RBC 4.69 L Hgb 13.4 L Hct 41.3 L MCV 88.1 MCH 28.6 MCHC 32.4 L RDW Std Deviation 14.1 Plt Count 114 L MPV 13.0 H Immature Gran % (Auto) 0.5 Neut % (Auto) 63.1 Lymph % (Auto) 24.5 Wirt % (Auto) 11.6 H Eos % (Auto) 0.0 Baso % (Auto) 0.3 Immature Gran # (Auto) 0.03 Neut # (Auto) 4.10 Lymph # (Auto) 1.59 Wirt # (Auto) 0.75 H Eos # (Auto) 0.00 Baso # (Auto) 0.02 PT 13.0 INR 0.97 PTT (Actin FS) 27.2 Sodium Potassium Chloride Carbon Dioxide Anion Gap BUN Creatinine Estimated GFR/1.73 m2 BUN/Creatinine Ratio Glucose Calculated Osmolality Calcium Total Bilirubin AST ALT Alkaline Phosphatase Creatine Kinase Troponin T High Sens Total Protein Albumin Globulin Albumin/Globulin Ratio Plasma Lactate Urine Source CLEAN CATCH Urine Color YELLOW Urine Turbidity CLEAR Urine pH 6.0 Ur Specific [place] 1.027 Urine Protein 200 A Ur Glucose (Stick) NEGATIVE Ur Ketones (Stick) TRACE A Urine Blood MODERATE A Urine Nitrite NEGATIVE Urine Bilirubin NEGATIVE Urobilinogen Dipstick NORMAL Urine Leukocytes NEGATIVE Urine WBC (Auto) <10 Urine RBC (Auto) <10 U Epithel Cells (Auto) <10 Urine Bacteria (Auto) NEGATIVE Orders Category Date Time Status Cardiac Monitoring NOW Care 10/01/19 13:13 Active IV Insertion NOW Care 10/01/19 13:13 Active NEWS Score >or=5:Order NEWS Bundle S.O. NOW Care 10/01/19 13:12 Active Notify Provider of NEWS Score NOW Care 10/01/19 13:13 Active FOOT COMPLETE LEFT [RAD] Stat Exams 10/01/19 14:05 Completed FOOT COMPLETE RIGHT [RAD] Stat Exams 10/01/19 14:06 Completed cxr [CHEST-PORTABLE] [RAD] Stat Exams 10/01/19 13:18 Completed BLOOD CULTURE [BLDCUL] Stat Lab 10/01/19 13:47 Results CBC WITH DIFF [HEME] Stat Lab 10/01/19 13:47 Completed CK PROFILE [SP CHEM] Stat Lab 10/01/19 13:47 Completed COMPREHENSIVE METABOLIC PANEL [CHEM] Stat Lab 10/01/19 13:47 Completed LACTATE, PLASMA [CHEM] Q3H Lab 10/01/19 13:47 Completed LACTATE, PLASMA [CHEM] Q3H Lab 10/01/19 16:15 Uncollected LACTATE, PLASMA [CHEM] Q3H Lab 10/01/19 19:15 Uncollected PROTIME WITH INR [COAG] Stat Lab 10/01/19 13:47 Completed PTT [COAG] Stat Lab 10/01/19 13:47 Completed TROPONIN T HIGH SENSITIVITY Stat Lab 10/01/19 13:47 Completed URINALYSIS W/POSS RFLX CULT [URINALYSIS] Stat Lab 10/01/19 14:29 Completed Clindamycin Med 10/01/19 16:41 Once 600 mg IV NOW ONE O2 Per Protocol Stat Oth 10/01/19 13:13 Active Result Diagrams: 10/01/19 13:47 10/01/19 13:47 - XRAY 1 XRAY Study: Chest Impression: See EMR Report ( Patient: MAREK RODRIGUEZ RADM Date: 10/01/19MR#: [id number] : 1950DM Status: PRE ERAcct#: [id number] Age/Sex: 69/MRoom/Bed: Loc: ED Ordering Physician: Jose A Thorne MD Family Physician: Yahir Gooden MD Reason for Procedure: SEPSIS ALERT Signed EXAM: CHEST-PORTABLE HISTORY: SEPSIS ALERT TECHNIQUE: Single view COMPARISON: 09/11/2019 FINDINGS: The lungs are well expanded. The heart is not enlarged. The vessels are not distended. There are no infiltrates. No effusion identified. No change in the left-sided PICC line. IMPRESSION: No definite pneumonia Electronically signed by Cezar Sheehan 10/01/2019 1:38 PM 10/01/19 1338 Interpreting Physician: Cezar Sheehan MD Dictated Date/Time: 10/01/19 1337 cc: Jose A Thorne MD; Yahir Gooden MD) 2 XRAY: Right XRAY Study: Foot ( Patient: MAREK RODRIGUEZ Date: 10/01/19MR#: [id number] : 1950DM Status: [facility]#: [id number] Age/Sex: 69/MRoom/Bed: Loc: ED Ordering Physician: Jose A Thorne MD Family Physician: Yahir Gooden MD Reason for Procedure: diabetic foot wound Signed FOOT COMPLETE RIGHT - 10/01/2019 INDICATION: diabetic foot wound TECHNIQUE: Three views COMPARISON: 09/05/2019 FINDINGS: There has been enlargement of a potential soft tissue ulcer at the plantar forefoot. There is diffuse pedal edema that has worsened since prior. No diffuse soft tissue gas. No fractures or bony erosions. IMPRESSION: Worsening soft tissue ulceration at the plantar forefoot. Worsening diffuse pedal edema, nonspecific. Electronically signed by Maximus Crow 10/01/2019 2:33 PM 10/01/19 1433 Interpreting Physician: Maximus Crow MD Dictated Date/Time: 10/01/19 1432 cc: Jose A Thorne MD; Yahir Gooden MD) 3 XRAY: Left XRAY Study: Foot Impression: See EMR Report (Department of Imaging Patient: MAREK RODRIGUEZ Date: 10/01/19MR#: [id number] : 1950DM Status: [facility]#: [id number] Age/Sex: 69/MRoom/Bed: Loc: ED Ordering Physician: Jose A Thorne MD Family Physician: Yahir Gooden MD Reason for Procedure: possible osteomyelitis, DM foot wound Signed EXAM: FOOT COMPLETE LEFT HISTORY: possible osteomyelitis, DM foot wound TECHNIQUE: Three views COMPARISON: None. FINDINGS: No fracture. No dislocation. Long-standing arthritis. No bone erosions. No periosteal reaction. IMPRESSION: No definite plain film evidence of osteomyelitis. An MRI is recommended if symptoms persist. Electronically signed by Cezar Sheehan 10/01/2019 2:32 PM 10/01/19 1432 Interpreting Physician: Cezar Sheehan MD Dictated Date/Time: 10/01/19 1431 cc: Jose A Thorne MD; Yahir Gooden MD) - CONSULTS/PCP/HOSPITALIST Notification #1 *Consult/PCP/Hospitalist*: Maryam Cuenca Time Discussed: 16:42 Consult Disposition: Will see in ED, Admit Departure - Departure Date of Disposition Decision: 10/01/19 Time of Disposition Decision: 16:43 DIAGNOSIS: Cellulitis of leg, Wound, open, foot, Hyponatremia Disposition: ADMITTED INPATIENT 09 Certified Medical Emergency: Emergent Condition: Fair Referrals and Follow-Ups: Yahir Gooden MD [Primary Care Provider] - - Critical Care Note This patient required my direct & personal management of CC.: No Attestation - Physician/ GABY Attestation Patient care was provided by Advanced Practice Provider:: No The physician spent face to face time with patient:: Yes Advanced Practice Provider documentation review:: Supervising physician onsite and consulted in the evaluation and care of this patient. The physician did have a face to face encounter with the patient. This chart was documented by the indicated scribe, (Tayler Del Valle, Sheron) and accurately reflects the services I performed and decisions made by me, Jose A Thorne MD, as attested by the provider's signature.
[2019-10-01] MEDS ORDERED: CLINDAMYCIN 600 MG/D5W 600 MG/50 ML IVPB IV ONE (17:30)
--- NOTE | 2019-10-01 18:22 | HISTORY AND PHYSICAL ---
PRIMARY CARE PHYSICIAN: Dr. Yahir Gooden. CHIEF COMPLAINT: Worsening bilateral lower extremity cellulitis to his feet with a right plantar diabetic ulcer. Also notes a worsening rash that began approximately a month ago, now on both arms, abdomen, chest and extends down into the pelvic area. It was present prior to beginning IV antibiotics on last admission of 09/05/2019. HISTORY OF PRESENTING ILLNESS: This is a 69-year-old male who presents to [facility] stating that he had been discharged from the hospital about 2 weeks ago on 09/13/2019 after having bilateral lower extremity cellulitis with a diabetic foot ulcer to the right plantar area. Has been on home health with home IV antibiotics, but the home health nurse apparently saw the patient today and felt that he had a necrotic area on the left 2nd toe that was concerning and increased erythema, edema, warmth to touch to bilateral feet and toes. He is noted to have a plantar diabetic ulcer to the right foot that has been present. He also notes that about a month ago, he began having a fine rash that has worsened over the past month. It is down both of his arms into his armpits, goes down his sides, covers the chest and abdomen and extends down into the pelvic, into his groin area, that it itches. His workup showed a white blood cell count of 6.49, sodium of 130, BUN of 27 with a creatinine of 1.7, which is what his creatinine was when he was discharged on 09/13/2019. X-ray of the right foot showed worsening soft tissue ulceration at the plantar forefoot, worsening diffuse pedal edema that is nonspecific, so he will be admitted for further evaluation and treatment. PAST MEDICAL HISTORY: Chronic atrial fibrillation, diabetes type 2, COPD, obstructive sleep apnea, prostate cancer, frequent falls, PVD, chronic venous stasis insufficiency and diabetic foot ulcer to the right plantar area. PAST SURGICAL HISTORY: Heart stents x3, iliac stent, AAA repair, penile implant, appendectomy, prostatectomy, full teeth extraction and a back surgery. FAMILY HISTORY: His father had hypertension, [place] and a CVA. SOCIAL HISTORY: Currently lives with his . He is a pack a day smoker. Denies any alcohol or illicit drug use. ALLERGIES: He has no known drug allergies. HOME MEDICATIONS: He takes 1. Eliquis 5 mg p.o. b.i.d. 2. Atorvastatin 40 mg p.o. at bedtime. 3. Betamethasone 0.1% cream topically b.i.d. 4. Calcium citrate with vitamin D3 one p.o. b.i.d. 5. Coreg 12.5 mg p.o. b.i.d. 6. Cefepime 2 g IV q.12 will be held. 7. Chlorthalidone 25 mg p.o. daily. 8. Cardizem 240 mg p.o. daily. 9. Lasix 40 mg p.o. daily. 10. Gabapentin 100 mg p.o. b.i.d. 11. Glipizide 5 mg p.o. b.i.d. will be held. 12. Hydralazine 25 mg p.o. t.i.d. 13. Hydroxyzine 25 mg p.o. t.i.d. p.r.n. 14. NovoLog FlexPen sliding scale will be held. 15. Lantus 12 units subcutaneous at bedtime. 16. Omeprazole 40 mg p.o. at bedtime. 17. Oxycodone IR 15 mg p.o. q.6 hours p.r.n. 18. MiraLAX 17 g p.o. b.i.d. 19. Mirapex 1.5 mg p.o. at bedtime. 20. Carafate 1 g p.o. before meals and at bedtime. 21. Venlafaxine 75 mg p.o. at bedtime. LABORATORY DATA: Showed a white blood cell count of 6.49, hemoglobin 13.4, hematocrit 41.3, platelets 114,000. PT and INR of 13 and 0.97. Sodium of 130, potassium 3.4, chloride 95, CO2 23, BUN of 27, creatinine 1.7, glucose 182. Cardiac enzyme was negative. Plasma lactate of 1.8. Urinalysis was negative. Right foot x-ray showed worsening soft tissue ulceration at the plantar forefoot, worsening diffuse pedal edema that is nonspecific. Chest x-ray showed no definite pneumonia. REVIEW OF SYSTEMS: He denied any fever, chills, blurred vision, dizziness, chest pain, coughing, shortness of breath. Denied any abdominal pain, constipation, diarrhea, burning or hurting with urination. He has complaints of itching to a rash on his bilateral arms, chest, abdomen into the groin area. He has increased swelling and redness to bilateral lower feet. PHYSICAL EXAMINATION: VITAL SIGNS: On arrival, he had a temperature of 97.5 degrees, pulse 120, respirations 21, blood pressure was 84/63. Currently, heart rate is 101 with a blood pressure 136/96. HEENT: Normocephalic, atraumatic. Normal ENT inspection. Oropharynx and nares are clear. EYES: Pupils are equal, round, reactive to light and accommodation. Extraocular movements are intact. NECK: Normal inspection. Normal range of motion. LUNGS: Clear to auscultation bilaterally with equal lung expansion and chest wall movement. HEART: Regular rate and rhythm. No murmurs, rubs, or gallops. ABDOMEN: Soft, nontender, nondistended. Bowel sounds are present x4 quadrants. MUSCULOSKELETAL: Bilateral feet noted to be erythematous, edematous, warm to touch. He has a plantar right foot diabetic foot ulcer. NEUROLOGICAL: Cranial nerves 2-12 appear grossly intact. ASSESSMENT: 1. Bilateral lower extremity cellulitis with a right plantar diabetic foot ulcer. 2. Hyponatremia. 3. Tobacco abuse. 4. Hypotension, now resolved. 5. Diabetes type 2. PLAN: He will be admitted to the medical unit, placed on telemetry, diabetic diet. We will place on clindamycin 600 mg IV q.8 hours. We will give him Benadryl 25 mg IV q.4 hours p.r.n. for his rash. We will recheck a CBC and BMP in the a.m. We will do pattern blood sugars with sliding scale insulin. I will give him normal saline at 75 mL an hour. Further orders after seen by attending. Dictated by UNIQUE Viveros for Al Cuenca MD cc: UNIQUE Viveros MD David Francis, MD
--- NOTE | 2019-10-01 18:33 | HISTORY AND PHYSICAL ---
ADDENDUM: I have seen and examined Mr. Gutiérrez today, at the time of the encounter the was at the bedside. Mr. Gutiérrez was recently discharged from the hospital on 09/13/2019 to a rehab was there for about a week and sent home, he was treated for bilateral lower extremity pseudomonas cellulitis, discharged on cefepime however after he spent a week at the rehab he was sent home. He continued to be on the cefepime, this morning the Home Health nurse went to evaluate him and thought that the lower extremity swelling and redness was getting worse and needed to come to emergency room where he was evaluated and being admitted. Physical exam for most part is unremarkable except for some scaly petechiae rash all over his body very, very pruritic. The both lower extremities are swollen and very red in the digits bilaterally worse on the left than the right. Laboratory data has been reviewed. ASSESSMENT: 1. Recently treated Pseudomonas and Klebsiella pneumoniae infection of the feet which looks slightly worse so we are going to change the antibiotics to meropenem, has also been started on clindamycin. We would reculture him and then go from there. 2. Fine petechial pruritic rash on the skin which is concerning for scabies. According to Mr. Gutiérrez, he has had this for more than a month, nothing seems to have helped. It appears to me the distribution is more consistent with scabies. Will get him on contact precaution and hydroxyzine for itching. 3. Will continue to address all his other comorbidities. Please refer to the details of the history and physical that has been dictated by the [employer] in the chart. cc: MD JENNYFER Hernandez
[2019-10-01] MEDS ORDERED: MERREM 500 MG in NS 50 ML IV ONE (20:10)
[2019-10-01] MEDS ORDERED: ELIMITE 5% CREAM TOP ONE (20:10)
[2019-10-01] MEDS ORDERED: ZOFRAN IV PRN (20:10)
[2019-10-01] MEDS: APRESOLINE PO SCH (22:14)
[2019-10-01] MEDS: NS 1,000 ML IV SCH (22:45)
[2019-10-01] MEDS: LIPITOR PO SCH (22:45)
[2019-10-01] MEDS: MIRAPEX PO SCH (22:45)
[2019-10-01] MEDS: PRILOSEC PO SCH (22:45)
[2019-10-01] MEDS: EFFEXOR XR PO SCH (22:45)
[2019-10-01] MEDS: ELIQUIS PO SCH (22:46)
[2019-10-01] MEDS: ATARAX PO SCH (22:46)
[2019-10-01] MEDS: CARAFATE PO SCH (22:46)
[2019-10-01] MEDS: COREG PO SCH (22:46)
[2019-10-01] MEDS: CITRACAL + D PO SCH (22:46)
[2019-10-01] MEDS: OXY IR PO PRN (22:48)
[2019-10-01] MEDS: HUMALOG SUBQ SCH (22:50)
[2019-10-01] MEDS: MIRALAX PO SCH (22:50)
[2019-10-01] MEDS: LANTUS INSULIN SUBQ SCH (22:50)
[2019-10-02] MEDS: NEURONTIN PO SCH ×3 (02:29→21:59)
[2019-10-02] MEDS ORDERED: BENADRYL PO ONE (03:12)
[2019-10-02] MEDS: CLINDAMYCIN 600 MG/D5W 600 MG/50 ML IVPB IV SCH ×3 (03:38→21:59)
[2019-10-02] MEDS: OXY IR PO PRN ×3 (05:35→22:05)
[2019-10-02] MEDS: CARAFATE PO SCH ×4 (06:19→21:59)
[2019-10-02] MEDS: HUMALOG SUBQ SCH ×4 (06:20→22:00)
[2019-10-02 06:57] LABS: BASO# 0.01 X1000 (0.0-0.2); BASO% 0.2 % (0.0-0.8); HEMATOCRIT 38.9 % (42.0-52.0); HEMOGLOBIN 12.6 g/dL (14.0-18.0); IMM GRAN# 0.03 X1000 (0.0-0.04); IMM GRAN% 0.6 % (0.0-0.5); LYMPH# 1.15 X1000 (1.2-3.4); LYMPH% 21.6 % (20.5-51.1); MCH 28.8 PG (27-31); MCHC 32.4 g/dL (33-37); MONO# 0.74 X1000 (0.11-0.59); MONO% 13.9 % (1.7-9.3); MPV 12.9 FL (7.4-10.4); NEUT% 63.7 % (42.2-75.2); PLT 112 X1000 (130-400); RBC 4.37 XMIL (4.7-6.1); RDW 14.1 % (11.5-14.5); WBC 5.33 X1000 (4.8-10.8)
[2019-10-02 07:11] LABS: CALCIUM 8.5 mg/dL (8.8-10.2); CREATININE 1.4 mg/dL (0.7-1.2); POTASSIUM 3.5 mmol/L (3.5-5.1)
--- NOTE | 2019-10-02 08:08 | EKG Report ---
Test Performed on : 10/01/2019 5:37:31 PM Test Reason : ED. NO EKG ORDER FOR MUSE Blood Pressure : / mmHG Vent. Rate : 101 BPM Atrial Rate : 089 BPM P-R Int : 000 ms QRS Dur : 084 ms QT Int : 326 ms P-R-T Axes : 000 036 030 degrees QTc Int : 422 ms Atrial fibrillation. with rapid ventricular response. Septal infarct , age undetermined Abnormal ECG When compared with ECG of 05-SEP-2019 19:24, (Unconfirmed) No significant change was found Unconfirmed Result
[2019-10-02] MEDS: APRESOLINE PO SCH ×4 (08:30→16:40)
[2019-10-02] MEDS: CARDIZEM CD PO SCH (08:30)
[2019-10-02] MEDS: LASIX PO SCH (08:30)
[2019-10-02] MEDS: HYGROTON PO SCH (08:30)
[2019-10-02] MEDS: ATARAX PO SCH ×3 (08:30→21:59)
[2019-10-02] MEDS: CITRACAL + D PO SCH ×2 (08:30→21:59)
[2019-10-02] MEDS: ELIQUIS PO SCH ×2 (08:30→21:59)
[2019-10-02] MEDS: COREG PO SCH ×2 (08:31→21:59)
[2019-10-02] MEDS: MERREM 500 MG in NS 50 ML IV SCH ×2 (08:32→16:37)
[2019-10-02] MEDS ORDERED: CARDIZEM PO PRN (08:42)
[2019-10-02] MEDS ORDERED: STERILE WATER INJ. INJ ONE ×3 (08:49→12:14)
[2019-10-02] MEDS ORDERED: CATHFLO IV ONE ×3 (08:49→12:14)
[2019-10-02] MEDS: MIRALAX PO SCH ×2 (09:21→22:06)
[2019-10-02] MEDS: NS 1,000 ML IV SCH ×2 (09:54→16:42)
--- NOTE | 2019-10-02 18:45 | PROGRESS NOTE ---
DATE: 10/02/2019 SUBJECTIVE: Mr. Gutiérrez presented on 10/01/2019. He is a patient of Dr. Yahir Gooden worsening, came in with worsening bilateral lower extremity cellulitis in his feet and right plantar diabetic ulcer. Worsening rash began approximately a month ago now in both arms, abdomen, chest, and extends to the pelvic area. It was present prior to beginning his IV antibiotics last admission on 09/05/2019. A 69-year-old presented to [facility], and discharged from hospital about 2 weeks ago 09/13/2019 after having bilateral lower extremity cellulitis with diabetic foot ulcer in the right plantar area. He has been with home health, IV antibiotics, and home health nurse saw the patient today who felt that the necrotic area on the left 2nd toe was concerning with more erythema, more warmth and edema in both feet and toes, noted to have plantar diabetic ulcer in the right foot that had been present. He also notes that he was having fine rash that worsened over the past month. The rash is on both arms and his arm pits, goes down to his sides, covers his chest and abdomen, and extends down to the pelvis into the groin area, and itches by his report. His white blood cell count was 6490. Sodium 130, BUN 27, and creatinine 1.7 which is what his creatinine was at discharge so he does have some chronic kidney disease. Admission diagnoses includes bilateral lower extremity cellulitis with right plantar diabetic foot ulcer, some mild hyponatremia, history of tobacco use, hypotension, diabetes, and a rash. He reports that he feels a little bit better today, and feels like the irritation and swelling is improved. OBJECTIVE: He remains afebrile, temperature 97.8 degrees, pulse 86, respirations 20, and blood pressure 101/69. Pupils are equal and round. Lungs are clear in all lung sadler. Cardiovascular regular rhythm and rate without murmur or S3. Urine output was 1000 mL. Blood sugar 115 and 151 on his last 2 numbers. ASSESSMENT AND PLAN: Bilateral lower extremity cellulitis with right plantar diabetic foot ulcer. Continue topical care. Continue present antibiotics. Continue to try and control his sugar. REVIEW OF ORDERS: He is on Lipitor 40 mg at bedtime, Lantus insulin 12 units subcutaneous at bedtime, Prilosec 40 mg a day. Effexor ER 75 mg at bedtime, Eliquis 5 mg b.i.d., Coreg 12.5 mg b.i.d., clindamycin 600 mg IV q.8, diltiazem 30 mg p.o. q.6 hours p.r.n., and diltiazem CD 240 mg once a day, Lasix 40 mg a day, Neurontin 100 mg p.o. b.i.d. Apresoline 25 mg t.i.d., Atarax 25 mg p.o. t.i.d., meropenem 500 mg IV q.8 hours, normal saline 75 mL an hour, oxycodone IR 15 mg p.o. q.6 hours p.r.n., MiraLAX 17 g p.o. b.i.d., Mirapex 1.5 mg p.o. at bedtime, Carafate 1 g before meals and at bedtime. He did receive some cath flow, and I think only 1 of his ports is open in his PICC line. We are going to continue present antibiotics. He does seem to clinically have improved. I do believe that wound care is involved. As far as his rash goes, I believe that has improved. cc: Michael Cordova MD
[2019-10-02] MEDS: MIRAPEX PO SCH (21:45)
[2019-10-02] MEDS: LANTUS INSULIN SUBQ SCH (21:50)
[2019-10-02] MEDS: PRILOSEC PO SCH (21:59)
[2019-10-02] MEDS: EFFEXOR XR PO SCH (21:59)
[2019-10-02] MEDS: LIPITOR PO SCH (21:59)
[2019-10-02] MEDS: TYLENOL PO PRN (22:05)
[2019-10-03] MEDS: MERREM 500 MG in NS 50 ML IV SCH ×3 (03:03→20:47)
[2019-10-03] MEDS: CLINDAMYCIN 600 MG/D5W 600 MG/50 ML IVPB IV SCH ×2 (06:16→14:48)
[2019-10-03] MEDS: NS 1,000 ML IV SCH ×2 (06:17→20:55)
[2019-10-03] MEDS: CARAFATE PO SCH ×4 (06:17→20:49)
[2019-10-03] MEDS: HUMALOG SUBQ SCH ×4 (07:08→20:59)
[2019-10-03] MEDS: OXY IR PO PRN ×3 (07:08→20:48)
[2019-10-03] MEDS: CARDIZEM CD PO SCH (08:32)
[2019-10-03] MEDS: COREG PO SCH ×2 (08:32→20:49)
[2019-10-03] MEDS: HYGROTON PO SCH (08:32)
[2019-10-03] MEDS: LASIX PO SCH (08:32)
[2019-10-03] MEDS: NEURONTIN PO SCH ×2 (08:32→20:49)
[2019-10-03] MEDS: ELIQUIS PO SCH ×2 (08:32→20:50)
[2019-10-03] MEDS: APRESOLINE PO SCH ×4 (08:33→20:55)
[2019-10-03] MEDS: CITRACAL + D PO SCH ×2 (08:33→20:49)
[2019-10-03] MEDS: ATARAX PO SCH ×3 (08:33→20:48)
--- NOTE | 2019-10-03 09:20 | PROGRESS NOTE ---
DATE: 10/03/2019 SUBJECTIVE: Mr. Gutiérrez is better. His feet do look better. He is eating well. He got treatment for scabies. He has little polymorphous papules which are dry on his arms and on his trunk as well. Apparently, he has had this for a while. He remains afebrile. OBJECTIVE: Temperature 98.7 degrees, pulse 100, respirations 18, blood pressure 102/62. Pupils are equal and round. Lungs are clear in all lung sadler. Cardiovascular Examination: Regular rhythm and rate without murmur or S3. Urine output was 2500 mL. ASSESSMENT AND PLAN: 1. Bilateral lower extremity cellulitis. Right plantar diabetic foot ulcer looks superficial. Continue his topical care. I am going to ask surgery just to look at his ulcer but I think wound care is involved so we will get Kelsie to look as well. 2. Diabetes mellitus type 2. Continue sliding scale and pattern sugars. Blood sugars look under good control. 3. I think he has some mild chronic kidney disease. His creatinine is stable at 1.4. REVIEW OF HIS ORDERS: He is getting Lipitor 40 mg a day, Lantus insulin 12 units subcutaneous at bedtime, Prilosec 40 mg at bedtime, Effexor 75 mg at bedtime, Tylenol 650 mg p.o. q.6 hours p.r.n., Eliquis 5 mg p.o. b.i.d., Coreg 12.5 mg p.o. b.i.d., chlorthalidone 25 mg daily, clindamycin 600 mg IV q.8 hours, he gets diltiazem 30 mg q.6 hours p.r.n., and also gets diltiazem CD 240 mg daily. He has underlying paroxysmal atrial fibrillation and that is for rate control. He is on Neurontin 100 mg p.o. b.i.d., hydralazine 25 mg daily. He gets meropenem 500 mg IV q.8 hours, oxycodone IR 15 mg p.o. q.6 hours p.r.n. pain, MiraLAX 17 g p.o. b.i.d., Mirapex 1.5 mg at bedtime, Carafate 1 g p.o. q.a.c. and at bedtime. Note, he has a PICC line. Only one of the ports seems to be working. His cultures, no growth from blood cultures on 10/01/2019 so may switch him to p.o. medications. He is not allergic to any p.o. antibiotics. I suspect he will need another good 48 hours of antibiotics at this point. I will get Kelsie Thrasher to help look at his skin care. cc: Michael Cordova MD
[2019-10-03] MEDS: MIRALAX PO SCH ×2 (10:42→20:54)
[2019-10-03] MEDS: EFFEXOR XR PO SCH (20:48)
[2019-10-03] MEDS: TYLENOL PO PRN (20:48)
[2019-10-03] MEDS: PRILOSEC PO SCH (20:49)
[2019-10-03] MEDS: LIPITOR PO SCH (20:49)
[2019-10-03] MEDS: MIRAPEX PO SCH (20:49)
[2019-10-03] MEDS: LANTUS INSULIN SUBQ SCH (20:59)
[2019-10-04] MEDS: CLINDAMYCIN 600 MG/D5W 600 MG/50 ML IVPB IV SCH ×3 (00:09→18:37)
[2019-10-04] MEDS: OXY IR PO PRN ×3 (01:40→18:39)
[2019-10-04] MEDS: TYLENOL PO PRN (05:00)
[2019-10-04] MEDS: MERREM 500 MG in NS 50 ML IV SCH ×3 (05:01→22:19)
[2019-10-04] MEDS: CARAFATE PO SCH ×4 (06:45→22:18)
[2019-10-04] MEDS: HUMALOG SUBQ SCH ×4 (06:46→22:40)
--- NOTE | 2019-10-04 09:53 | PROGRESS NOTE ---
DATE: 10/04/2019 SUBJECTIVE: Mr. Gutiérrez feels like he is doing better. I think he requested a soft diet. OBJECTIVE: He remains afebrile, temperature 97.6 degrees, pulse 82 degrees, pulse 17, blood pressure 106/61. Pupils are equal and round. Lungs are clear in all lung sadler. Cardiovascular regular rate without murmur or S3. His weight is 277 pounds. Urine output was 1800 mL. ASSESSMENT AND PLAN: 1. Bilateral lower extremity cellulitis, right plantar diabetic foot ulcer looks superficial. Continue topical care. Appears to be improving. Wound care is following. 2. Diabetes mellitus type 2. Blood sugars better controlled. 3. He has mild chronic kidney disease. Creatinine is baseline about 1.4. REVIEW OF HIS ORDERS: I do not see any change. He is on meropenem, getting Oxy IR for pain. LAB: Is unremarkable. His blood sugars last four 187, 166, 163, 147. cc: Michael Cordova MD
[2019-10-04] MEDS: MIRALAX PO SCH ×3 (10:46→22:40)
[2019-10-04] MEDS: COREG PO SCH ×2 (10:47→22:19)
[2019-10-04] MEDS: CARDIZEM CD PO SCH (10:47)
[2019-10-04] MEDS: NEURONTIN PO SCH ×2 (10:47→22:40)
[2019-10-04] MEDS: HYGROTON PO SCH (10:47)
[2019-10-04] MEDS: CITRACAL + D PO SCH ×2 (10:47→22:19)
[2019-10-04] MEDS: ELIQUIS PO SCH ×2 (10:47→22:19)
[2019-10-04] MEDS: LASIX PO SCH (10:48)
[2019-10-04] MEDS: ATARAX PO SCH ×3 (10:48→22:19)
[2019-10-04] MEDS: APRESOLINE PO SCH ×3 (10:48→22:18)
[2019-10-04] MEDS: NS 1,000 ML IV SCH (14:50)
[2019-10-04] MEDS: LIPITOR PO SCH (22:18)
[2019-10-04] MEDS: LANTUS INSULIN SUBQ SCH (22:19)
[2019-10-04] MEDS: EFFEXOR XR PO SCH (22:19)
[2019-10-04] MEDS: PRILOSEC PO SCH (22:39)
[2019-10-04] MEDS: MIRAPEX PO SCH (22:39)
[2019-10-04] MEDS: EUCERIN CREAM TOP PRN (23:08)
[2019-10-05] MEDS: OXY IR PO PRN ×2 (01:25→22:34)
[2019-10-05] MEDS: CLINDAMYCIN 600 MG/D5W 600 MG/50 ML IVPB IV SCH ×2 (01:25→08:57)
[2019-10-05] MEDS: MERREM 500 MG in NS 50 ML IV SCH ×3 (04:32→22:32)
[2019-10-05] MEDS: HUMALOG SUBQ SCH ×4 (06:58→22:36)
[2019-10-05] MEDS: NS 1,000 ML IV SCH ×2 (07:01→22:31)
[2019-10-05] MEDS: CARAFATE PO SCH ×4 (07:01→22:34)
[2019-10-05] MEDS: CITRACAL + D PO SCH ×2 (08:57→22:35)
[2019-10-05] MEDS: MIRALAX PO SCH ×2 (08:57→22:36)
[2019-10-05] MEDS: CARDIZEM CD PO SCH (08:57)
[2019-10-05] MEDS: APRESOLINE PO SCH ×3 (08:57→22:35)
[2019-10-05] MEDS: COREG PO SCH ×2 (08:57→22:34)
[2019-10-05] MEDS: HYGROTON PO SCH (08:58)
[2019-10-05] MEDS: ATARAX PO SCH ×3 (08:58→22:35)
[2019-10-05] MEDS: LASIX PO SCH (08:58)
[2019-10-05] MEDS: ELIQUIS PO SCH ×2 (08:58→22:35)
[2019-10-05] MEDS: NEURONTIN PO SCH ×2 (09:03→22:34)
[2019-10-05] MEDS ORDERED: SODIUM CHLORIDE 0.9% 10 ML ONE (09:24)
--- NOTE | 2019-10-05 09:42 | PROGRESS NOTE ---
DATE: 10/05/2019 SUBJECTIVE: He is feeling better. He was eating some crackers and cheese when we came in. He says his arms still itch from where he had scabies, but they appear to be healing. I did give him some Eucerin cream to use on his arms. His feet look a little better, less erythema, less swelling, and so I told him he is going to need to stay here this weekend, continue treatment on his cellulitis of his feet. OBJECTIVE: Vital signs: He is afebrile, temperature 97.6 degrees, pulse 75, respirations 18, blood pressure 105/53. HEENT: Pupils are equal and round. Lungs: Clear in all lung sadler. Cardiovascular: Regular rhythm and rate without murmur or S3. Abdomen: Soft. Skin: Warm and dry. URINE OUTPUT: 4700 mL. ASSESSMENT AND PLAN: 1. Bilateral lower extremity cellulitis. Continue topical care and antibiotics. 2. Diabetes mellitus type 2. Sugars under better control. 3. Mild chronic kidney disease. Creatinine is at baseline 1.4. LABORATORY DATA: From the , last several blood sugars 141, 197, 159, 134, so continue present treatment. His blood cultures with no growth. He is on Lipitor 40 mg a day, Prilosec 40 mg a day, Effexor ER 75 mg at bedtime, Eliquis 5 mg b.i.d., Coreg 12.5 mg b.i.d. Cardizem 600 mg IV q.6 hours, Cardizem 30 mg p.o. q.6 hours, diltiazem CD 240 mg daily, Lasix 40 mg a day, Neurontin 100 mg b.i.d., hydralazine 25 mg t.i.d., Atarax 25 mg p.o. t.i.d., meropenem 500 mg IV q.8 hours. I am going to stop his clindamycin. cc: Michael Cordova MD
[2019-10-05] MEDS: PRILOSEC PO SCH (22:35)
[2019-10-05] MEDS: MIRAPEX PO SCH (22:35)
[2019-10-05] MEDS: LIPITOR PO SCH (22:35)
[2019-10-05] MEDS: EFFEXOR XR PO SCH (22:35)
[2019-10-05] MEDS: LANTUS INSULIN SUBQ SCH (22:36)
[2019-10-06] MEDS: MERREM 500 MG in NS 50 ML IV SCH ×3 (04:40→21:18)
[2019-10-06] MEDS: CARAFATE PO SCH ×4 (06:57→21:19)
[2019-10-06] MEDS: HUMALOG SUBQ SCH ×4 (06:57→22:03)
[2019-10-06] MEDS: OXY IR PO PRN ×3 (07:03→21:19)
--- NOTE | 2019-10-06 09:45 | PROGRESS NOTE ---
DATE: 10/06/2019 SUBJECTIVE: He is feeling better. He has a whole drawer full of snacks. He has been snacking all night, and of course we cannot keep his blood sugar real accurately controlled, but he is doing better. His arms look better. Scabies is clearing. His feet are looking better as well. He remains afebrile. OBJECTIVE: Vital Signs: Temperature 98.4 degrees, pulse 74, respirations 20, blood pressure 150/72. Eyes: Pupils are equal and round. Lungs: Clear in all lung sadler. Cardiovascular exam: Regular rhythm and rate without murmur or S3. Abdomen: Soft. Skin: Warm and dry. Blood sugars last four: 197 134, 128, 159. ASSESSMENT AND PLAN: 1. Bilateral lower extremity cellulitis. Continue his present topical care and antibiotics. I do not see any evidence of deeper infection, but he is improving. 2. Diabetes mellitus type 2. Sugars under reasonable control. 3. Mild chronic kidney disease. Creatinine is 1.4. 4. Scabies. He was treated with the Elimite cream, and his skin appears to be clearing. Reports that his bowels are working pretty good. 5. He does have a history of underlying chronic atrial fibrillation and he remains in atrial fibrillation. His rate is controlled. 6. He has a history of obstructive sleep apnea, history of prostate cancer, peripheral vascular disease and chronic venous stasis insufficiency. cc: Michael Cordova MD
[2019-10-06] MEDS: APRESOLINE PO SCH ×3 (10:25→21:19)
[2019-10-06] MEDS: NEURONTIN PO SCH ×2 (10:26→22:03)
[2019-10-06] MEDS: MIRALAX PO SCH ×2 (10:27→21:21)
[2019-10-06] MEDS: ELIQUIS PO SCH ×2 (10:27→21:20)
[2019-10-06] MEDS: HYGROTON PO SCH (10:27)
[2019-10-06] MEDS: LASIX PO SCH (10:27)
[2019-10-06] MEDS: COREG PO SCH ×2 (10:28→21:20)
[2019-10-06] MEDS: CARDIZEM CD PO SCH (10:28)
[2019-10-06] MEDS: CITRACAL + D PO SCH ×2 (10:28→21:20)
[2019-10-06] MEDS: NS 1,000 ML IV SCH ×3 (12:25→21:21)
[2019-10-06] MEDS: LIPITOR PO SCH (21:19)
[2019-10-06] MEDS: PRILOSEC PO SCH (21:20)
[2019-10-06] MEDS: EFFEXOR XR PO SCH (21:20)
[2019-10-06] MEDS: MIRAPEX PO SCH (21:21)
[2019-10-06] MEDS: LANTUS INSULIN SUBQ SCH (22:03)
[2019-10-07] MEDS: MERREM 500 MG in NS 50 ML IV SCH ×3 (05:36→22:46)
[2019-10-07] MEDS: CARAFATE PO SCH ×5 (05:36→22:45)
[2019-10-07] MEDS: OXY IR PO PRN ×2 (05:45→22:45)
[2019-10-07] MEDS: HUMALOG SUBQ SCH ×4 (06:38→22:43)
[2019-10-07] MEDS: APRESOLINE PO SCH ×3 (09:02→22:45)
[2019-10-07] MEDS: CITRACAL + D PO SCH ×2 (09:03→22:44)
[2019-10-07] MEDS: CARDIZEM CD PO SCH (09:03)
[2019-10-07] MEDS: NEURONTIN PO SCH ×2 (09:03→22:44)
[2019-10-07] MEDS: MIRALAX PO SCH ×2 (09:04→22:43)
[2019-10-07] MEDS: HYGROTON PO SCH (09:04)
[2019-10-07] MEDS: LASIX PO SCH (09:04)
[2019-10-07] MEDS: COREG PO SCH ×2 (09:05→22:45)
[2019-10-07] MEDS: ELIQUIS PO SCH ×2 (09:05→22:45)
--- NOTE | 2019-10-07 13:34 | PROGRESS NOTE ---
DATE: 10/07/2019 SUBJECTIVE: Mr. Gutiérrez is doing better, feeling better. His arms have healed up well. His legs look better as well. His feet, the plantar ulcer underneath his first metatarsal has diminished in size. No drainage and it looks like it is healing. His cellulitis on the top of both feet seems to have improved. The feet are warm and dry and wrapped. He is getting dressing changes twice a day, so I think we are on pace to get out of the hospital pretty soon. I will ask Surgery to look at his feet tomorrow at his 's request. OBJECTIVE: Vital Signs: Temperature 98.4 degrees, pulse 70, respirations 18, blood pressure 153/67. HEENT: Pupils are equal and round. Lungs: Clear in all lung sadler. Cardiovascular: Regular rate without murmur or S3. Abdomen: Soft. Skin: Warm and dry. Urine output is 6500 mL. Blood sugars 159, 193, 198 and 76. ASSESSMENT/PLAN: 1. Bilateral lower extremity cellulitis. Patient continues topical care and antibiotics. Did not see any evidence of deeper infection. The right plantar ulcer is improving as well. 2. He had scabies over his arms and legs and the skin is healing. He was treated with Elimite earlier last week. 3. Diabetes mellitus type 2. Sugars under good control. 4. Chronic kidney disease. Creatinine is 1.4. 5. He does have underlying chronic atrial fibrillation rate is controlled. 6. Diabetes mellitus type 2, combined with obstructive sleep apnea, history of prostate cancer, peripheral vascular disease and chronic venous insufficiency. 7. Going to continue his present orders. He is on Eliquis 5 mg twice a day, Effexor ER 75 mg at bedtime, Prilosec 40 mg a day, Lantus insulin 12 units at bedtime, Lipitor 40 mg at bedtime, Coreg 12.5 mg b.i.d., chlorthalidone 25 mg a day, Cardizem 30 mg p.o. q.6 hours p.r.n., Cardizem CD 240 mg daily, Lasix 40 mg a day, Neurontin 100 mg p.o. b.i.d., hydralazine 25 mg 3 times a day, meropenem 500 mg IV q.8, normal saline at 75 mL an HR, oxycodone IR 15 mg p.o. q.6 hours p.r.n., MiraLAX 17 g p.o. b.i.d., Mirapex 1.5 mg p.o. at bedtime, and Carafate 1 g p.o. each morning and nightly. cc: Michael Cordova MD
[2019-10-07] MEDS: NS 1,000 ML IV SCH ×2 (13:45→22:46)
[2019-10-07] MEDS: MIRAPEX PO SCH (22:43)
[2019-10-07] MEDS: LANTUS INSULIN SUBQ SCH (22:43)
[2019-10-07] MEDS: LIPITOR PO SCH (22:44)
[2019-10-07] MEDS: PRILOSEC PO SCH (22:44)
[2019-10-07] MEDS: EFFEXOR XR PO SCH (22:45)
[2019-10-08] MEDS: CARAFATE PO SCH ×4 (06:00→20:41)
[2019-10-08] MEDS: MERREM 500 MG in NS 50 ML IV SCH ×3 (06:01→23:04)
[2019-10-08] MEDS: OXY IR PO PRN ×3 (06:02→20:42)
[2019-10-08] MEDS: HUMALOG SUBQ SCH ×4 (06:35→20:44)
[2019-10-08] MEDS: NEURONTIN PO SCH ×2 (08:32→20:41)
[2019-10-08] MEDS: CARDIZEM CD PO SCH (08:32)
[2019-10-08] MEDS: APRESOLINE PO SCH ×3 (08:32→20:41)
[2019-10-08] MEDS: CITRACAL + D PO SCH ×2 (08:32→20:42)
[2019-10-08] MEDS: HYGROTON PO SCH (08:32)
[2019-10-08] MEDS: COREG PO SCH ×2 (08:33→20:41)
[2019-10-08] MEDS: ELIQUIS PO SCH ×2 (08:33→20:41)
[2019-10-08] MEDS: MIRALAX PO SCH (08:33)
[2019-10-08] MEDS: LASIX PO SCH (08:33)
[2019-10-08] MEDS: EUCERIN CREAM TOP PRN (08:40)
--- NOTE | 2019-10-08 09:17 | PROGRESS NOTE ---
DATE: 10/08/2019 SUBJECTIVE: Mr. Gutiérrez had a pretty good night. His legs and feet look better. I was going to ask general surgery just to look over, at the family's request, but I think he is improving. The plantar ulcer on his right foot appears to be improving as well. I do not see any evidence of deep infection. I appreciate Kelsie Thrasher's help. OBJECTIVE: Temperature 98.2 degrees, pulse 80, respirations 20, blood pressure 117/62. Pupils are equal and round. Lungs are clear in all lung sadler. Cardiovascular Examination: Regular rhythm and rate without murmur or S3. Abdomen is soft. Skin is warm and dry. Urine output 3800 mL. Blood sugar 193, 198, 214, and 144. ASSESSMENT AND PLAN: 1. Bilateral lower extremity cellulitis. Continue topical care and present antibiotics. Appears to be improving. Ask Dr. Brush just to look over and see if we need any further debridement or any suggestions. This is at the family's request, his 's request. She would like a surgeon to look at it but it looks like we are heading in the right direction. 2. Scabies over his arms and legs. That is healing. Continue his moisturizing cream. He was treated with Elimite earlier last week. 3. Diabetes mellitus type 2. Sugar is under moderate control. He is not really compliant to a diabetic diet. 4. Chronic kidney disease. Creatinine is 1.4 and stable. 5. He does have chronic atrial fibrillation. The rate is controlled. 6. Obesity and I suspect he does have some obstructive apnea. We will make sure he does not require home oxygen. Ask respiratory to check but hopefully, can go home in a couple of days. cc: Michael Cordova MD
--- NOTE | 2019-10-08 10:52 | GENERAL SURGERY CONSULTATION ---
DATE: 10/08/2019 REQUESTING PHYSICIAN: Dr. Cordova. REASON FOR CONSULTATION: Bilateral lower extremity cellulitis. HISTORY OF PRESENT ILLNESS: A 69-year-old gentleman with long-standing bilateral lower extremity cellulitis that looks more in the distribution of venous stasis disease. He has had previous workup that did not show any reflux, but he has not improved. He has been admitted over here for resuscitation and antibiotics, and the family wanted a second opinion on his wound. He does also have a diabetic foot ulcer noted to the plantar surface of the right foot. The patient has some sensation down there, but no active drainage. His skin is peeling on the dorsal aspect of his foot. PAST MEDICAL HISTORY: Includes chronic atrial fibrillation, diabetes mellitus type 2, COPD, obstructive sleep apnea, prostate cancer, frequent falls, PVD, chronic venous stasis insufficiency, diabetic foot ulcers. PAST SURGICAL HISTORY: Includes heart stents, AAA repair, penile implant, appendectomy, prostatectomy, teeth extraction, back surgery. FAMILY HISTORY: Positive for hypertension, MS, and CVA. SOCIAL HISTORY: Lives with his . Current pack-a-day smoker. ALLERGIES: None. HOME MEDICATIONS: Of note, he is on Eliquis. Full list reviewed. REVIEW OF SYSTEMS: Full 14-systems were reviewed and negative, except as specified in the HPI. PHYSICAL EXAMINATION: Vital Signs: The patient is currently afebrile. Vital signs are stable. General: No acute distress. HEENT: Normocephalic, atraumatic. Pupils equal, round, reactive to light. Mucous membranes moist. Oropharynx benign. Neck: Supple. Trachea midline. Cardiovascular: Regular rate and rhythm. Lungs: Grossly clear. Abdomen: Soft, obese. Previous surgical scar is noted. Extremities: Significant changes noted to bilateral lower extremities. Chronic venous insufficiency changes with brawny skin noted. He does have some scaly skin that was able to be removed. He does have a small diabetic foot ulcer to the plantar aspect of his right foot at the metatarsal head, but no erythema, no drainage, no foul smell. Vascular: All extremities perfused. Neurologic: Grossly intact, although some decreased sensation. Skin: As noted above. LABORATORY DATA: Reviewed. IMAGING: X-rays do not show any signs of osteomyelitis. ASSESSMENT AND PLAN: A 69-year-old gentleman with bilateral lower extremity venous insufficiency and right foot diabetic foot ulcer. Bilateral lower extremity wounds. At this time, agree with Missy and Nilam. He has got chronic changes noted to his feet, but no open ulcer. He may need some degree of compression stockings long-term. I suspect for his wound on his plantar aspect of his foot, we need to add Santyl. I do not see any signs that we need to actively debride it at this point, although he does have a callus, which may slow down the wound healing process. If so, may need to consider debridement, but I think from a surgical point of view, the patient does not need any acute care for debridement, and can probably follow up with us at the [facility] for further treatment. I did add Santyl to his wounds to try to help with the plantar aspect. Otherwise, continue current treatment. cc: Robbie Brush MD
[2019-10-08] MEDS: SANTYL OINT TOP SCH (14:20)
[2019-10-08] MEDS: NS 1,000 ML IV SCH (17:09)
[2019-10-08] MEDS: EFFEXOR XR PO SCH (20:41)
[2019-10-08] MEDS: PRILOSEC PO SCH (20:41)
[2019-10-08] MEDS: MIRAPEX PO SCH (20:41)
[2019-10-08] MEDS: LIPITOR PO SCH (20:41)
[2019-10-08] MEDS: LANTUS INSULIN SUBQ SCH (20:45)
[2019-10-09] MEDS: MIRALAX PO SCH ×3 (03:13→21:59)
[2019-10-09] MEDS: SANTYL OINT TOP SCH ×3 (03:14→22:00)
--- NOTE | 2019-10-09 06:03 | GENERAL SURGERY PROGRESS NOTE ---
DATE: 10/09/2019 The patient seems to be doing okay. His wounds looked essentially unchanged from yesterday. From a surgical point of view, he could probably be discharged and follow up with me at the [facility] at [facility], [place] for continued evaluation. No immediate plans for surgical intervention. cc: Robbie Brush MD
[2019-10-09] MEDS: MERREM 500 MG in NS 50 ML IV SCH ×3 (06:26→22:26)
[2019-10-09] MEDS: CARAFATE PO SCH ×5 (06:26→21:58)
[2019-10-09] MEDS: HUMALOG SUBQ SCH ×4 (06:27→21:59)
[2019-10-09] MEDS: OXY IR PO PRN ×3 (06:29→18:18)
[2019-10-09] MEDS: NS 1,000 ML IV SCH ×2 (06:30→16:36)
[2019-10-09] MEDS: APRESOLINE PO SCH ×3 (09:25→21:58)
[2019-10-09] MEDS: ELIQUIS PO SCH ×2 (09:25→21:58)
[2019-10-09] MEDS: CITRACAL + D PO SCH ×2 (09:25→21:57)
[2019-10-09] MEDS: CARDIZEM CD PO SCH (09:25)
[2019-10-09] MEDS: NEURONTIN PO SCH ×2 (09:25→21:58)
[2019-10-09] MEDS: HYGROTON PO SCH (09:25)
[2019-10-09] MEDS: COREG PO SCH ×2 (09:25→21:59)
[2019-10-09] MEDS: LASIX PO SCH (09:26)
[2019-10-09] MEDS: TYLENOL PO PRN ×2 (09:37→16:37)
[2019-10-09 09:43] LABS: BASO# 0.03 X1000 (0.0-0.2); BASO% 0.5 % (0.0-0.8); LYMPH# 1.61 X1000 (1.2-3.4); LYMPH% 25.6 % (20.5-51.1); MCH 29.1 PG (27-31); MCHC 32.5 g/dL (33-37); MCV 89.7 FL (81-99); MONO# 0.57 X1000 (0.11-0.59); MPV 11.7 FL (7.4-10.4); NEUT# 4.09 X1000 (1.4-6.5); NEUT% 64.9 % (42.2-75.2); PLT 136 X1000 (130-400); RBC 4.46 XMIL (4.7-6.1); RDW 13.8 % (11.5-14.5)
[2019-10-09] MEDS: ATARAX PO PRN ×2 (10:14→18:18)
[2019-10-09 10:21] LABS: AGAP 10; ALB/GLOB RATIO 0.9; ALBUMIN 3.1 g/dL (3.5-5.0); ALKALINE PHOSPHATASE 75 U/L (32-122); BUN 14 mg/dL (8-22); CALCIUM 7.9 mg/dL (8.8-10.2); CHLORIDE 91 mmol/L (98-107); COSMO 273; CREATININE 1.1 mg/dL (0.7-1.2); ESTIMATED GFR > 60; GLUCOSE 179 mg/dL (70-104); GOT 20 U/L (10-34); GPT 13 U/L (10-44); POTASSIUM 3.6 mmol/L (3.5-5.1); SODIUM 134 mmol/L (136-145); TCO2 33 mmol/L (25-35); TOTAL BILIRUBIN 0.32 mg/dL (0.20-1.00); TOTAL PROTEIN 6.7 g/dL (6.3-8.3)
--- NOTE | 2019-10-09 12:18 | Diag Imaging Result Doc PS360 ---
CHEST-1 VIEW - 10/09/2019 INDICATION: dyspnea COMPARISON: 10/01/2019 FINDINGS: Stable left PICC line in good position at the upper SVC. The lungs are clear. Heart size is normal. No pneumothorax or pleural effusion. IMPRESSION: Negative exam. Electronically signed by Maximus Crow 10/09/2019 12:15 PM
[2019-10-09] MEDS: LIPITOR PO SCH (21:58)
[2019-10-09] MEDS: EFFEXOR XR PO SCH (21:58)
[2019-10-09] MEDS: PRILOSEC PO SCH (21:58)
[2019-10-09] MEDS: MIRAPEX PO SCH (21:59)
[2019-10-09] MEDS: LANTUS INSULIN SUBQ SCH (22:00)
--- NOTE | 2019-10-09 22:08 | PROGRESS NOTE ---
DATE: 10/09/2019 SUBJECTIVE: The patient is resting comfortably in bed. No acute events noted overnight. He complains of a slight cough. OBJECTIVE: Vital Signs: Temperature 97.5 degrees, blood pressure 109/60, heart rate 65, respirations 18, O2 saturation 98% on 2 L nasal cannula. Intake 500, output 3.3 L. General: This is a morbidly obese male lying in bed in no acute distress. Heart: S1, S2 normal. Regular rate and rhythm. Lungs: Clear to auscultation bilaterally. Abdomen: Positive bowel sounds. Soft, nontender, nondistended. Extremities: Decreasing erythema in between the toes of both feet. There is a small diabetic ulcer on the plantar aspect of the right foot that appears to be healing. Neurologic: The patient is alert and oriented x3. LABORATORY DATA: Reviewed. ASSESSMENT AND PLAN: 1. Bilateral lower extremity cellulitis slowly improving. We will continue on meropenem. 2. Morbid obesity. Aware. 3. Hypertension. Continue on the current antihypertensive regimen. 4. Diabetes mellitus. Continue on Lantus plus sliding scale insulin. 5. Atrial fibrillation. The patient is rate controlled. Continue on Cardizem and Eliquis. 6. Situational depression. Continue on Effexor. 7. Disposition. Continue with physical therapy. cc: Clau Ashton MD
[2019-10-10] MEDS: OXY IR PO PRN ×4 (04:58→22:24)
--- NOTE | 2019-10-10 05:51 | GENERAL SURGERY PROGRESS NOTE ---
DATE: 10/06/2019 SUBJECTIVE: Patient seems to be doing okay. OBJECTIVE: Vital Signs: Patient is currently afebrile. Vital signs are stable. General: No acute distress. Cardiovascular: Regular rate and rhythm. Lungs: Grossly clear. Abdomen: Soft and nontender. Extremities: Wounds essentially appears unchanged. ASSESSMENT AND PLAN: A 69-year-old gentleman with bilateral lower extremity wounds. Bilateral lower extremity wounds. At this time, I think he can be discharged with follow up with me at the [facility] at [facility]. cc: Robbie Brush MD
[2019-10-10] MEDS: CARAFATE PO SCH ×4 (06:33→22:24)
[2019-10-10] MEDS: MERREM 500 MG in NS 50 ML IV SCH ×3 (06:33→22:22)
[2019-10-10] MEDS: HUMALOG SUBQ SCH ×3 (06:56→16:44)
[2019-10-10 07:01] LABS: BASO# 0.01 X1000 (0.0-0.2); BASO% 0.2 % (0.0-0.8); HEMATOCRIT 42.2 % (42.0-52.0); HEMOGLOBIN 13.8 g/dL (14.0-18.0); LYMPH# 0.67 X1000 (1.2-3.4); LYMPH% 15.1 % (20.5-51.1); MCH 29.1 PG (27-31); MCHC 32.7 g/dL (33-37); MCV 88.8 FL (81-99); MONO# 0.47 X1000 (0.11-0.59); MONO% 10.6 % (1.7-9.3); MPV 11.4 FL (7.4-10.4); NEUT# 3.28 X1000 (1.4-6.5); NEUT% 74.1 % (42.2-75.2); PLT 128 X1000 (130-400); RBC 4.75 XMIL (4.7-6.1); RDW 13.8 % (11.5-14.5); WBC 4.43 X1000 (4.8-10.8)
[2019-10-10 07:15] LABS: CALCIUM 8.1 mg/dL (8.8-10.2); CREATININE 1.2 mg/dL (0.7-1.2); POTASSIUM 3.8 mmol/L (3.5-5.1)
--- NOTE | 2019-10-10 10:43 | Diag Imaging Result Doc PS360 ---
EXAM: MRI LOWER EXT JT W/O CON-RIGHT INDICATION: Osteo of the foot TECHNIQUE: COMPARISON: None. FINDINGS: There is excessive motion artifact on the coronal sequences. No osseous marrow edema is identified to indicate osteomyelitis throughout the foot. There is a tiny subcortical degenerative cysts at the joint surface of the tibia. The tendinous and ligamentous structures of the foot are grossly intact as imaged. No significant surrounding soft tissue edema is appreciated. IMPRESSION: 1.No evidence of osteomyelitis. 2.Minimal degenerative change at the distal tibia. Electronically signed by Soy Mckeon 10/10/2019 10:40 AM
--- NOTE | 2019-10-10 10:43 | Diag Imaging Result Doc PS360 ---
EXAM: MRI LOWER EXT JT W/O CON-LEFT INDICATION: osteo of the foot TECHNIQUE: COMPARISON: None. FINDINGS: There is mild soft tissue edema at the dorsum of the forefoot laterally that may represent cellulitis if infection is suspected. However, there is no underlying marrow edema here are involving the remainder of the foot to indicate osteomyelitis. There is moderate degenerative arthropathy at the first tarsometatarsal joint. There is minimal degenerative arthropathy at the second tarsometatarsal joint. The visualized tendinous and ligamentous structures of the foot and ankle are grossly intact. IMPRESSION: 1.Soft tissue edema at the dorsum of the forefoot laterally suggesting possible cellulitis. However, there is no evidence of osteomyelitis. 2.Mild to moderate tarsometatarsal joint degenerative arthropathy. Electronically signed by Soy Mckeon 10/10/2019 10:40 AM
[2019-10-10] MEDS: APRESOLINE PO SCH ×3 (10:53→22:24)
[2019-10-10] MEDS: CITRACAL + D PO SCH ×2 (10:53→22:23)
[2019-10-10] MEDS: COREG PO SCH ×2 (10:53→22:23)
[2019-10-10] MEDS: CARDIZEM CD PO SCH (10:53)
[2019-10-10] MEDS: HYGROTON PO SCH (10:53)
[2019-10-10] MEDS: NEURONTIN PO SCH ×2 (10:54→22:23)
[2019-10-10] MEDS: TYLENOL PO PRN ×3 (10:54→23:21)
[2019-10-10] MEDS: LASIX PO SCH (10:54)
[2019-10-10] MEDS: ELIQUIS PO SCH ×2 (10:54→22:24)
[2019-10-10] MEDS: MIRALAX PO SCH (10:56)
[2019-10-10] MEDS: ATARAX PO PRN ×2 (11:00→16:45)
[2019-10-10] MEDS: SANTYL OINT TOP SCH ×2 (16:47→22:29)
--- NOTE | 2019-10-10 20:55 | PROGRESS NOTE ---
DATE: 10/10/2019 SUBJECTIVE: The patient states that he feels okay today. No acute events noted overnight. OBJECTIVE: Vital Signs: Temperature 97.6 degrees, blood pressure 120/79, heart rate 75, respirations 19, O2 saturation 97% on 2 L nasal cannula. General: This is a chronically ill- appearing elderly male sitting up in bed in no acute distress. Heart: S1, S2 normal. Regular rate and rhythm. Lungs: Clear to auscultation bilaterally. Abdomen: Positive bowel sounds. Soft, nontender, nondistended. Extremities: The patient has maceration between the toes, the great toe and the second toe on the left foot, and improving erythema between the first and second toes on the right foot. Neurologic: The patient is alert and oriented x3. LABS: White blood cell count 4.4, hemoglobin 13, hematocrit 42, platelets 128,000. Sodium 137, potassium 3.8, chloride 93, CO2 33, BUN 14, creatinine 1.2, glucose 136, calcium 8.1. IMAGING: MRI of the right foot shows no evidence of osteomyelitis. There are degenerative changes at the distal tibia. MRI of the left foot reveals soft tissue edema at the dorsum of the forefoot suggesting possible cellulitis. No evidence of osteomyelitis. ASSESSMENT AND PLAN: 1. Bilateral foot cellulitis, slowly improving. The patient will complete his intravenous antibiotic therapy on 10/15/2019. We will continue with the current regimen as well as wound care. 2. Morbid obesity. Aware. 3. Diabetes mellitus. Continue on Lantus plus sliding scale insulin. 4. Hypertension. Continue on the current antihypertensive regimen. 5. Atrial fibrillation. The patient is rate controlled. Continue on Cardizem and Eliquis. 6. Situational depression. Continue on Effexor. 7. Disposition. Continue with physical therapy. cc: Clau Ashton MD
[2019-10-10] MEDS: PRILOSEC PO SCH (22:23)
[2019-10-10] MEDS: LIPITOR PO SCH (22:23)
[2019-10-10] MEDS: MIRAPEX PO SCH (22:24)
[2019-10-10] MEDS: EFFEXOR XR PO SCH (22:24)
[2019-10-10] MEDS: LANTUS INSULIN SUBQ SCH (22:25)
--- NOTE | 2019-10-11 06:05 | GENERAL SURGERY PROGRESS NOTE ---
DATE: 10/01/2019 SUBJECTIVE: The patient seems to be doing okay and it looks like he is going to be staying until the per the hospitalist's recommendation to complete a course of antibiotics. OBJECTIVE: Vital Signs: The patient is currently afebrile. His vital signs are stable. General: No acute distress. Cardiovascular: Regular rate and rhythm. Lungs: Grossly clear. Abdomen: Soft, nontender. Extremities: The wounds appear to be overall improving, but there are some chronic changes noted to bilateral lower extremity wounds. ASSESSMENT AND PLAN: A 69-year-old gentleman with bilateral lower extremity wounds. Bilateral lower extremity wounds: At this time, he has had an MRI that did not show osteomyelitis on either leg. I have recommended continued local wound care. Hospitalists have decided to keep him on antibiotics until the . We will defer to them, but from a surgical point of view his wounds seem to be improving. cc: Robbie Brush MD
[2019-10-11] MEDS: HUMALOG SUBQ SCH ×5 (06:36→21:56)
[2019-10-11] MEDS: MIRALAX PO SCH ×3 (06:37→22:00)
[2019-10-11] MEDS: OXY IR PO PRN ×3 (06:43→21:54)
[2019-10-11] MEDS: CARAFATE PO SCH ×4 (06:44→21:54)
[2019-10-11] MEDS: MERREM 500 MG in NS 50 ML IV SCH ×3 (06:44→21:54)
[2019-10-11] MEDS: ATARAX PO PRN (06:47)
[2019-10-11 06:52] LABS: CALCIUM 8.1 mg/dL (8.8-10.2); CREATININE 1.4 mg/dL (0.7-1.2); POTASSIUM 3.5 mmol/L (3.5-5.1)
[2019-10-11] MEDS: CARDIZEM CD PO SCH (10:47)
[2019-10-11] MEDS: CITRACAL + D PO SCH ×2 (10:47→21:53)
[2019-10-11] MEDS: APRESOLINE PO SCH ×3 (10:47→21:55)
[2019-10-11] MEDS: COREG PO SCH ×2 (10:47→21:53)
[2019-10-11] MEDS: ELIQUIS PO SCH ×2 (10:48→21:55)
[2019-10-11] MEDS: NEURONTIN PO SCH ×2 (11:02→21:55)
--- NOTE | 2019-10-11 12:00 | Diag Imaging Result Doc PS360 ---
EXAM: CT CERVICAL SPINE W/O CONTRAST 10/11/2019 HISTORY: radiculopathy TECHNIQUE: This exam was performed using automated exposure control, adjustment of mA or kV according to patient size, and/or use of iterative reconstruction technique. COMMENT: The current study is compared with the previous examination of 04/18/2019. There is no evidence of acute fracture or subluxation. There is grade 1 anterolisthesis of C3 on C4 which was also present at the time the previous study and is presumably related to facet arthropathy. There is posterior osteophyte formation at C4-5 and C5-6. No prevertebral soft tissue swelling is present. At the C2-3 level, there is no evidence of spinal or foraminal stenosis. At C3-4 there is foraminal stenosis on the left which is exacerbated by hypertrophic facet disease on the left. At the C4-5 level there is marked osteophyte formation on the left side with bilateral foraminal stenosis worse on the left than the right. At the C5-6 level there is posterior osteophyte formation without significant foraminal stenosis. At the C6-7 level there is some hypertrophic facet disease on the left producing osteophytes resulting in narrowing of the left foramen. At C7-T1 there is no spinal or foraminal stenosis. IMPRESSION: Degenerative disc and facet disease with multilevel foraminal stenosis as described above. Anterolisthesis of C3 on C4, chronic. Electronically signed by Brent Cancino 10/11/2019 11:58 AM
[2019-10-11] MEDS: SANTYL OINT TOP SCH (15:17)
--- NOTE | 2019-10-11 17:59 | PROGRESS NOTE ---
DATE: 10/11/2019 SUBJECTIVE: The patient complains of pain in his neck with numbness and tingling in the arm. OBJECTIVE: Vital Signs: Temperature 98.5 degrees, blood pressure 118/59, heart rate 93, respirations 19, O2 saturation 96% on room air. General: This is a chronically ill-appearing elderly male lying in bed in no acute distress. Heart: S1, S2 normal. Regular rate and rhythm. Lungs: Equal air entry bilaterally. No wheezing. No rales. Abdomen: Positive bowel sounds. Soft, nontender, nondistended. Extremities: Both feet are wrapped in a clean dry dressing. LABORATORY DATA: Sodium 134, potassium 3.5, BUN 19, creatinine 1.4, glucose 192, calcium 8.1. IMAGING: Cervical spine CT reveals degenerative disk and facet disease with multilevel foraminal stenosis. ASSESSMENT AND PLAN: 1. Bilateral foot cellulitis. Improved. Continue on meropenem. The patient will complete IV antibiotic therapy on 10/15/2019. Continue with wound care. 2. Diabetes mellitus type 2. Continue on Lantus plus sliding scale insulin. 3. Morbid obesity. Aware. 4. Hypertension. Stable. 5. Atrial fibrillation. The patient is rate controlled. Continue on Cardizem and Eliquis. 6. Situational depression. Continue on Effexor. 7. Deep vein thrombosis prophylaxis. The patient is on Eliquis. DISPOSITION: Continue with physical therapy. Once the patient completes IV antibiotic therapy next week, he can be discharged home with home health services. cc: Clau Ashton MD
[2019-10-11] MEDS: PRILOSEC PO SCH (21:53)
[2019-10-11] MEDS: EFFEXOR XR PO SCH (21:54)
[2019-10-11] MEDS: MIRAPEX PO SCH (21:55)
[2019-10-11] MEDS: LIPITOR PO SCH (21:55)
[2019-10-11] MEDS: LANTUS INSULIN SUBQ SCH (21:56)
[2019-10-12] MEDS: ATARAX PO PRN ×2 (00:56→18:34)
[2019-10-12] MEDS: SANTYL OINT TOP SCH ×2 (00:57→09:27)
[2019-10-12] MEDS: OXY IR PO PRN ×3 (04:56→17:10)
--- NOTE | 2019-10-12 06:01 | GENERAL SURGERY PROGRESS NOTE ---
DATE: 10/12/2019 SUBJECTIVE: The patient seems to be doing okay. He did get a CT scan of his neck yesterday secondary to some neck pain and there was some multilevel foraminal stenosis noted. Otherwise, the patient is doing okay. OBJECTIVE: Vital Signs: The patient is currently afebrile. His vital signs are stable. General: No acute distress. Cardiovascular: Regular rate and rhythm. Lungs: Grossly clear. Abdomen: Soft, nontender, nondistended. Extremities: Wounds to bilateral lower extremities seem to be stable overall. ASSESSMENT AND PLAN: A 69-year-old gentleman with bilateral lower extremity wounds. Bilateral lower extremity wounds: At this time, continue local wound care and we will continue to monitor. cc: Robbie Brush MD
[2019-10-12] MEDS: MERREM 500 MG in NS 50 ML IV SCH ×3 (06:38→22:29)
[2019-10-12] MEDS: CARAFATE PO SCH ×4 (06:38→22:29)
[2019-10-12] MEDS: HUMALOG SUBQ SCH ×4 (06:39→22:51)
[2019-10-12 07:07] LABS: HEMATOCRIT 42.4 % (42.0-52.0); MCH 29.5 PG (27-31); MCV 89.5 FL (81-99); MPV 12.5 FL (7.4-10.4); RBC 4.74 XMIL (4.7-6.1); RDW 14.1 % (11.5-14.5); WBC 5.25 X1000 (4.8-10.8)
[2019-10-12 07:36] LABS: CALCIUM 8.6 mg/dL (8.8-10.2); CREATININE 1.3 mg/dL (0.7-1.2); POTASSIUM 3.8 mmol/L (3.5-5.1)
[2019-10-12] MEDS: CARDIZEM CD PO SCH (09:26)
[2019-10-12] MEDS: ELIQUIS PO SCH ×2 (09:26→22:28)
[2019-10-12] MEDS: APRESOLINE PO SCH ×3 (09:26→22:51)
[2019-10-12] MEDS: CITRACAL + D PO SCH ×2 (09:26→22:28)
[2019-10-12] MEDS: MIRALAX PO SCH ×2 (09:27→22:35)
[2019-10-12] MEDS: COREG PO SCH ×2 (09:27→22:28)
[2019-10-12] MEDS: NEURONTIN PO SCH ×2 (09:29→22:51)
--- NOTE | 2019-10-12 15:43 | Diag Imaging Result Doc PS360 ---
EXAM: CHEST-1 VIEW HISTORY: dyspnea TECHNIQUE: Single view COMPARISON: 10/09/2019 FINDINGS: The lungs are well expanded. No change in the left-sided PICC line. The heart is not enlarged. The vessels are not distended. There are no infiltrates. No effusion identified. Right lower granuloma. IMPRESSION: Stable chest Electronically signed by Cezar Sheehan 10/12/2019 3:41 PM
[2019-10-12] MEDS: DUONEB (A & A) INH SCH ×3 (15:56→23:21)
--- NOTE | 2019-10-12 21:09 | PROGRESS NOTE ---
DATE: 10/12/2019 SUBJECTIVE: The patient is resting comfortably in bed. No acute events noted overnight. OBJECTIVE: Vital signs: Temperature 97.6 degrees, blood pressure 125/54, heart rate 76, respirations 18, O2 saturation 95% on room air.General: This is a chronically ill-appearing elderly male, sitting up in bed in no acute distress. Heart: S1, S2 normal. Regular rate and rhythm. Lungs: Equal air entry bilaterally. No wheezing. No rales. Abdomen: Positive bowel sounds. Soft, nontender, nondistended. Extremities: No edema, no cyanosis. Neurologic: The patient is alert and oriented x3. LABORATORY DATA: Sodium 134, potassium 3.8, BUN 19, creatinine 1.3, glucose 166. ASSESSMENT AND PLAN: 1. Bilateral foot cellulitis. Improved. The patient will complete intravenous antibiotic therapy on Tuesday. Continue with wound care. 2. Diabetes mellitus type 2. Continue on Lantus plus sliding scale insulin. 3. Acute kidney injury. Improved. Continue to monitor closely. 4. Morbid obesity. Aware. 5. Atrial fibrillation. Continue on Cardizem and Eliquis. 6. Hypertension. Stable. 7. Situational depression. Continue on Effexor. 8. Deep venous thrombosis prophylaxis. Continue on Eliquis. 9. Disposition. Continue with physical therapy. The patient can be discharged home on October 14. cc: Clau Ashton MD
[2019-10-12] MEDS: PRILOSEC PO SCH (22:28)
[2019-10-12] MEDS: LIPITOR PO SCH (22:29)
[2019-10-12] MEDS: EFFEXOR XR PO SCH (22:51)
[2019-10-12] MEDS: MIRAPEX PO SCH (22:51)
[2019-10-12] MEDS: LANTUS INSULIN SUBQ SCH (22:52)
[2019-10-13] MEDS: DUONEB (A & A) INH SCH ×6 (03:32→23:39)
[2019-10-13] MEDS: OXY IR PO PRN ×3 (05:28→19:59)
[2019-10-13] MEDS: CARAFATE PO SCH ×5 (05:29→20:00)
[2019-10-13] MEDS: MERREM 500 MG in NS 50 ML IV SCH ×3 (05:29→19:58)
[2019-10-13] MEDS: SANTYL OINT TOP SCH ×3 (05:47→21:00)
[2019-10-13] MEDS: HUMALOG SUBQ SCH ×4 (06:42→21:25)
[2019-10-13] MEDS: NEURONTIN PO SCH ×2 (10:32→20:00)
[2019-10-13] MEDS: ELIQUIS PO SCH ×2 (10:32→20:00)
[2019-10-13] MEDS: MIRALAX PO SCH ×2 (10:32→20:01)
[2019-10-13] MEDS: CITRACAL + D PO SCH ×2 (10:32→20:00)
[2019-10-13] MEDS: COREG PO SCH ×2 (10:33→20:00)
[2019-10-13] MEDS: CARDIZEM CD PO SCH (10:33)
[2019-10-13] MEDS: APRESOLINE PO SCH ×3 (10:33→20:00)
[2019-10-13] MEDS: ATARAX PO PRN (11:28)
--- NOTE | 2019-10-13 17:25 | GENERAL SURGERY PROGRESS NOTE ---
DATE: 10/13/2019 SUBJECTIVE: Doing okay. He has some lower back pain. No fevers. OBJECTIVE: vital signs: Pulse 66, blood pressure 113/80. General: He is alert. Extremities: Bilateral feet dressings are in place and are clean. There is no cellulitis extending up the leg. There are some chronic skin changes. LABORATORIES: White count was 5 yesterday, hematocrit 1.3. Glucose 200. ASSESSMENT AND PLAN: This is a 69-year-old gentleman with bilateral feet wounds and chronic skin changes to bilateral calves. PLAN: 1. We will continue local wound care. 2. Follow along. 3. Antibiotics. cc: Adolph Beverly MD
--- NOTE | 2019-10-13 19:59 | PROGRESS NOTE ---
DATE: 10/13/2019 SUBJECTIVE: The patient is resting comfortably in bed. He has no complaints at this time. OBJECTIVE: Vital Signs: Temperature 98.2 degrees, blood pressure 113/80, heart rate 66, respirations 18, O2 saturations 100% on room air. General: This is a morbidly obese male lying in bed, in no acute distress. Heart: S1, S2 normal. Regular rate and rhythm. Lungs: Clear to auscultation bilaterally. Abdomen: Positive bowel sounds, soft, nontender, nondistended. Extremities: The patient's feet are wrapped in a clean, dry dressing. No drainage noted between the toes. Neurologic: The patient is alert and oriented x3. LABORATORIES: None. ASSESSMENT AND PLAN: 1. Bilateral foot cellulitis. Improved. The patient will complete IV antibiotic therapy on Tuesday. Continue with wound care. 2. Diabetes mellitus type 2. Continue on Lantus plus sliding scale insulin. 3. Hypertension. Stable. 4. Atrial fibrillation. Rate controlled. The patient is on Cardizem and Eliquis. 5. Situational depression. Continue on Effexor. 6. Morbid obesity. Aware. 7. Deep vein thrombosis prophylaxis. The patient is on Eliquis. 8. Disposition. We will plan to discharge the patient home on Tuesday after he completes his IV antibiotic therapy. cc: Clau Ashton MD
[2019-10-13] MEDS: MIRAPEX PO SCH (20:00)
[2019-10-13] MEDS: LIPITOR PO SCH (20:00)
[2019-10-13] MEDS: EFFEXOR XR PO SCH (20:00)
[2019-10-13] MEDS: PRILOSEC PO SCH (20:00)
[2019-10-13] MEDS: LANTUS INSULIN SUBQ SCH (21:25)
[2019-10-14] MEDS: MERREM 500 MG in NS 50 ML IV SCH ×4 (02:28→22:31)
[2019-10-14] MEDS: OXY IR PO PRN ×4 (02:39→22:33)
[2019-10-14] MEDS: DUONEB (A & A) INH SCH ×6 (03:06→22:50)
[2019-10-14] MEDS: CARAFATE PO SCH ×5 (06:02→22:34)
[2019-10-14] MEDS: HUMALOG SUBQ SCH ×4 (06:39→22:30)
[2019-10-14 07:50] LABS: CALCIUM 9.4 mg/dL (8.8-10.2); CREATININE 1.3 mg/dL (0.7-1.2); POTASSIUM 3.7 mmol/L (3.5-5.1)
[2019-10-14] MEDS: CARDIZEM CD PO SCH (09:59)
[2019-10-14] MEDS: NEURONTIN PO SCH ×2 (09:59→22:34)
[2019-10-14] MEDS: COREG PO SCH ×2 (09:59→22:34)
[2019-10-14] MEDS: ELIQUIS PO SCH ×2 (09:59→22:33)
[2019-10-14] MEDS: TYLENOL PO PRN ×2 (09:59→15:27)
[2019-10-14] MEDS: ATARAX PO PRN ×2 (09:59→15:27)
[2019-10-14] MEDS: CITRACAL + D PO SCH ×2 (09:59→22:34)
[2019-10-14] MEDS: APRESOLINE PO SCH ×3 (09:59→22:33)
[2019-10-14] MEDS: SANTYL OINT TOP SCH (10:04)
[2019-10-14] MEDS: MIRALAX PO SCH (10:04)
--- NOTE | 2019-10-14 12:38 | GENERAL SURGERY PROGRESS NOTE ---
DATE: 10/14/2019 SUBJECTIVE: The back pain is better. No complaints related to his feet. No fevers. No tachycardia. OBJECTIVE: Vital Signs: Blood pressure 120/76. General: He is alert. Dressings are clean. The nurse just changed them. She said the wounds looked a lot better, with no new concerns. LABORATORY DATA: Creatinine is 1.3. Glucose remains in the high 100 to low 200. ASSESSMENT AND PLAN: A 69-year-old gentleman with bilateral feet infection. Will continue with local wound care and antibiotics going forward. cc: Adolph Beverly MD
--- NOTE | 2019-10-14 19:09 | PROGRESS NOTE ---
DATE: 10/14/2019 SUBJECTIVE: The patient is sitting up, eating lunch. He states that he feels good and he is looking forward to going home tomorrow. OBJECTIVE: Vital Signs: Temperature 97.8 degrees, blood pressure 105/64, heart rate 51, respirations 16, O2 saturation 96% on room air. General: This is a chronically ill-appearing male lying in bed in no acute distress. Heart: S1, S2. Normal. Lungs: Clear to auscultation bilaterally. Abdomen: Positive bowel sounds. Soft, obese, nontender, nondistended. Extremities: Both feet are wrapped in a clean dry dressing. No discharge noted on the dressing. Neurologic: The patient is alert and oriented x3. LABS: Sodium 133, potassium 3.7, chloride 89, CO2 31, BUN 22, creatinine 1.3, glucose 164. ASSESSMENT AND PLAN: 1. Bilateral foot cellulitis. Improved. The patient will complete meropenem therapy tomorrow morning. Continue with wound care as outpatient. 2. Hypertension. Stable. 3. Diabetes mellitus type 2. Continue on Lantus and sliding scale insulin. 4. Obesity. Aware. 5. Atrial fibrillation. Continue on Cardizem and Eliquis. 6. Situational depression. Continue on Effexor. 7. Deep vein thrombosis prophylaxis. Continue on Eliquis. 8. Disposition. We will plan to discharge the patient home tomorrow. cc: Clau Ashton MD [facility]
[2019-10-14] MEDS: LANTUS INSULIN SUBQ SCH (22:30)
[2019-10-14] MEDS: LIPITOR PO SCH (22:33)
[2019-10-14] MEDS: EFFEXOR XR PO SCH (22:33)
[2019-10-14] MEDS: PRILOSEC PO SCH (22:34)
[2019-10-14] MEDS: MIRAPEX PO SCH (22:34)
[2019-10-15] MEDS: SANTYL OINT TOP SCH (02:42)
[2019-10-15] MEDS: DUONEB (A & A) INH SCH ×2 (03:25→08:39)
[2019-10-15] MEDS: CARAFATE PO SCH ×2 (05:47→06:14)
[2019-10-15] MEDS: OXY IR PO PRN ×2 (05:47→09:35)
--- NOTE | 2019-10-15 06:09 | GENERAL SURGERY PROGRESS NOTE ---
DATE: 10/15/2019 SUBJECTIVE: Patient seems to be doing okay. No major issues. OBJECTIVE: Vital Signs: Patient is currently afebrile. His vital signs are stable. General: No acute distress. Cardiovascular: Regular rate and rhythm. Lungs: Grossly clear. Abdomen: Soft. Appropriately tender. Extremities: Lower extremities seem to be healing. ASSESSMENT AND PLAN: A 69-year-old gentleman with bilateral lower extremity wounds. Bilateral lower extremity wounds. At this time, hopefully he can be discharged today. He can follow up with myself or Dr. Beverly who has seen him previously at the [facility] at [place]. We will be available as needed. cc: Robbie Brush MD
[2019-10-15] MEDS: HUMALOG SUBQ SCH (06:50)
[2019-10-15 07:08] LABS: HEMATOCRIT 41.6 % (42.0-52.0); HEMOGLOBIN 13.7 g/dL (14.0-18.0); MCH 28.8 PG (27-31); MCHC 32.9 g/dL (33-37); MCV 87.6 FL (81-99); MPV 12.4 FL (7.4-10.4); RBC 4.75 XMIL (4.7-6.1); RDW 13.6 % (11.5-14.5); WBC 5.28 X1000 (4.8-10.8)
[2019-10-15 07:30] LABS: CALCIUM 9.3 mg/dL (8.8-10.2); CREATININE 1.4 mg/dL (0.7-1.2); POTASSIUM 3.9 mmol/L (3.5-5.1)
[2019-10-15 08:19] VITALS: BP 98/48
[2019-10-15] MEDS: COREG PO SCH (09:32)
[2019-10-15] MEDS: ELIQUIS PO SCH (09:32)
[2019-10-15] MEDS: CARDIZEM CD PO SCH (09:32)
[2019-10-15] MEDS: CITRACAL + D PO SCH (09:32)
[2019-10-15] MEDS: APRESOLINE PO SCH ×2 (09:32→09:33)
[2019-10-15] MEDS: NEURONTIN PO SCH (09:35)
--- NOTE | 2019-10-21 17:58 | DISCHARGE SUMMARY ---
ADMISSION DATE: 10/01/2019 DISCHARGE DATE: 10/15/2019 FINAL DISCHARGE DIAGNOSES: 1. Bilateral foot cellulitis. 2. Peripheral vascular disease with chronic venous stasis. 3. Hypertension. 4. Diabetes mellitus type 2. 5. Obesity. 6. Atrial fibrillation. 7. Situational depression. 8. Pruritus. 9. Restless legs syndrome. 10. Diabetic neuropathy. CONSULTATIONS: General Surgery consultation with Dr. Brush. HOSPITAL COURSE: Mr. Gutiérrez is a 69-year-old male with a history of bilateral foot cellulitis secondary to multiple organisms, who presented to the ER with a chief complaint of increasing pain and erythema in his feet. The patient was admitted to the Hospitalist service. Blood cultures were obtained and the patient was started on IV meropenem. Prior culture results from the patient's most recent hospital stay revealed that the patient's feet were infected with Klebsiella, Pseudomonas, Proteus, Citrobacter, and Enterobacter. In light of these prior culture findings, the patient was started on meropenem. General Surgery was consulted for recommendations regarding debridement of the patient's feet. The patient was treated with IV meropenem from September 30 to October 14. The patient's cellulitis improved over the course of the hospital stay. The patient continued to improve clinically and was ultimately cleared for discharge home on October 15, 2019. DISCHARGE MEDICATIONS: 1. Oxy-IR 15 mg oral every 6 hours p.r.n. for pain. 2. Atarax 25 mg oral 3 times a day p.r.n. for itching. 3. Levaquin 500 mg oral daily x5 days. 4. Lipitor 40 mg oral at bedtime. 5. Prilosec 40 mg oral at bedtime. 6. Carafate 1 g oral with meals. 7. Eliquis 5 mg oral twice a day. 8. Glipizide 5 mg oral twice a day. 9. Mirapex 1.5 mg oral at bedtime. 10. Effexor 75 mg oral at bedtime. 11. Calcium citrate with vitamin D 1 tablet oral twice a day. 12. Cardizem 240 mg oral daily. 13. NovoLog sliding scale, use as directed. 14. Hydralazine 25 mg oral 3 times a day. 15. Coreg 12.5 mg oral twice a day. 16. Lantus 20 units subcutaneous at bedtime. 17. MiraLAX 17 g oral twice a day. 18. Lasix 40 mg oral daily. 19. Neurontin 100 mg oral twice a day. DISCHARGE DIET: An 1800 ADA diet, low-sodium diet. ACTIVITY: As tolerated. FOLLOW UP INSTRUCTIONS: The patient will need to follow up with Dr. Brush as scheduled by his clinic. The patient has also been advised to follow up at the [facility] at [place]. cc: Clau Ashton MD
== END 2019-10-15 10:45 | disposition home health service (06) | DRG 603 ==
LOC: ED 12:21 → SUATTDRO 19:00 → 4N 19:00
PROVIDERS: ATTEND Internal Medicine

== ENCOUNTER 2019-11-03 13:32 | Inpatient (IN) ==
--- NOTE | 2019-11-03 14:15 | Diag Imaging Result Doc PS360 ---
EXAM: CHEST-1 VIEW 11/03/2019 HISTORY: SOB TECHNIQUE: Erect AP portable at 1405 COMMENT: There is opacity in the left costophrenic angle which was also apparently present on 10/12/2019. The lungs are slightly better expanded. 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 No evidence of acute disease. Electronically signed by Brent Cancino 11/03/2019 2:13 PM
[2019-11-03 14:29] LABS: BASO# 0.02 X1000 (0.0-0.2); BASO% 0.3 % (0.0-0.8); HEMATOCRIT 37.2 % (42.0-52.0); HEMOGLOBIN 11.7 g/dL (14.0-18.0); LYMPH% 15.4 % (20.5-51.1); MCH 28.7 PG (27-31); MCHC 31.5 g/dL (33-37); MCV 91.4 FL (81-99); MONO# 0.54 X1000 (0.11-0.59); MONO% 7.6 % (1.7-9.3); MPV 11.9 FL (7.4-10.4); NEUT# 5.46 X1000 (1.4-6.5); NEUT% 76.7 % (42.2-75.2); PLT 116 X1000 (130-400); RBC 4.07 XMIL (4.7-6.1); RDW 14.9 % (11.5-14.5); WBC 7.12 X1000 (4.8-10.8)
[2019-11-03 14:29] LABS: INR 1.14; PROTIME 14.8 Seconds (11.0-16.0)
[2019-11-03 14:30] LABS: PTT 30.1 Seconds (22.3-41.8)
[2019-11-03 14:48] LABS: ALB/GLOB RATIO 1.1; ALBUMIN 3.7 g/dL (3.5-5.0); CALCIUM 8.5 mg/dL (8.8-10.2); CREATININE 1.4 mg/dL (0.7-1.2); POTASSIUM 3.9 mmol/L (3.5-5.1); TOTAL BILIRUBIN 0.48 mg/dL (0.20-1.00); TOTAL PROTEIN 7.2 g/dL (6.3-8.3)
[2019-11-03 15:16] LABS: URINE SOURCE CLEAN CATCH
[2019-11-03 15:20] LABS: BILIRUBIN URINE NEGATIVE (NEGATIVE); BLOOD URINE NEGATIVE (NEGATIVE); COLOR YELLOW; GLUCOSE URINE NEGATIVE (NEGATIVE); KETONE URINE NEGATIVE (NEGATIVE); LEUKOCYTES URINE NEGATIVE (NEGATIVE); NITRITE URINE NEGATIVE (NEGATIVE); PROTEIN URINE 30 mg/dL (NEGATIVE); SP GRAVITY URINE 1.025; TURBIDITY URINE CLEAR (CLEAR); UR EPITHELIAL CELLS <10 /HPF (<10); URINE BACTERIA NEGATIVE /HPF; URINE RBC <10 /HPF (<10); URINE WBC <10 /HPF (<10); UROBILINOGEN URINE NORMAL (NORMAL)
[2019-11-03] MEDS ORDERED: MORPHINE IV ONE (16:27)
[2019-11-03] MEDS ORDERED: CARDIZEM IV ONE ×2 (19:04→19:21)
[2019-11-03] MEDS ORDERED: CARDIZEM ONE (19:11)
--- NOTE | 2019-11-03 19:22 | PROVIDER DOCUMENTATION ---
This chart was entered by Quirino Tao Scribe, acting as scribe for Mikayla Jiménez MD. HPI-Chest Pain - General Chief Complaint: Chest Pain Stated Complaint: chest pain afib rvr Time Seen by Provider: 11/03/19 13:50 Source: patient Allergies/Adverse Reactions: Patient Allergies Allergy/AdvReac Type Severity Reaction Status Date / Time No Known Allergies Allergy Verified 04/18/19 14:39 Home Medications: Home Medication List Medication Instructions Recorded Confirmed Last Taken Type ATORVAstatin [Lipitor] 40 mg PO QHS 05/06/16 11/03/19 09/04/19 21:00 History Omeprazole [Prilosec] 40 mg PO QHS 05/06/16 11/03/19 09/04/19 20:00 History Sucralfate [Carafate] 1 gm PO AC + HS 05/06/16 11/03/19 09/05/19 08:00 History Apixaban [Eliquis] 5 mg PO BID #60 tablet 10/25/17 11/03/19 09/05/19 07:00 Rx Glipizide [Glipizide ER] 5 mg PO BID 02/15/18 11/03/19 09/05/19 07:00 History Venlafaxine HCl [Venlafaxine HCl 75 mg PO QHS 04/01/18 11/03/19 09/04/19 20:00 History ER] Diltiazem HCl [Dilt-Xr] 240 mg PO DAILY 04/23/19 11/03/19 09/05/19 07:00 History Insulin Aspart [Novolog Flexpen] See Protocol SQ AC + HS PRN PRN 04/23/1909/04/19 20:00 History Carvedilol [Coreg] 12.5 mg PO BID #120 tab 04/29/19 11/03/19 08/20/19 21:00 Rx Hydralazine [Apresoline] 25 mg PO TID #120 tab 04/29/19 11/03/19 08/21/19 07:00 Rx Aclidinium [place] Inhaler 1 puff INH BID 11/03/19 11/03/19 Unknown History [Tudorza Pressair Inhaler] Albuterol Sulfate [Albuterol 1 - 2 dose INHALATION DIRECTED 11/03/19 11/03/19 Unknown History Sulfate Hfa] Amitriptyline [Elavil] 50 mg PO HS 11/03/19 11/03/19 Unknown History Amoxicillin/Pot Clavulanate 875 mg PO BID 11/03/19 11/03/19 Unknown History [Augmentin] Cetirizine HCl [Zyrtec] 10 mg PO QHS 11/03/19 11/03/19 Unknown History Clotrimazole/Betamethasone Dip 1 applicatn TOP BID 11/03/19 11/03/19 Unknown History [Clotrimazole-Betamethasone Crm] Famotidine 20 mg PO DAILY 11/03/19 11/03/19 Unknown History Gabapentin [Gralise] 300 mg PO QHS 11/03/19 11/03/19 Unknown History Ibuprofen 800 mg PO TID 11/03/19 11/03/19 Unknown History Levothyroxine Sodium 50 mcg PO DAILY 11/03/19 11/03/19 Unknown History Nitroglycerin [Nitrostat] 1 tab PO DIRECTED 11/03/19 11/03/19 Unknown History Oxycodone HCl 15 mg PO Q6-8H PRN PRN 11/03/19 11/03/19 Unknown History Pramipexole Di-HCl [Mirapex] 1.5 mg PO QHS 11/03/19 11/03/19 Unknown History Promethazine [Phenergan] 25 mg PO Q6H PRN PRN 11/03/19 11/03/19 Unknown History - History of Present Illness-CP Nature of Presenting Problem: Pt is a 69 y/o M presents to the ED with chest pain that began last evening going into his back. He reports he has been SOB for about 2 weeks now. He says he was released from the Hospital on the 23 of last month and he says the SOB began a few days later. Location: reports: substernal Chest Pain Radiation: reports: back Quality of Pain: reports: aching Severity in ED: moderate Onset/Duration: last night Timing: still present Context/Activities at Onset: reports: none Modifying Factors: improves with: nothing Associated Symptoms: reports: back pain, edema, shortness of breath. denies: dizziness, fever/chills, headache, nausea, syncope, vomiting Nitro Today/Relief: no nitro taken today Aspirin Treatment Today: no aspirin today Similar Symptoms Previously?: Yes Recently Seen Here or By Another Healthcare Provider: Yes Review of Systems - Adult - REVIEW OF SYSTEMS - ADULT Constitutional: denies: chills, fever Eyes: reports: no symptoms reported Ears, Nose, Mouth & Throat: reports: no symptoms reported Cardiovascular: reports: chest pain, edema. denies: palpitations Respiratory: reports: cough, shortness of breath, wheezing Gastrointestinal: denies: abdominal pain, nausea, vomiting Genitourinary: reports: no symptoms reported Musculoskeletal: reports: back pain. denies: bone pain, joint pain, neck pain Integumentary: reports: no symptoms reported Neurological: denies: dizziness/vertigo, headache/migraines Psychiatric: reports: no symptoms reported Endocrine: reports: no symptoms reported Hematologic/Lymphatic: reports: no symptoms reported Allergic/Immunologic: reports: no symptoms reported All Other Systems: Reviewed and Negative Past History - Adult - PAST MEDICAL HISTORY-ADULT Review of Records: reports: Old Records Reviewed, Nursing Assessment Review, Medications Reviewed Major Childhood Illnesses: reports: denies history Cardiovascular: reports: A-Fib, CAD, CHF, HTN, hyperlipidemia, [place], PVD Respiratory: reports: asthma, COPD, other (asbestos) Gastrointestinal: reports: denies history Obstetrical/Gynecological: reports: denies history Genitourinary: reports: cancer (Hx: prostate), kidney disease Musculoskeletal: reports: chronic pain, other (restless leg syndrome) Neurological: reports: CVA Psychiatric: reports: depression Endocrine/Immune: reports: Diabetes, thyroid disorder Other Conditions: reports: denies history - PRIOR SURGERIES/PROCEDURES Surgical/Procedure History: reports: other, appendectomy, colonoscopy, back/neck - IMMUNIZATION STATUS Childhood Immunizations: See Nurse Assessment Flu Vaccine: See Nurse Assessment - FAMILY HISTORY Family History: CAD over 55 yo, other (type 2 diabetes) - SOCIAL HISTORY Smoking: non-smoker Substance Use: none/never Living Situation: family Physical Exam-General - PHYSICAL EXAM-ADULT Initial Vital Signs Reviewed: Yes - CONSTITUTIONAL General Appearance: alert, no apparent distress - EYES Eyes: PERRL/EOMI, pink conjunctivae - HEAD, EARS, NOSE, MOUTH & THROAT HENMT: moist mucous membranes, normal ENT inspection, pharynx normal - NECK Neck: non-tender, full range of motion, supple, normal inspection - RESPIRATORY Respiratory: chest non-tender, no respiratory distress, no accessory muscle use, rhonchi, wheezing - CARDIOVASCULAR Cardiovascular: normal peripheral pulses, regular rate, rhythm - GASTROINTESTINAL (ABDOMEN) Abdominal Exam: normal bowel sounds, non tender, soft - MUSCULOSKELETAL Back Exam: normal inspection, no CVA tenderness Extremity: normal range of motion, pelvis stable, pedal edema - SKIN Integumentary: normal color, normal turgor, warm/dry - NEUROLOGIC Neurologic: grossly normal, no motor/sensory deficits - PSYCHIATRIC Psych/Mental Status: normal mood/affect, normal thought content, normal thought process, oriented x 3 - HEART Score HEART Score: History: Highly Suspicious HEART Score: ECG: Normal HEART Score: Age: > or = 65 Years HEART Score: Risk Factors for Atherosclerotic Disease: > or = 3 Risk Factors or History of Atherosclerotic Disease HEART Score: Troponin: 1-3x Normal Limit Total HEART Score:: 7 Progress - PLAN OF CARE/RESULTS Progress/Plan/Lab Results: Vital Signs - 8 hr 11/03/19 13:42 11/03/19 15:25 11/03/19 16:26 Temperature 97.7 F 97.9 F Pulse Rate 128 H 119 H 113 H Respiratory Rate 33 H 20 18 Blood Pressure 141/84 161/72 161/72 O2 Sat by Pulse Oximetry 94 L 100 97 Laboratory Results - last 24 hr 11/03/19 11/03/19 11/03/19 13:55 13:55 13:55 WBC RBC Hgb Hct MCV MCH MCHC RDW Std Deviation Plt Count MPV Immature Gran % (Auto) Neut % (Auto) Lymph % (Auto) Clay % (Auto) Eos % (Auto) Baso % (Auto) Immature Gran # (Auto) Neut # (Auto) Lymph # (Auto) Clay # (Auto) Eos # (Auto) Baso # (Auto) PT 14.8 INR 1.14 PTT (Actin FS) 30.1 Sodium 137 Potassium 3.9 Chloride 101 Carbon Dioxide 24 L Anion Gap 12 BUN 15 Creatinine 1.4 H Estimated GFR/1.73 m2 50 BUN/Creatinine Ratio 11 Glucose 166 H Calculated Osmolality 278 Calcium 8.5 L Total Bilirubin 0.48 AST 22 ALT 16 Alkaline Phosphatase 101 Creatine Kinase 133 Troponin T High Sens 30 H Ewk-P-Biwgvxvidix Pept Total Protein 7.2 Albumin 3.7 Globulin 3.5 Albumin/Globulin Ratio 1.1 Plasma Lactate Urine Source Urine Color Urine Turbidity Urine pH Ur Specific [place] Urine Protein Ur Glucose (Stick) Ur Ketones (Stick) Urine Blood Urine Nitrite Urine Bilirubin Urobilinogen Dipstick Urine Leukocytes Urine WBC (Auto) Urine RBC (Auto) U Epithel Cells (Auto) Urine Bacteria (Auto) 11/03/19 11/03/19 11/03/19 13:55 14:12 14:12 WBC 7.12 RBC 4.07 L Hgb 11.7 L Hct 37.2 L MCV 91.4 MCH 28.7 MCHC 31.5 L RDW Std Deviation 14.9 H Plt Count 116 L MPV 11.9 H Immature Gran % (Auto) 0.0 Neut % (Auto) 76.7 H Lymph % (Auto) 15.4 L Clay % (Auto) 7.6 Eos % (Auto) 0.0 Baso % (Auto) 0.3 Immature Gran # (Auto) 0.00 Neut # (Auto) 5.46 Lymph # (Auto) 1.10 L Clay # (Auto) 0.54 Eos # (Auto) 0.00 Baso # (Auto) 0.02 PT INR PTT (Actin FS) Sodium Potassium Chloride Carbon Dioxide Anion Gap BUN Creatinine Estimated GFR/1.73 m2 BUN/Creatinine Ratio Glucose Calculated Osmolality Calcium Total Bilirubin AST ALT Alkaline Phosphatase Creatine Kinase Troponin T High Sens Sej-B-Siarghfnfxl Pept 8128 H Total Protein Albumin Globulin Albumin/Globulin Ratio Plasma Lactate 1.9 Urine Source Urine Color Urine Turbidity Urine pH Ur Specific [place] Urine Protein Ur Glucose (Stick) Ur Ketones (Stick) Urine Blood Urine Nitrite Urine Bilirubin Urobilinogen Dipstick Urine Leukocytes Urine WBC (Auto) Urine RBC (Auto) U Epithel Cells (Auto) Urine Bacteria (Auto) 11/03/19 11/03/19 15:05 16:55 WBC RBC Hgb Hct MCV MCH MCHC RDW Std Deviation Plt Count MPV Immature Gran % (Auto) Neut % (Auto) Lymph % (Auto) Clay % (Auto) Eos % (Auto) Baso % (Auto) Immature Gran # (Auto) Neut # (Auto) Lymph # (Auto) Clay # (Auto) Eos # (Auto) Baso # (Auto) PT INR PTT (Actin FS) Sodium Potassium Chloride Carbon Dioxide Anion Gap BUN Creatinine Estimated GFR/1.73 m2 BUN/Creatinine Ratio Glucose Calculated Osmolality Calcium Total Bilirubin AST ALT Alkaline Phosphatase Creatine Kinase Troponin T High Sens Zke-P-Qsojivqddkh Pept Total Protein Albumin Globulin Albumin/Globulin Ratio Plasma Lactate 1.1 Urine Source CLEAN CATCH Urine Color YELLOW Urine Turbidity CLEAR Urine pH 6.0 Ur Specific [place] 1.025 Urine Protein 30 A Ur Glucose (Stick) NEGATIVE Ur Ketones (Stick) NEGATIVE Urine Blood NEGATIVE Urine Nitrite NEGATIVE Urine Bilirubin NEGATIVE Urobilinogen Dipstick NORMAL Urine Leukocytes NEGATIVE Urine WBC (Auto) <10 Urine RBC (Auto) <10 U Epithel Cells (Auto) <10 Urine Bacteria (Auto) NEGATIVE Orders Category Date Time Status Cardiac Monitoring NOW Care 11/03/19 13:49 Active IV Insertion NOW Care 11/03/19 13:49 Completed NEWS Score >or=5:Order NEWS Bundle S.O. NOW Care 11/03/19 13:47 Active Notify Provider of NEWS Score NOW Care 11/03/19 13:49 Active CHEST-1 VIEW [RAD] Stat Exams 11/03/19 13:49 Completed BLOOD CULTURE [BLDCUL] Stat Lab 11/03/19 14:02 Results BNP [PRO B-NATRIURETIC PEPTIDE] Stat Lab 11/03/19 13:55 Completed CBC WITH DIFF [HEME] Stat Lab 11/03/19 14:12 Completed CK PROFILE [SP CHEM] Stat Lab 11/03/19 13:55 Completed COMPREHENSIVE METABOLIC PANEL [CHEM] Stat Lab 11/03/19 13:55 Completed LACTATE, PLASMA [CHEM] Lab 11/03/19 14:12 Completed LACTATE, PLASMA [CHEM] Lab 11/03/19 16:55 Completed LACTATE, PLASMA [CHEM] Lab 11/03/19 20:00 Uncollected PROTIME WITH INR [COAG] Stat Lab 11/03/19 13:55 Completed PTT [COAG] Stat Lab 11/03/19 13:55 Completed TROPONIN T HIGH SENSITIVITY Stat Lab 11/03/19 13:55 Completed URINALYSIS W/POSS RFLX CULT [URINALYSIS] Stat Lab 11/03/19 15:05 Completed Diltiazem [Cardizem] Med 11/03/19 19:04 Discontinued 10 mg IV NOW ONE Diltiazem [Cardizem] Med 11/03/19 19:21 Once 10 mg IV NOW ONE Diltiazem [Cardizem] Med 11/03/19 19:11 Discontinued 25 mg .ROUTE .STK-MED ONE Morphine Med 11/03/19 16:27 Discontinued 2 mg IV NOW ONE O2 Per Protocol Stat Oth 11/03/19 13:49 Active EKG [EKG] Stat Ther 11/03/19 13:50 Ordered EKG [EKG] Stat Ther 11/03/19 18:17 Ordered Result Diagrams: 11/03/19 14:12 11/03/19 13:55 - REASSESSMENT Reassessment #1 Time Reassessed: 19:04 Status: other (Patient continues to complain of pain. Repeat EKG shows afib with RVR with rate of 123 bpm. Will push Cardizem and admit patient.) - EKG 1 Time of EKG reading by physician:: 13:35 EKG Read and Signed by:: Mikayla Jiménez EKG Interpretation (*Must complete 3 of following elements*): Abnormal Rate: 115 Rhythm: A-flutter with variable AV block Comments: cannot rule out anterior infarct 2 Time of EKG reading by physician:: 18:13 EKG Read and Signed by:: Mikayla Jiménez EKG Interpretation (*Must complete 3 of following elements*): Abnormal Rate: 123 Rhythm: A fib with RVR - XRAY 1 XRAY Study: Chest Impression: Abnormal (IMPRESSION: Fibrosis in the left costophrenic angle. No evidence of acute disease. Electronically signed by Brent Cancino 11/03/2019 2:13 PM) XRAY Interpretation: No acute process - CONSULTS/PCP/HOSPITALIST Notification #1 *Consult/PCP/Hospitalist*: Hospitalist- Dr Pemberton Time Discussed: 19:11 Reason/Comments: admission Consult Disposition: Will see in ED Departure - Departure Date of Disposition Decision: 11/03/19 Time of Disposition Decision: 19:05 DIAGNOSIS: Atrial fibrillation with RVR Disposition: ADMITTED INPATIENT 09 Certified Medical Emergency: Emergent Condition: Stable Referrals and Follow-Ups: Yahir Gooden MD [Primary Care Provider] - - Critical Care Note This patient required my direct & personal management of CC.: No Attestation - Physician/ GABY Attestation Patient care was provided by Advanced Practice Provider:: No The physician spent face to face time with patient:: Yes Advanced Practice Provider documentation review:: Supervising physician onsite and consulted in the evaluation and care of this patient. The physician did have a face to face encounter with the patient. This chart was documented by the indicated scribe, (Quirino Tao Scribe) and accurately reflects the services I performed and decisions made by me, Mikayla Jiménez MD, as attested by the provider's signature.
[2019-11-03] MEDS: CARDIZEM 100 MG/NS 100 MG/100 ML IVPB IV SCH (19:40)
--- NOTE | 2019-11-03 19:52 | EKG Report ---
Test Performed on : 11/03/2019 6:13:19 PM Test Reason : CP Blood Pressure : / mmHG Vent. Rate : 123 BPM Atrial Rate : 312 BPM P-R Int : 000 ms QRS Dur : 080 ms QT Int : 390 ms P-R-T Axes : 000 035 117 degrees QTc Int : 558 ms Atrial fibrillation. with rapid ventricular response. Anterior infarct (cited on or before 01-OCT-2019) Abnormal ECG When compared with ECG of 03-NOV-2019 13:35, (Unconfirmed) Atrial fibrillation. has replaced Atrial flutter. Unconfirmed Result
--- NOTE | 2019-11-03 19:52 | EKG Report ---
Test Performed on : 11/03/2019 7:17:25 PM Test Reason : INCREASED CP Blood Pressure : / mmHG Vent. Rate : 116 BPM Atrial Rate : 144 BPM P-R Int : 000 ms QRS Dur : 078 ms QT Int : 368 ms P-R-T Axes : 000 -13 090 degrees QTc Int : 511 ms Atrial fibrillation. with rapid ventricular response. Low voltage QRS Cannot rule out Anterior infarct (cited on or before 01-OCT-2019) Abnormal ECG When compared with ECG of 03-NOV-2019 18:13, (Unconfirmed) No significant change was found Unconfirmed Result
--- NOTE | 2019-11-03 19:53 | EKG Report ---
Test Performed on : 11/03/2019 1:35:35 PM Test Reason : CP Blood Pressure : / mmHG Vent. Rate : 115 BPM Atrial Rate : 214 BPM P-R Int : 000 ms QRS Dur : 078 ms QT Int : 350 ms P-R-T Axes : 000 032 106 degrees QTc Int : 484 ms Atrial flutter. with variable AV block. Cannot rule out Anterior infarct (cited on or before 01-OCT-2019) Abnormal ECG When compared with ECG of 01-OCT-2019 17:37, (Unconfirmed) Atrial flutter. has replaced Atrial fibrillation. Serial changes of Anterior infarct present Unconfirmed Result
[2019-11-03] MEDS ORDERED: ZOFRAN IV PRN (20:05)
[2019-11-03] MEDS: MAXIPIME 2 GM/NS 2 GM/100 ML IVPB IV SCH (20:52)
--- NOTE | 2019-11-03 20:57 | HISTORY AND PHYSICAL ---
CHIEF COMPLAINT: Chest and upper back pain, dyspnea, "I ran out of my Percocet." HISTORY OF PRESENT ILLNESS: The patient is a 69-year-old male with numerous comorbidities. He was recently in the hospital with acute on chronic leg infection and was discharged to rehab. He states he has been home a few days. Since then he has run out of his Percocet. Since then he has had chest pain radiating through to his back. He has not noted any aggravating or alleviating factors. He also endorses some mild dry cough and orthopnea which is largely stable. He came in on an initial evaluation here and was found to be in atrial fibrillation with rapid ventricular response into the 120s. He was given diltiazem push with only slight improvement and was subsequently put on diltiazem drip in the ER. He denies fever, chills, nausea, or vomiting. He endorses significant pain most of which is chronic, but states that this pain in his chest and between his shoulder blades is new for the last couple days. He denies palpitations. He denies diaphoresis. He states that he had some shortness of breath earlier and chronically has some orthopnea, but denies any shortness of breath currently. He says he has been in and out of the hospital and had not followed up with his pain management doctor since approximately July and that does appear to be when he last filled a pain script in the [place]. He denies increased swelling or drainage in his legs, but also states that he does not pay very much attention to them. He denies any noncompliance with his medication, but is also not very sure about what he takes. He states that his mostly handles his medication. Although he does think he may have been off at least 1 of his atrial fibrillation medications since the last time he was in the hospital. REVIEW OF SYSTEMS: Twelve-point review of systems negative except as per interval history. ALLERGIES: No known drug allergies. PAST MEDICAL HISTORY: 1. Chronic atrial fibrillation. 2. Chronic pain. 3. Chronic obstructive pulmonary disease. 4. Diabetes. 5. Hypothyroidism. 6. Chronic venous stasis. 7. Chronic right foot ulcer. 8. Gastroesophageal reflux disease. 9. Hypertension. 10. Hyperlipidemia. 11. Morbid obesity. 12. Obstructive sleep apnea. 13. Peripheral venous stasis. PAST SURGICAL HISTORY: Appendectomy, prostate surgery for limited-stage cancer, cardiac stents, penile implant, and AAA repair. SOCIAL HISTORY: The patient is approximately a 8-psbs-c-day smoker. Denies alcohol or illicit drug use. FAMILY HISTORY: Father with [place], stroke, and blood pressure issues. He is not aware of any chronic medical issues that his mother had. LABORATORIES: WBC 7.1, hemoglobin 11.7, hematocrit 37.2, platelets 116,000. INR 1.14. Sodium 137, potassium 3.9, bicarb 24, BUN 15, creatinine 1.4, glucose 166. Troponin 30. BNP 8128. Initial lactate 1.9, repeat 1.1. Urinalysis unremarkable. IMAGING: Chest x-ray with chronic fibrosis, but no acute disease. PHYSICAL EXAMINATION: VITAL SIGNS: T-max 97.9 degrees, pulse 113, respirations 18, blood pressure 161/72, and O2 saturation 97% on 2 L by nasal cannula. GENERAL: No acute distress. HEENT: Normocephalic, atraumatic. Moist mucous membranes. CARDIOVASCULAR: Irregular rhythm, mildly tachycardic. PULMONARY: Mild bibasilar crackles, otherwise clear to auscultation bilaterally. No wheezing noted. Good air entry. The patient does have pain on palpation of pretty much his entire upper back and a fair amount of his chest. No increased work of breathing. No accessory muscle use. ABDOMEN: Soft, nontender, nondistended. Bowel sounds positive. Obese. EXTREMITIES: Peripheral pulses significantly decreased, but present. The patient with chronic venous stasis dermatitis from the knee down bilaterally. Initially his legs were bandaged. Bandaging was removed. Approximately nickel-size plantar ulcer on the right foot with some light yellow drainage. His toes bilaterally are erythematous and slightly swollen with left greater than right. No other definite ulcerations noted. NEUROLOGIC: Cranial nerves grossly intact. Mild global weakness, but no focal deficits identified. PSYCHIATRIC: Normal mood and affect. Awake, alert, and oriented x3. ASSESSMENT AND PLAN: 1. Chest pain with radiation to the back. I suspect this is due to running out of his chronic pain medication, but given his history and relative immobility there is some concern for pulmonary thromboembolism. Also given his completely normal INR, I am suspicious that he may not have been taking his Eliquis at home. We will get CTA to evaluate for pulmonary thromboembolism and go ahead and get him restarted on his home Eliquis. Initial troponin minimally elevated at 30, but that is similar to what he has had in the past. EKG without any significant ST changes. I strongly suspect that this is not acute coronary syndrome, but we will trend troponins and monitor. 2. Atrial fibrillation with rapid ventricular response. The patient with chronic atrial fibrillation. It sounds like he has probably been off at least one of his medications if not more at home. Started on a diltiazem drip in the ER, but his rate was never terribly high. I suspect he can be started back on all his home medications in the morning and likely taken off the drip. If he has difficulty coming off the diltiazem drip, then we will consult Cardiology. 3. Dyspnea, pulmonary hypertension, elevated BNP, and orthopnea. I suspect a lot of his dyspnea is anxiety driven. His BNP is more elevated than what it has been in the past though, so we will go ahead and keep him on a little bit of IV Lasix. Difficult to assess for volume overload given his severe chronic venous stasis dermatitis, but he does have some very mild basilar crackles on exam. If the patient is still here on Tuesday, we will likely repeat echocardiogram. On his last one he had mild pulmonary hypertension, but normal ejection fraction, and no significant valvular abnormalities. 4. Chronic pain. We will keep him on his home oxycodone for now and attempt to confirm that in the morning with his pain clinic. The patient with no narcotic script in PDMP since July, but he does appear to have been in the hospital and rehab a lot and may legitimately have had difficulty getting in with his pain management doctor. 5. Diabetes mellitus. Sugar is okay right now. We will place on sliding scale, check A1c, and monitor glucoses. 6. Hypothyroidism. Continue home Synthroid. 7. Gastroesophageal reflux disease. Continue home ranitidine and PPI. 8. Chronic kidney disease III. Creatinine stable at 1.4. 9. Hypertension. We will restart home medications and monitor. 10. Likely morbid obesity and obstructive sleep apnea. The patient with a listed body mass index of 39, but I do not think his weight has been updated. On exam the patient certainly appears morbidly obese. 11. Hyperlipidemia. Continue home statin. [facility]
[2019-11-03] MEDS ORDERED: DIPRIVAN 1% ONE (21:16)
[2019-11-03] MEDS ORDERED: QUELICIN ONE (21:19)
[2019-11-03] MEDS: PRILOSEC PO SCH (22:43)
[2019-11-03] MEDS: LIPITOR PO SCH (22:43)
[2019-11-03] MEDS: HUMALOG SUBQ SCH (22:43)
[2019-11-03] MEDS: MIRAPEX PO SCH (22:43)
[2019-11-03] MEDS: ELAVIL PO SCH (22:44)
[2019-11-03] MEDS: COREG PO SCH (22:44)
[2019-11-03] MEDS: EFFEXOR XR PO SCH (22:44)
[2019-11-03] MEDS: ELIQUIS PO SCH (22:44)
[2019-11-03] MEDS: ZYRTEC PO SCH (22:46)
[2019-11-04] MEDS: OXY IR PO PRN ×2 (00:19→20:35)
[2019-11-04] MEDS: GRALISE PO SCH ×2 (00:19→20:35)
[2019-11-04] MEDS: CARDIZEM 100 MG/NS 100 MG/100 ML IVPB IV SCH (00:20)
[2019-11-04] MEDS: HUMALOG SUBQ SCH ×4 (06:41→20:50)
[2019-11-04] MEDS ORDERED: SYNTHROID PO SCH (07:00)
[2019-11-04 07:27] LABS: BASO# 0.01 X1000 (0.0-0.2); BASO% 0.1 % (0.0-0.8); HEMATOCRIT 36.5 % (42.0-52.0); HEMOGLOBIN 11.3 g/dL (14.0-18.0); IMM GRAN# 0.02 X1000 (0.0-0.04); IMM GRAN% 0.3 % (0.0-0.5); LYMPH# 1.07 X1000 (1.2-3.4); LYMPH% 14.3 % (20.5-51.1); MCH 28.7 PG (27-31); MCV 92.6 FL (81-99); MONO# 0.72 X1000 (0.11-0.59); MONO% 9.7 % (1.7-9.3); MPV 12.4 FL (7.4-10.4); NEUT# 5.64 X1000 (1.4-6.5); NEUT% 75.6 % (42.2-75.2); PLT 135 X1000 (130-400); RBC 3.94 XMIL (4.7-6.1); WBC 7.46 X1000 (4.8-10.8)
[2019-11-04 07:55] LABS: FREE T4 0.86 ng/dL (0.93-1.70)
[2019-11-04 07:57] LABS: TSH 6.58 uIUmL (0.27-4.20)
[2019-11-04 08:01] LABS: CALCIUM 8.3 mg/dL (8.8-10.2); CREATININE 1.7 mg/dL (0.7-1.2); POTASSIUM 4.4 mmol/L (3.5-5.1)
[2019-11-04] MEDS: PEPCID PO SCH (08:15)
[2019-11-04] MEDS: ASPIRIN PO SCH (08:15)
[2019-11-04] MEDS: ELIQUIS PO SCH ×2 (08:15→20:36)
[2019-11-04] MEDS: CARDIZEM CD PO SCH (08:15)
[2019-11-04] MEDS: APRESOLINE PO SCH ×3 (08:15→16:42)
[2019-11-04] MEDS: LASIX IV SCH (08:16)
[2019-11-04] MEDS: COREG PO SCH ×2 (08:16→20:36)
[2019-11-04 10:09] LABS: HEMOGLOBIN A1C 7.8 % (4.8-6.0)
--- NOTE | 2019-11-04 11:41 | Diag Imaging Result Doc PS360 ---
EXAM: CT THORAX W/O CONTRAST 11/04/2019 HISTORY: SOB TECHNIQUE: This exam was performed using automated exposure control, adjustment of mA or kV according to patient size, and/or use of iterative reconstruction technique. COMMENT: The current examination is compared with the previous study of 04/26/2019. There is a pleural effusion on the right which was not previously present and there may be a small amount of loculated fluid in the posterior left pleural space. There is some compressive atelectasis in both lower lobes. There is extensive coronary calcification particularly in the left anterior descending artery. There are number of nonspecific appearing aorticopulmonary window and prevascular nodes. There is a right paratracheal node measuring over 18 mm. This is slightly smaller than on the previous study. The patchy opacities which were previously present in the right middle lobe lower lobe and upper lobe have largely resolved. There are still coarse linear and atelectatic appearing opacities present in the left lower lobe and lingula. There is subpleural fibrosis in the lateral right apex which was also present previously. The regional skeleton is stable in appearance. There are no apparent acute abnormalities in the visualized portion of the abdomen. IMPRESSION: Right pleural effusion. Other nonacute findings as described above. Electronically signed by Brent Cancino 11/04/2019 11:38 AM
[2019-11-04] MEDS: DOXYCYCLINE 100 MG in NS 250 ML IV SCH ×2 (12:51→23:33)
--- NOTE | 2019-11-04 12:59 | PROGRESS NOTE ---
DATE: 11/04/2019 SUBJECTIVE: The patient was admitted due to chest pain and shortness of breath. He states that he ran out of his Percocet. As per the patient, he goes to a pain clinic. Also, he was in atrial fibrillation with RVR. He was placed on Cardizem drip, which I have stopped and put him back on his home medications with diltiazem, Coreg, and Eliquis. Right now, he is still in atrial fibrillation, but this is chronic, but the rate is controlled. He is on nasal cannula, but I do believe he has been chronically hypoxemic as well. His CT scan of the chest without contrast showed right pleural effusion and some other nonacute findings, and likely that was about the same compared with the previous one. He has been placed on Lasix, which I will continue. On the other hand, his TSH is high as 6.5, and actually it has been high since 2017. Based on his BMI, probably this patient should be getting more than 50 mcg of levothyroxine, so I will increase it to 75, and monitor. His proBNP is elevated at 8128. He has chronic kidney disease that seems to be around baseline. I do not see that any diuretics to be given at home. Initially, we were thinking about getting a CT angiogram, but given his kidney function, probably I will just continue with Eliquis twice a day, and I can ask for a V/Q scan tomorrow. When I evaluated this patient, he was in front of me, sleeping, and he was having periods of apnea, so likely he needs to be seen by a scroll assembler and put on a CPAP machine, but anyway, he is getting anticoagulation. OBJECTIVE: Vital Signs: Temperature 98.3 degrees, pulse 79, respiratory rate 22, blood pressure 128/80, oxygen saturation 99 on 5 L nasal cannula. HEENT: Head normocephalic. No trauma. Neck: Supple. Some JVD, but is hard to see it because of his neck size. Chest: Some crackles at the bases, mostly on the right side. Abdomen: Soft, protuberant, nontender, nondistended. No hepatosplenomegaly. Extremities: He has swollen feet. On the right foot, he has an ulcer on the plantar area, and on the left, he has multiple lesions in between the toes, and redness. He has been placed on cefepime. I will add doxycycline to cover some gram-positive and possible MRSA infection. I have requested an evaluation by the Wound Care nurse. LABORATORY DATA: WBC 7.4, hemoglobin 11.3, hematocrit 36.5, platelets 135,000. Sodium 138, potassium 4.4, chloride 101, bicarbonate 25, BUN 16, creatinine 1.7, glucose 139, calcium 8.3. TSH 6.5, T4 of 0.86. ASSESSMENT AND PLAN: 1. Chest pain with radiation to the back. His troponins are stable. Electrocardiogram showed atrial fibrillation with rapid ventricular response. Vital signs are stable at this moment, and he is not complaining of too much chest pain now. Chest CT scan showed right pleural effusion mostly. ProBNP is elevated, so I will go ahead and continue with diuretics. We will keep an eye on his kidney function. 2. Atrial fibrillation with rapid ventricular response. I will stop the Cardizem drip, and I will continue with the home medications, including carvedilol and diltiazem by mouth. We have restarted this patient's Eliquis as well. There is a possibility of pulmonary embolism, and he will have a V/Q scan tomorrow. He is on anticoagulation anyway, which is the treatment basically. 3. Hypoxemic respiratory failure. I will ask for ABGs in the morning. I suspect this patient has been needing oxygen at home as well based on his weight and comorbidities. Likely, this patient also has sleep apnea. Will continue with oxygen supplementation. There is a possibility of pulmonary embolism, so we will get a V/Q scan tomorrow. 4. Elevated proBNP. Probably, this patient has some diastolic dysfunction and pulmonary hypertension. I will continue with the same management for now, and I will ask for an echocardiogram, which likely will be done tomorrow. 5. Chronic pain. As per the patient, he goes to a pain clinic. Will continue with the as needed medication. 6. Hypothyroidism. His TSH is high. T4 is low. Based on his body mass index, likely this patient will need more levothyroxine, so I will increase it by 50%. He was getting 50 mcg, and now 75. Will monitor. He will need to repeat the TSH level in a few weeks, at least 6 weeks. 7. Gastroesophageal reflux disease. Continue with the same management. 8. Chronic kidney disease, stable. This is his baseline. 9. Hypertension. We have restarted his home medication. 10. Morbid obesity with likely obstructive sleep apnea. I did see the patient having periods of apnea in front of me. I will try to get the sleep doctor to set up an appointment as an outpatient. 11. Hyperlipidemia. Continue with statin. 12. Diabetic foot ulcers. It looks like this is chronic. Wound Care nurse has been consulted. I will go ahead and put him also on doxycycline to try to cover more gram-positive and possible methicillin-resistant staphylococcus aureus. 13. Pleural effusion. Continue with the same treatment, Lasix. CRITICAL CARE TIME: 35 minutes. cc: Jim Miller MD
[2019-11-04] MEDS: MAXIPIME 2 GM/NS 2 GM/100 ML IVPB IV SCH (20:35)
[2019-11-04] MEDS: LIPITOR PO SCH (20:35)
[2019-11-04] MEDS: EFFEXOR XR PO SCH (20:35)
[2019-11-04] MEDS: MIRAPEX PO SCH (20:36)
[2019-11-04] MEDS: PRILOSEC PO SCH (20:36)
[2019-11-04] MEDS: ELAVIL PO SCH (20:36)
[2019-11-04] MEDS: ZYRTEC PO SCH (20:40)
[2019-11-05 04:54] LABS: ALLEN TEST YES; BE -0.6 mmoll (-3.0-3.0); BLOOD TYPE ARTERIAL; HCO3-(ACT) 24.4 mmoll (20.0-26.0); METHB 0.7 % (0.0-1.5); O2(CT) 16.2 mL/dL (15.0-23.0); O2HB 95.1 % (95.0-99.0); PO2(98.6) 96 mmHg (60-100); SAMPLE BLOOD; SAO2 97.7 % (95.0-100.0)
[2019-11-05 04:58] LABS: MODALITY CANNULA; PCO2(98.6) 54 mmHg (35-45)
[2019-11-05 06:10] LABS: BASO# 0.01 X1000 (0.0-0.2); BASO% 0.2 % (0.0-0.8); HEMATOCRIT 36.2 % (42.0-52.0); HEMOGLOBIN 11.1 g/dL (14.0-18.0); LYMPH# 1.07 X1000 (1.2-3.4); LYMPH% 19.8 % (20.5-51.1); MCH 28.7 PG (27-31); MCHC 30.7 g/dL (33-37); MCV 93.5 FL (81-99); MONO# 0.64 X1000 (0.11-0.59); MONO% 11.8 % (1.7-9.3); MPV 12.4 FL (7.4-10.4); NEUT# 3.69 X1000 (1.4-6.5); NEUT% 68.2 % (42.2-75.2); PLT 127 X1000 (130-400); RBC 3.87 XMIL (4.7-6.1); RDW 15.1 % (11.5-14.5); WBC 5.41 X1000 (4.8-10.8)
[2019-11-05] MEDS: HUMALOG SUBQ SCH ×4 (06:19→21:45)
[2019-11-05] MEDS: SYNTHROID PO SCH (06:22)
[2019-11-05 06:29] LABS: CALCIUM 8.4 mg/dL (8.8-10.2); CREATININE 1.9 mg/dL (0.7-1.2)
--- NOTE | 2019-11-05 08:25 | Diag Imaging Result Doc PS360 ---
CHEST-2 VIEWS - 11/05/2019 INDICATION: chest pain COMPARISON: 11/03/2019 FINDINGS: There has been improvement in the diffuse pulmonary vascular congestion. Stable significant cardiomegaly. Stable left lower lobe infiltrate. Stable trace pleural effusions. IMPRESSION: Improvement in the pulmonary vascular congestion. Electronically signed by Maximus Crow 11/05/2019 8:23 AM
--- NOTE | 2019-11-05 08:26 | Diag Imaging Result Doc PS360 ---
LUNG SCAN / VQ - 11/05/2019 INDICATION: R/O PE TECHNIQUE: 6.4 mCi of MAA was administered COMPARISON: Chest x-ray 11/05/2019 FINDINGS: There is some decreased perfusion of the posterior basilar left lower lobe. This is involved with significant consolidation on the chest x-ray. Otherwise perfusion of the lungs appears normal. IMPRESSION: Low probability for pulmonary embolism. Electronically signed by Maximus Crow 11/05/2019 8:24 AM
--- NOTE | 2019-11-05 08:39 | EKG Report ---
Test Performed on : 11/03/2019 7:27:24 PM Test Reason : INCREASED CP Blood Pressure : / mmHG Vent. Rate : 105 BPM Atrial Rate : 119 BPM P-R Int : 000 ms QRS Dur : 074 ms QT Int : 364 ms P-R-T Axes : 000 -07 104 degrees QTc Int : 481 ms Atrial fibrillation. with rapid ventricular response. Abnormal QRS-T angle, consider primary T wave abnormality Abnormal ECG When compared with ECG of 03-NOV-2019 19:17, (Unconfirmed) T wave inversion less evident in Anterior leads Unconfirmed Result
[2019-11-05] MEDS: CARDIZEM CD PO SCH (08:40)
[2019-11-05] MEDS: ELIQUIS PO SCH ×2 (08:40→21:44)
[2019-11-05] MEDS: PEPCID PO SCH (08:40)
[2019-11-05] MEDS: LASIX IV SCH (08:40)
[2019-11-05] MEDS: ASPIRIN PO SCH (08:40)
[2019-11-05] MEDS: APRESOLINE PO SCH ×3 (08:40→16:01)
[2019-11-05] MEDS: COREG PO SCH ×2 (08:40→21:44)
[2019-11-05] MEDS: OXY IR PO PRN (08:50)
[2019-11-05] MEDS ORDERED: NS NEB INH SCH (12:15)
--- NOTE | 2019-11-05 12:34 | ECHO REPORT ---
ORDER DATE: 11/05/2019 INDICATION: Not provided. FINDINGS: 1. The right atrium appears normal in size. 2. Moderate tricuspid regurgitation. RV systolic pressure of 51. 3. The right ventricle appears dilated with mild reduction in RV systolic function. 4. No significant pulmonic insufficiency. 5. Normal left atrial size with a volume index of 23. 6. No mitral valve prolapse. Moderate and possibly severe mitral regurgitation. However, the normal size of the left atrium would argue for more likely moderate mitral regurgitation. 7. Normal LV size, end-diastolic dimension of 4.4 cm. Normal wall thicknesses with an interventricular septal wall thickness of 1 cm. There is normal LV systolic function with an estimated EF of 55-60%. Optison contrast was used. This was a difficult study. 8. Aortic valve appears to open well. There is mild insufficiency with no stenosis. 9. The aorta appears normal in visualized segments. 10. No pericardial effusion seen. 11. The IVC does appear to be dilated with a dimension of 2.9 cm. It does not appear to collapse. cc: MD Jim Stroud MD [facility]
--- NOTE | 2019-11-05 12:50 | PROGRESS NOTE ---
DATE: 11/05/2019 SUBJECTIVE: The patient seems to be feeling a little bit better compared to yesterday, but he is wheezing bilaterally/ V/Q scan today showed a low probability of pulmonary embolism. I will add Xopenex and steroids to his medications/ echocardiogram has been done, but pending results at this moment. OBJECTIVE: Vital signs: Temperature 97.8 degrees, pulse 87, respiratory rate 20, blood pressure 119/73, oxygen saturation 96 on 3 L of nasal cannula. HEENT: Head normocephalic, no trauma. PERRLA. Neck: Neck is supple. He does have some JVD, but it is hard to see because of his neck size. Chest: Some crackles at the bases and bilateral expiratory wheezing, prolonged expiratory phase. Abdomen: Soft, protuberant, nontender, nondistended. No hepatosplenomegaly. Extremities: His feet are swollen. Right foot has an ulcer at the plantar area. On the left foot, he has a lot of lesions and redness in between the toes. He has been placed on cefepime and also doxycycline. I will continue with same management and I have requested an evaluation by the Wound Care nurse. Neurological examination: Awake, alert, oriented. He is following commands. LABORATORY: WBC 5.4, hemoglobin 11.1, hematocrit 36.2, platelets 127. Sodium 134, potassium 4, chloride 98, bicarbonate 24. BUN 20, creatinine 1.9, glucose 104, calcium 8.4. Hemoglobin A1c 7.8. ASSESSMENT AND PLAN: 1. Chest pain radiating to the back. Troponins are stable. Electrocardiogram showed atrial fibrillation with rapid ventricular response that resolved after treatment with diltiazem drip. I have placed this patient back on his home medication. He seems to be doing good. His rate is controlled. This is chronic atrial fibrillation, and he has been placed back on anticoagulation as well pending echocardiogram results. 2. Atrial fibrillation with rapid ventricular response as above. Ventilation perfusion scan is basically negative for pulmonary embolism. 3. Hypoxemic and hypercarbic respiratory failure. His pCO2 is elevated and likely this is chronic. As per the patient, he has a CPAP machine at home, but he is not tolerating this. As per the patient, he needs to sleep basically sitting up in a recliner or a couch because of his back pain. 4. Chronic obstructive pulmonary disease exacerbation. Likely this patient also has pulmonary hypertension and diastolic dysfunction. I have placed this patient on breathing treatment, steroids, and pending echocardiogram. Continue with Lasix for now. 5. Chronic pain. As per the patient he goes to a pain clinic. Continue with medications as needed. 6. Hypothyroidism. I have increased the dose of the levothyroxine because his thyroid stimulating hormone was high and the T4 level was low. 7. Gastroesophageal reflux disease. Continue with same management. 8. Chronic kidney disease. This is his baseline. Continue with diuretics and monitor. 9. Hypertension. We have restarted this patient's medication. 10. Morbid obesity with a body mass index around 55.0. Diet and exercise has been discussed. 11. Hyperlipidemia. Continue with statins. 12. Likely diabetic foot ulcers. I think they may have some infection. He has been placed on antibiotics, and the Wound Care nurse has been consulted. 13. Pleural effusion. Continue with the same treatment. He is on Lasix. The effusion is getting better. We have a negative balance of 893 mL. cc: Jim Miller MD
[2019-11-05] MEDS: DOXYCYCLINE 100 MG in NS 250 ML IV SCH (12:57)
[2019-11-05] MEDS: SOLU-MEDROL IV SCH ×2 (16:00→22:58)
[2019-11-05] MEDS: XOPENEX NEB INH SCH ×2 (16:21→23:00)
[2019-11-05] MEDS: MAXIPIME 2 GM/NS 2 GM/100 ML IVPB IV SCH (21:12)
[2019-11-05] MEDS: ELAVIL PO SCH (21:44)
[2019-11-05] MEDS: MIRAPEX PO SCH (21:44)
[2019-11-05] MEDS: ZYRTEC PO SCH (21:44)
[2019-11-05] MEDS: PRILOSEC PO SCH (21:44)
[2019-11-05] MEDS: LIPITOR PO SCH (21:44)
[2019-11-05] MEDS: EFFEXOR XR PO SCH (21:44)
[2019-11-05] MEDS: GRALISE PO SCH (22:58)
[2019-11-06] MEDS: DOXYCYCLINE 100 MG in NS 250 ML IV SCH ×3 (00:21→23:09)
[2019-11-06] MEDS: OXY IR PO PRN ×2 (05:07→18:12)
[2019-11-06 05:35] LABS: HEMATOCRIT 37.1 % (42.0-52.0); HEMOGLOBIN 11.8 g/dL (14.0-18.0); LYMPH# 0.39 X1000 (1.2-3.4); LYMPH% 7.9 % (20.5-51.1); MCH 28.9 PG (27-31); MCHC 31.8 g/dL (33-37); MCV 90.7 FL (81-99); MONO# 0.08 X1000 (0.11-0.59); MONO% 1.6 % (1.7-9.3); MPV 12.3 FL (7.4-10.4); NEUT# 4.45 X1000 (1.4-6.5); NEUT% 90.5 % (42.2-75.2); PLT 140 X1000 (130-400); RBC 4.09 XMIL (4.7-6.1); RDW 14.4 % (11.5-14.5); WBC 4.92 X1000 (4.8-10.8)
[2019-11-06] MEDS: SYNTHROID PO SCH (06:06)
[2019-11-06] MEDS: HUMALOG SUBQ SCH ×4 (06:06→20:47)
[2019-11-06] MEDS: SOLU-MEDROL IV SCH ×3 (06:06→20:45)
[2019-11-06 06:15] LABS: CALCIUM 8.5 mg/dL (8.8-10.2); CREATININE 1.7 mg/dL (0.7-1.2); POTASSIUM 4.2 mmol/L (3.5-5.1)
[2019-11-06 06:57] LABS: LYMPHS 5 % (21-51); MONO 2 % (1-9); SEGS 93 % (42-75)
[2019-11-06] MEDS: COREG PO SCH ×2 (08:08→20:45)
[2019-11-06] MEDS: PEPCID PO SCH (08:08)
[2019-11-06] MEDS: ELIQUIS PO SCH ×2 (08:08→20:45)
[2019-11-06] MEDS: ASPIRIN PO SCH (08:08)
[2019-11-06] MEDS: APRESOLINE PO SCH ×3 (08:08→16:19)
[2019-11-06] MEDS: CARDIZEM CD PO SCH (08:08)
[2019-11-06] MEDS: LASIX PO SCH (08:10)
[2019-11-06] MEDS: XOPENEX NEB INH SCH ×3 (11:30→22:22)
--- NOTE | 2019-11-06 12:13 | PROGRESS NOTE ---
DATE: 11/06/2019 SUBJECTIVE: The patient seems to be feeling better compared to yesterday, he still wheezing a little bit bilaterally. A V/Q scan showed a low probability of pulmonary embolism. I will continue with same management and hopefully tomorrow I will start decreasing his dose of steroids. OBJECTIVE: Vital Signs: Temperature 97.8 degrees, pulse 82, respiratory rate 19, blood pressure 101/64, oxygen saturation 95% on 3 L of nasal cannula. HEENT: Head normocephalic. No trauma. PERRLA. Neck: Supple. No JVD. No masses. Central trachea. Chest: He has some crackles at the bases, bilateral expiratory wheezing, prolonged expiratory phase. Abdomen: Soft, protuberant. Extremities: His feet are swollen. His right foot has an ulcer in the plantar area, on the left foot he has a lot of lesions and redness in between the toes. He has been placed on cefepime and doxycycline. I will continue with same management. He seems to be improving. Wound Care on board. Neurological Examination: Awake, alert. He is following commands. LABORATORY: WBC 4.9, hemoglobin 11.8, hematocrit 37.1, platelets 140,000. Sodium 134, potassium 4.2, chloride 96, bicarbonate 28, BUN 23, creatinine 1.7, glucose 179, calcium 8.5. ASSESSMENT AND PLAN: 1. Chest pain radiating to the back, resolved, he has chronic atrial fibrillation. Echocardiogram showed the possibility of diastolic dysfunction, moderate mitral regurgitation. His ejection fraction is 55% to 60%, likely pulmonary hypertension. 2. Atrial fibrillation with rapid ventricular response, resolved. Continue with home medications. 3. Hypoxemic and hypercarbic respiratory failure likely due to chronic obstructive pulmonary disease exacerbation and some fluid overload. I do not think this patient is taking Lasix at home even though he states that he has been on Lasix before, I will continue with the same management for now. He seems to be getting better, but likely he will need to go home with oxygen. 4. Chronic obstructive pulmonary disease exacerbation. Continue with steroids, breathing treatment, and oxygen supplementation. 5. Likely pulmonary hypertension and diastolic dysfunction. Aware. Continue with diuretics. 6. Hypothyroidism. I have increased the dose of the levothyroxine because his thyroid stimulating hormone is high and T4 is low. 7. Gastroesophageal reflux disease. Continue with the same management. 8. Chronic kidney disease. It looks like this is his baseline. Continue to monitor. Continue with diuretics. 9. Hypertension. I have restarted this patient's medication. 10. Morbid obesity with a body mass index of 40. Aware. Diet and exercise have been discussed. 11. Hyperlipidemia. Continue with statins. 12. Likely diabetic foot ulcers, possible mild cellulitis, he has been placed on antibiotics. Wound Care nurse has been on board. 13. Pleural effusion. Continue with Lasix. So far, we have a negative balance of 4.1 L. cc: Jim Miller MD
[2019-11-06] MEDS: MIRAPEX PO SCH (20:44)
[2019-11-06] MEDS: GRALISE PO SCH (20:44)
[2019-11-06] MEDS: MAXIPIME 2 GM/NS 2 GM/100 ML IVPB IV SCH (20:44)
[2019-11-06] MEDS: PRILOSEC PO SCH (20:44)
[2019-11-06] MEDS: ZYRTEC PO SCH (20:45)
[2019-11-06] MEDS: EFFEXOR XR PO SCH (20:45)
[2019-11-06] MEDS: ELAVIL PO SCH (20:45)
[2019-11-06] MEDS: LIPITOR PO SCH (20:45)
[2019-11-07] MEDS: OXY IR PO PRN (06:17)
[2019-11-07] MEDS: SOLU-MEDROL IV SCH (06:17)
[2019-11-07] MEDS: SYNTHROID PO SCH (06:17)
[2019-11-07] MEDS: HUMALOG SUBQ SCH (06:17)
[2019-11-07 07:20] LABS: CALCIUM 8.5 mg/dL (8.8-10.2); CREATININE 1.7 mg/dL (0.7-1.2); POTASSIUM 4.3 mmol/L (3.5-5.1)
[2019-11-07 07:33] VITALS: BP 142/97
[2019-11-07] MEDS: PEPCID PO SCH (09:19)
[2019-11-07] MEDS: COREG PO SCH (09:19)
[2019-11-07] MEDS: ASPIRIN PO SCH (09:19)
[2019-11-07] MEDS: LASIX PO SCH (09:19)
[2019-11-07] MEDS: ELIQUIS PO SCH (09:19)
[2019-11-07] MEDS: CARDIZEM CD PO SCH (09:19)
[2019-11-07] MEDS: APRESOLINE PO SCH (09:19)
[2019-11-07] MEDS: XOPENEX NEB INH SCH (09:36)
--- NOTE | 2019-11-07 16:01 | DISCHARGE SUMMARY ---
ADMISSION DATE: 11/03/2019 DISCHARGE DATE: 11/07/2019 DISCHARGE DIAGNOSES: 1. Chest pain radiating to the back, resolved. 2. Chronic atrial fibrillation with rapid ventricular response upon presentation, resolved. 3. Hypoxemic and hypercarbic respiratory failure due to chronic obstructive pulmonary disease exacerbation and fluid overload. 4. Chronic obstructive pulmonary disease exacerbation. 5. Possible pulmonary hypertension and diastolic dysfunction. 6. Hypothyroidism. 7. Gastroesophageal reflux disease. 8. Chronic kidney disease. 9. Hypertension. 10. Morbid obesity with a body mass index of 40. 11. Hyperlipidemia. 12. Diabetic foot ulcers with mild cellulitis. 13. Pleural effusion. PROCEDURES PERFORMED: Chest x-ray dated 11/03/2019, impression: Fibrosis of the left costophrenic angle. No evidence of acute disease. CT scan dated 11/04/2019, impression: Right pleural effusion. Lung V/Q scan dated 11/05/2019, impression: Low probability of pulmonary embolism. Chest x-ray dated 11/05/2019, impression: Improvement of the pulmonary vascular congestion. HOSPITAL COURSE: A 69-year-old male with multiple comorbidities including chronic atrial fibrillation, chronic pain, COPD, diabetes, hypertension, chronic venous stasis, chronic right foot ulcer, GERD, hypertension, hyperlipidemia, morbid obesity, obstructive sleep apnea, likely pulmonary hypertension with diastolic dysfunction and peripheral venous stasis. Presented to the emergency department with a chief complaint of shortness of breath and back pain. He was actually recently in the hospital with acute on chronic leg infection and was discharged to rehab. He states that he has been at home a few days, but he ran out of his pain medication, he started having some chest pain radiating through his back, some dry cough and orthopnea, which is stable. He was found to be on atrial fibrillation with rapid ventricular response. He was given IV diltiazem push and then he was placed on a drip, he denied any fever, chills, nausea, vomiting. He endorsed significant pain most of which is chronic, the pain in the chest radiated to his back resolved during this hospitalization. He denied any palpitation or diaphoresis. He had chronic shortness of breath and orthopnea and actually he sleeps sitting up. He should be using a CPAP machine but since he is sleeping sitting up, he is not using it. He denied any significant change in his lower extremities but we found this that this patient has an ulcer which is chronic and also has some redness, so he was placed on antibiotics. We did a CT scan that showed right pleural effusion, so we put him on some Lasix and actually close to 5 L of negative balance we had during this hospitalization and he started feeling significantly better, especially at the level of the lower extremities. The case has been discussed also with the by phone. He is feeling better today and he would like to go home. I did a home O2 evaluation and he qualified for oxygen at home. His last x-ray done on 08/28/2019 showed an improvement in the pulmonary vascular congestion and overall he is feeling much better. Lungs, V/Q scan showed a low probability of clots. He was placed back on his home medications with no issues. He has a chronic kidney disease, but also has a lot of some swelling, so I will go ahead and put him on a low dose of Lasix to see how he does. During this hospitalization his creatinine has been stable with 40 of Lasix daily. I will send him home with 20; he agreed with that. He was evaluated also by the wound care nurse. Unna boots were placed at the level of the lower extremities, and we asked the patient to follow up with the Wound Care Clinic as an outpatient. Also, he will go home with home health, which will do this kind of boots for him as well. DISCHARGE PHYSICAL EXAMINATION: Vital signs: Temperature 98 degrees, pulse 83, respiratory rate 20, blood pressure 142/97, oxygen saturation 96 on 3 L of nasal cannula. HEENT: Head normocephalic, no trauma. PERRLA. Neck is supple. No JVD. No masses. Central trachea. Chest: He has some minimal crepitus at the base at the lung bases. Abdomen: Soft, protuberant. Extremities: His feet are slightly swollen with some redness. He has a right foot with a plantar ulcer but I do not see any secretion. It looks clean. It is not going down to the bone. On the left foot, he has some redness in between the toes, but much better compared with admission. Neurologic: Awake, alert, oriented. No focal deficits. LABORATORY: Sodium 132, potassium 4.3, chloride 94, bicarbonate 21, BUN 27, creatinine 1.7, glucose 201, calcium 8.5. ProBNP down from 8000 to 6000. DISCHARGE MEDICATIONS: Tudorza inhaler 1 puff inhaler b.i.d., albuterol sulfate 1-2 inhalations as directed, amitriptyline 50 mg p.o. at bedtime, Augmentin 875 mg p.o. b.i.d., Eliquis 5 mg p.o. b.i.d., aspirin 81 mg p.o. daily, atorvastatin 40 mg p.o. at bedtime, carvedilol 12.5 mg p.o. b.i.d., Zyrtec 10 mg p.o. at bedtime diltiazem HCL 240 mg p.o. daily, doxycycline 100 mg p.o. b.i.d., famotidine 20 mg p.o. daily, Lasix 20 mg p.o. daily, gabapentin 300 mg p.o. at bedtime, glipizide 5 mg p.o. b.i.d., hydralazine 25 mg p.o. t.i.d., insulin Aspart sliding scale. Levothyroxine 75 mcg p.o. daily, Medrol Dosepak 4 mg p.o. as directed, nitroglycerin 1 tablet p.o. as directed, omeprazole 40 mg p.o. at bedtime, oxycodone IR 15 mg p.o. q.6 hours as needed, Mirapex 1.5 mg p.o. at bedtime, Phenergan 25 mg p.o. q.6 hours as needed, Carafate 1 g p.o. before meals and at bedtime and venlafaxine 75 mg p.o. at bedtime. TIME DISCHARGING THIS PATIENT: Thirty-five minutes. cc: Jim Miller MD
== END 2019-11-07 11:47 | disposition home health service (06) | DRG 308 ==
LOC: SUPCPDRO → ED 13:32 → SUATTDRO 22:00 → 2N 22:00
PROVIDERS: ATTEND Internal Medicine